=== PATIENT | male | born 1980 | race Caucasian/White ===

== ENCOUNTER 2018-04-01 11:58 | Emergency (ER) | payer MEDICAID, SELFPAY ==
[2018-04-01 12:03] VITALS: BP 147/96; PULSE 100; RESP 18; TEMP 37.1; O2SAT 96
[2018-04-01 12:45] VITALS: BP 122/71; PULSE 79; RESP 18; O2SAT 96
[2018-04-01 13:00] VITALS: BP 109/81; PULSE 82; RESP 18; O2SAT 95
--- NOTE | 2018-04-01 13:02 | W.ED.GENAD ---
Discharge Plan Disposition Patient Disposition: HOME Condition: Improving Discharge Details Chief Complaint: ETOHWithdr Clinical Impression: Alcohol dependence, Fatigue, Hypokalemia, Transaminitis, Fatty liver, Vomiting Primary Care Provider: Unknown,Unknown ED Provider: Brandy Field Home Meds and New Rx's Prescriptions: No Action pantoprazole [Protonix] 40 MG tablet,delayed release (DR/EC) 40 mg PO DAILY Qty: 30 RF: 0 potassium chloride 20 MEQ tablet,ER particles/crystals 20 meq PO DAILY Qty: 7 RF: 0 lorazepam 1 MG tablet 1 mg PO BID PRN PRN (Reason: Alcohol Withdrawal) Qty: 5 RF: 0 Discharge Instructions Instructions: Hypokalemia (ED), Acute Nausea and Vomiting (ED), Fatigue (ED), Alcohol Use Disorder (ED) Additional Instructions: Stop drinking alcohol safely under the direction of a rehab or physician. You can stop drinking more safely with the assistance of benzodiazepines which act as a present similar to alcohol. You cannot drink alcohol if you are taking the Ativan. Take Compazine as needed and directed for nausea or vomiting. Refer to the information you have at home regarding outpatient alcoholic rehab services. Follow-up with your primary care doctor in 1 week for reevaluation and for recheck of your liver function. Return to the emergency department if you develop any worsening or new concerning symptoms such as palpitations, persistent vomiting, worsening abdominal pain, or any other concerns. Discharge Data Discharge Physician: Brandy Field Medical Decision Making 2-year-old male with a history of alcoholism who presents for body aches, fatigue for 2 weeks, worse over the past week. States his last alcoholic drink was just prior to arrival. Symptoms briefly improved with alcohol less and less. Was at rehab for alcohol this past summer but resumed alcohol 3 weeks later. Patient appears mildly intoxicated, smells of alcohol but otherwise appears in no acute distress. Blood pressure room 127/78. Heart rate 81. Remainder of vitals within normal limits. He has mild to moderate upper abdominal tenderness to palpation. No focal deficits. No asterixis. Discussed with patient that his symptoms can be due to his alcoholism including generalized poor nutrition. We can rule out any other acute conditions such as anemia, electrolyte abnormality, liver disease, pancreatitis. Patient just had a drink prior to arrival, with normal vitals, do not suspect acute alcohol withdrawal. Patient states he feels like he wants to stop drinking but also would drink to stop his symptoms. Will place an IV, bolus IV fluids, labs, urinalysis, chest x-ray and dose of Compazine. 1700 --labs and imaging reviewed. Potassium 3.2 will replete. Anion gap 17.2, suspect due to dehydration. AST 232, ALT 205, suspect due to alcoholic liver disease. Lipase normal. Urinalysis and UDS negative. Chest x-ray negative. CT abdomen and pelvis noted fatty infiltration likely due to alcoholic fatty liver disease. 1714 --patient states he feels better and is requesting to go home. Recheck heart rate 80s, blood pressure 124/72. Patient does not appear in acute alcohol withdrawal. Patient states he wants to stop drinking. He states he has information at home regarding outpatient rehab services. States he went to [facility] before and will possibly go here again. Patient admitted to [facility] here. Will send home with 3 tabs of Compazine. Patient states he does not want to drink but would like to safely stop drinking, will send home with 3 tabs of Ativan. Patient was instructed that he cannot drink alcohol and take Ativan due to risk of respiratory depression. Girlfriend is present in room and she fully understands and will help patient at home. Instructed to follow-up with primary care doctor for repeat assessment of liver enzymes and for reevaluation. Instructed to return if worse. HPI General Mode of arrival: ambulatory. Date/Time Provider Initiated Documentation: 04/01/18 12:11. Limitations to Documentation: no limitations. Information obtained by: patient. HPI Narrative: Patient is a 2-year-old male with a history of alcohol use and previous history of IV drug use who presents for body aches, fatigue, nausea, shaking for the past 2 weeks, worse over the past week. Patient states he drinks approximately half a gallon of liquor daily. He admits to rare marijuana use but not recently. He states I feel like my body is shutting down. He states he feels that he has been eating and drinking normally but girlfriend in room states he has a poor appetite. He has been vomiting approximately 3 times daily for the past 4 days which has been clear. He admits to diarrhea 4 times daily recently which is been watery and brown. He also admits to upper abdominal pain which he describes as numb . He denies any abdominal pain at present. He denies neck pain, urinary symptoms, sore throat, chest pain or shortness of breath. Past medical history: Narcotic drug abuse, alcohol abuse Surgical history: None Social history: Smokes tobacco, daily alcohol use, rare marijuana. Medications: None Allergies: None PCP: [facility] Related Data Home Medications Medication Instructions Recorded Confirmed lorazepam 1 mg PO BID PRN PRN #5 tab 10/31/17 pantoprazole [Protonix] 40 mg PO DAILY #30 tablet. 10/31/17 potassium chloride 20 meq PO DAILY #7 tab.er.prt 10/31/17 Previous Rx's Medication Instructions Recorded lorazepam 1 mg PO BID PRN PRN #5 tab 10/31/17 pantoprazole [Protonix] 40 mg PO DAILY #30 tablet. 10/31/17 potassium chloride 20 meq PO DAILY #7 tab.er.prt 10/31/17 Allergies Allergy/AdvReac Type Severity Reaction Status Date / Time No Known Allergies Allergy Unverified 10/31/17 22:01 General Stated Complaint: ETOHWithdr FLOYD: 2 Review of Systems Review of Systems All systems reviewed & are unremarkable except as noted in HPI and below Constitutional Denies chills, Denies excessive sweating, Reports fatigue, Denies fever(s), Reports lethargy, Reports weakness and Denies weight loss Eyes Reports system reviewed and no additional complaints, except as docu and Denies blurry vision ENT Denies vertigo, Denies dizziness, Denies otalgia, Denies nasal congestion, Denies sore throat and Denies throat swelling Cardiovascular Denies chest pain, Denies syncope, Denies rapid heart rate and Denies dyspnea Respiratory Denies dyspnea Gastrointestinal Reports abdominal pain, Denies diarrhea, Reports nausea and Denies vomiting Genitourinary Denies hematuria, Denies dysuria and Reports flank pain Musculoskeletal Reports back pain and Denies joint swelling Integumentary/Breasts Denies lesions and Denies rash Neurologic Denies behavioral changes, Denies confusion, Denies vertigo, Denies dizziness, Denies syncope and Reports weakness Psychiatric Denies behavioral changes, Denies confusion and Denies depression Endocrine Denies excessive sweating and Reports fatigue Hematologic/Lymphatic Denies easy bruising and Denies lymphadenopathy Allergic/Immunologic Denies throat swelling [facility] Social History Smoking/Tobacco Use Status: Current every day Exam Const General: cooperative, no acute distress and intoxicated appearing (mild) Orientation: alert, awake and oriented x3 HENMT Head: normal to inspection Ears: hearing grossly normal bilaterally, external ears normal and TM's normal bilaterally General nose exam: external nose normal Face and sinus: normal facial exam Mouth: oral mucosae normal Teeth and gingiva: dentition normal Throat: posterior oropharynx normal Eyes General: appearance normal, both eyes and all related structures Eyelids: eyelids normal Pupils: PERRL EOM: EOM intact bilaterally Neck Neck: normal visual inspection Lymphatic: no lymphadenopathy noted Chest Chest: normal inspection of the chest Resp Effort & Inspection: normal respiratory effort and able to speak in complete sentences Auscultation: clear to auscultation bilaterally Cardio Rate: regular rate Rhythm: regular rhythm GI Inspection: normal to inspection Palpation: soft, not firm, no guarding, no hepatosplenomegaly, no masses and tender (Mild in upper abdomen) Auscultation: normal bowel sounds Back/Spine/Pelvis Back: no CVA tenderness Skin General skin exam: no rashes or lesions noted and other (alexandria skin complexion) Neuro General: alert and awake Cognition: normal cognition Speech: speech normal Gait: normal gait Motor: muscle tone normal throughout, strength 5/5 throughout, no pronator drift noted and No asterixis Sensory Exam: no sensory deficits noted Extrem General: normal to inspection, full ROM and normal capillary refill Psych Appearance: grossly normal Mental Status: mental status grossly normal Speech and Movement: speech and movement normal Affect: normal affect Thought Process: normal Course Vital Signs Temperature 98.8 F 04/01/18 12:03 Pulse 100 H 04/01/18 12:03 Respiratory Rate 18 04/01/18 12:03 Blood Pressure 147/96 H 04/01/18 12:03 Pulse Oximetry 96 04/01/18 12:03 Temperature 98.8 F 04/01/18 12:03 Temperature Source Temporal Artery Scan 04/01/18 12:03 Pulse 100 H 04/01/18 12:03 Respiratory Rate 18 04/01/18 12:03 Respiratory Effort Non-Labored 04/01/18 12:07 Respiratory Pattern Normal 04/01/18 12:07 Blood Pressure 147/96 H 04/01/18 12:03 Blood Pressure Position Sitting 04/01/18 12:03 Pulse Oximetry 96 04/01/18 12:03 Oxygen Delivery Method Room Air 04/01/18 12:03 Oxygen Flow Rate 0 04/01/18 12:03 Pain Level 5 04/01/18 12:03
--- NOTE | 2018-04-01 13:05 | ED.GENADUL_ITS ---
Discharge Plan Disposition Patient Disposition: HOME Condition: Improving Discharge Details Chief Complaint: ETOHWithdr Clinical Impression: Alcohol dependence, Fatigue, Hypokalemia, Transaminitis, Fatty liver, Vomiting Primary Care Provider: Unknown,Unknown ED Provider: Brandy Field Home Meds and New Rx's Prescriptions: No Action pantoprazole [Protonix] 40 MG tablet,delayed release (DR/EC) 40 mg PO DAILY Qty: 30 RF: 0 potassium chloride 20 MEQ tablet,ER particles/crystals 20 meq PO DAILY Qty: 7 RF: 0 lorazepam 1 MG tablet 1 mg PO BID PRN PRN (Reason: Alcohol Withdrawal) Qty: 5 RF: 0 Discharge Instructions Instructions: Hypokalemia (ED), Acute Nausea and Vomiting (ED), Fatigue (ED), Alcohol Use Disorder (ED) Additional Instructions: Stop drinking alcohol safely under the direction of a rehab or physician. You can stop drinking more safely with the assistance of benzodiazepines which act as a present similar to alcohol. You cannot drink alcohol if you are taking the Ativan. Take Compazine as needed and directed for nausea or vomiting. Refer to the information you have at home regarding outpatient alcoholic rehab services. Follow-up with your primary care doctor in 1 week for reevaluation and for recheck of your liver function. Return to the emergency department if you develop any worsening or new concerning symptoms such as palpitations, persistent vomiting, worsening abdominal pain, or any other concerns. Discharge Data Discharge Physician: Brandy Field Medical Decision Making 2-year-old male with a history of alcoholism who presents for body aches, fatigue for 2 weeks, worse over the past week. States his last alcoholic drink was just prior to arrival. Symptoms briefly improved with alcohol less and less. Was at rehab for alcohol this past summer but resumed alcohol 3 weeks later. Patient appears mildly intoxicated, smells of alcohol but otherwise appears in no acute distress. Blood pressure room 127/78. Heart rate 81. Remainder of vitals within normal limits. He has mild to moderate upper abdominal tenderness to palpation. No focal deficits. No asterixis. Discussed with patient that his symptoms can be due to his alcoholism including generalized poor nutrition. We can rule out any other acute conditions such as anemia, electrolyte abnormality, liver disease, pancreatitis. Patient just had a drink prior to arrival, with normal vitals, do not suspect acute alcohol withdrawal. Patient states he feels like he wants to stop drinking but also would drink to stop his symptoms. Will place an IV, bolus IV fluids, labs, urinalysis, chest x-ray and dose of Compazine. 1700 --labs and imaging reviewed. Potassium 3.2 will replete. Anion gap 17.2, suspect due to dehydration. AST 232, ALT 205, suspect due to alcoholic liver disease. Lipase normal. Urinalysis and UDS negative. Chest x-ray negative. CT abdomen and pelvis noted fatty infiltration likely due to alcoholic fatty liver disease. 1714 --patient states he feels better and is requesting to go home. Recheck heart rate 80s, blood pressure 124/72. Patient does not appear in acute alcohol withdrawal. Patient states he wants to stop drinking. He states he has information at home regarding outpatient rehab services. States he went to [facility] before and will possibly go here again. Patient admitted to [facility] here. Will send home with 3 tabs of Compazine. Patient states he does not want to drink but would like to safely stop drinking, will send home with 3 tabs of Ativan. Patient was instructed that he cannot drink alcohol and take Ativan due to risk of respiratory depression. Girlfriend is present in room and she fully understands and will help patient at home. Instructed to follow-up with primary care doctor for repeat assessment of liver enzymes and for reevaluation. Instructed to return if worse. HPI General Mode of arrival: ambulatory . Date/Time Provider Initiated Documentation: 04/01/18 12:11 . Limitations to Documentation: no limitations . Information obtained by: patient . HPI Narrative: Patient is a 2-year-old male with a history of alcohol use and previous history of IV drug use who presents for body aches, fatigue, nausea, shaking for the past 2 weeks, worse over the past week. Patient states he drinks approximately half a gallon of liquor daily. He admits to rare marijuana use but not recently. He states I feel like my body is shutting down . He states he feels that he has been eating and drinking normally but girlfriend in room states he has a poor appetite. He has been vomiting approximately 3 times daily for the past 4 days which has been clear. He admits to diarrhea 4 times daily recently which is been watery and brown. He also admits to upper abdominal pain which he describes as numb . He denies any abdominal pain at present. He denies neck pain, urinary symptoms, sore throat, chest pain or shortness of breath. Past medical history: Narcotic drug abuse, alcohol abuse Surgical history: None Social history: Smokes tobacco, daily alcohol use, rare marijuana. Medications: None Allergies: None PCP: [facility] Related Data Home Medications Medication Instructions Recorded Confirmed lorazepam 1 mg PO BID PRN PRN #5 tab 10/31/17 pantoprazole [Protonix] 40 mg PO DAILY #30 tablet. 10/31/17 potassium chloride 20 meq PO DAILY #7 tab.er.prt 10/31/17 Previous Rx's Medication Instructions Recorded lorazepam 1 mg PO BID PRN PRN #5 tab 10/31/17 pantoprazole [Protonix] 40 mg PO DAILY #30 tablet. 10/31/17 potassium chloride 20 meq PO DAILY #7 tab.er.prt 10/31/17 Allergies Allergy/AdvReac Type Severity Reaction Status Date / Time No Known Allergies Allergy Unverified 10/31/17 22:01 General Stated Complaint: ETOHWithdr FLOYD: 2 Review of Systems Review of Systems All systems reviewed & are unremarkable except as noted in HPI and below Constitutional Denies chills, Denies excessive sweating, Reports fatigue, Denies fever(s), Reports lethargy, Reports weakness and Denies weight loss Eyes Reports system reviewed and no additional complaints, except as docu and Denies blurry vision ENT Denies vertigo, Denies dizziness, Denies otalgia, Denies nasal congestion, Denies sore throat and Denies throat swelling Cardiovascular Denies chest pain, Denies syncope, Denies rapid heart rate and Denies dyspnea Respiratory Denies dyspnea Gastrointestinal Reports abdominal pain, Denies diarrhea, Reports nausea and Denies vomiting Genitourinary Denies hematuria, Denies dysuria and Reports flank pain Musculoskeletal Reports back pain and Denies joint swelling Integumentary/Breasts Denies lesions and Denies rash Neurologic Denies behavioral changes, Denies confusion, Denies vertigo, Denies dizziness, Denies syncope and Reports weakness Psychiatric Denies behavioral changes, Denies confusion and Denies depression Endocrine Denies excessive sweating and Reports fatigue Hematologic/Lymphatic Denies easy bruising and Denies lymphadenopathy Allergic/Immunologic Denies throat swelling [facility] Social History Smoking/Tobacco Use Status: Current every day Exam Const General: cooperative, no acute distress and intoxicated appearing (mild) Orientation: alert, awake and oriented x3 HENMT Head: normal to inspection Ears: hearing grossly normal bilaterally, external ears normal and TM's normal bilaterally General nose exam: external nose normal Face and sinus: normal facial exam Mouth: oral mucosae normal Teeth and gingiva: dentition normal Throat: posterior oropharynx normal Eyes General: appearance normal, both eyes and all related structures Eyelids: eyelids normal Pupils: PERRL EOM: EOM intact bilaterally Neck Neck: normal visual inspection Lymphatic: no lymphadenopathy noted Chest Chest: normal inspection of the chest Resp Effort & Inspection: normal respiratory effort and able to speak in complete sentences Auscultation: clear to auscultation bilaterally Cardio Rate: regular rate Rhythm: regular rhythm GI Inspection: normal to inspection Palpation: soft, not firm, no guarding, no hepatosplenomegaly, no masses and tender (Mild in upper abdomen) Auscultation: normal bowel sounds Back/Spine/Pelvis Back: no CVA tenderness Skin General skin exam: no rashes or lesions noted and other (alexandria skin complexion) Neuro General: alert and awake Cognition: normal cognition Speech: speech normal Gait: normal gait Motor: muscle tone normal throughout, strength 5/5 throughout, no pronator drift noted and No asterixis Sensory Exam: no sensory deficits noted Extrem General: normal to inspection, full ROM and normal capillary refill Psych Appearance: grossly normal Mental Status: mental status grossly normal Speech and Movement: speech and movement normal Affect: normal affect Thought Process: normal Course Vital Signs Temperature 98.8 F 04/01/18 12:03 Pulse 100 H 04/01/18 12:03 Respiratory Rate 18 04/01/18 12:03 Blood Pressure 147/96 H 04/01/18 12:03 Pulse Oximetry 96 04/01/18 12:03 Temperature 98.8 F 04/01/18 12:03 Temperature Source Temporal Artery Scan 04/01/18 12:03 Pulse 100 H 04/01/18 12:03 Respiratory Rate 18 04/01/18 12:03 Respiratory Effort Non-Labored 04/01/18 12:07 Respiratory Pattern Normal 04/01/18 12:07 Blood Pressure 147/96 H 04/01/18 12:03 Blood Pressure Position Sitting 04/01/18 12:03 Pulse Oximetry 96 04/01/18 12:03 Oxygen Delivery Method Room Air 04/01/18 12:03 Oxygen Flow Rate 0 04/01/18 12:03 Pain Level 5 04/01/18 12:03
[2018-04-01] MEDS: Normal Saline 1,000 ML 1000 ML IV (13:20)
[2018-04-01 13:27] LABS: Abs Immature Grans 0.02 k/cumm (0.0-0.09); Absolute Basophil Count 0.02 k/cumm (0.0-0.2); Absolute Eosinophil Count 0.08 k/cumm (0.0-0.7); Absolute Lymphocyte Count 2.03 k/cumm (1.2-3.4); Absolute Monocyte Count 0.95 k/cumm (0.11-0.7); Absolute Neutrophil Count 2.34 k/cumm (1.2-6.7); Basophils % 0.4; Eosinophils % 1.5; HCT 48.4 % (40.0-50.0); HGB 17.5 g/dL (13.5-17.5); Immature Grans % 0.4; Lymphocytes % 37.3; Mean Corp. HGB Concentration 36.2 g/dL (32.0-36.0); Mean Corpuscular Hemoglobin 34.9 pg (27.0-33.0); Mean Corpuscular Volume 96.6 fL (80-95); Mean Platelet Volume 11.2 fL (8.0-11.0); Monocytes % 17.5; Neutrophils % 42.9; Platelet Count 140 x1000/uL (130-400); RBC 5.01 m/cumm (4.50-6.00); RBC Distribution Width 12.6 % (11.8-14.1); White Blood Cell Count 5.44 k/cumm (4.4-10.8)
--- NOTE | 2018-04-01 13:28 | DI.RAD_ITS ---
SYMPTOM/DIAGNOSIS: FATIGUE, ALCOHOLISM, RULE OUT PNEUMONIA. PA AND LATERAL CHEST: 04/01/18 The heart is normal in size. The lungs are clear. The mediastinal structures and pleura appear intact. CONCLUSION: Normal chest.
[2018-04-01 13:39] LABS: Magnesium 2.3 mg/dL (1.8-2.4)
[2018-04-01 13:44] LABS: ALT 205 U/L (12-78); AST 232 U/L (15-37); Alkaline Phosphatase 104 U/L (46-116); Anion Gap 17.2 mmol/L (3-11); BUN 7 mg/dL (7-18); Bilirubin, Total 0.4 mg/dL (0.2-1.0); CO2 22.8 mmol/L (21.0-32.0); CREATININE 0.94 mg/dL (0.70-1.30); Calcium 9.3 mg/dL (8.5-10.1); Chloride 100 mmol/L (98-107); ETHANOL BLOOD 219.5 mg/dL (<3); Glucose 142 mg/dL (70-100); Lipase 263 U/L (73-393); Potassium 3.2 mmol/L (3.5-5.1); Sodium 140 mmol/L (136-145); Total Protein 8.2 g/dL (6.4-8.2)
[2018-04-01 13:51] LABS: Bilirubin Negative (Negative); Blood Negative (Negative); Clarity Clear; Glucose Negative (Negative); Ketones Negative (Negative); Leukocyte Esterase Negative (Negative); Nitrite Negative (Negative); Urobilinogen 0.2 EU/dL (Up TO 0.2)
--- NOTE | 2018-04-01 13:53 | DI.VRAD_ITS ---
EXAM: XR Chest, 2 Views CLINICAL HISTORY: 38 years old, male; Signs and symptoms; Other: Increased fatique; Patient HX: Fatigue, alcoholism, R/O pneumonia. TECHNIQUE: Frontal and lateral views of the chest. COMPARISON: CR ABD FLAT UPRIGHT PA CHEST 10/31/2017 10:50 PM FINDINGS: Old granulomatous disease. Mild hyperaeration unchanged. No focal consolidation. No pleural effusion. IMPRESSION: No definite evidence of acute cardiopulmonary disease. Dictated and Authenticated by: Dereck Watson MD. Ordering:BUBBA GILL MD
[2018-04-01 15:00] LABS: *AMPHETAMINES SCREEN URINE Negative (Negative); *BARBITURATES SCREEN URINE Negative (Negative); *BENZODIAZEPINES SCREEN URINE Negative (Negative); Cannabinoids THC Negative (Negative); Cocaine Screen,Urine Negative (Negative); METHADONE URINE SCREEN Negative (Negative); OPIATES URINE SCREEN Negative (Negative)
[2018-04-01 15:16] LABS: Tricyclic Antidepressants Negative (Negative)
--- NOTE | 2018-04-01 15:22 | DI.CT_ITS ---
SYMPTOM/DIAGNOSIS: UPPER ABDOMINAL PAIN, TRANSAMINITIS ABDOMINAL AND PELVIC CT: 04/01 CT examination of the abdomen and pelvis was performed with a bolus infusion of 100 cc Omnipaque 350. Images obtained through the lung bases are unremarkable. Note is made of marked hepatic steatosis and the liver is enlarged. Spleen is unremarkable in appearance. No significant abdominal wall hernia seen. No significant abdominal or pelvic adenopathy identified. Abdominal aorta is of normal diameter and no major vascular abnormality is seen. Adrenals and kidneys appear normal. Appendix appears normal. No evidence of diverticulitis or bowel obstruction. Gallbladder is CT normal and no biliary dilatation is seen. Pancreas is unremarkable. CONCLUSION: Marked hepatic steatosis. Examination is otherwise unremarkable.
--- NOTE | 2018-04-01 15:30 | DI.VRAD_ITS ---
EXAM: CT Abdomen and Pelvis With Intravenous Contrast CLINICAL HISTORY: 38 years old, male; Pain; Abdominal pain; Other: Transaminitis TECHNIQUE: Axial computed tomography images of the abdomen and pelvis with intravenous contrast. Coronal and sagittal reformatted images were created and reviewed. COMPARISON: No relevant prior studies available. FINDINGS: Diffuse fatty infiltration of liver. Appendix appears normal. Otherwise normal appearing solid organs. No intestinal obstruction. No obstructive uropathy. No free fluid. No free air. No inflammatory changes. IMPRESSION: No specific etiology identified for the patient's symptoms. Dictated and Authenticated by: Dereck Watson MD. Ordering:BUBBA GILL MD
[2018-04-01] MEDS: Omnipaque 350 MG/ML 100 ML BTL IJ (15:31)
[2018-04-01 16:01] VITALS: BP 139/84; PULSE 77; RESP 16; TEMP 36.9; O2SAT 97
[2018-04-01] MEDS: Potassium Chloride 20 MEQ TABCR 40 MEQ PO (17:21)
[2018-04-01] MEDS: Prochlorperazine 10 MG TAB PO (17:51)
[2018-04-01] MEDS: LORazepam 0.5 MG TAB PO (17:51)
[2018-04-01 17:52] VITALS: BP 139/84; PULSE 77; RESP 16; TEMP 36.9; O2SAT 97
== END 2018-04-01 17:53 | disposition home or self-care (01) ==
PROVIDERS: Emergency Provider Physician Assistant
DX: F10.229 Alcohol dependence with intoxication, unspecified (principal); Y90.7 Blood alcohol level of 200-239 mg/100 ml; E87.6 Hypokalemia; R74.0 Nonspecific elevation of levels of transaminase and lactic acid dehydrogenase [LDH]; R53.83 Other fatigue
CPT/HCPCS: 36415; 80053; 80307; 83690; 96360; 96361; 99285; 71046; 74177; 80320; 81003; 83735; 85025; J3490

== ENCOUNTER 2018-12-13 07:43 | Emergency (ER) | payer MEDICAID, SELFPAY ==
[2018-12-13 07:50] VITALS: BP 135/90; PULSE 100; RESP 18; TEMP 37.1; O2SAT 98
--- NOTE | 2018-12-13 08:02 | ED.GENADUL_ITS ---
Discharge Plan Disposition Patient Disposition: HOME Condition: Stable Discharge Details Chief Complaint: Nk/Back Pain Clinical Impression: Chronic back pain Primary Care Provider: Unknown,Unknown ED Provider: Belinda Carroll Home Meds and New Rx's Prescriptions: New prednisone 20 mg tablet 40 mg PO DAILY Qty: 8 RF: 0 lidocaine [Lidoderm] 5 % adhesive patch,medicated 1 patch TP DAILY Qty: 15 RF: 0 Continued potassium chloride 20 MEQ tablet,ER particles/crystals 20 meq PO DAILY Qty: 7 RF: 0 Discharge Instructions Instructions: Chronic Back Pain (ED) Additional Instructions: Please return immediately to the emergency department if you develop any new or worsening symptoms or if you become otherwise concerned. It is extremely important that you call as soon as possible to make an appointment to be seen in follow-up by a primary care doctor. Stand Alone Forms: Work Release Discharge Data Discharge Date/Time-TO BE ENTERED AT DEPARTURE: 12/13/18 08:32 Medical Decision Making Prashant Sauer is a 38-year-old man with history of alcohol abuse, chronic back pain presenting to the emergency department with acute on chronic back pain over the past 2 weeks. Patient is well and nontoxic appearing on physical exam. Tenderness to palpation over L4-L5 without deformity, crepitus, or step-off. Normal neurologic exam of the lower extremities. Exam/history is not consistent with cauda equina syndrome, epidural abscess/hematoma or other cord compression, fracture, acute aortic pathology or other non-musculoskeletal etiology of pain. Plan for prednisone burst, Lidoderm patches, and outpatient follow-up. Patient placed on care management list for outpatient follow-up. I had a lengthy discussion with the patient regarding return to emergency department precautions, importance of outpatient follow-up, and home care. Patient verbalized understanding of the plan and was amenable, and patient was discharged home with clear plan for outpatient follow-up. All questions were answered. Medical Records Medical records reviewed: Yes I reviewed the patient's medical records. HPI General Mode of arrival: ambulatory . Date/Time Provider Initiated Documentation: 12/13/18 07:45 . Limitations to Documentation: no limitations . Information obtained by: patient, RN notes reviewed and old records reviewed . HPI Narrative: Prashant Sauer is a 38 y/o man with h/o alcohol abuse presenting to the emergency department complaining of back pain. Patient reports that he has a long history of chronic lower back pain. Patient reports that 2 weeks ago, he was doing some heavy lifting and had worsening of his lower back pain, exactly similar as what has happened multiple times over the past few years when he has had acute on chronic low back pain. Patient reports that he has had to continue to lift heavy items for work, and each time he lifts something his back pain seems to be worse. He reports that when he has had several days to rest, he has had significant improvement in his pain in the past. Patient reports that he has been taking ibuprofen which helps the pain somewhat. Patient states that he is here for work note only, and states that there are no unusual or atypical features of this exacerbation of his back pain. Same as prior exacerbations in location, quality, and severity. He denies bowel or bladder changes, weakness/numbness of the lower extremities, any other new or worsening pain. Has been eating and drinking as usual. Related Data Home Medications Medication Instructions Recorded Confirmed potassium chloride 20 meq PO DAILY #7 tab.er.prt 10/31/17 12/13/18 lidocaine [Lidoderm] 1 patch TP DAILY #15 each 12/13/18 prednisone 40 mg PO DAILY #8 tab 12/13/18 Previous Rx's Medication Instructions Recorded potassium chloride 20 meq PO DAILY #7 tab.er.prt 10/31/17 lidocaine [Lidoderm] 1 patch TP DAILY #15 each 12/13/18 prednisone 40 mg PO DAILY #8 tab 12/13/18 Allergies Allergy/AdvReac Type Severity Reaction Status Date / Time No Known Allergies Allergy Unverified 10/31/17 22:01 General Stated Complaint: Nk/Back Pain FLOYD: 4 Review of Systems Review of Systems Constitutional: denies fevers Eyes: denies eye pain ENT: denies facial pain, dental pain, sore throat Cardiovascular: denies chest pain Respiratory: denies SOB, cough GI: denies abdominal pain, vomiting, diarrhea, constipation : denies flank pain, changes in urination, urinary incontinence, dysuria MSK: denies neck pain, arthralgias, myalgias, reports back pain as per HPI Skin: denies rash Neuro: denies headaches, numbness, weakness PFSH Social History Smoking/Tobacco Use Status: Current every day Alcohol Intake: current Alcohol Intake frequency: 3 or more drinks per day Alcohol type: beer Drug use: Rarely Substance use type: does not use Do you feel safe at home: Yes Do you feel safe in your relationship?: Yes Exam Narrative Exam Narrative: Constitutional: well and [id number], pleasant, conversing normally HENT: head atraumatic/normocephalic/normal inspection, mucous membranes moist Eyes: conjunctiva normal, sclera normal, pupils 3mm b/l Neck: no stridor, normal ROM, trachea midline Chest: normal inspection Resp: normal work of breathing, LCTAB Cardio: normal rate, normal rhythm, no murmur appreciated Back: normal inspection, no rash, tenderness to palpation over L4-L5, no other spinal tenderness to palpation, no paraspinal tenderness to palpation, no overlying skin changes Skin: warm, dry, normal color, no rash Neuro: alert, not altered, grossly non-focal, normal tone, motor 5 out of 5 bilateral lower extremities, normal sensation bilateral lower extremities Ext: no edema Psych: normal mood, normal affect, normal behavior Course Vital Signs Temperature 37.1 C 12/13/18 07:50 Pulse 100 H 12/13/18 07:50 Respiratory Rate 18 12/13/18 07:50 Blood Pressure 135/90 12/13/18 07:50 Pulse Oximetry 98 12/13/18 07:50 Temperature 37.1 C 12/13/18 07:50 Pulse 100 H 12/13/18 07:50 Respiratory Rate 18 12/13/18 07:50 Respiratory Effort Non-Labored 12/13/18 07:54 Blood Pressure 135/90 12/13/18 07:50 Pulse Oximetry 98 12/13/18 07:50 Pain Level 6 12/13/18 07:50
[2018-12-13] MEDS: predniSONE 20 MG TAB 40 MG PO (08:20)
[2018-12-13] MEDS: Lidocaine 5% Patch 1 PATCH TP (08:21)
[2018-12-13 08:30] VITALS: BP 135/90; PULSE 100; RESP 18; TEMP 37.1; O2SAT 98
--- NOTE | 2018-12-13 08:31 | NUR.NOTE ---
Nursing Note: Work release note was faxed to [facility] [employer]. [phone]. Josefa Herrera.
== END 2018-12-13 08:32 | disposition home or self-care (01) ==
PROVIDERS: Emergency Provider Student in an Organized Health Care Education/Training Program
DX: M54.5 Low back pain (principal); G89.29 Other chronic pain
CPT/HCPCS: 99283; J7512

== ENCOUNTER 2023-05-16 10:15 | Emergency (ER) | payer SELFPAY ==
--- NOTE | 2023-05-16 10:15 | RT.EKG_ITS ---
APPROVED REPORT Exam: Resting ECG Reason for Exam: chest pain Patient Location: E HR:84 bpm ECG Measurements Heart Rate 84 AXIS OR 155 P 16 QRSd 77 QRS 28 QT 351 T 27 QTc 415 Conclusion Sinus rhythm... V-rate 60- [address] segment or T wave abnormalities to suggest occlusive CT
[2023-05-16 10:20] VITALS: BP 160/103; PULSE 95; RESP 18; TEMP 37.4; O2SAT 97
--- NOTE | 2023-05-16 10:45 | DI.RAD_ITS ---
Exam(s) XR CHEST 2V PA LATERAL EXAM: XR CHEST 2V PA LATERAL CLINICAL HISTORY: chest pressure. TECHNIQUE: 2D digital imaging was performed. COMPARISON: CR XR CHEST 2V PA LATERAL from 04/01/2018 FINDINGS: 2 views: Heart size is normal. The mediastinum is not widened. Lungs are clear. No infiltrates nor pleural effusions. IMPRESSION: No acute pulmonary findings. DATA REPOSITORY: RADIATION DOSE DELIVERED:
--- NOTE | 2023-05-16 10:58 | ED.GENADUL_ITS ---
Discharge Plan Disposition Patient Disposition: Home Condition: Good Discharge Details Clinical Impression: Chest pain, Liver disease, Thrombocytopenia, Hypertension Primary Care Provider: Unknown,Unknown ED Provider: Mar Crisostomo Home Meds and New Rx's Prescriptions: No Action lidocaine [Lidoderm] 5 % adhesive patch,medicated 1 patch TP DAILY Qty: 15 0RF Rx Instructions: leave on most painful area for 12 hrs, do not use more than one patch in a 24 hour period potassium chloride 20 MEQ tablet,ER particles/crystals 20 meq PO DAILY Qty: 7 0RF Discharge Instructions Instructions: Chest Pain (ED), Jaundice (ED) Additional Instructions: Your bloodwork did not show any sign of damage to your heart or blood clots. Your EKG is reassuring. You need to follow up with a primary care doctor. Your labs do show signs of liver disease- someone will need to follow up on this. You also have low plat elets (help your blood clot). A referral has been sent and they will call you to schedule an appointment. Return to the emergency department for new or worsening symptoms including fever, abdominal pain, new/different/worse chest pain, or if you have any other concerns. Medical Decision Making 43yo M with no significant prior medical history presenting for concern for heart attack; evaluated at urgent care last week for 'whooshing in ears', at that time had an EKG and was told he had had a heart attack, reports he was advised to followup with ENT and establish primary care. Today with mild dull substernal chest pressure for 4-5 hours. No chest pain. No difficulty breathing currently (reports occasionally). Hypertensive on arrival and slightly tachycardiac to 95, vital signs otherwise reassuring. Not septic. Physical exam reassuring, lungs CTAB, non-toxic appearing, no abdominal tenderness; he does have scleral icterus. He reports daily alcohol consumption for several years, has also been taking tylenol frequently for the past several days though staying within the recommended maximum dosage and frequency listed on the bottle. EKG sinus rhythm, no ST segment or T wave abnormalities to suggest occlusive [place]. CXR independently reviewed, no pneumonia or pneumothorax on my view, agree with radiology read below. Labs reviewed as below, CBC with normal WBC and normal Hg, thrombocytopenic to 38 (patient with no history of this). Dimer negative, would not further pursue pulmonary embolism with CT. roponin negative; in the setting of hours of constant chest pressure will not get repeat. Lipase mildly elevated (not consistent with pancreatitis). CMP with normal electrolytes, bilirubin elevated to 2.5 and AST elevated to 140 with ALT of 50, slightly elevated alkphos. Serum tylenol level appropriate. Elevated LFTs and thrombocytopenia unlikely to be related to presenting symptoms today (chest pressure and tinnitus)- most likely thrombocytpenia related to syntehstic dysfunction in the setting of liver disease. Not consistent with DIC/TTP/HUS. Will need further workup on an outpatient basis. Not tylenol toxicity. No abdominal tenderness on exam to suggest gallbladder pathology; would not get emergent ultrasound. He denies any active bleeding including GI bleeding. Referral for primary care was sent to establish care within the next 1-2 weeks as he will need close outpatient followup for these findings. Discharged home; discharge instructions including return precautions were reviewed with patient who verbalized understanding. All questions were answered and they are in full agreement with the plan. Medical Records Medical records reviewed: Yes I reviewed the patient's medical records. Medical records narrative: prior labs Imaging Data Radiologic Study: Imaging: X-Ray Radiologist's impression: IMPRESSION: No acute pulmonary findings. Lab Data Lab results reviewed: Yes I reviewed the patient's lab results. Labs: Laboratory Tests Range/Units 05/16/23 05/16/23 05/16/23 11:00 11:00 12:20 WBC (4.4-10.8) 10^3/uL 6.05 RBC (4.36-5.78) 10^6/uL 4.06 L Hgb (13.5-17.5) g/dL 14.0 Hct (40.0-50.0) % 38.7 L MCV (80-95) fL 95 MCH (27.0-33.0) pg 34.5 H MCHC (32.0-36.0) % 36.2 H RDW (11.8-14.1) % 14.4 H Plt Count (130-400) 10^3/uL 38 L MPV (8.0-11.0) fL 11.3 H Immature Gran % 0.3 Neutrophils % 54.1 Lymphocytes % 24.0 Monocytes % 19.5 Eosinophils % 0.8 Basophils % 1.3 Nucleated RBC % (0.0-0.3) % 0.0 Absolute Neutrophils (1.2-6.7) 10^3/uL 3.27 Absolute Lymphocytes (1.2-3.4) 10^3/uL 1.45 Absolute Monocytes (0.1-0.8) 10^3/uL 1.18 H Absolute Eosinophils (0.0-0.7) 10^3/uL 0.05 Absolute Basophils (0.0-0.2) 10^3/uL 0.08 D-Dimer (<500) ng/mlFEU 343 Sodium (136-145) mmol/L 140 Potassium (3.5-5.1) mmol/L 3.8 Chloride (98-107) mmol/L 102 Carbon Dioxide (21.0-32.0) mmol/L 27.6 Anion Gap (3-11) mmol/L 10.4 BUN (7-18) mg/dL 6 L Creatinine (0.70-1.30) mg/dL 0.6 L Est GFR (CKD-EPI 2020) (mL/min/1.73m2) 121.32 Glucose (74-106) mg/dL 115 H Calcium (8.5-10.1) mg/dL 8.6 Magnesium (1.8-2.4) mg/dL 2.0 Total Bilirubin (0.2-1.0) mg/dL 2.5 H AST (15-37) U/L 140 H ALT (16-63) U/L 50 Alkaline Phosphatase (46-116) U/L 165 H Troponin I (<or=60) ng/L < 50 Total Protein (6.4-8.2) g/dL 7.7 Albumin (3.4-5.0) g/dL 3.4 Lipase (16-77) U/L 101 H Cancelled Acetaminophen (10-30) ug/mL 7 Range/Units 05/16/23 13:57 WBC (4.4-10.8) 10^3/uL RBC (4.36-5.78) 10^6/uL Hgb (13.5-17.5) g/dL Hct (40.0-50.0) % MCV (80-95) fL MCH (27.0-33.0) pg MCHC (32.0-36.0) % RDW (11.8-14.1) % Plt Count (130-400) 10^3/uL MPV (8.0-11.0) fL Immature Gran % Neutrophils % Lymphocytes % Monocytes % Eosinophils % Basophils % Nucleated RBC % (0.0-0.3) % Absolute Neutrophils (1.2-6.7) 10^3/uL Absolute Lymphocytes (1.2-3.4) 10^3/uL Absolute Monocytes (0.1-0.8) 10^3/uL Absolute Eosinophils (0.0-0.7) 10^3/uL Absolute Basophils (0.0-0.2) 10^3/uL D-Dimer (<500) ng/mlFEU Sodium (136-145) mmol/L Potassium (3.5-5.1) mmol/L Chloride (98-107) mmol/L Carbon Dioxide (21.0-32.0) mmol/L Anion Gap (3-11) mmol/L BUN (7-18) mg/dL Creatinine (0.70-1.30) mg/dL Est GFR (CKD-EPI 2020) (mL/min/1.73m2) Glucose (74-106) mg/dL Calcium (8.5-10.1) mg/dL Magnesium (1.8-2.4) mg/dL Total Bilirubin (0.2-1.0) mg/dL AST (15-37) U/L ALT (16-63) U/L Alkaline Phosphatase (46-116) U/L Troponin I (<or=60) ng/L Cancelled Total Protein (6.4-8.2) g/dL Albumin (3.4-5.0) g/dL Lipase (16-77) U/L Acetaminophen (10-30) ug/mL HPI General Mode of arrival: ambulatory . Date/Time Provider Initiated Documentation: 05/16/23 10:18 . Limitations to Documentation: no limitations . Information obtained by: patient . HPI Narrative: 43yo M with no significant prior medical history presenting for concern for heart attack. Per patient, he was seen at urgent care last week for 'whooshing in ears', at that time had an EKG and was told he had had a heart attack. He was advised to followup with ENT for ear symptoms and establish with primary care, as well as to present to the ED for chest pain. Today her reports multiple symptoms, including constant substernal chest pressure since early this morning, 'decreased blood flow everywhere' including 'my brain and my legs'. Sometimes feels short of breath, not currently. No fevers, chills, rash, naus ea, vomiting, abdominal pain, LE edema, numbness, weakness, or other concerns. Related Data Home Medications Medication Instructions Recorded Confirmed potassium chloride 20 mEq 20 meq PO DAILY ##7 10/31/17 05/16/23 tablet,extended release(part/cryst) lidocaine 5 % topical patch 1 patch topical DAILY #15 ea 12/13/18 05/16/23 (Lidoderm) Previous Rx's Medication Instructions Recorded potassium chloride 20 mEq 20 meq PO DAILY ##7 10/31/17 tablet,extended release(part/cryst) lidocaine 5 % topical patch 1 patch topical DAILY #15 ea 12/13/18 (Lidoderm) Allergies Allergy/AdvReac Type Severity Reaction Status Date / Time No Known Allergies Allergy Unverified 05/16/23 10:29 General Stated Complaint: GenMedical FLOYD: 3 Review of Systems Narrative: see HPI PFSH All Active Problems (Updated 05/16/23 @ 14:23 by Mar Crisostomo MD) Hypertension (Chronic) Thrombocytopenia (Chronic) Chest pain (Acute) Liver disease (Acute) Social History Smoking/Tobacco Use Status: Current every day Smoking risk assessment performed?: Yes Alcohol Intake: current Alcohol Intake frequency: 3 or more drinks per day Alcohol type: beer Drug use: Rarely Substance use type: does not use Do you feel safe at home: Yes Do you feel safe in your relationship?: Yes Exam Narrative Exam Narrative: General: Alert, well appearing, well nourished, in no acute distress. Head: Normocephalic, atraumatic. Scleral icterus. Neck: Trachea midline, Neck supple. ENT: MMM. No oropharygeal lesions or exudate. Cardiac: RRR, no murmurs appreciated Resp: No respiratory distress. CTAB. Abd: Soft, non-distended, nontender : No suprapubic tenderness. Extremities: No deformities. No peripheral edema. Neurologic: GCS 15. Moves all extremities freely against gravity Course Vital Signs Vital signs: Vital Signs Temperature 37.4 C 05/16/23 10:20 Pulse 95 H 05/16/23 10:20 Respiratory Rate 18 05/16/23 10:20 Blood Pressure 160/103 H 05/16/23 10:20 Pulse Oximetry 97 05/16/23 10:20 Temperature 37.4 C 05/16/23 10:20 Temperature Source Skin 05/16/23 10:20 Pulse 95 H 05/16/23 10:20 Respiratory Rate 18 05/16/23 10:20 Blood Pressure 160/103 H 05/16/23 10:20 Blood Pressure Position Sitting 05/16/23 10:20 Pulse Oximetry 97 05/16/23 10:20 Oxygen Delivery Method Room Air 05/16/23 10:20 Oxygen Flow Rate 0 05/16/23 10:20 Pain Level 7 05/16/23 10:20
[2023-05-16 11:10] LABS: Abs Immature Grans 0.02 10^3/uL (0.0-0.06); Absolute Basophil Count 0.08 10^3/uL (0.0-0.2); Absolute Eosinophil Count 0.05 10^3/uL (0.0-0.7); Absolute Lymphocyte Count 1.45 10^3/uL (1.2-3.4); Absolute Monocyte Count 1.18 10^3/uL (0.1-0.8); Absolute Neutrophil Count 3.27 10^3/uL (1.2-6.7); Basophils % 1.3; Eosinophils % 0.8; HCT 38.7 % (40.0-50.0); Immature Grans % 0.3; MCH 34.5 pg (27.0-33.0); MCHC 36.2 % (32.0-36.0); MCV 95 fL (80-95); MPV 11.3 fL (8.0-11.0); Monocytes % 19.5; Neutrophils % 54.1; RBC 4.06 10^6/uL (4.36-5.78); RDW 14.4 % (11.8-14.1); RDW-SD 50.2 fL; WBC 6.05 10^3/uL (4.4-10.8)
[2023-05-16 11:24] LABS: Platelet Count 38 10^3/uL (130-400)
[2023-05-16 11:32] LABS: ALT 50 U/L (16-63); AST 140 U/L (15-37); Albumin 3.4 g/dL (3.4-5.0); Alkaline Phosphatase 165 U/L (46-116); Anion Gap 10.4 mmol/L (3-11); BUN 6 mg/dL (7-18); Bilirubin, Total 2.5 mg/dL (0.2-1.0); CO2 27.6 mmol/L (21.0-32.0); CREATININE 0.6 mg/dL (0.70-1.30); Calcium 8.6 mg/dL (8.5-10.1); Chloride 102 mmol/L (98-107); Estimated GFR 121.32 (mL/min/1.73m2); Glucose 115 mg/dL (74-106); Lipase 101 U/L (16-77); Potassium 3.8 mmol/L (3.5-5.1); Sodium 140 mmol/L (136-145); Total Protein 7.7 g/dL (6.4-8.2); Troponin I < 50 ng/L (<or=60)
[2023-05-16 11:45] LABS: D-Dimer 343 ng/mlFEU (<500)
[2023-05-16 12:55] LABS: Acetaminophen 7 ug/mL (10-30)
--- NOTE | 2023-05-16 13:37 | NUR.NOTE ---
Referral given to Care Management for elevated bilirubin, low platelets, establish care in 1 to 2 weeks. Nursing Note:
== END 2023-05-16 13:15 | disposition home or self-care (01) ==
PROVIDERS: Emergency Provider Student in an Organized Health Care Education/Training Program
DX: R00.2 Palpitations (principal); R07.9 Chest pain, unspecified; K76.9 Liver disease, unspecified; D69.6 Thrombocytopenia, unspecified; I10 Essential (primary) hypertension; R94.31 Abnormal electrocardiogram [ECG] [EKG]; F17.210 Nicotine dependence, cigarettes, uncomplicated
CPT/HCPCS: 36415; 80053; 83690; 93005; 99283; 71046; 80329; 83735; 84484; 85025; 85379; 93010

== ENCOUNTER → 2023-06-08 09:32 | Outpatient (CLI) | payer MEDICAID, SELFPAY ==
--- NOTE | 2023-06-08 09:15 | DI.MRI_ITS ---
Exam(s) MR ANGIO NECK WO/W CLINICAL HISTORY: Pulsatile tinnitus,H93.41. TECHNIQUE: Multiplanar multisequence MRI of the neck was performed. CONTRAST MATERIAL: IV Contrast: 16 mL of Dotarem contrast administered. COMPARISON: None. FINDINGS: Contrast infused MRA of the neck was formed, as per request. The field of view of this study is from the aortic arch up to the skull base. Aortic arch anatomy is conventional. There is no significant stenosis at the origin of the great ves sels off the aortic arch. There is no evidence of stenosis in the subclavian arteries proximal to th e vertebral artery takeoff points (which can result in subclavian steal syndrome). Anterior circulation: Both common carotid arteries ascend with normal luminal diameters. There is no evidence of significa nt stenosis at the carotid bulbs and proximal internal carotid arteries. Internal carotid arteries a re patent and non tortuous in the upper neck. Posterior circulation: Both vertebral arteries originated conventional fashion off of the subclavian arteries. There is no significant stenosis at the origin of the vertebral arteries off of the subclavian arteries. The lef t vertebral artery is dominant and ascends in the foramen transverse area with luminal diameter of 5 mm. No intraluminal thrombus nor dissection evident. The opposite-right vertebral artery is a thinner vessel throughout its length but also patent and wit h no evidence of intraluminal thrombus nor dissection. IMPRESSION: 1. Patent carotid arteries in the neck. Significant stenosis nor dissection. 2. Patent vertebral arteries in the neck. Left vertebral artery is dominant. DATA REPOSITORY:
[2023-06-08] MEDS: Normal Saline - Diluent 50 ML VIAL 25 ML IJ (15:31)
[2023-06-08] MEDS: Gadoterate meglumine 20 ML VIAL 16 ML IVP (15:32)
== END ==
PROVIDERS: PCP Family Medicine; Visit Provider Registered Nurse Maternal Newborn
DX: H93.A1 Pulsatile tinnitus, right ear (principal)
CPT/HCPCS: 70549

== ENCOUNTER → 2023-06-21 01:31 | Outpatient (CLI) | payer MEDICAID, SELFPAY ==
--- NOTE | 2023-06-21 07:45 | DI.US_ITS ---
Exam(s) US CAROTID EXAM: US CAROTID CLINICAL HISTORY: PULSATILE TINNITUS,h93.a1. TECHNIQUE: Ultrasound carotids performed using grayscale, color-flow, and spectral Doppler imaging. COMPARISON: No exams were available for comparison FINDINGS: CAROTID ARTERIES: There is mild plaque evident the level both carotid bulbs. No elevated velocities. This implies altagracia t the amount of stenosis is less than 50 percent VERTEBRAL ARTERIES: Antegrade flow demonstrated in both vertebral arteries in the neck. Measurements: R Bulb: 89.3cm/s PS / 20.6cm/s ED R CCA: 98.3cm/s PS / 29.7cm/s ED R ECA: 128.3cm/s PS / 32.5cm/s ED R ICA Prox: 116.5cm/s PS / 36.5cm/s ED R ICA Mid: 86.9cm/s PS / 32.5cm/s ED R ICA Distal: 94.2cm/s PS /34.3cm/s ED R Vert: 95.4cm/s PS / 29cm/s ED R SVR: 1.2 R DVR: 1.2 L Bulb: 65.5cm/s PS / 16.3cm/s ED L CCA: 90cm/s PS / 28.7cm/s ED L ECA: 77cm/s PS / 20.7cm/s ED L ICA Prox: 85.6cm/s PS / 32.7cm/s ED L ICA Mid: 76.5cm/s PS / 30.8cm/s ED L ICA Distal: 89.3cm/s PS / 36.3cm/s ED L Vert: 41.4cm/s PS / 18.5cm/s ED L SVR: 1 L DVR: 1.3 IMPRESSION: No evidence for hemodynamically significant carotid stenosis. There is mild plaque at both carotid b ulbs without elevated velocities. This indicates less than 50 percent stenosis. Visually estimated at significantly less than 50 percent bilaterally. Patent bilateral vertebral arteries. Criteria for Carotid Stenosis: Normal: ICA PSV <125 cm/s no plaque or intimal thickening is visible. <50% stenosis: ICA PSV <125 cm/s and plaque or intimal thickening is visible. 50-69% stenosis: ICA PSV is 125-250 cm/s and plaque is visible. >70% stenosis to near occlusion: ICA PSV >250 cm/s with visible plaque and luminal narrowing. DATA REPOSITORY:
== END ==
PROVIDERS: PCP Family Medicine; Visit Provider Registered Nurse Maternal Newborn
DX: H93.A1 Pulsatile tinnitus, right ear (principal)
CPT/HCPCS: 93880

== ENCOUNTER → 2023-07-06 03:46 | Outpatient (CLI) | payer MEDICAID, SELFPAY ==
--- NOTE | 2023-07-06 07:30 | DI.MRI_ITS ---
Exam(s) MR ANGIO BRAIN WO CLINICAL HISTORY: right-sided pulsatile tinnitus,H93.A1. TECHNIQUE: 3D [id number] study was performed without contrast. COMPARISON: None. FINDINGS: Carotid Arteries: Normal course. Petrous: Normal. Cavernous: Normal. Cerebral: Normal. Middle Cerebral Arteries: Right: No aneurysm or significant stenosis. Left: No aneurysm or significant stenosis. Anterior Cerebral Arteries: Right: No aneurysm or significant stenosis. Left: No aneurysm or significant stenosis. Posterior cerebral arteries: Right: No aneurysm or significant stenosis Left: No aneurysm or significant stenosis Vertebral Arteries: Right: No aneurysm or significant stenosis. No dissection. Left: No aneurysm or significant stenosis. No dissection. Basilar Artery: No aneurysm or significant stenosis. Small Vessels: No evidence of beading. IMPRESSION: Normal MRA examination of the [place]. DATA REPOSITORY:
== END ==
PROVIDERS: PCP Family Medicine; Visit Provider Registered Nurse Maternal Newborn
DX: H93.A1 Pulsatile tinnitus, right ear (principal)
CPT/HCPCS: 70544

== ENCOUNTER 2023-11-23 01:18 | Inpatient (IN) | payer MEDICAID, SELFPAY ==
[2023-11-23] VITALS (41 sets, daily range): BP systolic 109–148; BP diastolic 58–84; PULSE 85–115; RESP 8–29; TEMP 36.6–38.8; O2SAT 2–99
--- NOTE | 2023-11-23 01:00 | RT.EKG_ITS ---
APPROVED REPORT Exam: Resting ECG Reason for Exam: pAIN Patient Location: E HR:100 bpm ECG Measurements Heart Rate 100 AXIS [place] 147 P 52 QRSd 82 QRS 29 QT 360 T -43 QTc 465 Conclusion Sinus tachycardia...rate> [address] segment or T wave abnormalitites to suggest occlusive [place]
--- NOTE | 2023-11-23 01:15 | DI.CT_ITS ---
Exam(s) CT CHEST/ABD/PEL W EXAM: CT CHEST/ABD/PEL W CLINICAL HISTORY: hematemesis abd pain cirrhosis. TECHNIQUE: Imaging Protocol: Axial computed tomography images with coronal and sagittal reformatted images were created and reviewed CONTRAST MATERIAL: Intravenous: Omnipaque 350 Contrast volume:100 ml Oral: None COMPARISON: Prior CT scan of March 2018. FINDINGS: CHEST: LUNGS: No infiltrates nor pleural effusions. No ominous pulmonary nodules. No findings in the trach ea and mainstem bronchi.. MEDIASTINUM: There is no hilar nor mediastinal adenopathy. Visualized thyroid unremarkable.Mild thick ening of the inferior esophagus wall. CARDIAC: Heart size is normal. There is no pericardial effusion.Caliber of the thoracic aorta is wit hin normal limits. OSSEOUS: No significant osseous lesions.. ABDOMEN: There is mild-moderate ascites now evident in the abdomen and pelvis. No subcutaneous anasarca. LIVER: Liver somewhat enlarged and exhibits diffuse cirrhotic appearance. No discrete focal hepatic mass identified. GALLBLADDER/BILIARY: Wall is somewhat hazy but this is most probably related to the underlying ascite s. CBD is not dilated. PANCREAS: Some haziness and fluid is seen around the pancreas tail, possibly indicating pancreatitis versus is just part of the generalized ascites. There is no pancreatic mass evident. The pancreatic duct is not dilated. SPLEEN: Spleen size is minimally prominent. No intrasplenic lesions. Splenic vein diameter is promi nent, measuring 1 point 4 cm but without evidence of intraluminal thrombus. Portal vein confluence a nd main portal vein are patent. There is significant collateralization-varices evident around the me dial to the spleen. Evidence of portal venous hypertension obvious here. ADRENALS: There are no significant adrenal masses. KIDNEYS: There is small nonobstructive calculi evident in the left kidney. Measure up to 2 mm. No o ther focal renal findings. No hydronephrosis. No hydroureter. No obvious abnormality in the urinar y bladder.. ABDOMINAL AORTA: Abdominal aorta is not enlarged. LYMPH NODES: There is no retroperitoneal nor paraaortic adenopathy. ABDOMINAL WALL: No evidence of significant anterior abdominal wall nor inguinal hernia. GI: There is a diffuse colitis pattern throughout the length of the colon and also involving the rect um. PELVIS: LYMPH NODES: There is no intrapelvic nor inguinal adenopathy. GI: No evidence of appendicitis.No evidence of sigmoid diverticulitis. URINARY BLADDER: Mild uniform thickening of the bladder wall. No focal mass in the bladder lumen. N o radiopaque calculi in the bladder. REPRODUCTIVE: Prostate not enlarged. Seminal vesicles unremarkable. OSSEOUS: Small sclerotic density in the subtrochanteric region of the right hip is unchanged from at least 2018 and probably benign bone island. There are no significant osseous lesions. No evidence o f sacroiliitis. No fractures evident. IMPRESSION: 1. There is hepatomegaly and hepatic cirrhosis with portal venous hypertension and multiple varices/c ollaterals as well as mild-moderate ascites (no subcutaneous anasarca). 2. There is a diffuse pancolitis pattern. This may also be contributory to the free fluid. 3. Cholelithiasis. 4. Mild fluid adjacent to the tail the pancreas either due to pancreatitis or part of the generalized ascites. No pancreatic mass evident. Pancreatic duct is not dilated. 5. Nonobstructive tiny renal calculi. Other findings as above. RADIATION DOSE DELIVERED: 1,109.22mGy.cm Total DLP DATA REPOSITORY: All CT scans at this facility are submitted to the National Radiology Data Registry (NRDR) Dose Index Registry (DIR) with the [employer] (ACR). RADIATION OPTIMIZATION: All CT scans at this facility use at least one of these dose optimization te chniques: automated exposure control; mA and/or kV adjustment per patient size (includes targeted exa ms where dose is matched to clinical indication); or iterative reconstruction.
[2023-11-23] MEDS: Octreotide 100 MCG/ML VIAL 50 MCG IVP (01:46)
[2023-11-23] MEDS: Pantoprazole 40 MG VIAL 80 MG IVP (01:46)
[2023-11-23] MEDS: Normal Saline 1,000 ML 1000 ML IV ×2 (01:47→02:59)
[2023-11-23] MEDS: cefTRIAXone 1 GM/50 ML BAG IVPB (01:47)
[2023-11-23] MEDS: Metoclopramide 10 MG/2 ML VIAL IVP ×2 (02:03→20:17)
[2023-11-23] MEDS: Normal Saline - Diluent 50 ML VIAL IJ (02:05)
[2023-11-23] MEDS: Omnipaque 350 MG/ML 100 ML BTL IJ (02:06)
[2023-11-23 02:08] LABS: Abs Immature Grans 0.03 10^3/uL (0.0-0.06); Absolute Basophil Count 0.03 10^3/uL (0.0-0.2); Absolute Eosinophil Count 0.05 10^3/uL (0.0-0.7); Absolute Lymphocyte Count 0.93 10^3/uL (1.2-3.4); Absolute Monocyte Count 0.47 10^3/uL (0.1-0.8); Absolute Neutrophil Count 4.52 10^3/uL (1.2-6.7); Basophils % 0.5 %; Eosinophils % 0.8 %; HCT 35.1 % (40.0-50.0); HGB 12.6 g/dL (13.5-17.5); Immature Grans % 0.5 %; Lymphocytes % 15.4 %; MCH 34.7 pg (27.0-33.0); MCHC 35.9 % (32.0-36.0); MCV 97 fL (80-95); MPV 11.5 fL (8.0-11.0); Monocytes % 7.8 %; RBC 3.63 10^6/uL (4.36-5.78); RDW 12.3 % (11.8-14.1); RDW-SD 43.2 fL; WBC 6.03 10^3/uL (4.4-10.8)
[2023-11-23] MEDS: Normal Saline Flush 10 ML SYR IVP ×5 (02:09→20:14)
[2023-11-23 02:12] LABS: Lactate 3.9 mmol/L (0.6-1.4)
--- NOTE | 2023-11-23 02:13 | ED.GENADUL_ITS ---
Discharge Plan Disposition Patient Disposition: Admit to [facility] Condition: Good Discharge Details Chief Complaint: Abd Prob Clinical Impression: Alcohol abuse, Cirrhosis, Acute upper gastrointestinal bleeding, Acute pancreatitis Primary Care Provider: Ryan Coello ED Provider: Mar Crisostomo Home Meds and New Rx's Prescriptions: No Action vitamin B complex [B Complex-Vitamin B12] Tablet 1 tab PO DAILY multivitamin Tablet 1 tab PO DAILY HPI General Mode of arrival: EMS . Date/Time Provider Initiated Documentation: 11/23/23 01:24 . Limitations to Documentation: no limitations . Information obtained by: patient and EMS . HPI Narrative: 43yo M with hx ETOH abuse, recent diagnosis of cirrhosis (July of this year) presenting via EMS for vomiting. Has felt unwell for the past 2-3 days, frequent vomiting. Initially non-bloody non-bilious however this evening began to have severe upper abdominal pain and bloody vomit. Never had anything like this happen before. Feels very thirsty. Somewhat lightheaded especially with standing. No fevers. No constipation or diarrhea. No bloody stool. He is otherwise in his usual state of health. Continued daily drinker though has cut back. Related Data Home Medications Medication Instructions Recorded Confirmed multivitamin 1 tab PO DAILY 06/02/23 11/23/23 vitamin B complex (B 1 tab PO DAILY 06/02/23 11/23/23 Complex-Vitamin B12 tablet) Allergies Allergy/AdvReac Type Severity Reaction Status Date / Time No Known Allergies Allergy Unverified 11/23/23 01:39 General Stated Complaint: Abd Prob FLOYD: 3 Review of Systems Narrative: see HPI Exam Narrative Exam Narrative: General: Alert, jaundiced, chronically ill appearing Head: Normocephalic, atraumatic Neck: Trachea midline, ?Neck supple. Cardiac: ?RRR, no murmurs appreciated Resp: No respiratory distress. CTAB. Abd: ?Soft, non-distended, moderate epigastric tenderness with no rebound or guarding. : ?No suprapubic tenderness. Extremities: ?No deformities.? No peripheral edema. Neurologic: GCS 15. ? Moves all extremities freely against gravity Course Vital Signs Vital signs: Vital Signs Temperature 36.8 C 11/23/23 01:20 Pulse 106 H 11/23/23 01:20 Respiratory Rate 15 11/23/23 01:20 Blood Pressure 147/81 H 11/23/23 01:20 Temperature 36.8 C 11/23/23 01:20 Temperature Source Temporal Artery Scan 11/23/23 01:20 Pulse 106 H 11/23/23 01:20 Respiratory Rate 15 11/23/23 01:20 Respiratory Effort Normal, Non-Labored 11/23/23 01:25 Blood Pressure 147/81 H 11/23/23 01:20 Pain Level 10 11/23/23 01:37 Lab/Test Results Lab/Test Results: Laboratory Tests Range/Units 11/23/23 01:57 VBG Lactate (0.6-1.4) mmol/L 3.9 H* Medical Decision Making 43yo M with hx ETOH abuse, recent diagnosis of cirrhosis (July of this year) presenting via EMS for vomiting. Has felt unwell for the past 2-3 days, frequent vomiting. Initially non-bloody non-bilious however this evening began to have severe upper abdominal pain and bloody vomit. Never had anything like this happen before. Feels very thirsty. Somewhat lightheaded especially with standing. No fevers. No constipation or diarrhea. No bloody stool. He is otherwise in his usual state of health. Continued daily drinker though has cut back. Zofran from EMS. Vital signs on arrival with mild hypertension and tachycardia. Epigastriac tenderness on exam with no peritoneal signs. Morphine for pain. Protonix bolus + ceftriaxone + octreotide given possibility of variceal bleed though less likely; will evaluate further with labs and CT imaging. -EKG with no ST segment or T wave abnormalities to suggest occlusive ND. -Labs reviewed as below, CBC with mild anemia at 12.6 (would not transfuse), CMP consistent with known liver disease (bili 3.6, AST 194, ALT 119) with normal ALP not obstructive pattern, lactate elevated at 3.9 (difficult to interpret in setting of existing liver disease), coags with INR of 1.6 again consistent with chronic disease, lipase elevated at 151 suggestive of pancreatitis, troponin negative. Type and screen sent. On reassessment continued vomiting so will try reglan. Emesis scant, mucousy, faint streaks of blood. No coffee ground or large volume hematemesis. More suggestive of Kimmy-Lindo tear, peptic ulcer disease also remains possible, much less likely varcieal bleed. CT independently reviewed, no obstruction or free fluid or free air to suggest perforated ulcer on my view. Radiology read below with no evident varices, pancreatitc inflammation. With epigastric tenderness, elevated lipase (though moderate), and evidence of peripancreatic inflammation on CT scan pancreatitis most likely. Octreotide dced. Discussed with [facility] hospitalist Dr. Ellison and patient accepted for admission. Awaiting admitting orders and transfer to the floor. Imaging Data Radiologic Study: Imaging: CT Scan Radiologist's impression: IMPRESSION: 1. Mild thickening of the distal esophagus. Consider esophagitis, neoplasm. 2. Additional studies dictated separately. IMPRESSION: 1. Cirrhosis with evidence for portal hypertension and ascites. 2. Stranding in the peripancreatic fat, likely related to more generalized edema. Pancreatitis cannot be excluded and clinical correlation is advised. 3. Thickening of the stomach and duodenal, could be secondary to liver disease and/or gastroduodenitis. 4. Diffuse colonic thickening, may be secondary to liver disease and/or colitis. 5. Cholelithiasis. 6. Additional findings as above. 7. Additional studies dictated separately Lab Data Lab results reviewed: Yes I reviewed the patient's lab results. Labs: Laboratory Tests Range/Units 11/23/23 11/23/23 11/23/23 01:57 02:45 03:06 WBC (4.4-10.8) 10^3/uL 6.03 RBC (4.36-5.78) 10^6/uL 3.63 L Hgb (13.5-17.5) g/dL 12.6 L Hct (40.0-50.0) % 35.1 L MCV (80-95) fL 97 H MCH (27.0-33.0) pg 34.7 H MCHC (32.0-36.0) % 35.9 RDW (11.8-14.1) % 12.3 Plt Count (130-400) 10^3/uL 51 L MPV (8.0-11.0) fL 11.5 H Immature Gran % % 0.5 Neutrophils % % 75.0 Lymphocytes % % 15.4 Monocytes % % 7.8 Eosinophils % % 0.8 Basophils % % 0.5 Nucleated RBC % (0.0-0.3) % 0.0 Absolute Neutrophils (1.2-6.7) 10^3/uL 4.52 Absolute Lymphocytes (1.2-3.4) 10^3/uL 0.93 L Absolute Monocytes (0.1-0.8) 10^3/uL 0.47 Absolute Eosinophils (0.0-0.7) 10^3/uL 0.05 Absolute Basophils (0.0-0.2) 10^3/uL 0.03 PT Cancelled 15.6 H INR Cancelled 1.6 H APTT Cancelled 29.5 VBG Lactate (0.6-1.4) mmol/L 3.9 H* Sodium Cancelled 142 Potassium Cancelled 3.7 Chloride Cancelled 106 Carbon Dioxide Cancelled 28.0 Anion Gap Cancelled 8.0 BUN Cancelled 5 L Creatinine Cancelled 0.8 Est GFR (CKD-EPI 2020) Cancelled 111.22 Glucose Cancelled 125 H Calcium Cancelled 8.7 Magnesium Cancelled 1.3 L Total Bilirubin Cancelled 3.6 H AST Cancelled 194 H ALT Cancelled 119 H Alkaline Phosphatase Cancelled 99 Total Protein Cancelled 6.8 Albumin Cancelled 2.8 L Lipase (16-77) U/L 151 H ABO/Rh Cancelled Antibody Screen Cancelled Quality:SDOH Health Related Social Needs: No Data to Display PFSH All Active Problems Acute pancreatitis (Acute) Acute upper gastrointestinal bleeding (Acute) Cirrhosis (Acute) Alcohol abuse (Chronic) Medical History (Updated 11/23/23 @ 04:01 by Mar Crisostomo MD) Pulsatile tinnitus of right ear Social History Smoking/Tobacco Use Status: Current every day Tobacco Type: e-cigarettes Smoking risk assessment performed?: Yes Alcohol Intake: current Alcohol Intake frequency: 3 or more drinks per day Alcohol type: beer Drug use: Occasionally Substance use type: marijuana Housing: house Do you feel safe at home: Yes Do you feel safe in your relationship?: Yes PAWSS Have you Been Recently Intoxicated or Drunk Within the Last 30 days?: Yes Have you Ever Experienced Previous Episodes of Alcohol Withdrawal?: Yes Have you ever Experienced Withdrawal Seizures?: No Have you ever Experienced Delirium Tremens(DT)s?: No Have you ever undergone Alcohol Rehabilitation Treatment (i.e, inpt ot outpatient treatment programs)?: Yes Have you ever Experienced Blackouts?: Yes Have you ever Combined Alcohol with other Downers within the last 90 days?: Yes Have you ever Combined Alcohol with any other Substance of Abuse during the last 90 days?: Yes Evidence of Increased Autonomic Activity (i.e. HR>120, tremor, sweating, agitation, nausea)?: No Result: 6
[2023-11-23 02:53] LABS: Platelet Count 51 10^3/uL (130-400)
[2023-11-23] MEDS: MORPHine 4 MG/ML SYR IVP ×3 (02:58→17:38)
--- NOTE | 2023-11-23 03:08 | DI.VRAD_ITS ---
PROCEDURE INFORMATION: Exam: CT Chest With Contrast; Diagnostic Exam date and time: 11/23/2023 2:11 AM Age: 43 years old Clinical indication: Abdominal pain; Generalized; Patient HX: Hematemesis abd pain cirrhosis TECHNIQUE: Imaging protocol: Diagnostic computed tomography of the chest with contrast. 3D rendering (Not supervised by radiologist): MIP and/or 3D reconstructed images were created by the technologist. Radiation optimization: All CT scans at this facility use at least one of these dose optimization techniques: automated exposure control; mA and/or kV adjustment per patient size (includes targeted exams where dose is matched to clinical indication); or iterative reconstruction. Contrast material: OMNIPAQUE 350; Contrast volume: 100 ml; Contrast route: INTRAVENOUS (IV); COMPARISON: CR XR CHEST 2V PA LATERAL 05/16/2023 11:44 AM FINDINGS: Lungs: Dependent changes are present in the lungs. Pleural spaces: No pleural effusion. Heart: No pericardial effusion. Esophagus: Mild thickening of the distal esophagus. Lymph nodes: Nonspecific mediastinal lymph nodes. Vasculature: Prominent central pulmonary arteries. Correlate clinically for pulmonary hypertension. Diaphragm: Small hiatal hernia. Intraperitoneal space: CT scan of the abdomen and pelvis dictated separately. Bones/joints: No acute pertinent abnormality appreciated. Soft tissues: Gynecomastia. IMPRESSION: 1. Mild thickening of the distal esophagus. Consider esophagitis, neoplasm. 2. Additional studies dictated separately. PROCEDURE INFORMATION: Exam: CT Abdomen And Pelvis With Contrast Exam date and time: 11/23/2023 2:11 AM Age: 43 years old Clinical indication: Abdominal pain; Generalized; Patient HX: Hematemesis abd pain cirrhosis TECHNIQUE: Imaging protocol: Computed tomography of the abdomen and pelvis with contrast. 3D rendering (Not supervised by radiologist): MIP and/or 3D reconstructed images were created by the technologist. Radiation optimization: All CT scans at this facility use at least one of these dose optimization techniques: automated exposure control; mA and/or kV adjustment per patient size (includes targeted exams where dose is matched to clinical indication); or iterative reconstruction. Contrast material: OMNIPAQUE 350; Contrast volume: 100 ml; Contrast route: INTRAVENOUS (IV); COMPARISON: CT Private^ROUTINE ABDOMEN PELVIS WITH CONTRAST (Adult) 04/01/2018 3:03 PM FINDINGS: Lungs: CT scan of the chest dictated separately. Liver: Cirrhotic liver. Heterogeneous enhancement of the liver. Gallbladder and bile ducts: Distended gallbladder. Cholelithiasis. Pancreas: Stranding in the peripancreatic fat. Spleen: No splenomegaly. Adrenal glands: No mass. Kidneys and ureters: Small nonobstructing bilateral renal calculi. No hydronephrosis or CT evidence for pyelonephritis. Stomach and bowel: Thickening of the stomach and duodenum. No intestinal obstruction is evident. Fluid in nondilated small bowel, nonspecific. Diffuse colonic thickening. Appendix: No evidence of appendicitis. Intraperitoneal space: Mesenteric edema. Small amount of ascites. Vasculature: Evidence for portal hypertension with multiple large collaterals. Lymph nodes: Nonspecific mesenteric and retroperitoneal lymph nodes. Nonspecific periportal lymph nodes. Urinary bladder: No acute findings. Reproductive: No acute findings. Bones/joints: No pertinent acute abnormality seen. Soft tissues: No pertinent acute abnormality seen. IMPRESSION: 1. Cirrhosis with evidence for portal hypertension and ascites. 2. Stranding in the peripancreatic fat, likely related to more generalized edema. Pancreatitis cannot be excluded and clinical correlation is advised. 3. Thickening of the stomach and duodenal, could be secondary to liver disease and/or gastroduodenitis. 4. Diffuse colonic thickening, may be secondary to liver disease and/or colitis. 5. Cholelithiasis. 6. Additional findings as above. 7. Additional studies dictated separately. Dictated and Authenticated by: May Boyd MD. Ordering:TIM Manuel MD
[2023-11-23 03:22] LABS: Lipase 151 U/L (16-77)
[2023-11-23 03:28] LABS: INR 1.6 (0.9-1.1); PTT Activated 29.5 sec (23.6-32.8); Prothrombin Time 15.6 sec (9.1-11.1)
[2023-11-23 03:29] LABS: ALT 119 U/L (16-63); AST 194 U/L (15-37); Albumin 2.8 g/dL (3.4-5.0); Alkaline Phosphatase 99 U/L (46-116); BUN 5 mg/dL (7-18); Bilirubin, Total 3.6 mg/dL (0.2-1.0); CREATININE 0.8 mg/dL (0.70-1.30); Calcium 8.7 mg/dL (8.5-10.1); Chloride 106 mmol/L (98-107); Estimated GFR 111.22 (mL/min/1.73m2); Glucose 125 mg/dL (74-106); Magnesium 1.3 mg/dL (1.8-2.4); Potassium 3.7 mmol/L (3.5-5.1); Sodium 142 mmol/L (136-145); Total Protein 6.8 g/dL (6.4-8.2)
--- NOTE | 2023-11-23 04:02 | W.PM.HP.N ---
Date of service: 11/23/23 Time of Service: 04:03 Assessment and Plan Assessment and plan (1) Alcoholic pancreatitis: Status: Acute Assessment and plan: - Patient diagnosed with acute pancreatitis in the emergency department with a lipase of 130 and no evidence of pancreatic inflammation on CT abdomen pelvis -Patient was given IV morphine and Reglan in the emergency department with improvement of nausea -Will continue Zofran and IV morphine -Patient also started on banana bag -On clear liquid diet, advance as tolerated (2) Cirrhosis: Status: Acute Assessment and plan: - Newly diagnosed in July -AST and bilirubin slightly elevated from previous documented labs in May 2023 -Follow-up a.m. CMP (3) Alcohol abuse: Status: Chronic Assessment and plan: - Despite patient stating that he was a daily drinker no alcohol level was drawn in the emergency department -Follow-up alcohol level (4) Lactic acidosis: Status: Acute Assessment and plan: -Initial lactic acid 3.9 in the emergency department and repeat 4.1, relatively unchanged -However, no change expected given that patient was not given any IV fluids in the emergency department -Is now on banana bag and has been tolerating clear liquids -Recommend rechecking lactic acid later in the day (5) Thrombocytopenia: Status: Inactive Assessment and plan: Platelets 51 on admission -Had been 38 in May 2023 -Recommend following up a.m. CBC -This is likely secondary to alcoholic cirrhosis (6) Bloody emesis: Status: Acute Assessment and plan: - No change from baseline hemoglobin -Also visualized as small streaks of blood in emesis in the emergency department -Likely secondary to frequent vomiting over the last few days/Kimmy-Lindo -Continue to monitor History of Present Illness History of Present Illness Chief Complaint: vomiting Narrative: 43-year-old male with a past medical history of alcohol use disorder with recent diagnosis of alcoholic cirrhosis presents to the emergency department with complaints of vomiting. Patient is he has not felt well over the last 2 to 3 days and experiencing frequent vomiting that was initially nonbloody and had most recently contained streaks of blood but no carito blood. States is the first time this has happened. He states that he feels very thirsty and has also been experiencing abdominal pain and feels somewhat lightheaded when standing. He denies any constipation, diarrhea, no blood in his stool. Additionally, patient states that he is a daily drinker but is attempted to cut back but is vague about his exact consumption. In the emergency department the patient was noted as being tachycardic with a pulse of about 100, with otherwise normal vital signs. However, while his CBC showed no thrombocytopenia, his CMP showed elevated AST, ALT and lipase of 150. Additionally his magnesium was 1.3 though this was not repleted while in the emergency department. Given new diagnosis of cirrhosis patient was initially started on octreotide for concerns of esophageal varices however, vomiting was witnessed in the emergency department and was seen to be just mild streaks of blood thought to be more likely due to Kimmy-Lindo tear therefore octreotide was discontinued. CT abdomen pelvis was obtained and did not show any obstruction, free fluid or air to suggest any perforation though there is also no signs of pancreatic inflammation. However, emergency room physician paged hospitalist for admission for patient with acute alcoholic pancreatitis. Review of Systems All systems reviewed & are unremarkable except as noted in HPI and below PFSH All Active Problems Bloody emesis (Acute) Thrombocytopenia (Chronic) Lactic acidosis (Acute) Alcoholic pancreatitis (Acute) Acute pancreatitis (Acute) Acute upper gastrointestinal bleeding (Acute) Cirrhosis (Acute) Alcohol abuse (Chronic) Medical History (Updated 11/23/23 @ 04:04 by Sarwat Ellison MD) Pulsatile tinnitus of right ear Social History Smoking/Tobacco Use Status: Current every day Tobacco Type: e-cigarettes Smoking risk assessment performed?: Yes Alcohol Intake: current Alcohol Intake frequency: 3 or more drinks per day Alcohol type: beer Drug use: Occasionally Substance use type: marijuana Housing: apartment Do you feel safe at home: Yes Do you feel safe in your relationship?: Yes Meds Allergies and Home Medications Allergies Allergy/AdvReac Type Severity Reaction Status Date / Time No Known Allergies Allergy Unverified 11/23/23 01:39 Home Medications Medication Instructions Recorded Confirmed Type multivitamin 1 tab PO DAILY 06/02/23 11/23/23 History vitamin B complex (B 1 tab PO DAILY 06/02/23 11/23/23 History Complex-Vitamin B12 tablet) Exam Narrative Exam Narrative: Chronically ill-appearing gentleman appearing older than stated age, laying in bed and mild distress due to abdominal pain, ANO x 4, heart regular rhythm, lungs clear to auscultation bilaterally, abdomen with mild epigastric tenderness, without rebounding or guarding Results Labs 11/23/23 01:57 11/23/23 02:45 Labs: Laboratory Results - last 24 hr 11/23/23 11/23/23 11/23/23 01:57 02:45 03:06 WBC 6.03 RBC 3.63 L Hgb 12.6 L Hct 35.1 L MCV 97 H MCH 34.7 H MCHC 35.9 RDW 12.3 Plt Count 51 L MPV 11.5 H Immature Gran % 0.5 Neutrophils % 75.0 Lymphocytes % 15.4 Monocytes % 7.8 Eosinophils % 0.8 Basophils % 0.5 Nucleated RBC % 0.0 Absolute Neutrophils 4.52 Absolute Lymphocytes 0.93 L Absolute Monocytes 0.47 Absolute Eosinophils 0.05 Absolute Basophils 0.03 PT Cancelled 15.6 H INR Cancelled 1.6 H APTT Cancelled 29.5 VBG Lactate 3.9 H* Sodium Cancelled 142 Potassium Cancelled 3.7 Chloride Cancelled 106 Carbon Dioxide Cancelled 28.0 Anion Gap Cancelled 8.0 BUN Cancelled 5 L Creatinine Cancelled 0.8 Est GFR (CKD-EPI 2020) Cancelled 111.22 Glucose Cancelled 125 H Calcium Cancelled 8.7 Magnesium Cancelled 1.3 L Total Bilirubin Cancelled 3.6 H AST Cancelled 194 H ALT Cancelled 119 H Alkaline Phosphatase Cancelled 99 Total Protein Cancelled 6.8 Albumin Cancelled 2.8 L Lipase 151 H ABO/Rh Cancelled A Positive Antibody Screen Cancelled NEGATIVE Last Vital Signs Temp 98.2 F 11/23/23 01:20 Pulse 106 H 11/23/23 01:20 Resp 15 11/23/23 01:20 BP 147/81 H 11/23/23 01:20 PAWSS Have you Been Recently Intoxicated or Drunk Within the Last 30 days?: Yes Have you Ever Experienced Previous Episodes of Alcohol Withdrawal?: Yes Have you ever Experienced Withdrawal Seizures?: No Have you ever Experienced Delirium Tremens(DT)s?: No Have you ever undergone Alcohol Rehabilitation Treatment (i.e, inpt ot outpatient treatment programs)?: Yes Have you ever Experienced Blackouts?: Yes Have you ever Combined Alcohol with other Downers within the last 90 days?: Yes Have you ever Combined Alcohol with any other Substance of Abuse during the last 90 days?: Yes Evidence of Increased Autonomic Activity (i.e. HR>120, tremor, sweating, agitation, nausea)?: No Result: 6 Time Spent Time spent with Patient: >75 minutes Time was spent: preparing to see the patient(eg.review tests), obtaining and/or reviewing separately otained hiistory, ordering medications,tests, procedures, referring, communicating with other health healthcare risk control consultant, indepentently interpreting results, counseling the patient and care coordination
[2023-11-23 04:35] LABS: Lactate 4.1 mmol/L (0.6-1.4)
[2023-11-23] MEDS: Ondansetron 4 MG/2 ML VIAL IVP ×2 (05:57→15:39)
[2023-11-23] MEDS: MAGNESIUM SULFATE 2 GM/50 ML BAG IVINF (05:57)
[2023-11-23] MEDS: Acetaminophen 325 MG TAB PO ×4 (06:39→20:19)
[2023-11-23 06:54] LABS: HCT 35.3 % (40.0-50.0); HGB 12.5 g/dL (13.5-17.5); MCH 34.5 pg (27.0-33.0); MCHC 35.4 % (32.0-36.0); MCV 98 fL (80-95); MPV 11.4 fL (8.0-11.0); RBC 3.62 10^6/uL (4.36-5.78); RDW 12.5 % (11.8-14.1); RDW-SD 44.9 fL; WBC 8.76 10^3/uL (4.4-10.8)
[2023-11-23 07:07] LABS: Anion Gap 11.1 mmol/L (3-11); BUN 6 mg/dL (7-18); CO2 26.9 mmol/L (21.0-32.0); CREATININE 0.8 mg/dL (0.70-1.30); Calcium 8.5 mg/dL (8.5-10.1); Chloride 105 mmol/L (98-107); ETHANOL BLOOD 109.5 mg/dL (<10); Estimated GFR 111.22 (mL/min/1.73m2); Glucose 128 mg/dL (74-106); Potassium 3.8 mmol/L (3.5-5.1); Sodium 143 mmol/L (136-145)
[2023-11-23 07:17] LABS: Platelet Count 46 10^3/uL (130-400)
--- NOTE | 2023-11-23 08:26 | PDOC.CMIN ---
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[employer]) Instrumental Activities of Daily Living (ADLs): Independent Activities/Hobbies/SocialSupport: Attends [employer] and has a silverman with his friend Cyndee Medications Medication Management: No Issues/Barriers identified Physical Functioning/Mobility Assistive Device: none Advance Directives Advance Directives: Do you have an Advance Directive: N 10/31/17 22:22 AD On File at [facility]: N 10/31/17 21:47 Date Asked 11/23/23 11/23/23 02:51 AD Date Reviewed COLST On File at [facility] COLST Date Scanned Code Status Resuscitation Status Full Code Portal Pt does not currently have a portal and education provided: Yes Insurance Coverage/Financial Issues Insurance: Medicaid ACO Member: No Care Team Visit Care Team Role Provider Type Ryan Coello Primary Care Provider NON-[facility] STAFF PHYSICIAN Mar Crisostomo MD Emergency Provider [facility] STAFF PHYSICIAN Yeyo Fragoso Admit Provider NON-[facility] STAFF PHYSICIAN Attending Provider Discharge Potential Discharge Needs: PCP F/U Appt Anticipated Barriers to Discharge: None Identified Patient/Family Education Needs: Review discharge instructions, discuss Ask Me Three and Other (diet, limitations) Transportation: Private vehicle Plan: Anticipate Prashant will be discharged home with no new services when medically cleared. He will follow up with his community providers and plan of care and transport with his friend Cyndee. CM will follow and continue to assess for discharge needs. PFSH All Active Problems DVT prophylaxis (Acute) Hypomagnesemia (Acute) Fever (Acute) Bloody emesis (Acute) Thrombocytopenia (Chronic) Lactic acidosis (Acute) Alcoholic pancreatitis (Acute) Acute pancreatitis (Acute) Acute upper gastrointestinal bleeding (Acute) Cirrhosis (Acute) Alcohol abuse (Chronic) Medical History (Updated 11/23/23 @ 13:42 by Dale Chilel) Pulsatile tinnitus of right ear Social History Smoking/Tobacco Use Status: Current every day Tobacco Type: e-cigarettes Smoking risk assessment performed?: Yes Alcohol Intake: current Alcohol Intake frequency: 3 or more drinks per day Alcohol type: beer Drug use: Occasionally Substance use type: marijuana Housing: apartment Do you feel safe at home: Yes Do you feel safe in your relationship?: Yes SDOH(Care Management) Screening Will the Patient Participate in the Screening?: Yes Do you worry about having a steady place to live?: yes In the past 12 months, have you had to go without electric, gas, oil or water in your home?: choose not to answer Have you or anyone in your house had to go without enough food to eat?: choose not to answer Has lack of transportation kept you from medical appointments or from doing things needed for daily living?: choose not to answer Has anyone in your support network made you feel unsafe for any reason?: choose not to answer Health Related Social Needs Health related social needs: housing instability, housed, with risk of homelessness(Z59.811) Anticipated HH Services Anticipated HH Services at Discharge [facility].
[2023-11-23] MEDS: MAGNESIUM SULFATE 8.12 MEQ, MULTIVITAMIN 10 ML, THIAMINE 100 MG, FOLIC ACID 1 MG in Nor... 168.867 MG IV (10:00)
--- NOTE | 2023-11-23 11:33 | PHA.REVIEW2 ---
Pharmacy Admission Review Admission Clinical Review Admission Pharmacy Review: (Updated 11/23/23 @ 04:04 by Sarwat Ellison MD) Bloody emesis (Acute) Lactic acidosis (Acute) Alcoholic pancreatitis (Acute) Cirrhosis (Acute) No Known Allergies Allergy (Unverified 11/23/23 01:39) Resuscitation Status Full Code Height 6 ft 8 in Weight 84.822 kg Pharmacy Admission Review Renal Dosing Renal Dosing: BUN 6 mg/dL (7-18) L 11/23/23 06:20 BUN Cancelled 11/23/23 06:20 Creatinine 0.8 mg/dL (0.70-1.30) 11/23/23 06:20 Creatinine Cancelled 11/23/23 06:20 Medications needing adjustments: Reviewed (CrCl 139.9 mL/min) List of meds needing interventions: Current medications are okay Anticoagulation Anticoagulation: Hgb 12.5 g/dL (13.5-17.5) L 11/23/23 06:20 Hct 35.3 % (40.0-50.0) L 11/23/23 06:20 Plt Count 46 10^3/uL (130-400) L 11/23/23 06:20 INR 1.6 (0.9-1.1) H 11/23/23 03:06 Creatinine 0.8 mg/dL (0.70-1.30) 11/23/23 06:20 Creatinine Cancelled 11/23/23 06:20 DVT Prophylaxis: Intervened (None at this time, reached out to provider. Per provider patient has GI bleed but will put in order for GAVIN/SCDs) Opiate Usage Evaluate Pain Scale/Pains Meds: Reviewed (PRN morphine - has not received any doses so far) Scheduled Bowel Reg ordered if on Opiates?: No (PRN Miralax and docusate) Relevant Labs Relevant Labs: Sodium 143 mmol/L (136-145) 11/23/23 06:20 Sodium Cancelled 11/23/23 06:20 Potassium 3.8 mmol/L (3.5-5.1) 11/23/23 06:20 Potassium Cancelled 11/23/23 06:20 Chloride 105 mmol/L (98-107) 11/23/23 06:20 Chloride Cancelled 11/23/23 06:20 Magnesium 1.3 mg/dL (1.8-2.4) L 11/23/23 02:45 Electrolytes, C-Reactive P, ESR: Reviewed (Temp of 38.8 at 1034, Mg 1.3, INR 1.6, Hgb 12.5, PLT count 46, AST/ALT 194/119 - repeat labs pending) Cardiac Review BP, HR, EF%: Reviewed (BP WNL, HR 107) QTc Review QTc: Reviewed (465 from 11/22) IV to PO Switch IV Medications: Reviewed (Banana bag, morphine and ondansetron) Home Meds Home Med List reviewed: Reviewed Relevent Home Meds Not ordered & why?: Multivitamin and vitamin B complex Current Meds Current Medication Order Review: Reviewed
--- NOTE | 2023-11-23 12:19 | W.SURGCON ---
Date of service: 11/23/23 Time of Service: 13:30 Assessment and Plan Assessment and plan (1) Abdominal pain: Status: Acute Assessment and plan: 43-year-old man with known cirrhosis that for the most part seems pretty well?compensated. He is having severe and acute epigastric abdominal pain. His lipase is elevated and there is retroperitoneal fat stranding in and around the pancreas on CT. This is all after a reported episode of binge drinking a few days ago. I think he most likely has pancreatitis both clinically as well as defended by imaging and laboratory values. His elevated LFTs are advertising sales representative of chronic cirrhosis. He does not have any peritoneal signs on exam and has really no significant ascites. I reviewed his CT scan and there is a scant amount of ascites on the right side near his liver that overall extremely small?volume. I am quite confident his presentation is not that of spontaneous bacterial peritonitis(SBP). At this time I do not recommend a diagnostic tap and indeed, I do not think there is enough ascites to easily sample considering the location of it along the paracolic gutter only. I also do not think that his colon wall thickening represents colitis in the absence of any GI symptoms of concern. The differential diagnosis definitely includes severe gastritis/duodenitis and even ulcer disease considering the drinking he is describing. Vomiting and other such foregut issues are probably related to severe alcohol intake and again, he likely has some amount of gastroesophageal varices and could easily have a small amount of bleeding in the setting of vomiting often. At this time surgery is going to sign off. I think this can be treated as alcohol pancreatitis considering the information we have thus far. The patient is certainly hemodynamically stable and interactive and does not appear to be clinically decompensating in any way. Call us back if anything changes or if he otherwise is worsening and you need to have the ascites sampled. History of Present Illness Narrative: 43-year-old man with known cirrhosis from alcoholism. He has had severe abdominal pain in the past that has warranted emergency room visits. He says for the most part he is no longer been drinking however he started drinking again a couple of nights ago and started having severe abdominal pain 2 days ago. The pain is constant and in his epigastric region. It goes all over and wraps around both sides. It is constant and burning and it does not move or change. PFSH All Active Problems Abdominal pain (Acute) DVT prophylaxis (Acute) Hypomagnesemia (Acute) Fever (Acute) Bloody emesis (Acute) Thrombocytopenia (Chronic) Lactic acidosis (Acute) Alcoholic pancreatitis (Acute) Acute pancreatitis (Acute) Acute upper gastrointestinal bleeding (Acute) Cirrhosis (Acute) Alcohol abuse (Chronic) Medical History (Updated 11/23/23 @ 14:28 by René Coburn MD) Pulsatile tinnitus of right ear Social History Smoking/Tobacco Use Status: Current every day Tobacco Type: e-cigarettes Smoking risk assessment performed?: Yes Alcohol Intake: current Alcohol Intake frequency: 3 or more drinks per day Alcohol type: beer Drug use: Occasionally Substance use type: marijuana Housing: apartment Do you feel safe at home: Yes Do you feel safe in your relationship?: Yes Exam Narrative Exam Narrative: General: Nontoxic, interactive, malnourished and somewhat disheveled. He does not appear to be in much pain. Neuro: Alert and oriented x 3 Psych: Reasonable mood and affect, reasonable insight and understanding Abdomen: Soft, nondistended, no significant ascites distention appreciated, mild tenderness somewhat diffusely but without any peritoneal signs Results Last Vital Signs Temp 100.8 F H 11/23/23 11:10 Pulse 105 H 11/23/23 11:10 Resp 16 11/23/23 11:10 BP 127/67 11/23/23 11:10 Pulse Ox 97 11/23/23 11:10 Labs 11/23/23 06:20 11/23/23 06:20 Labs: Laboratory Results - last 24 hr 11/23/23 11/23/23 11/23/23 01:57 02:45 03:06 WBC 6.03 RBC 3.63 L Hgb 12.6 L Hct 35.1 L MCV 97 H MCH 34.7 H MCHC 35.9 RDW 12.3 Plt Count 51 L MPV 11.5 H Immature Gran % 0.5 Neutrophils % 75.0 Lymphocytes % 15.4 Monocytes % 7.8 Eosinophils % 0.8 Basophils % 0.5 Nucleated RBC % 0.0 Absolute Neutrophils 4.52 Absolute Lymphocytes 0.93 L Absolute Monocytes 0.47 Absolute Eosinophils 0.05 Absolute Basophils 0.03 PT Cancelled 15.6 H INR Cancelled 1.6 H APTT Cancelled 29.5 VBG Lactate 3.9 H* Sodium Cancelled 142 Potassium Cancelled 3.7 Chloride Cancelled 106 Carbon Dioxide Cancelled 28.0 Anion Gap Cancelled 8.0 BUN Cancelled 5 L Creatinine Cancelled 0.8 Est GFR (CKD-EPI 2020) Cancelled 111.22 Glucose Cancelled 125 H Calcium Cancelled 8.7 Magnesium Cancelled 1.3 L Total Bilirubin Cancelled 3.6 H AST Cancelled 194 H ALT Cancelled 119 H Alkaline Phosphatase Cancelled 99 Total Protein Cancelled 6.8 Albumin Cancelled 2.8 L Lipase 151 H Ethyl Alcohol ABO/Rh Cancelled A Positive Antibody Screen Cancelled NEGATIVE 11/23/23 11/23/23 11/23/23 04:27 06:20 06:20 WBC 8.76 RBC 3.62 L Hgb 12.5 L Hct 35.3 L MCV 98 H MCH 34.5 H MCHC 35.4 RDW 12.5 Plt Count 46 L MPV 11.4 H Immature Gran % Neutrophils % Lymphocytes % Monocytes % Eosinophils % Basophils % Nucleated RBC % Absolute Neutrophils Absolute Lymphocytes Absolute Monocytes Absolute Eosinophils Absolute Basophils PT INR APTT VBG Lactate 4.1 H* Sodium 143 Cancelled Potassium 3.8 Chloride Carbon Dioxide Anion Gap BUN Creatinine Est GFR (CKD-EPI 2020) Glucose Calcium Magnesium Total Bilirubin AST ALT Alkaline Phosphatase Total Protein Albumin Lipase Ethyl Alcohol ABO/Rh Antibody Screen 11/23/23 11/23/23 11/23/23 06:20 06:20 06:20 WBC RBC Hgb Hct MCV MCH MCHC RDW Plt Count MPV Immature Gran % Neutrophils % Lymphocytes % Monocytes % Eosinophils % Basophils % Nucleated RBC % Absolute Neutrophils Absolute Lymphocytes Absolute Monocytes Absolute Eosinophils Absolute Basophils PT INR APTT VBG Lactate Sodium Potassium Cancelled Chloride 105 Cancelled Carbon Dioxide 26.9 Cancelled Anion Gap 11.1 H BUN Creatinine Est GFR (CKD-EPI 2020) Glucose Calcium Magnesium Total Bilirubin AST ALT Alkaline Phosphatase Total Protein Albumin Lipase Ethyl Alcohol ABO/Rh Antibody Screen 11/23/23 11/23/23 11/23/23 06:20 06:20 06:20 WBC RBC Hgb Hct MCV MCH MCHC RDW Plt Count MPV Immature Gran % Neutrophils % Lymphocytes % Monocytes % Eosinophils % Basophils % Nucleated RBC % Absolute Neutrophils Absolute Lymphocytes Absolute Monocytes Absolute Eosinophils Absolute Basophils PT INR APTT VBG Lactate Sodium Potassium Chloride Carbon Dioxide Anion Gap Cancelled BUN 6 L Cancelled Creatinine 0.8 Cancelled Est GFR (CKD-EPI 2020) 111.22 Glucose Calcium Magnesium Total Bilirubin AST ALT Alkaline Phosphatase Total Protein Albumin Lipase Ethyl Alcohol ABO/Rh Antibody Screen 11/23/23 11/23/23 11/23/23 06:20 06:20 06:20 WBC RBC Hgb Hct MCV MCH MCHC RDW Plt Count MPV Immature Gran % Neutrophils % Lymphocytes % Monocytes % Eosinophils % Basophils % Nucleated RBC % Absolute Neutrophils Absolute Lymphocytes Absolute Monocytes Absolute Eosinophils Absolute Basophils PT INR APTT VBG Lactate Sodium Potassium Chloride Carbon Dioxide Anion Gap BUN Creatinine Est GFR (CKD-EPI 2020) Cancelled Glucose 128 H Cancelled Calcium 8.5 Cancelled Magnesium Total Bilirubin AST ALT Alkaline Phosphatase Total Protein Albumin Lipase Ethyl Alcohol 109.5 H ABO/Rh Antibody Screen 11/23/23 11/23/23 08:02 Unknown WBC Cancelled RBC Cancelled Hgb Cancelled Hct Cancelled MCV Cancelled MCH Cancelled MCHC Cancelled RDW Cancelled Plt Count Cancelled MPV Cancelled Immature Gran % Neutrophils % Lymphocytes % Monocytes % Eosinophils % Basophils % Nucleated RBC % Absolute Neutrophils Absolute Lymphocytes Absolute Monocytes Absolute Eosinophils Absolute Basophils PT INR APTT VBG Lactate Sodium Cancelled Potassium Cancelled Chloride Cancelled Carbon Dioxide Cancelled Anion Gap Cancelled BUN Cancelled Creatinine Cancelled Est GFR (CKD-EPI 2020) Cancelled Glucose Cancelled Calcium Cancelled Magnesium Total Bilirubin AST ALT Alkaline Phosphatase Total Protein Albumin Lipase Ethyl Alcohol ABO/Rh Antibody Screen
--- NOTE | 2023-11-23 12:52 | W.PM.PROGNOT ---
Date of Service Date of service: 11/23/23 Time of Service: 12:53 Assessment and Plan Assessment and plan (1) Alcoholic pancreatitis: Status: Acute Assessment and plan: - Patient diagnosed with acute pancreatitis in the emergency department with a lipase of 130, consistent with recent EtOH relapse. No clear pancreatic inflammation on CT abdomen pelvis, but upon reveiw of CT with Dr. Vallejo from surgery there is some retroperitoneal stranding c/w possible pancreatitis. - Discussed differential of abdominal pain with surgery. Colitis on CT likely from hepatic congestion as he has not had diarrhea. - Minimal ascitic fluid, SBP would not make sense, not amenable to paracentesis. -Will continue Zofran and IV morphine - Continue IV fluids for now -On clear liquid diet, advance as tolerated (2) Cirrhosis: Status: Acute Assessment and plan: - Newly diagnosed in July, alcoholic. - Decompenstated with Child [place] 8, MELD 14. CMP stable from admission. - Follow labs - He has portal HTN on CT. Will need endoscopy with interventional GI and beta blockers. - sleepy likely because of morphine, but MS has been fluctuating at home as well, get ammonia. (3) Alcohol abuse: Status: Chronic Assessment and plan: - EtOH on admission c/w recent binge. He states has recent sobriety, supportive family. He understands high stakes. (4) Lactic acidosis: Status: Acute Assessment and plan: -Initial lactic acid 3.9 in the emergency department and repeat 4.1, relatively unchanged but he had not gotten fluids. EtOH also likely contributing. -Ordered for later in the day (5) Bloody emesis: Status: Acute Assessment and plan: - No change from baseline hemoglobin -Also visualized as small streaks of blood in emesis in the emergency department -Likely secondary to frequent vomiting over the last few days/Kimmy-Lindo. Not large volume bleed -Continue to monitor (6) Fever: Status: Acute Assessment and plan: Having fevers. Clinically this is constistent with pancreatitis. He had CT chest/abd/pelvis and u/a that did not reveal infection. Get blood cultures to be thourough. See above discussion re: SBP evaluation, not c/w this. No symptoms of colitis. Surgery consulted, but will not start antibiotics for now. (7) Hypomagnesemia: Status: Acute Assessment and plan: No change after 2g IV, will give another 4 g, follow (8) DVT prophylaxis: Status: Acute Assessment and plan: TEDs/SCDs given some UGI bleed Subjective Subjective Interval history since last seen: Still feeling tired and cloudy headed. Has diffuse abdominal pain with cough or movement, feels okay when he isn't moving. He was able to eat a popcicle this morning. He did have a normal BM yesterday, no diarrhea, no blood in stool. He confirms he was vomiting several times prior to having blood in vomit before he came in. No vomiting overnight. No dysuria. Hasn't felt a fever. His nmuxrd-ly-ofh Cyndee is car rental manager. She states he drank alcohol 4 shots for one day prior to presentation. He had been sober for 3 months. She states he has been Exam Narrative Exam Narrative: Chronically ill-appearing gentleman,, laying in bed in no acute distress at rest, sleepy but wakens, A&O x 4. MMM, no icterus heart regular rhythm, lungs clear to auscultation bilaterally abdomen with diffuse mild/moderate tenderness, not guarding but some rebound discomfort. No fluid wave, not grossly distended. ext. trace halima edema, no cyanosis Objective Last Vital Signs Temp 38.2 C H 11/23/23 11:10 Pulse 105 H 11/23/23 11:10 Resp 16 11/23/23 11:10 BP 127/67 11/23/23 11:10 Pulse Ox 97 11/23/23 11:10 Laboratory Results - last 24 hr 11/23/23 11/23/23 11/23/23 01:57 02:45 03:06 WBC 6.03 RBC 3.63 L Hgb 12.6 L Hct 35.1 L MCV 97 H MCH 34.7 H MCHC 35.9 RDW 12.3 Plt Count 51 L MPV 11.5 H Immature Gran % 0.5 Neutrophils % 75.0 Lymphocytes % 15.4 Monocytes % 7.8 Eosinophils % 0.8 Basophils % 0.5 Nucleated RBC % 0.0 Absolute Neutrophils 4.52 Absolute Lymphocytes 0.93 L Absolute Monocytes 0.47 Absolute Eosinophils 0.05 Absolute Basophils 0.03 PT Cancelled 15.6 H INR Cancelled 1.6 H APTT Cancelled 29.5 VBG Lactate 3.9 H* Sodium Cancelled 142 Potassium Cancelled 3.7 Chloride Cancelled 106 Carbon Dioxide Cancelled 28.0 Anion Gap Cancelled 8.0 BUN Cancelled 5 L Creatinine Cancelled 0.8 Est GFR (CKD-EPI 2020) Cancelled 111.22 Glucose Cancelled 125 H Calcium Cancelled 8.7 Magnesium Cancelled 1.3 L Total Bilirubin Cancelled 3.6 H AST Cancelled 194 H ALT Cancelled 119 H Alkaline Phosphatase Cancelled 99 Total Protein Cancelled 6.8 Albumin Cancelled 2.8 L Lipase 151 H Ethyl Alcohol ABO/Rh Cancelled A Positive Antibody Screen Cancelled NEGATIVE 11/23/23 11/23/23 11/23/23 04:27 06:20 06:20 WBC 8.76 RBC 3.62 L Hgb 12.5 L Hct 35.3 L MCV 98 H MCH 34.5 H MCHC 35.4 RDW 12.5 Plt Count 46 L MPV 11.4 H Immature Gran % Neutrophils % Lymphocytes % Monocytes % Eosinophils % Basophils % Nucleated RBC % Absolute Neutrophils Absolute Lymphocytes Absolute Monocytes Absolute Eosinophils Absolute Basophils PT INR APTT VBG Lactate 4.1 H* Sodium 143 Cancelled Potassium 3.8 Chloride Carbon Dioxide Anion Gap BUN Creatinine Est GFR (CKD-EPI 2020) Glucose Calcium Magnesium Total Bilirubin AST ALT Alkaline Phosphatase Total Protein Albumin Lipase Ethyl Alcohol ABO/Rh Antibody Screen 11/23/23 11/23/23 11/23/23 06:20 06:20 06:20 WBC RBC Hgb Hct MCV MCH MCHC RDW Plt Count MPV Immature Gran % Neutrophils % Lymphocytes % Monocytes % Eosinophils % Basophils % Nucleated RBC % Absolute Neutrophils Absolute Lymphocytes Absolute Monocytes Absolute Eosinophils Absolute Basophils PT INR APTT VBG Lactate Sodium Potassium Cancelled Chloride 105 Cancelled Carbon Dioxide 26.9 Cancelled Anion Gap 11.1 H BUN Creatinine Est GFR (CKD-EPI 2020) Glucose Calcium Magnesium Total Bilirubin AST ALT Alkaline Phosphatase Total Protein Albumin Lipase Ethyl Alcohol ABO/Rh Antibody Screen 11/23/23 11/23/23 11/23/23 06:20 06:20 06:20 WBC RBC Hgb Hct MCV MCH MCHC RDW Plt Count MPV Immature Gran % Neutrophils % Lymphocytes % Monocytes % Eosinophils % Basophils % Nucleated RBC % Absolute Neutrophils Absolute Lymphocytes Absolute Monocytes Absolute Eosinophils Absolute Basophils PT INR APTT VBG Lactate Sodium Potassium Chloride Carbon Dioxide Anion Gap Cancelled BUN 6 L Cancelled Creatinine 0.8 Cancelled Est GFR (CKD-EPI 2020) 111.22 Glucose Calcium Magnesium Total Bilirubin AST ALT Alkaline Phosphatase Total Protein Albumin Lipase Ethyl Alcohol ABO/Rh Antibody Screen 11/23/23 11/23/23 11/23/23 06:20 06:20 06:20 WBC RBC Hgb Hct MCV MCH MCHC RDW Plt Count MPV Immature Gran % Neutrophils % Lymphocytes % Monocytes % Eosinophils % Basophils % Nucleated RBC % Absolute Neutrophils Absolute Lymphocytes Absolute Monocytes Absolute Eosinophils Absolute Basophils PT INR APTT VBG Lactate Sodium Potassium Chloride Carbon Dioxide Anion Gap BUN Creatinine Est GFR (CKD-EPI 2020) Cancelled Glucose 128 H Cancelled Calcium 8.5 Cancelled Magnesium Total Bilirubin AST ALT Alkaline Phosphatase Total Protein Albumin Lipase Ethyl Alcohol 109.5 H ABO/Rh Antibody Screen 11/23/23 11/23/23 08:02 Unknown WBC Cancelled RBC Cancelled Hgb Cancelled Hct Cancelled MCV Cancelled MCH Cancelled MCHC Cancelled RDW Cancelled Plt Count Cancelled MPV Cancelled Immature Gran % Neutrophils % Lymphocytes % Monocytes % Eosinophils % Basophils % Nucleated RBC % Absolute Neutrophils Absolute Lymphocytes Absolute Monocytes Absolute Eosinophils Absolute Basophils PT INR APTT VBG Lactate Sodium Cancelled Potassium Cancelled Chloride Cancelled Carbon Dioxide Cancelled Anion Gap Cancelled BUN Cancelled Creatinine Cancelled Est GFR (CKD-EPI 2020) Cancelled Glucose Cancelled Calcium Cancelled Magnesium Total Bilirubin AST ALT Alkaline Phosphatase Total Protein Albumin Lipase Ethyl Alcohol ABO/Rh Antibody Screen PAWSS Have you Been Recently Intoxicated or Drunk Within the Last 30 days?: Yes Have you Ever Experienced Previous Episodes of Alcohol Withdrawal?: Yes Have you ever Experienced Withdrawal Seizures?: No Have you ever Experienced Delirium Tremens(DT)s?: No Have you ever undergone Alcohol Rehabilitation Treatment (i.e, inpt ot outpatient treatment programs)?: Yes Have you ever Experienced Blackouts?: Yes Have you ever Combined Alcohol with other Downers within the last 90 days?: Yes Have you ever Combined Alcohol with any other Substance of Abuse during the last 90 days?: Yes Evidence of Increased Autonomic Activity (i.e. HR>120, tremor, sweating, agitation, nausea)?: No Result: 6 Time Spent with Patient Time Spent with Patient: >50 minutes Time was spent: preparing to see the patient(eg.review tests), obtaining and/or reviewing separately otained hiistory, ordering medications,tests, procedures, referring, communicating with other health physician locums urgent care, indepentently interpreting results, counseling the patient and care coordination
[2023-11-23 13:11] LABS: Magnesium 1.3 mg/dL (1.8-2.4)
[2023-11-23 13:15] LABS: ALT 128 U/L (16-63); AST 193 U/L (15-37); Albumin 2.9 g/dL (3.4-5.0); Alkaline Phosphatase 91 U/L (46-116); Bilirubin, Direct 1.8 mg/dL (0.0-0.2); Bilirubin, Total 3.7 mg/dL (0.2-1.0); PHOSPHORUS 4.5 mg/dL (2.6-4.7); Total Protein 6.9 g/dL (6.4-8.2)
[2023-11-23 13:40] LABS: Tricyclic Antidepressants Negative (Negative)
[2023-11-23 14:04] LABS: *AMPHETAMINES SCREEN URINE Negative (Negative); *BARBITURATES SCREEN URINE Negative (Negative); *BENZODIAZEPINES SCREEN URINE Negative (Negative); Cannabinoids THC Positive (Negative); Cocaine Screen,Urine Negative (Negative); METHADONE URINE SCREEN Negative (Negative); OPIATES URINE SCREEN Positive (Negative)
[2023-11-23] MEDS: MAGNESIUM SULFATE 4 GM/100 ML BAG IVINF (14:18)
[2023-11-23 14:27] LABS: Lactate 4.9 mmol/L (0.6-1.4)
[2023-11-23 14:31] LABS: Ammonia 84 umol/L (11-32)
[2023-11-23] MEDS: Lactated Ringers 1,000 ML 125 ML IV (16:32)
[2023-11-23] MEDS: LORazepam 1 MG TAB PO/SL ×2 (17:53→22:56)
--- NOTE | 2023-11-24 | DI.US_ITS ---
Exam(s) US ABDOMEN EXAM: US ABDOMEN CLINICAL HISTORY: pancreatitis, alcohol, climbing bilirubin, fevers TECHNIQUE: Ultrasound of complete upper abdomen performed using standard protocol. COMPARISON: US US CAROTID from 06/21/[address] CHEST/ABD/PEL W from 11/23/2023 FINDINGS: There is mild-moderate ascites evident. LIVER: Liver exhibits diffuse cirrhotic appearance. There are no discrete focal hepatic lesions. Fl ow in the portal vein is demonstrated to be hepatofugal, consistent with significant portal venous hy pertension. Spleen is also enlarged. GALLBLADDER/BILIARY: Gallbladder is moderately distended and contains both shadowing gallstones and a bundant sludge. There is some pericholecystic fluid although is difficult to determine if this is du e to intrinsic gallbladder pathology or the generalized ascites. The common hepatic duct isslightly dilated, measuring 7-8mm at the level of senia hepatis. PANCREAS: There is no evidence of pancreatic mass nor dilatation of the pancreatic duct. SPLEEN: Spleen is enlarged, measuring 15.8 cm length. KIDNEYS:Kidneys exhibit normal size with no evidence of solid mass, nor cysts. A few tiny calculi ar e noted in left kidney. No hydronephrosis. ABDOMINAL AORTA: There is no evidence of abdominal aortic aneurysm. IVC: Normal diameter where visualized. IMPRESSION: 1. There are both shadowing gallstones and abundant sludge within the gallbladder lumen and the gall bladder appears moderately distended. There is some pericholecystic fluid but is difficult to determ ine if this fluid is related to intrinsic gallbladder pathology or related to the generalized ascites here. CBD is mildly dilated. No obvious calculus seen within the CBD. 2. Hepatic cirrhosis, splenomegaly, and reversal of flow in the portal vein consistent with portal v enous hypertension. No evidence of hepatoma. 3. Tiny nonobstructive calculi evident in the left kidney. No other renal findings. No hydronephro sis. Moderate amount of ascites evident DATA REPOSITORY:
[2023-11-24] MEDS: Lactated Ringers 1,000 ML 125 ML IV ×2 (00:31→12:32)
[2023-11-24 02:12] VITALS: BP 116/64; PULSE 92; RESP 14; TEMP 37.7; O2SAT 93
[2023-11-24] MEDS: Acetaminophen 325 MG TAB PO ×2 (02:27→21:40)
[2023-11-24 06:58] LABS: Prothrombin Time 18.6 sec (9.1-11.1)
[2023-11-24 07:04] LABS: HCT 29.4 % (40.0-50.0); HGB 10.6 g/dL (13.5-17.5); MCH 34.8 pg (27.0-33.0); MCHC 36.1 % (32.0-36.0); MCV 96 fL (80-95); RBC 3.05 10^6/uL (4.36-5.78); RDW 12.6 % (11.8-14.1); WBC 10.73 10^3/uL (4.4-10.8)
[2023-11-24 07:16] LABS: ALT 93 U/L (16-63); AST 133 U/L (15-37); Albumin 2.4 g/dL (3.4-5.0); Alkaline Phosphatase 55 U/L (46-116); Anion Gap 5.4 mmol/L (3-11); BUN 11 mg/dL (7-18); Bilirubin, Total 4.5 mg/dL (0.2-1.0); CO2 29.6 mmol/L (21.0-32.0); CREATININE 0.8 mg/dL (0.70-1.30); Chloride 102 mmol/L (98-107); Estimated GFR 111.22 (mL/min/1.73m2); Glucose 113 mg/dL (74-106); Magnesium 1.9 mg/dL (1.8-2.4); Potassium 3.7 mmol/L (3.5-5.1); Sodium 137 mmol/L (136-145); Total Protein 6.1 g/dL (6.4-8.2)
[2023-11-24 07:27] LABS: Platelet Count 38 10^3/uL (130-400)
[2023-11-24 08:25] VITALS: BP 121/89; PULSE 17; RESP 17; TEMP 37; O2SAT 92
--- NOTE | 2023-11-24 09:04 | PDOC.CMPRO ---
Date of service: 11/24/23 Time of Service: 09:04 Care Management Progress Note Progress Note Text Progress Note Text: S/O:Prashant was sitting up in bed visiting with his family when CM met with him. He continues to have pain with movement, he reported, but not when lying still. Prashant is still on a clear liquid diet and does have some nausea for which he receives Zofran. He also shared that the morphine makes him nauseated but that the anti-emetic helps with that as well. Prashant's pain has not gotten worse, however his LFTs continue to increase and he had fevers last evening as high as 38.8. An abdominal ultrasound was ordered this morning which showed :shadowing gallstones and abundant sludge within the gallbladder lumen and the gallbladder appears moderately distended. A: Prashant is a 43 year old man admitted on 11/23/23 with alcoholic pancreatitis Discharge Potential Discharge Needs: Consult Consult Services Needed: Other (GI consult with automobile service station manager) and PCP F/U Appt Anticipated Barriers to Discharge: None Identified Patient/Family Education Needs: Review discharge instructions, discuss Ask Me Three and Other (limitations, follow up plan) Transportation: Private vehicle Plan: Anticipate Prashant will be discharged home with no new services. He will follow up with his community providers and plan of care and transport with family. CM will follow and continue to assess for discharge planning needs.. SDOH(Care Management) Screening Will the Patient Participate in the Screening?: Yes Do you worry about having a steady place to live?: yes In the past 12 months, have you had to go without electric, gas, oil or water in your home?: choose not to answer Have you or anyone in your house had to go without enough food to eat?: choose not to answer Has lack of transportation kept you from medical appointments or from doing things needed for daily living?: choose not to answer Has anyone in your support network made you feel unsafe for any reason?: choose not to answer Health Related Social Needs Health related social needs: housing instability, housed, with risk of homelessness(Z59.811)
[2023-11-24] MEDS: Normal Saline Flush 10 ML SYR IVP ×3 (10:09→21:41)
[2023-11-24] MEDS: prednisoLONE SOD PHOS. Soln. 3 MG/ML 40 MG PO (10:10)
--- NOTE | 2023-11-24 10:13 | W.PM.PROGNOT ---
Date of Service Date of service: 11/24/23 Time of Service: 07:45 Assessment and Plan Assessment and plan (1) Alcoholic hepatitis: Status: Acute Assessment and plan: Measurements of liver function getting worse rather than better, which is concerning. His admission labs were similar to outpatient but INR and bili trending up. On admission Renu's DF was 21.4, now 39.5. With pancreatitis there may be other contributors to this, so will get abdominal u/s, but I do think we should treat this. Clinically he still doesn't have significant ascites to suggest SBP. - start prednisolone for alcoholic hepatitis - continue to observe for other sources of infection - abdominal u/s as above - follow liver function (2) Alcoholic pancreatitis: Status: Acute Assessment and plan: - Patient diagnosed with acute pancreatitis in the emergency department with a lipase of 130, consistent with recent EtOH relapse. No clear pancreatic inflammation on CT abdomen pelvis, but upon reveiw of CT with Dr. Vallejo from surgery there is some retroperitoneal stranding c/w possible pancreatitis. - Discussed differential of abdominal pain with surgery. Colitis on CT likely from hepatic congestion as he has not had diarrhea. - Minimal ascitic fluid, SBP would not make sense, not amenable to paracentesis. -Will continue Zofran and IV morphine - Continue IV fluids for now -On clear liquid diet, advance as tolerated (3) Cirrhosis: Status: Acute Assessment and plan: - Newly diagnosed in July, alcoholic. - Decompenstated with Child Rutledge 10 on admission (documented incorrectly yesterday), now 12. , MELD 14 on admission, now 20 CMP. - He has portal HTN on CT. Will need endoscopy with interventional GI and beta blockers, but hold given acute illness. - sleepy likely because of illness and morphine, but MS has been fluctuating at home as well and ammonia high. He hasn't had BM so will start conservative lactulose . (4) Alcohol abuse: Status: Chronic Assessment and plan: - EtOH on admission c/w recent binge. He states has recent sobriety, supportive family. He understands high stakes. - plan to offer medical and behavioral care upon discharge. (5) Lactic acidosis: Status: Acute Assessment and plan: -Initial lactic acid around 4 and did not go down with initial hydration. No signs of focal infection. Continuing hydration given pancreatitis. Cirrhotic patients do have higher levels of lactate and take longer to clear. Continue to monitor clinically. (6) Bloody emesis: Status: Acute Assessment and plan: - No change from baseline hemoglobin -Also visualized as small streaks of blood in emesis in the emergency department -Likely secondary to frequent vomiting over the last few days/Kimmy-Lindo. Not large volume bleed -Surgery consulted -Continue to monitor (7) Hypomagnesemia: Status: Acute Assessment and plan: normalized after 6g, follow (8) DVT prophylaxis: Status: Acute Assessment and plan: TEDs/SCDs given some UGI bleed Subjective Subjective Patient reports: no new complaints and voiding w/o difficulty; denies shortness of breath Interval history since last seen: Pain is a little less, but still hurts to cough and move. Pain is across abdomen, a little more in RUQ. He hasn't had a BM. Feels tired, cloudy headed, but hasn't been disoriented. Nauseous intermittently. He has been taking clears. He did vomit in the afternoon. Feels hot at times, not now. Exam Narrative Exam Narrative: Chronically ill-appearing gentleman, laying in bed in no acute distress at rest, sleepy but wakens, A&O. MMM, no icterus heart regular rhythm, lungs clear to auscultation bilaterally abdomen with mild/moderate tenderness, more in RUQ but some diffusely. No guarding or rebound, but some discomfort with purcussion. Liver mildly enlarged to percussion and tender. No fluid wave, not grossly distended. ext. trace halima edema, no cyanosis neuro: no tremor/asterixis today Objective Last Vital Signs Temp 37 C 11/24/23 08:25 Pulse 17 L 11/24/23 08:25 Resp 17 11/24/23 08:25 BP 121/89 11/24/23 08:25 Pulse Ox 92 11/24/23 08:25 Laboratory Results - last 24 hr 11/23/23 11/23/23 11/23/23 06:20 08:02 12:18 WBC RBC Hgb Hct MCV MCH MCHC RDW Plt Count MPV PT INR VBG Lactate Sodium Cancelled Potassium Cancelled Chloride Cancelled Carbon Dioxide Cancelled Anion Gap Cancelled BUN Cancelled Creatinine Cancelled Est GFR (CKD-EPI 2020) Cancelled Glucose Cancelled Calcium Cancelled Phosphorus 4.5 Magnesium 1.3 L Total Bilirubin 3.7 H Conjugated Bilirubin 1.8 H AST 193 H ALT 128 H Alkaline Phosphatase 91 Ammonia Total Protein 6.9 Albumin 2.9 L Urine Opiates Screen Positive A Urine Methadone Screen Negative Ur Barbiturates Screen Negative Ur Tricyclics Screen Negative Ur Amphetamines Screen Negative U Benzodiazepines Scrn Negative Urine Cocaine Screen Negative Ur THC Screen Positive A 11/23/23 11/23/23 11/24/23 14:00 Unknown 05:35 WBC Cancelled RBC Cancelled Hgb Cancelled Hct Cancelled MCV Cancelled MCH Cancelled MCHC Cancelled RDW Cancelled Plt Count Cancelled MPV Cancelled PT INR VBG Lactate 4.9 H* Sodium Potassium Chloride Carbon Dioxide Anion Gap BUN Creatinine Est GFR (CKD-EPI 2020) Glucose Calcium Phosphorus Magnesium Cancelled Total Bilirubin Conjugated Bilirubin AST ALT Alkaline Phosphatase Ammonia 84 H Total Protein Albumin Urine Opiates Screen Urine Methadone Screen Ur Barbiturates Screen Ur Tricyclics Screen Ur Amphetamines Screen U Benzodiazepines Scrn Urine Cocaine Screen Ur THC Screen 11/24/23 06:10 WBC 10.73 RBC 3.05 L Hgb 10.6 L Hct 29.4 L MCV 96 H MCH 34.8 H MCHC 36.1 H RDW 12.6 Plt Count 38 L MPV 12.0 H PT 18.6 H INR 2.0 H VBG Lactate Sodium 137 Potassium 3.7 Chloride 102 Carbon Dioxide 29.6 Anion Gap 5.4 BUN 11 Creatinine 0.8 Est GFR (CKD-EPI 2020) 111.22 Glucose 113 H Calcium 8.0 L Phosphorus Magnesium 1.9 Total Bilirubin 4.5 H Conjugated Bilirubin AST 133 H ALT 93 H Alkaline Phosphatase 55 Ammonia Total Protein 6.1 L Albumin 2.4 L Urine Opiates Screen Urine Methadone Screen Ur Barbiturates Screen Ur Tricyclics Screen Ur Amphetamines Screen U Benzodiazepines Scrn Urine Cocaine Screen Ur THC Screen PAWSS Have you Been Recently Intoxicated or Drunk Within the Last 30 days?: Yes Have you Ever Experienced Previous Episodes of Alcohol Withdrawal?: Yes Have you ever Experienced Withdrawal Seizures?: No Have you ever Experienced Delirium Tremens(DT)s?: No Have you ever undergone Alcohol Rehabilitation Treatment (i.e, inpt ot outpatient treatment programs)?: Yes Have you ever Experienced Blackouts?: Yes Have you ever Combined Alcohol with other Downers within the last 90 days?: Yes Have you ever Combined Alcohol with any other Substance of Abuse during the last 90 days?: Yes Evidence of Increased Autonomic Activity (i.e. HR>120, tremor, sweating, agitation, nausea)?: No Result: 6 Time Spent with Patient Time Spent with Patient: 35-49 minutes Time was spent: preparing to see the patient(eg.review tests), obtaining and/or reviewing separately otained hiistory, ordering medications,tests, procedures, referring, communicating with other health menagerie caretaker, indepentently interpreting results and counseling the patient
[2023-11-24 11:05] VITALS: BP 123/75; PULSE 85; RESP 16; TEMP 37.6; O2SAT 94
[2023-11-24] MEDS: MORPHine 4 MG/ML SYR IVP ×2 (12:35→21:40)
[2023-11-24 15:32] VITALS: BP 120/72; PULSE 95; RESP 15; TEMP 37.7; O2SAT 94
[2023-11-24] MEDS: Lactulose 20 GM/30 ML CUP PO (21:40)
[2023-11-24 21:45] VITALS: BP 123/70; PULSE 93; RESP 18; TEMP 38.6; O2SAT 93
[2023-11-24 22:51] VITALS: BP 121/63; PULSE 95; RESP 16; TEMP 37.6; O2SAT 92
[2023-11-25] MEDS: Lactated Ringers 1,000 ML 125 ML IV ×2 (01:13→10:31)
[2023-11-25 03:35] VITALS: BP 115/65; PULSE 75; RESP 18; TEMP 37.6; O2SAT 94
[2023-11-25] MEDS: Acetaminophen 325 MG TAB PO (03:42)
[2023-11-25 07:30] VITALS: BP 113/66; PULSE 79; RESP 17; TEMP 37.6; O2SAT 93
[2023-11-25 08:58] LABS: Abs Immature Grans 0.07 10^3/uL (0.0-0.06); Absolute Eosinophil Count 0.27 10^3/uL (0.0-0.7); Absolute Lymphocyte Count 1.63 10^3/uL (1.2-3.4); Absolute Monocyte Count 1.06 10^3/uL (0.1-0.8); Basophils % 0.3 %; Eosinophils % 2.3 %; HCT 29.2 % (40.0-50.0); HGB 10.6 g/dL (13.5-17.5); Immature Grans % 0.6 %; Lymphocytes % 13.9 %; MCH 34.9 pg (27.0-33.0); MCHC 36.3 % (32.0-36.0); MCV 96 fL (80-95); MPV 11.6 fL (8.0-11.0); Neutrophils % 73.9 %; RBC 3.04 10^6/uL (4.36-5.78); RDW 12.3 % (11.8-14.1); RDW-SD 42.5 fL; WBC 11.75 10^3/uL (4.4-10.8)
[2023-11-25 09:01] LABS: Lactate 1.7 mmol/L (0.9-1.7)
[2023-11-25 09:10] LABS: INR 1.9 (0.9-1.1); Prothrombin Time 17.9 sec (9.1-11.1)
[2023-11-25 09:12] LABS: Absolute Basophil Count 0.04 10^3/uL (0.0-0.2); Absolute Neutrophil Count 8.68 10^3/uL (1.2-6.7); Diff Comment Diff Reviewed; Platelet Count 45 10^3/uL (130-400); RBC Morphology Normal
--- NOTE | 2023-11-25 09:34 | PDOC.CMPRO ---
Date of service: 11/25/23 Time of Service: 09:34 Care Management Progress Note Progress Note Text Progress Note Text: Progress Note Text: S/O:Prashant was sitting up in bed when CM met with him. He shared that he had his eyes closed because he was trying to take a little nap before his family came to visit. Prashant reported that he is starting to feel better. His pain is less and he has been able to tolerate a diet. He stated that Dr. Chilel informed him that his liver tests have started to improve and that if all goes well, he may be able to go home tomorrow. Prashant also shared that he has good support for his AUD through family and friends. He stated that he is committed to remaining sober. He now understands fully that if he continues to drink he will and that is not his plan; he still has a lot to live for. A: Prashant is a 43 year old man admitted on 11/23/23 with alcoholic pancreatitis Discharge Potential Discharge Needs: Other (Support for AUD) Anticipated Barriers to Discharge: None Identified Patient/Family Education Needs: Review discharge instructions, discuss Ask Me Three and Other (expectations, limitations, follow up plan) Transportation: Private vehicle SDOH(Care Management) Screening Will the Patient Participate in the Screening?: Yes Do you worry about having a steady place to live?: yes In the past 12 months, have you had to go without electric, gas, oil or water in your home?: choose not to answer Have you or anyone in your house had to go without enough food to eat?: choose not to answer Has lack of transportation kept you from medical appointments or from doing things needed for daily living?: choose not to answer Has anyone in your support network made you feel unsafe for any reason?: choose not to answer Health Related Social Needs Health related social needs: housing instability, housed, with risk of homelessness(Z59.811)
[2023-11-25 09:36] LABS: Iron 95 ug/dL (65-175); Total Iron Binding Capacity 133 ug/dL (250-450); Transferrin Sat 71 % (20-55)
[2023-11-25 09:44] LABS: ALT 71 U/L (16-63); AST 75 U/L (15-37); Albumin 2.3 g/dL (3.4-5.0); Alkaline Phosphatase 51 U/L (46-116); Anion Gap 4.8 mmol/L (3-11); BUN 9 mg/dL (7-18); CO2 28.2 mmol/L (21.0-32.0); CREATININE 0.8 mg/dL (0.70-1.30); Calcium 8.1 mg/dL (8.5-10.1); Chloride 106 mmol/L (98-107); Estimated GFR 111.22 (mL/min/1.73m2); Folate 8.1 ng/mL (8.6-20.0); Glucose 144 mg/dL (74-106); Magnesium 1.4 mg/dL (1.8-2.4); Potassium 3.2 mmol/L (3.5-5.1); Sodium 139 mmol/L (136-145); Total Protein 5.9 g/dL (6.4-8.2); Vitamin B12 1690 pg/mL (193-986)
[2023-11-25] MEDS: prednisoLONE SOD PHOS. Soln. 3 MG/ML 40 MG PO (10:29)
[2023-11-25] MEDS: Normal Saline Flush 10 ML SYR IVP ×2 (10:31→20:11)
[2023-11-25] MEDS: MAGNESIUM SULFATE 4 GM/100 ML BAG IVINF (10:37)
[2023-11-25] MEDS: Folic Acid 1 MG TAB PO (10:37)
[2023-11-25] MEDS: Potassium Chloride 20 MEQ TABCR 40 MEQ PO (10:37)
--- NOTE | 2023-11-25 11:19 | W.PM.PROGNOT ---
Date of Service Date of service: 11/25/23 Time of Service: 11:19 Assessment and Plan Assessment and plan (1) Alcoholic hepatitis: Status: Acute Assessment and plan: Measurements of liver function getting worse from 11/22 to 11/23 rather than better, which was concerning. His admission labs were similar to outpatient but INR and bili trending up. On admission Maddrey's DF was 21.4, went up to 39.5 so started steroids. Abdominal u/s 11/23 did not show obstruction. Clinically he has not had significant ascites to suggest SBP. - started prednisolone for alcoholic hepatitis 11/23 - Per Dr. Lehman hepatology should have LFTs/PT on 11/30 and calculate Lille score, continue prednisolone for 28 days if indicated by Lille score. - continue to observe for other sources of infection, but clinically improved and lactate normalized without antibiotics. - follow liver function daily (2) Alcoholic pancreatitis: Status: Acute Assessment and plan: - Patient diagnosed with acute pancreatitis in the emergency department with a lipase of 151 in setting of recent EtOH relapse. No clear pancreatic inflammation on CT abdomen pelvis, but upon reveiw of CT with Dr. Vallejo from surgery there is some retroperitoneal stranding c/w possible pancreatitis. However, after review of the case with Dr. Lehman from [facility] on the phone, this was not c/w pancreatitis and his symptoms and labs are more consistent with alcoholic pancreatitis (3) Cirrhosis: Status: Acute Assessment and plan: - Newly diagnosed in July, . - Decompenstated with Child Rutledge 10 on admission (documented incorrectly yesterday), now 12. , MELD 14 on admission, increased to 20, but slightly better today. - He has portal HTN on CT. Will need endoscopy with interventional GI and beta blockers, but hold off given acute illness. - Ammonia was elevated, mental status and tremor did improve with conservative lactulose. (4) Alcohol abuse: Status: Chronic Assessment and plan: - EtOH on admission c/w recent binge after 3 mo sobriety. He states has recent sobriety, supportive family. He understands high stakes. - He is considering options for rehab and therapy upon discharge, we discussed this with his PATTY Cyndee and close friend Mark today - Acamprosate is option in cirrhosis, may try this upon discharge to help. (5) Lactic acidosis: Status: Acute Assessment and plan: - resolved without antibiotics (6) Bloody emesis: Status: Acute Assessment and plan: - No change from baseline hemoglobin -Also visualized as small streaks of blood in emesis in the emergency department -Likely secondary to frequent vomiting over the last few days/Kimmy-Lindo. Not large volume bleed -Surgery consulted, but no intervention planned. Endoscopy as outpatient. (7) Hypomagnesemia: Status: Acute Assessment and plan: normalized after 6g, low again with K+, replete both today again. (8) DVT prophylaxis: Status: Acute Assessment and plan: TEDs/SCDs given some UGI bleed Subjective Subjective Patient reports: feels better, tolerating a regular diet, voiding w/o difficulty and bowel movement (soft brown BMs); denies diarrhea, blood in stool (no melena), vomiting or shortness of breath Interval history since last seen: Diet advanced, tolerated regular diet. His pain is much improved, still hurts when walking. Not feeling fevers. Exam Narrative Exam Narrative: Chronically ill-appearing gentleman, sitting up in bed, no acute distress at rest, sleepy but wakens, A&O. MMM, no mil icterus heart regular rhythm, lungs clear to auscultation bilaterally abdomen with mild/moderate tenderness, in RUQ and lower abdomen. No guarding or rebound. . Liver mildly enlarged to percussion and mildly tender. No fluid wave, not grossly distended. ext. trace halima edema, no cyanosis neuro: no tremor/asterixis today Objective Last Vital Signs Temp 37.6 C H 11/25/23 07:30 Pulse 79 11/25/23 07:30 Resp 17 11/25/23 07:30 BP 113/66 11/25/23 07:30 Pulse Ox 93 11/25/23 07:30 Laboratory Results - last 24 hr 11/25/23 08:50 WBC 11.75 H RBC 3.04 L Hgb 10.6 L Hct 29.2 L MCV 96 H MCH 34.9 H MCHC 36.3 H RDW 12.3 Plt Count 45 L MPV 11.6 H Immature Gran % 0.6 Neutrophils % 73.9 Lymphocytes % 13.9 Monocytes % 9.0 Eosinophils % 2.3 Basophils % 0.3 Nucleated RBC % 0.0 Absolute Neutrophils 8.68 H Absolute Lymphocytes 1.63 Absolute Monocytes 1.06 H Absolute Eosinophils 0.27 Absolute Basophils 0.04 RBC Morphology Normal PT 17.9 H INR 1.9 H VBG Lactate 1.7 Sodium 139 Potassium 3.2 L Chloride 106 Carbon Dioxide 28.2 Anion Gap 4.8 BUN 9 Creatinine 0.8 Est GFR (CKD-EPI 2020) 111.22 Glucose 144 H Calcium 8.1 L Magnesium 1.4 L Iron 95 TIBC 133 L Transferrin % Sat 71 H Total Bilirubin 4.0 H AST 75 H ALT 71 H Alkaline Phosphatase 51 Total Protein 5.9 L Albumin 2.3 L Vitamin B12 1690 H Folate 8.1 L PAWSS Have you Been Recently Intoxicated or Drunk Within the Last 30 days?: Yes Have you Ever Experienced Previous Episodes of Alcohol Withdrawal?: Yes Have you ever Experienced Withdrawal Seizures?: No Have you ever Experienced Delirium Tremens(DT)s?: No Have you ever undergone Alcohol Rehabilitation Treatment (i.e, inpt ot outpatient treatment programs)?: Yes Have you ever Experienced Blackouts?: Yes Have you ever Combined Alcohol with other Downers within the last 90 days?: Yes Have you ever Combined Alcohol with any other Substance of Abuse during the last 90 days?: Yes Evidence of Increased Autonomic Activity (i.e. HR>120, tremor, sweating, agitation, nausea)?: No Result: 6 Time Spent with Patient Time Spent with Patient: >50 minutes Time was spent: preparing to see the patient(eg.review tests), obtaining and/or reviewing separately otained hiistory, ordering medications,tests, procedures, referring, communicating with other health associate director career services, indepentently interpreting results, counseling the patient and care coordination
[2023-11-25 11:52] VITALS: BP 123/78; PULSE 77; RESP 17; TEMP 37.4; O2SAT 95
[2023-11-25 15:24] VITALS: BP 119/75; PULSE 80; RESP 17; TEMP 37.8; O2SAT 94
[2023-11-25] MEDS: MORPHine 4 MG/ML SYR IVP ×2 (15:33→20:11)
[2023-11-25 19:14] VITALS: BP 129/83; PULSE 82; RESP 18; TEMP 37.1; O2SAT 96
[2023-11-25] MEDS: Lactulose 20 GM/30 ML CUP PO (20:11)
[2023-11-25 22:39] VITALS: BP 124/72; PULSE 71; RESP 18; TEMP 36.5; O2SAT 93
[2023-11-25] MEDS: diphenhydrAMINE 25 MG CAP PO (22:49)
[2023-11-26 03:16] VITALS: BP 108/77; PULSE 83; RESP 18; TEMP 36.7; O2SAT 93
[2023-11-26 07:08] LABS: INR 1.8 (0.9-1.1); Prothrombin Time 16.8 sec (9.1-11.1)
[2023-11-26 07:10] VITALS: BP 118/75; PULSE 83; RESP 18; TEMP 37.4; O2SAT 96
[2023-11-26 07:14] LABS: ALT 70 U/L (16-63); AST 56 U/L (15-37); Albumin 2.4 g/dL (3.4-5.0); Alkaline Phosphatase 77 U/L (46-116); Bilirubin, Direct 1.4 mg/dL (0.0-0.2); Total Protein 6.1 g/dL (6.4-8.2)
[2023-11-26] MEDS: Normal Saline Flush 10 ML SYR IVP ×2 (07:26→12:08)
[2023-11-26] MEDS: MORPHine 4 MG/ML SYR IVP ×2 (07:26→14:51)
[2023-11-26 08:17] LABS: Lab Add On Test DONE
[2023-11-26 08:30] LABS: Anion Gap 9.1 mmol/L (3-11); BUN 7 mg/dL (7-18); CO2 24.9 mmol/L (21.0-32.0); CREATININE 0.7 mg/dL (0.70-1.30); Calcium 7.9 mg/dL (8.5-10.1); Chloride 105 mmol/L (98-107); Glucose 103 mg/dL (74-106); Magnesium 1.6 mg/dL (1.8-2.4); Potassium 3.3 mmol/L (3.5-5.1); Sodium 139 mmol/L (136-145)
[2023-11-26] MEDS: Potassium Chloride 20 MEQ TABCR PO (08:52)
[2023-11-26] MEDS: prednisoLONE SOD PHOS. Soln. 3 MG/ML 40 MG PO (08:52)
[2023-11-26] MEDS: Acamprosate 333 MG TABCR 666 MG PO ×2 (08:52→14:30)
[2023-11-26] MEDS: Lactulose 20 GM/30 ML CUP PO (08:52)
[2023-11-26] MEDS: Folic Acid 1 MG TAB PO (08:52)
[2023-11-26 11:46] VITALS: BP 102/63; PULSE 84; RESP 18; TEMP 37.2; O2SAT 96
[2023-11-26] MEDS: MAGNESIUM SULFATE 4 GM/100 ML BAG IVINF (12:07)
[2023-11-26] MEDS: Potassium Chloride 20 MEQ TABCR 40 MEQ PO (12:07)
--- NOTE | 2023-11-26 13:10 | DSE_ITS ---
Date of service: 11/26/23 Time of Service: 13:10 DS: Diagnosis Discharge Diagnosis (1) Alcoholic hepatitis: Status: Acute (2) Cirrhosis: Status: Acute (3) Alcohol abuse: Status: Chronic (4) Lactic acidosis: Status: Acute Asessment and Plan: resolved (5) Bloody emesis: Status: Acute (6) Hypomagnesemia: Status: Acute Discharge Plan Disposition Patient Disposition: Home Condition: Improving Discharge Details Reason For Visit: Alcoholic hepatitis Admit Date/Time: 11/23/23 04:02 Admit Provider: Sarwat Ellison Attending Provider: Sarwat Ellison Primary Care Provider: Ryan Coello [facility] Hospital Course Hospital Course: 43 yo M with alcohol use disorder with dependance and cirrhosis presented with abdominal pain and streaky blood in his vomit after a relapse of drinking after 3 months of reported sobriety. His EtOH level 5.5 hours after presentation was 109.5. His hemoglobin on presentation was 12.6 and dropped to 10.6, then remained stable. His vomiting resolved after initial treatment in the emergency room. He never had bloody stools or diarrhea. Though he is at risk for vericocele bleed, clinical impression is minor Kimmy Lindo tear from vomiting. Endoscopy was deferred. He was initially diagnosed with pancreatitis based on a lipase of 151. CT showed some fluid adjacent to the pancreas, but there was some mild ascites diffusely. CT also showed diffuse colon thickening, but he had no diarrhea. CT did confirm hepatomegaly, splenomegaly, and cirrhosis with portal hypertension. Ultrasound showed gallstones and abundant sludge but no obstructing stone. There was no sign of hepatoma on CT or ultrasound. He was febrile off and on for the first 2 days. Surgery consulted but recommended against paracentesis as ascites was minimal, not consistent with spontaneous bacterial peritonititis. He was never started on antibiotics. He was given clears the second day, then progressed to a regular diet with gradual improvement of his pain and no further vomiting or bleeding. His ammonia was elevated to 84 and lactulose at a conservative dose of 20mL BID was initiated. His mental status improved during his hospitalization and mild asterixis resolved. He was placed on CIWA scale and prn oral lorazepam for alcohol withdrawal but had minimal symptoms. His lactate was elevated to 4.9 on admission and did not go down with initial hydration, but did normalize by day 3. Potassium and magnesium were low and replaced several times during admission. He should take a daily magnesium supplument. His folic acid was also low and supplementation given. Bilirubin increased from 3.7 to 4.5 and INR from 1.6 to 2 from presentation to day #2. This raised the concern for severe acute alcoholic hepatitis. This corresponded to a jump in Maddrey's Discriminant Function from 21.4 to 39.5. Based on this prednisolone 40mg daily orally was started on 11/23. Case reviewed on 11/[address] Bhagat from [facility] hepatology who recommended continuing prednisolone and repeating LFTs and PT/INR 7 days after admission to calculate Lille Model score to decide if prednisolone should be continued for the full 28 days. She did not think the patient had pancreatitis. She recommended non- urgent follow up with hepatology to coordinate transplant planning and ongoing care. Non-selective beta eleni therapy was deferred given severe active hepatitis. EGD was deferred, and should be done where he can get banding of varices if needed. Options for treatment of alcohol use disorder were reviewed including inpatient rehabilitation. [id number] Cyndee and friend Mark were supportive advocates. We did start acamprosate on the day of discharge, and starting dose sertraline to treat anxiety that has been exacerbated by recent loss of his partner. He has also lost a sibling and his mother to alcohol cirrhosis. Home Meds and New Rx's Prescriptions: New acetaminophen 325 mg Tablet 650 mg PO Q4H PRN PRNQty: 0 0RF Rx Instructions: max dose 2000mg per day folic acid 1 mg Tablet 1 mg PO DAILY Qty: 90 0RF acamprosate 333 mg Tablet,Delayed Release (Dr/Ec) 666 mg PO TID Qty: 180 1RF lactulose 20 gram/30 mL Solution 20 g PO BID Qty: 1800 1RF prednisolone sodium phosphate 15 mg/5 mL (3 mg/mL) Solution 40 mg PO DAILY Qty: 335 0RF sertraline 25 mg tablet 25 mg PO DAILY Qty: 30 0RF ondansetron 4 mg tablet,disintegrating 4 mg PO Q8H PRNQty: 20 0RF magnesium oxide 400 mg magnesium tablet 400 mg PO DAILY Qty: 90 0RF Continued vitamin B complex [B Complex-Vitamin B12] Tablet 1 tab PO DAILY multivitamin Tablet 1 tab PO DAILY Discharge Instructions Instructions: Cirrhosis (GEN), Alcoholic Hepatitis (DC) Additional Instructions: Seek out whatever support you can get to avoid alcohol. Review the general precautions for cirrhosis. You should ask a medical provider before using any supplument or OTC medication. You can take up to 2000mg of acetaminophen per day but should avoid all NSAID medication such as ibuprofen and naproxen. You should start on a beta eleni medication to prevent bleeding from the stomach veins when your liver has further recovered. We send acamprosate to help with cravings for alcohol. We also sent sertraline to help with anxiety without triggering desire for alcohol. Follow up with your primary about continuing these. It is important that you have your labs done November 30. This will allow us to use a standardized model to decide if you need to continue the prednisolone or not. Stand Alone Forms: Nursing Discharge Form Activity:: Activity as Tolerated Equipment/Supplies:: No Equipment Needed Diet:: As Tolerated Discharge Orders Discharge Orders: Discharge Order (Routine); Ordered 11/26/23 Ordered By: Dale Chilel Other Ambulatory Orders: Comprehensive Metabolic Panel (Routine) Timeframe: 5 Days Facility: [facility] - Location: Laboratory Outpatient - [facility] Ordered By: Dale Chilel Magnesium (Routine) Timeframe: 5 Days Facility: [facility] - Location: Laboratory Outpatient - [facility] Ordered By: Dale Chilel Prothrombin Time (Routine) Timeframe: 5 Days Facility: [facility] - Location: Laboratory Outpatient - [facility] Ordered By: Dale Chilel DS: Summary Time Spent with Patient providing and/or coordinating discharge services: Greater than 30 minutes Status at Discharge Functional status at discharge: independent ambulation Overall status at discharge: patient is progressing back to baseline Mental Status: mental status grossly normal Speech and Movement: speech and movement normal Mood: congruent mood Affect: normal affect Quality:SDOH Health Related Social Needs: Health related social needs risk of homeless Exam Narrative Exam Narrative: Sitting up in bed, no acute distress at rest, more bright and altert, oreinted x 4 HEENT: MMM, mild icterus CV: heart regular rhythm Lungs: nl effort clear to auscultation bilaterally abdomen: very mild tenderness, in RUQ and lower abdomen. No guarding or rebound. No fluid wave, not grossly distended. ext: trace halima edema, no cyanosis neuro: no tremor/asterixis. Psych: nl mood and affect, nl though process Psych Mental Status: mental status grossly normal Speech and Movement: speech and movement normal Mood: congruent mood Affect: normal affect DS: Data Vitals/I&O Vitals and I&O: Vital Signs Temperature 37.2 C 11/26/23 11:46 Temperature Source Temporal Artery Scan 11/26/23 11:46 Pulse 84 11/26/23 11:46 Pulse Rhythm Regular 11/26/23 09:28 Pulse 110 H 11/23/23 04:46 Respiratory Rate 18 11/26/23 11:46 Respiratory Effort Normal, Non-Labored 11/26/23 09:28 Respiratory Depth Normal 11/26/23 09:28 Respiratory Pattern Normal 11/26/23 09:28 Blood Pressure 102/63 11/26/23 11:46 Blood Pressure Mean 98 11/23/23 04:46 Pulse Oximetry 96 11/26/23 11:46 Oxygen Delivery Method Room Air 11/26/23 11:46 Oxygen Flow Rate 0 11/26/23 11:46 Pain Level 5 11/26/23 09:26 Comment po Tylenol given 11/24/23 21:45 Intake & Output 11/25/23 11/26/23 11/26/23 23:59 11:59 23:59 Intake Total 1320 / 4030 850 / 850 Balance 1320 / 3580 850 / 850 Weight 87 kg Intake: IV 600 / 2610 10 10 Oral 720 / 1420 840 / 840 Other: Urine Appearance Clear Clear Comment Pt voided in toilet independently. Reporting chronic frequency, urgency, with occasional urge incontinence. pT stated they were up to void recently Voiding Methods Toilet Toilet Data Completed and Pending Labs on day of discharge: Labs from last 24 hours 11/26/23 06:00 PT 16.8 H INR 1.8 H Sodium 139 Potassium 3.3 L Chloride 105 Carbon Dioxide 24.9 Anion Gap 9.1 BUN 7 Creatinine 0.7 Est GFR (CKD-EPI 2020) 115.80 Glucose 103 Calcium 7.9 L Magnesium 1.6 L Total Bilirubin 3.0 H Conjugated Bilirubin 1.4 H AST 56 H ALT 70 H Alkaline Phosphatase 77 Total Protein 6.1 L Albumin 2.4 L Add-On Test Request DONE Preliminary micro results at discharge 11/23/23 14:00 Blood Culture - Preliminary Blood NO GROWTH 48 HOURS 11/23/23 14:08 Blood Culture - Preliminary Blood NO GROWTH 48 HOURS PFSH All Active Problems Alcoholic hepatitis (Acute) Abdominal pain (Acute) DVT prophylaxis (Acute) Hypomagnesemia (Acute) Fever (Acute) Bloody emesis (Acute) Thrombocytopenia (Chronic) Lactic acidosis (Acute) Alcoholic pancreatitis (Acute) Acute pancreatitis (Acute) Acute upper gastrointestinal bleeding (Acute) Cirrhosis (Acute) Alcohol abuse (Chronic) Medical History (Updated 11/26/23 @ 10:50 by Dale Chilel) Pulsatile tinnitus of right ear Social History Smoking/Tobacco Use Status: Current every day Tobacco Type: e-cigarettes Smoking risk assessment performed?: Yes Alcohol Intake: current Alcohol Intake frequency: 3 or more drinks per day Alcohol type: beer Drug use: Occasionally Substance use type: marijuana Housing: apartment Do you feel safe at home: Yes Do you feel safe in your relationship?: Yes Time Spent with Patient Time Spent with Patient: 45-69 minutes Time was spent: preparing to see the patient(eg.review tests), obtaining and/or reviewing separately otained hiistory, ordering medications,tests, procedures, referring, communicating with other health rn patient care, indepentently interpreting results, counseling the patient and care coordination
--- NOTE | 2023-11-26 17:30 | NUR.NOTE ---
Nursing Note: Pt DC home with friend via private vehicle, has all personal belongings, has no further questions regarding DC instructions and medication regimen, pt strongly encouraged to avoid alcohol, educated provided and help offered, pt ambulated to main entrance escorted by this nurse.
== END 2023-11-26 17:10 | disposition home or self-care (01) | DRG 432 ==
LOC: ER 04:22 → MS 05:15
PROVIDERS: Family Medicine; Admitting Provider Family Medicine; Emergency Provider Student in an Organized Health Care Education/Training Program; PCP Family Medicine; Visit Provider Family Medicine
DX: K70.11 Alcoholic hepatitis with ascites (principal); K22.6 Gastro-esophageal laceration-hemorrhage syndrome; K85.20 Alcohol induced acute pancreatitis without necrosis or infection; E87.20 Acidosis, unspecified; K76.6 Portal hypertension; K70.31 Alcoholic cirrhosis of liver with ascites; F10.10 Alcohol abuse, uncomplicated; E83.42 Hypomagnesemia; R50.9 Fever, unspecified; D69.59 Other secondary thrombocytopenia; F17.290 Nicotine dependence, other tobacco product, uncomplicated; F12.90 Cannabis use, unspecified, uncomplicated; Y90.5 Blood alcohol level of 100-119 mg/100 ml
CPT/HCPCS: 00123; 36415; 74177; 80048; 80053; 80076; 80307; 83690; 85027; 86850; 86900; 86901; 87040; 93005; 96361; 96365; 96375; 99285; 71260; 76700; 80320; 82140; 82607; 82746; 83540; 83550; 83605; 83735; 84100; 85025; 85610; 85730; 93010; 99223; 99232; 99233; 99239; J0696; J2270; J2354; J2405; J2470; J2765; J3411; J3475; J3490

== ENCOUNTER 2023-11-29 05:39 | Emergency (ER) | payer MEDICAID, SELFPAY ==
[2023-11-29] VITALS (13 sets, daily range): BP systolic 90–116; BP diastolic 42–59; PULSE 90–105; RESP 19–26; TEMP 37.3; O2SAT 90–96
--- NOTE | 2023-11-29 05:49 | ED.GENADUL_ITS ---
Discharge Plan Discharge Details Chief Complaint: Abd Prob Primary Care Provider: Ryan Coello ED Provider: Mar Crisostomo Home Meds and New Rx's Prescriptions: No Action vitamin B complex [B Complex-Vitamin B12] Tablet 1 tab PO DAILY multivitamin Tablet 1 tab PO DAILY acetaminophen 325 mg Tablet 650 mg PO Q4H PRN PRNQty: 0 0RF Rx Instructions: max dose 2000mg per day folic acid 1 mg Tablet 1 mg PO DAILY Qty: 90 0RF acamprosate 333 mg Tablet,Delayed Release (Dr/Ec) 666 mg PO TID Qty: 180 1RF lactulose 20 gram/30 mL Solution 20 g PO BID Qty: 1800 1RF prednisolone sodium phosphate 15 mg/5 mL (3 mg/mL) Solution 40 mg PO DAILY Qty: 335 0RF sertraline 25 mg tablet 25 mg PO DAILY Qty: 30 0RF ondansetron 4 mg tablet,disintegrating 4 mg PO Q8H PRNQty: 20 0RF magnesium oxide 400 mg magnesium tablet 400 mg PO DAILY Qty: 90 0RF HPI General Mode of arrival: ambulatory . Date/Time Provider Initiated Documentation: 11/29/23 05:41 . Limitations to Documentation: no limitations . Information obtained by: patient and old records reviewed . HPI Narrative: 43yo M with ETOH use disorder, cirrhosis, recent admission for alcoholic hepatitis discharged 11/26/23 after presenting with abdominal pain and hematemesis with plan on discharge for non-urgent hepatology followup due to worsening liver function tests during his admission, who is presenting today for abdominal pain and vomiting. Pain is diffuse, severe, and not improved by home tylenol; worse in LLQ which is new. Continued vomiting despite home zofran. States he is unable to keep down fluids. Emesis is again blood-tinged; no coffee grounds or large volume bleeding. Pain is keeping him awake at night. No new symptoms since discharge. No fevers, chills, rash, dysuria, hematuria, weakness, or other concerns. Related Data Home Medications Medication Instructions Recorded Confirmed multivitamin 1 tab PO DAILY 06/02/23 11/29/23 vitamin B complex (B 1 tab PO DAILY 06/02/23 11/29/23 Complex-Vitamin B12 tablet) acamprosate 333 mg tablet,delayed 666 mg (2 x 333 mg) PO TID #180 11/26/23 11/29/23 release tabs acetaminophen 325 mg tablet 650 mg (2 x 325 mg) PO Q4H PRN PRN 11/26/23 11/29/23 #0 tabs folic acid 1 mg tablet 1 mg PO DAILY #90 tabs 11/26/23 11/29/23 lactulose 20 gram/30 mL oral 20 g (30 mL) PO BID #1,800 mL 11/26/23 11/29/23 solution magnesium oxide 400 mg PO DAILY #90 tabs 11/26/23 11/29/23 ondansetron 4 mg disintegrating 4 mg PO Q8H PRN #20 tabs 11/26/23 11/29/23 tablet prednisolone sodium phosphate 15 40 mg (13.3333 mL) PO DAILY #335 mL 11/26/23 11/29/23 mg/5 mL (3 mg/mL) oral solution sertraline 25 mg tablet 25 mg PO DAILY #30 tabs 11/26/23 11/29/23 Previous Rx's Medication Instructions Recorded acamprosate 333 mg tablet,delayed 666 mg (2 x 333 mg) PO TID #180 11/26/23 release tabs acetaminophen 325 mg tablet 650 mg (2 x 325 mg) PO Q4H PRN PRN 11/26/23 #0 tabs folic acid 1 mg tablet 1 mg PO DAILY #90 tabs 11/26/23 lactulose 20 gram/30 mL oral 20 g (30 mL) PO BID #1,800 mL 11/26/23 solution magnesium oxide 400 mg PO DAILY #90 tabs 11/26/23 ondansetron 4 mg disintegrating 4 mg PO Q8H PRN #20 tabs 11/26/23 tablet prednisolone sodium phosphate 15 40 mg (13.3333 mL) PO DAILY #335 mL 11/26/23 mg/5 mL (3 mg/mL) oral solution sertraline 25 mg tablet 25 mg PO DAILY #30 tabs 11/26/23 Allergies Allergy/AdvReac Type Severity Reaction Status Date / Time No Known Allergies Allergy Unverified 11/23/23 01:39 General Stated Complaint: Abd Prob FLOYD: 3 Review of Systems Narrative: see HPI Exam Narrative Exam Narrative: General: Alert, no acute distress. Head: Normocephalic, atraumatic Neck: Trachea midline, ?Neck supple. ENT: ?MMM.? Cardiac: ?RRR, no murmurs appreciated Resp: No respiratory distress. CTAB. Abd: ?Soft, mildly distended, mildly TTP diffusely with no focal tenderness and no peritoneal signs. : ?No suprapubic tenderness. Extremities: ?No deformities.? No peripheral edema. Neurologic: GCS 15. ? Moves all extremities freely against gravity Course Vital Signs Vital signs: Vital Signs Temperature 37.3 C 11/29/23 05:42 Pulse 100 H 11/29/23 05:42 Respiratory Rate 20 11/29/23 05:42 Blood Pressure 115/53 L 11/29/23 05:42 Temperature 37.3 C 11/29/23 05:42 Temperature Source Temporal Artery Scan 11/29/23 05:42 Pulse 100 H 11/29/23 05:42 Respiratory Rate 20 11/29/23 05:42 Blood Pressure 115/53 L 11/29/23 05:42 Blood Pressure Position Supine 11/29/23 05:42 Oxygen Delivery Method Room Air 11/29/23 05:42 Oxygen Flow Rate 0 11/29/23 05:42 Pain Level 10 11/29/23 05:42 Medical Decision Making 43yo M with ETOH use disorder, cirrhosis, recent admission for alcoholic hepatitis discharged 11/26/23 after presenting with abdominal pain and hematemesis with plan on discharge for non-urgent hepatology followup due to worsening liver function tests during his admission, who is presenting today for abdominal pain and vomiting. Pain is diffuse, severe, and not improved by home tylenol; worst in LLQ which is new. Continued vomiting despite home zofran. States he is unable to keep down fluids. No new symptoms including new fevers. Slightly tachcycardiac to 100 on arrival, vital signs otherwise reassuring. Overall he appears much better than when I evaluated him in the ED on 11/22; no acute distress and not actively retching. Will give mIVF, toradol for pain, try reglan for N/V. Overall benign abdominal exam, not concerning for spontaneous bacterial peritonitis; given subjective report of increased pain and change in location, will evaluate with CT imaging. Of note, surgery was consulted during his recent admission and very volume of ascites at that time not thought to amenable to paracentesis. Labs reviewed as below, CBC reassuring with no leukokctyosis and no decrease in Hg from prior,, CMP with no significant electrolyte abnormalities (mild hypocalcemia improved from hospital discharge), bilirubin not markedly different than during admission, Mg again low at 1.5 (oral replacement ordered), lactate slightly elevated at 2.6 not unexpected in the setting of liver failure and decreased clearance, ammonia mildly elevated at 77 and trending downwards, coags improved from discharge, ETOH negative. Signed out to oncoming physician, plan to followup CT results and reassess. If CT reassuring, would PO challenge and consider discharge home. Medical Records Medical records reviewed: Yes I reviewed the patient's medical records. Medical records narrative: Most recent admission H&P, progress notes, discharge summary Lab Data Lab results reviewed: Yes I reviewed the patient's lab results. Labs: Laboratory Tests Range/Units 11/29/23 11/29/23 05:55 05:55 WBC (4.4-10.8) 10^3/uL 9.38 RBC (4.36-5.78) 10^6/uL 3.20 L Hgb (13.5-17.5) g/dL 11.3 L Hct (40.0-50.0) % 30.9 L MCV (80-95) fL 97 H MCH (27.0-33.0) pg 35.3 H MCHC (32.0-36.0) % 36.6 H RDW (11.8-14.1) % 14.3 H Plt Count (130-400) 10^3/uL 73 L MPV (8.0-11.0) fL 10.7 Immature Gran % % 0.0 Neutrophils % % 62.0 Band Neutrophils % % 12 Lymphocytes % % 11.0 Atypical Lymphs % % 2 Monocytes % % 12.0 Eosinophils % % 1.0 Basophils % % 0.0 Nucleated RBC % (0.0-0.3) % 0.0 Absolute Neutrophils (1.2-6.7) 10^3/uL 6.94 H Absolute Lymphocytes (1.2-3.4) 10^3/uL 1.22 Absolute Monocytes (0.1-0.8) 10^3/uL 1.13 H Absolute Eosinophils (0.0-0.7) 10^3/uL 0.09 Absolute Basophils (0.0-0.2) 10^3/uL 0.00 RBC Morphology Normal PT (9.1-11.1) sec 16.6 H INR (0.9-1.1) 1.7 H APTT (23.6-32.8) sec 27.0 VBG Lactate (0.6-1.4) mmol/L 2.5 H* Sodium (136-145) mmol/L 138 Potassium (3.5-5.1) mmol/L 3.6 Chloride (98-107) mmol/L 104 Carbon Dioxide (21.0-32.0) mmol/L 26.6 Anion Gap (3-11) mmol/L 7.4 BUN (7-18) mg/dL 11 Creatinine (0.70-1.30) mg/dL 1.0 Est GFR (CKD-EPI 2020) (mL/min/1.73m2) 94.59 Glucose (74-106) mg/dL 143 H Calcium (8.5-10.1) mg/dL 8.2 L Magnesium (1.8-2.4) mg/dL 1.5 L Total Bilirubin (0.2-1.0) mg/dL 3.6 H AST (15-37) U/L 48 H ALT (16-63) U/L 61 Alkaline Phosphatase (46-116) U/L 94 Ammonia (11-32) umol/L 77 H Total Protein (6.4-8.2) g/dL 6.1 L Albumin (3.4-5.0) g/dL 2.5 L Ethyl Alcohol (<10) mg/dL < 3.0 Cancelled Quality:SDOH Health Related Social Needs: Health related social needs risk of homeless PFSH All Active Problems Alcoholic hepatitis (Acute) Hypomagnesemia (Acute) Thrombocytopenia (Chronic) Acute pancreatitis (Acute) Acute upper gastrointestinal bleeding (Acute) Cirrhosis (Acute) Alcohol abuse (Chronic) Medical History (Updated 11/27/23 @ 00:01 by MYAH GIL) Pulsatile tinnitus of right ear Social History Smoking/Tobacco Use Status: Current every day Tobacco Type: e-cigarettes Smoking risk assessment performed?: Yes Alcohol Intake: current Alcohol Intake frequency: 3 or more drinks per day Alcohol type: beer Drug use: Occasionally Substance use type: marijuana Housing: apartment Do you feel safe at home: Yes Do you feel safe in your relationship?: Yes
[2023-11-29] MEDS: Normal Saline 1,000 ML 150 ML IV (05:53)
[2023-11-29 06:16] LABS: Lactate 2.5 mmol/L (0.6-1.4)
[2023-11-29 06:18] LABS: HCT 30.9 % (40.0-50.0); HGB 11.3 g/dL (13.5-17.5); MCH 35.3 pg (27.0-33.0); MCHC 36.6 % (32.0-36.0); MCV 97 fL (80-95); MPV 10.7 fL (8.0-11.0); RDW 14.3 % (11.8-14.1); RDW-SD 46.3 fL; WBC 9.38 10^3/uL (4.4-10.8)
[2023-11-29] MEDS: Metoclopramide 10 MG/2 ML VIAL IVP (06:21)
[2023-11-29] MEDS: Ketorolac 15 MG/ML VIAL IVP (06:22)
[2023-11-29 06:28] LABS: Ammonia 77 umol/L (11-32)
[2023-11-29 06:29] LABS: INR 1.7 (0.9-1.1); Prothrombin Time 16.6 sec (9.1-11.1)
[2023-11-29 06:34] LABS: ALT 61 U/L (16-63); AST 48 U/L (15-37); Albumin 2.5 g/dL (3.4-5.0); Alkaline Phosphatase 94 U/L (46-116); Anion Gap 7.4 mmol/L (3-11); BUN 11 mg/dL (7-18); Bilirubin, Total 3.6 mg/dL (0.2-1.0); CO2 26.6 mmol/L (21.0-32.0); Calcium 8.2 mg/dL (8.5-10.1); Chloride 104 mmol/L (98-107); Estimated GFR 94.59 (mL/min/1.73m2); Glucose 143 mg/dL (74-106); Magnesium 1.5 mg/dL (1.8-2.4); Potassium 3.6 mmol/L (3.5-5.1); Sodium 138 mmol/L (136-145); Total Protein 6.1 g/dL (6.4-8.2)
[2023-11-29 06:42] LABS: ETHANOL BLOOD < 3.0 mg/dL (<10)
--- NOTE | 2023-11-29 06:45 | DI.CT_ITS ---
Exam(s) CT ABDOMEN PELVIS W EXAM: CT ABDOMEN PELVIS W CLINICAL HISTORY: diffuse abdominal pain, worst LLQ TECHNIQUE: Imaging Protocol: Axial computed tomography images with coronal and sagittal reformatted images were created and reviewed. CONTRAST MATERIAL: Intravenous: Omnipaque 350 Contrast volume:100 mL Oral: No CT CT CHEST/ABD/PEL W from 11/23/2023 FINDINGS: ABDOMEN: Lung Bases: There are dependent infiltrates in the lung bases. Liver: The liver has a nodular contour. The liver measures 19 cm long. The findings are most suggesti ve of hepatic cirrhosis. No measurable mass. Portal, Superior Mesenteric, and Splenic Veins: Abdominal collaterals are seen in the left upper quad rant. Gallbladder and Biliary Tract: Cholelithiasis. No significant biliary ductal dilatation. Pancreas: Normal density, no abnormal calcifications or inflammatory process. Spleen: The spleen measures 14.5 cm long. Adrenals: No masses seen. Kidneys: Normal size, contour and axis. There is bilateral nonobstructing nephrolithiasis. No masses seen. Abdominal Aorta: Abdominal portion non-dilated. Bowel: There is diffuse wall thickening involving the ascending colon, transverse colon and proximal descending colon. There is wall thickening involving the duodenum and proximal small bowel. There is no evidence of obstruction. No evidence of appendicitis. There is no pneumatosis. Peritoneal Cavity: There is moderate abdominal ascites and a small amount of pelvic ascites. No free air. Lymph Nodes: There are mildly enlarged lymph nodes seen in the mesentery. Bones: Within normal limits for the patient's age. Soft Tissues: There is a small fat containing umbilical hernia. PELVIS: Bladder: There is thickening of the wall of the urinary bladder. This may be due to underdistention. But cystitis cannot be excluded. Reproductive Organs: Unremarkable as visualized. Lymph Nodes: Within normal limits. Bones: Within normal limits for the patient's age. IMPRESSION: 1. Findings of hepatic cirrhosis and portal venous hypertension with splenomegaly, ascites and left u pper quadrant collaterals. 2. Diffuse thickening of the wall of small and large bowel. This can be seen with diffuse hepatic dis ease but enterocolitis should also be considered. Please correlate clinically. 3. Diffuse thickening of the wall of the urinary bladder. This may be due to underdistention but cyst itis cannot be excluded. Neoplasm should also be considered. Please correlate clinically. 4. Dependent infiltrates in the lung bases which may represent atelectasis but pneumonia cannot be ex cluded. RADIATION DOSE DELIVERED: 1,020.97mGy.cm Total DLP DATA REPOSITORY: All CT scans at this facility are submitted to the National Radiology Data Registry (NRDR) Dose Index Registry (DIR) with the [employer] ([employer]). RADIATION OPTIMIZATION: All CT scans at this facility use at least one of these dose optimization te chniques: automated exposure control; mA and/or kV adjustment per patient size (includes targeted exa ms where dose is matched to clinical indication); or iterative reconstruction.
[2023-11-29 06:53] LABS: Absolute Eosinophil Count 0.09 10^3/uL (0.0-0.7); Absolute Lymphocyte Count 1.22 10^3/uL (1.2-3.4); Absolute Monocyte Count 1.13 10^3/uL (0.1-0.8); Absolute Neutrophil Count 6.94 10^3/uL (1.2-6.7); Atypical Lymphocytes % 2 %; Bands % 12 %; Diff Comment Manual Differential; RBC Morphology Normal
[2023-11-29 06:54] LABS: Platelet Count 73 10^3/uL (130-400)
--- NOTE | 2023-11-29 07:00 | ED.PROG_ITS ---
Date of service: 11/29/23 Time of Service: 07:00 Medical Decision Making Care assumed in signout from off going provider. Patient is a 43-year-old gentleman with recent diagnosis of alcoholic liver cirrhosis. He reports sobriety of 30 days although medical record does not support that timeline. He was recently admitted to the hospital for cirrhosis, pancreatitis, vomiting. Reviewed his record and discharge summary. At this time of signout, patient's ED workup was pending a CT scan. Today white blood cell count is normal, no significant anemia. Platelet count low at 73, this thrombocytopenia is improved since prior discharge. His INR slightly elevated at 1.7. Lactic acid initially elevated, but has down trended after some IV fluid resuscitation. His LFTs and bilirubin are abnormal and this is consistent with prior. His magnesium was low and oral replacement was given. His lipase is noted to be slightly elevated at 98. His ammonia is also noted to be elevated at 77. He was discharged on lactulose and does not report that he has been compliant with this medication. The patient initially presented with left lower quadrant abdominal pain, and a CT scan was obtained. On my review of the CT scan, there is some ascites noted there are also findings consistent with hepatic cirrhosis and portal venous hypertension. Large and small bowel are diffusely thickened, likely secondary to liver disease. The patient has no diarrhea. I doubt an acute colitis. Changes noted to the urinary bladder a urinalysis was obtained and this did not demonstrate infection. On my evaluation, the patient had a benign abdominal exam and had been tolerating p.o. in the emergency department. Also his liver dysfunction does not seem to be improving, I do not appreciate a significant decline, or acute liver failure or a need for hospitalization. The patient has medications to take, and has been referred via care management for outpatient hepatology follow-up. He was provided the number at [facility] to help arrange this follow-up. On my review of his medical record I did not note hepatitis diagnos is, so hep panels have been sent. His PCP can follow-up on these. Patient updated on his findings and the importance of follow-up. Strict return precautions advised. The patient is discharged at this time in stable condition. Medical Records Medical records reviewed: Yes I reviewed the patient's medical records. Lab Data Lab results reviewed: Yes I reviewed the patient's lab results. Quality:SDOH Health Related Social Needs: Health related social needs risk of homeless Discharge Plan Disposition Patient Disposition: Home Discharge Details Clinical Impression: Alcoholic hepatitis, Acute hepatic encephalopathy, Alcoholic liver failure, Abdominal pain Primary Care Provider: Ryan Coello ED Provider: Christie Dubois Home Meds and New Rx's Prescriptions: No Action vitamin B complex [B Complex-Vitamin B12] Tablet 1 tab PO DAILY multivitamin Tablet 1 tab PO DAILY acetaminophen 325 mg Tablet 650 mg PO Q4H PRN PRNQty: 0 0RF Rx Instructions: max dose 2000mg per day folic acid 1 mg Tablet 1 mg PO DAILY Qty: 90 0RF acamprosate 333 mg Tablet,Delayed Release (Dr/Ec) 666 mg PO TID Qty: 180 1RF lactulose 20 gram/30 mL Solution 20 g PO BID Qty: 1800 1RF prednisolone sodium phosphate 15 mg/5 mL (3 mg/mL) Solution 40 mg PO DAILY Qty: 335 0RF sertraline 25 mg tablet 25 mg PO DAILY Qty: 30 0RF ondansetron 4 mg tablet,disintegrating 4 mg PO Q8H PRNQty: 20 0RF magnesium oxide 400 mg magnesium tablet 400 mg PO DAILY Qty: 90 0RF Discharge Instructions Additional Instructions: * You have been referred to hepatology at [facility]. The care managers are in process of trying to complete this referral and get an appointment scheduled for you but you can call to schedule an appointment as well. It is very important that you start seeing a core blower which is a liver doctor, as you have significant liver disease that will only get worse until you have treatment. * you need to make sure to take your lactulose twice daily as prescribed * use zofran as needed * if you aren't able to tolerate anything by mouth please return * please continue to avoid drinking alcohol * Gastroenterology - [facility] Main [place] Phone:?? Discharge Data Discharge Date/Time-TO BE ENTERED AT DEPARTURE: 11/29/23 09:40
[2023-11-29] MEDS: Omnipaque 350 MG/ML 100 ML BTL IJ (07:15)
[2023-11-29] MEDS: Normal Saline - Diluent 50 ML VIAL IJ (07:16)
[2023-11-29] MEDS: Magnesium Gluconate 500 MG TAB 1000 MG PO (07:34)
--- NOTE | 2023-11-29 07:52 | DI.VRAD_ITS ---
PROCEDURE INFORMATION: Exam: CT Abdomen And Pelvis With Contrast Exam date and time: 11/29/2023 7:15 AM Age: 43 years old Clinical indication: Patient HX: Diffuse abdominal pain, greater in llq TECHNIQUE: Imaging protocol: Computed tomography of the abdomen and pelvis with contrast. COMPARISON: CT CHEST/ABD/PEL W 11/23/2023 2:11 AM FINDINGS: Lungs: Dependent changes are present in the lungs. Liver: Cirrhotic liver. Gallbladder and bile ducts: Cholelithiasis. Pericholecystic fluid. Pancreas: Peripancreatic stranding. Spleen: Splenomegaly. Adrenal glands: No mass. Kidneys and ureters: No hydronephrosis or evidence for pyelonephritis. Stomach and bowel: Duodenal and jejunal thickening. No intestinal obstruction is evident. Thickening of the ascending and transverse colon. Appendix: No evidence of appendicitis. Intraperitoneal space: Generalized mesenteric edema. Small amount of ascites. Vasculature: Evidence for portal hypertension with multiple prominent collaterals and splenomegaly. Lymph nodes: Multiple mesenteric and retroperitoneal lymph nodes. Urinary bladder: Bladder appears thickened but is incompletely distended and suboptimally evaluated. Reproductive: No acute findings. Bones/joints: No pertinent acute abnormality seen. Soft tissues: No pertinent acute abnormality seen. IMPRESSION: 1. Cirrhosis with ascites and evidence for portal hypertension as described above. 2. Small and large bowel thickening as described above, may be due to liver disease, bland edema, and/or enterocolitis. 3. Bladder wall thickening, suboptimally evaluated secondary to underdistention. Differential considerations include cystitis, muscular hypertrophy, neoplasm. Follow-up as clinically warranted. 4. Cholelithiasis. Pericholecystic fluid is likely related to more generalized edema/ascites. Right upper quadrant ultrasound may be considered if cholecystitis is of clinical concern. 5. Peripancreatic stranding, likely related to more generalized edema. Cannot exclude pancreatitis in this setting. Clinical correlation advised. 6. Additional findings as above. Dictated and Authenticated by: May Boyd MD. Ordering:TIM Manuel MD
[2023-11-29 08:08] LABS: Lipase 98 U/L (16-77)
[2023-11-29 08:26] LABS: Lactate 1.9 mmol/L (0.6-1.4)
[2023-11-29] MEDS: Lactulose 20 GM/30 ML CUP PO (08:27)
[2023-11-29 08:37] LABS: Bilirubin Small (Negative); Blood Negative (Negative); Clarity Clear (Clear); Glucose Negative (Negative); Ketones Trace mg/dL (Negative); Leukocyte Esterase Negative (Negative); Nitrite Negative (Negative)
--- NOTE | 2023-11-29 09:01 | NUR.NOTE ---
Referral given to Care Managers to assist Pt in obtaining an appointment with Hepatology at [facility] for Liver Disease as soon as available.
--- NOTE | 2023-11-29 09:09 | NUR.NOTE ---
Correction: Please refer the Pt to [facility], not [facility] per Dr Dubois
[2023-11-29 18:21] LABS: HBs Antibody, Quant <3.1 mIU/mL (See Note); Hepatitis B Surface Ab Negative (See Note)
[2023-11-29 19:11] LABS: Hepatitis A Antibody IgM Negative (Negative); Hepatitis B Core Antibody Negative (Negative); Hepatitis B surface Ag Negative (Negative); Hepatitis C Ab w Rflx HCV PCR Negative (Negative)
[2023-11-29 19:38] LABS: Hep A Total Ab w Rflx IgM Positive (Negative)
== END 2023-11-29 09:40 | disposition home or self-care (01) ==
PROVIDERS: Student in an Organized Health Care Education/Training Program; Emergency Provider Emergency Medicine; PCP Family Medicine
DX: K70.30 Alcoholic cirrhosis of liver without ascites (principal); K70.10 Alcoholic hepatitis without ascites; K76.82 Hepatic encephalopathy; K70.40 Alcoholic hepatic failure without coma; F17.290 Nicotine dependence, other tobacco product, uncomplicated
CPT/HCPCS: 00123; 36415; 80053; 83690; 86704; 86706; 86709; 86803; 87340; 99285; 74177; 80320; 81003; 82140; 83605; 83735; 85025; 85610; 85730; 99284; J1885; J2765; J3490

== ENCOUNTER 2023-12-16 08:02 | Inpatient (IN) | payer MEDICAID, SELFPAY ==
[2023-12-16] VITALS (20 sets, daily range): BP systolic 108–133; BP diastolic 62–86; PULSE 71–89; RESP 8–25; TEMP 36.3–37.9; O2SAT 91–94
--- NOTE | 2023-12-16 | DI.US_ITS ---
Exam(s) US EXTREMITY VENOUS BI EXAM: US EXTREMITY VENOUS BI CLINICAL HISTORY: Swelling, pain, chair bound TECHNIQUE: Grayscale, color, and doppler imaging of the deep venous system of both lower extremities was performed. COMPARISON: US US ABDOMEN from 11/24/2023 FINDINGS: There is no evidence of intraluminal thrombus and there is normal compression and augmentation demons trated within the common femoral veins, femoral veins, and popliteal veins of both lower extremities. In the calves the interrogated veins also exhibit normal compression/ augmentation properties. The greater saphenous veins also appear patent as do the saphenofemoral junctions bilaterally.. IMPRESSION: 1. No ultrasound evidence of DVT in either lower extremity. DATA REPOSITORY:
--- NOTE | 2023-12-16 | DI.CT_ITS ---
Exam(s) CT CHEST PE CTA EXAM: CT CHEST PE CTA CLINICAL HISTORY: Shortness of breath. TECHNIQUE: Imaging Protocol: CT angiography of the chest was performed using pulmonary embolus gypsy col. Multi planar reconstructions were performed. CONTRAST MATERIAL: Intravenous: Omnipaque 350 Contrast volume: 100 cc COMPARISON: CT CT ABDOMEN PELVIS W from 11/29/2023 FINDINGS: CHEST: PULMONARY ARTERIES: There are no intraluminal filling defects to suggest acute pulmonary emboli. LUNGS: There are increased markings in both lung bases probably exaggerated by hypoaeration. Some at electasis. There are very small bilateral pleural effusions. MEDIASTINUM: There is no hilar nor mediastinal adenopathy. Visualized thyroid unremarkable. CARDIAC: Heart size is upper normal. There is no pericardial effusion.Caliber of the thoracic aorta is within normal limits. No evidence of dissection. There is no significant shift of the interventri cular septum. PARTIALLY VISUALIZED UPPERMOST ABDOMEN: There is a cirrhotic appearing liver, splenomegaly, and ascit es evident. OSSEOUS: No acute fractures evident. There appears to be a healed fracture of the mid sternum. No s ignificant osseous lesions.. IMPRESSION: 1. No evidence of acute pulmonary emboli. No evidence of pulmonary infarction.There are mild infiltr ates in the posterior basal segments both lower lobes and very small bilateral pleural effusions. 2. No evidence of aortic dissection nor pericardial effusion. 3. Ascites is noted in the upper abdomen as well as cirrhotic liver and splenomegaly. RADIATION DOSE DELIVERED: Total DLP DATA REPOSITORY: All CT scans at this facility are submitted to the National Radiology Data Registry (NRDR) Dose Index Registry (DIR) with the [employer] (ACR). RADIATION OPTIMIZATION: All CT scans at this facility use at least one of these dose optimization te chniques: automated exposure control; mA and/or kV adjustment per patient size (includes targeted exa ms where dose is matched to clinical indication); or iterative reconstruction.
--- NOTE | 2023-12-16 08:00 | RT.EKG_ITS ---
APPROVED REPORT Exam: Resting ECG Reason for Exam: Edema Patient Location: E HR:83 bpm ECG Measurements Heart Rate 83 AXIS IN 142 P 20 QRSd 74 QRS 16 QT 382 T 36 QTc 450 Conclusion Sinus rhythm. 83 normal axis no stemi
--- NOTE | 2023-12-16 08:00 | DI.RAD_ITS ---
Exam(s) XR ANKLE LT COMPLETE EXAM: XR ANKLE LT COMPLETE CLINICAL HISTORY: pain. TECHNIQUE: 2D digital imaging was performed. COMPARISON: No exams were available for comparison FINDINGS: 3 views There is soft tissue swelling around both sides the ankle. No evidence of acute fracture or widening the ankle mortise. Talar dome unremarkable. No obvious degenerative change in the ankle and subtal ar joints. No radiopaque foreign bodies. No osseous lesions. No tarsal coalition. IMPRESSION: Soft tissue swelling both sides of the ankle but no acute osseous findings in the ankle. DATA REPOSITORY: RADIATION DOSE DELIVERED:
--- NOTE | 2023-12-16 08:15 | DI.RAD_ITS ---
Exam(s) XR PORTABLE CHEST AP EXAM: XR PORTABLE CHEST AP CLINICAL HISTORY: hypoxia. TECHNIQUE: 2D digital imaging was performed. COMPARISON: CR XR CHEST 2V PA LATERAL from 05/16/2023 FINDINGS: Single AP portable view. Heart size is upper normal. The mediastinum is not widened. Lungs are clear. No infiltrates nor obvious pleural effusions. Chest leads in place. IMPRESSION: No acute pulmonary findings on this single AP portable view of the chest. DATA REPOSITORY: RADIATION DOSE DELIVERED:
--- NOTE | 2023-12-16 08:21 | ED.GENADUL_ITS ---
Discharge Plan Disposition Patient Disposition: Admit to [facility] Condition: Fair Discharge Details Chief Complaint: Cellulitis Clinical Impression: Cellulitis, Thrombocytopenia, Acute hepatic encephalopathy Primary Care Provider: Toñito Felix ED Provider: Christie Dubois Home Meds and New Rx's Prescriptions: No Action vitamin B complex [B Complex-Vitamin B12] Tablet 1 tab PO DAILY multivitamin Tablet 1 tab PO DAILY buspirone 5 mg tablet 5 mg PO TID PRN (Reason: anxiety) Qty: 90 4RF prochlorperazine maleate 5 mg tablet 5 mg PO TID PRN (Reason: nausea and vomiting) Qty: 90 4RF hydromorphone 2 mg tablet 2 mg PO Q6H MDD 4 tabs PRN (Reason: pain) Qty: 60 0RF Rx Instructions: Palliative care patient folic acid 1 mg Tablet 1 mg PO DAILY Qty: 90 0RF acamprosate 333 mg Tablet,Delayed Release (Dr/Ec) 666 mg PO TID Qty: 180 1RF lactulose 20 gram/30 mL Solution 20 g PO BID Qty: 1800 1RF prednisolone sodium phosphate 15 mg/5 mL (3 mg/mL) Solution 40 mg PO DAILY Qty: 335 0RF sertraline 25 mg tablet 25 mg PO DAILY Qty: 30 0RF ondansetron 4 mg tablet,disintegrating 4 mg PO Q8H PRNQty: 20 0RF magnesium oxide 400 mg magnesium tablet 400 mg PO DAILY Qty: 90 0RF thiamine HCl (vitamin B1) 100 mg tablet 100 mg PO DAILY Patient Comments: TAKE ONE TABLET BY MOUTH EVERY DAY HPI General Date/Time Provider Initiated Documentation: 12/16/23 08:07 . Limitations to Documentation: altered mental status . Information obtained by: patient . HPI Narrative: 43-year-old gentleman with past medical history of alcoholic hepatitis, liver failure, cirrhosis presents for evaluation of left lower extremity pain. He reports that 2 days ago he started noticing pain and redness in his leg. He denies any trauma or wounds. He denies any fever or chills. He states that he has been taking oxycodone for the pain. He denies significant abdominal pain or distention. Has not had a paracentesis recently. Denies any alcohol use. Other than the oxycodone, denies any drug use. Related Data Home Medications Medication Instructions Recorded Confirmed multivitamin 1 tab PO DAILY 06/02/23 12/16/23 vitamin B complex (B 1 tab PO DAILY 06/02/23 12/16/23 Complex-Vitamin B12 tablet) acamprosate 333 mg tablet,delayed 666 mg (2 x 333 mg) PO TID #180 11/26/23 12/16/23 release tabs folic acid 1 mg tablet 1 mg PO DAILY #90 tabs 11/26/23 12/16/23 lactulose 20 gram/30 mL oral 20 g (30 mL) PO BID #1,800 mL 11/26/23 12/16/23 solution magnesium oxide 400 mg PO DAILY #90 tabs 11/26/23 12/16/23 ondansetron 4 mg disintegrating 4 mg PO Q8H PRN #20 tabs 11/26/23 12/16/23 tablet prednisolone sodium phosphate 15 40 mg (13.3333 mL) PO DAILY #335 mL 11/26/23 12/16/23 mg/5 mL (3 mg/mL) oral solution sertraline 25 mg tablet 25 mg PO DAILY #30 tabs 11/26/23 12/16/23 buspirone 5 mg tablet 5 mg PO TID PRN anxiety #90 tabs 12/01/23 12/16/23 prochlorperazine maleate 5 mg 5 mg PO TID PRN nausea and 12/01/23 12/16/23 tablet vomiting #90 tabs hydromorphone 2 mg tablet 2 mg PO Q6H PRN pain #60 tabs 12/08/23 12/16/23 thiamine HCl (vitamin B1) 100 mg 100 mg PO DAILY 12/16/23 12/16/23 tablet Previous Rx's Medication Instructions Recorded acamprosate 333 mg tablet,delayed 666 mg (2 x 333 mg) PO TID #180 11/26/23 release tabs folic acid 1 mg tablet 1 mg PO DAILY #90 tabs 11/26/23 lactulose 20 gram/30 mL oral 20 g (30 mL) PO BID #1,800 mL 11/26/23 solution magnesium oxide 400 mg PO DAILY #90 tabs 11/26/23 ondansetron 4 mg disintegrating 4 mg PO Q8H PRN #20 tabs 11/26/23 tablet prednisolone sodium phosphate 15 40 mg (13.3333 mL) PO DAILY #335 mL 11/26/23 mg/5 mL (3 mg/mL) oral solution sertraline 25 mg tablet 25 mg PO DAILY #30 tabs 11/26/23 buspirone 5 mg tablet 5 mg PO TID PRN anxiety #90 tabs 12/01/23 prochlorperazine maleate 5 mg 5 mg PO TID PRN nausea and 12/01/23 tablet vomiting #90 tabs hydromorphone 2 mg tablet 2 mg PO Q6H PRN pain #60 tabs 12/08/23 Allergies Allergy/AdvReac Type Severity Reaction Status Date / Time No Known Allergies Allergy Unverified 12/16/23 08:07 General Stated Complaint: Cellulitis FLOYD: 3 Exam Narrative Exam Narrative: Review of Systems: All systems reviewed & are unremarkable except as noted in HPI and below Well-developed, no acute distress +Sleepy but easily arousable NCAT PERRL, normal conjunctiva RRR no murmur Unlabored respiratory effort, clear bilaterally Nondistended abdomen, no significant distention, tenderness, fluid wave Left lower extremity medial aspect from the foot to the mid calf has erythema, swelling, warmth and tenderness, no localizable source of the infection or wound no focal neurologic deficits Appropriate mood and affect Course Vital Signs Vital signs: Vital Signs Temperature 37.1 C 12/16/23 08:02 Pulse 89 12/16/23 08:02 Respiratory Rate 14 12/16/23 08:02 Blood Pressure 129/71 12/16/23 08:02 Pulse Oximetry 93 12/16/23 08:02 Temperature 37.1 C 12/16/23 08:16 Temperature Source Skin 12/16/23 08:16 Pulse 89 12/16/23 08:16 Respiratory Rate 14 12/16/23 08:16 Blood Pressure 129/71 12/16/23 08:16 Blood Pressure Position Supine 12/16/23 08:16 Pulse Oximetry 93 12/16/23 08:16 Oxygen Delivery Method Room Air 12/16/23 08:16 Oxygen Flow Rate 0 12/16/23 08:16 Pain Level 9 12/16/23 08:16 Lab/Test Results Lab/Test Results: 12/16/23 08:14 Blood Blood Culture - Pending 12/16/23 08:14 Blood Blood Culture - Pending Medical Decision Making Emergent evaluation of left leg pain. Initial differential includes cellulitis, trauma, consider DVT, but the patient has coagulopathy secondary to his liver disease and he also has no calf tenderness. Also considered for hepatic encephalopathy given the patient's mental status that he did take oxycodone this morning. There is no signs of trauma. He has some mild desaturations as his he falls asleep. but responds to oxygen. There is no indication for Narcan at this time as he is protecting his airway. I obtained lab work. He has mild leukocytosis. No significant anemia. Thrombocytopenia is persistent. His INR is slightly elevated at 1.6. His calcium is low. His CRP is elevated consistent with infection. His ammonia is elevated consistent with hepatic encephalopathy. A dose of lactulose has been given. Liver dysfunction is given consistent with prior. \He had blood cultures drawn, and IV antibiotics have not been initiated. X-ray of the lower extremity was obtained to evaluate for possible gas in the tissue, there does not appear to be any gas, and there is no significant joint effusion. Chest x- ray obtained and there is also no focal consolidation. The patient has multiple comorbidities and I do not feel that he would be successful at home with oral antibiotics, I have discussed with the hospitalist to admit the patient for a few doses of IV antibiotics and see how his leg infection improves. Medical Records Medical records reviewed: Yes I reviewed the patient's medical records. Lab Data Lab results reviewed: Yes I reviewed the patient's lab results. Quality:SDOH Health Related Social Needs: Health related social needs risk of homeless PFSH All Active Problems Cellulitis (Acute) Anxiety (Chronic) Ascites due to alcoholic cirrhosis (Acute) Pain (Acute) Nausea (Acute) Palliative care patient (Acute) Abdominal pain (Acute) Alcoholic liver failure (Acute) Acute hepatic encephalopathy (Acute) Alcoholic hepatitis (Acute) Hypomagnesemia (Acute) Thrombocytopenia (Chronic) Acute pancreatitis (Acute) Acute upper gastrointestinal bleeding (Acute) Cirrhosis (Acute) Alcohol abuse (Chronic) Medical History Pulsatile tinnitus of right ear Social History Smoking/Tobacco Use Status: Current every day Tobacco Type: e-cigarettes Smoking risk assessment performed?: Yes Alcohol Intake: former Drug use: Occasionally Substance use type: marijuana Housing: apartment Do you feel safe at home: Yes Do you feel safe in your relationship?: Yes
[2023-12-16 08:56] LABS: Abs Immature Grans 0.15 10^3/uL (0.0-0.06); Absolute Basophil Count 0.04 10^3/uL (0.0-0.2); Absolute Eosinophil Count 0.27 10^3/uL (0.0-0.7); Absolute Lymphocyte Count 1.68 10^3/uL (1.2-3.4); Absolute Monocyte Count 1.19 10^3/uL (0.1-0.8); Basophils % 0.4 %; Eosinophils % 2.4 %; HCT 34.8 % (40.0-50.0); HGB 11.7 g/dL (13.5-17.5); Immature Grans % 1.3 %; MCH 34.3 pg (27.0-33.0); MCHC 33.6 % (32.0-36.0); MCV 102 fL (80-95); MPV 9.8 fL (8.0-11.0); Monocytes % 10.6 %; Neutrophils % 70.3 %; RBC 3.41 10^6/uL (4.36-5.78); RDW 17.5 % (11.8-14.1); RDW-SD 65.6 fL; WBC 11.19 10^3/uL (4.4-10.8)
[2023-12-16 08:57] LABS: ESR 11 mm/hr (0-15)
[2023-12-16 08:59] LABS: Absolute Neutrophil Count 7.87 10^3/uL (1.2-6.7)
[2023-12-16 09:09] LABS: Ammonia 76 umol/L (11-32); C-Reactive Protein 2.82 mg/dL (<or=0.5)
[2023-12-16 09:12] LABS: INR 1.6 (0.9-1.1); Prothrombin Time 15.9 sec (9.1-11.1)
[2023-12-16] MEDS: Normal Saline Flush 10 ML SYR IVP ×3 (09:12→20:00)
[2023-12-16 09:13] LABS: ALT 40 U/L (16-63); AST 31 U/L (15-37); Albumin 2.6 g/dL (3.4-5.0); Alkaline Phosphatase 110 U/L (46-116); Anion Gap 3.2 mmol/L (3-11); BUN 10 mg/dL (7-18); Bilirubin, Total 4.3 mg/dL (0.2-1.0); CO2 32.8 mmol/L (21.0-32.0); CREATININE 0.8 mg/dL (0.70-1.30); Chloride 101 mmol/L (98-107); Estimated GFR 111.22 (mL/min/1.73m2); Glucose 107 mg/dL (74-106); Potassium 3.9 mmol/L (3.5-5.1); Sodium 137 mmol/L (136-145); Total Protein 6.2 g/dL (6.4-8.2)
[2023-12-16 09:14] LABS: ETHANOL BLOOD < 3.0 mg/dL (<10)
[2023-12-16 09:36] LABS: Diff Comment Diff Reviewed; Platelet Count 58 10^3/uL (130-400); RBC Morphology Normal
[2023-12-16 09:47] LABS: Procalcitonin 0.2 ng/mL
[2023-12-16] MEDS: Lactulose 20 GM/30 ML CUP PO ×2 (09:53→19:58)
[2023-12-16] MEDS: CLINDAMYCIN 600 MG/50 ML BAG 100 MG IVPB (09:53)
[2023-12-16] MEDS: ceFAZolin 2 GM/50 ML BAG IV ×2 (12:17→19:58)
[2023-12-16] MEDS: Acamprosate 333 MG TABCR 666 MG PO ×2 (14:03→19:58)
--- NOTE | 2023-12-16 14:18 | HPE_ITS ---
Date of service: 12/16/23 Time of Service: 14:18 Assessment and Plan Assessment and plan (1) Cellulitis: Start date: 12/16/23 Start time: 16:44 Status: Acute Assessment and plan: Red, hot LLE x 2d Clindamycin given in ED Cefazolin started Leg marked Monitor for regression or worsening No fever, VSS - monitor WBC 11.19, trend BC pending Qualifiers: Laterality: left Site of cellulitis of extremity: lower extremity (2) Alcoholic hepatitis: Status: Acute Assessment and plan: Continue lactulose - follow liver function daily (3) Cirrhosis: Status: Acute Assessment and plan: - Newly diagnosed in July, . - Ammonia was elevated 76, but baseline from other admissions, mental status unchanged - continue home lactulose dosing INR 1.6 (4) Alcohol abuse: Status: Chronic Assessment and plan: - EtOH on admission negative He states has recent sobriety, supportive family. He understands high stakes. Continue to monitor - Denies ever having withdrawal or sz - Continue Acamprosate (5) Shortness of breath: Status: Acute Assessment and plan: Patient reports shortness of breath, needed oxygen in the ED associated with some chest pain. CTA chest pending Troponin pending History of Present Illness History of Present Illness Chief Complaint: Left lower leg pain Narrative: This is a 43-year-old male patient with a significant past medical history including alcoholic hepatitis, liver failure, and cirrhosis. He presented to the [facility] ED complaining of left lower extremity pain, which began two days ago and is accompanied by redness. He denied any history of trauma or wounds to the area. There are no reports of fever or chills. He admits to using oxycodone for pain relief. There is no significant abdominal pain or distention noted, and he has not undergone a recent paracentesis. The patient denies current or recent alcohol use. Laboratory findings reveal mild leukocytosis, persistent thrombocytopenia, slightly elevated INR, low calcium, elevated CRP indicating infection, and elevated ammonia consistent with hepatic encephalopathy. Lactulose was administered for hepatic encephalopathy. Blood cultures were drawn, and IV antibiotics, Clindamycin, was initiated. Diagnostic imaging including X-rays of the lower extremity and chest reveal no gas in the tissue, joint effusion, or focal consolidation. Given the patient's multiple comorbidities, the patient is placed on observation status on the medical floor for further testing and treatment, including IV antibiotics. The patient is a full code. The patient agrees with treatment plan. Review of Systems All systems reviewed & are unremarkable except as noted in HPI and below PFSH All Active Problems Shortness of breath (Acute) Cellulitis (Acute) Anxiety (Chronic) Ascites due to alcoholic cirrhosis (Acute) Pain (Acute) Nausea (Acute) Palliative care patient (Acute) Abdominal pain (Acute) Alcoholic liver failure (Acute) Acute hepatic encephalopathy (Acute) Alcoholic hepatitis (Acute) Hypomagnesemia (Acute) Thrombocytopenia (Chronic) Acute pancreatitis (Acute) Acute upper gastrointestinal bleeding (Acute) Cirrhosis (Acute) Alcohol abuse (Chronic) Medical History Pulsatile tinnitus of right ear Social History Smoking/Tobacco Use Status: Current every day Tobacco Type: e-cigarettes Smoking risk assessment performed?: Yes Alcohol Intake: former Drug use: Occasionally Substance use type: marijuana Housing: house Do you feel safe at home: Yes Do you feel safe in your relationship?: Yes Meds Allergies and Home Medications Allergies Allergy/AdvReac Type Severity Reaction Status Date / Time No Known Allergies Allergy Unverified 12/16/23 08:07 Home Medications Medication Instructions Recorded Confirmed Type multivitamin 1 tab PO DAILY 06/02/23 12/16/23 History vitamin B complex (B 1 tab PO DAILY 06/02/23 12/16/23 History Complex-Vitamin B12 tablet) acamprosate 333 mg tablet,delayed 666 mg (2 x 333 mg) PO TID #180 11/26/23 12/16/23 Rx release tabs folic acid 1 mg tablet 1 mg PO DAILY #90 tabs 11/26/23 12/16/23 Rx magnesium oxide 400 mg PO DAILY #90 tabs 11/26/23 12/16/23 Rx ondansetron 4 mg disintegrating 4 mg PO Q8H PRN #20 tabs 11/26/23 12/16/23 Rx tablet prednisolone sodium phosphate 15 40 mg (13.3333 mL) PO DAILY #335 mL 11/26/23 12/16/23 Rx mg/5 mL (3 mg/mL) oral solution sertraline 25 mg tablet 25 mg PO DAILY #30 tabs 11/26/23 12/16/23 Rx buspirone 5 mg tablet 5 mg PO TID PRN anxiety #90 tabs 12/01/23 12/16/23 Rx prochlorperazine maleate 5 mg 5 mg PO TID PRN nausea and 12/01/23 12/16/23 Rx tablet vomiting #90 tabs hydromorphone 2 mg tablet 2 mg PO Q6H PRN pain #60 tabs 12/08/23 12/16/23 Rx lactulose 10 gram/15 mL oral 20 g PO BID 12/16/23 12/16/23 History solution (Constulose) thiamine HCl (vitamin B1) 100 mg 100 mg PO DAILY 12/16/23 12/16/23 History tablet Exam Narrative Exam Narrative: Sitting up in bed, no acute distress at rest, sleeping, but alert to voice, pleasant and conversant HEENT: MMM, mild icterus CV: heart regular rhythm Lungs: Clear to auscultation bilaterally, no increased work of breathing Abdomen: very mild diffuse tenderness, No guarding or rebound. No fluid wave, not grossly distended. Ext: trace kirstie edema, L>R; no cyanosis, DP/PT palp KIRSTIE Neuro: no tremor/asterixis. Psych: nl mood and affect, nl though process Psych Mental Status: mental status grossly normal Speech and Movement: speech and movement normal Mood: congruent mood Affect: normal affect Results Labs 12/16/23 08:34 12/16/23 08:34 Labs: Laboratory Results - last 24 hr 12/16/23 08:34 WBC 11.19 H RBC 3.41 L Hgb 11.7 L Hct 34.8 L MCV 102 H MCH 34.3 H MCHC 33.6 RDW 17.5 H Plt Count 58 L MPV 9.8 Immature Gran % 1.3 Neutrophils % 70.3 Lymphocytes % 15.0 Monocytes % 10.6 Eosinophils % 2.4 Basophils % 0.4 Nucleated RBC % 0.0 Absolute Neutrophils 7.87 H Absolute Lymphocytes 1.68 Absolute Monocytes 1.19 H Absolute Eosinophils 0.27 Absolute Basophils 0.04 RBC Morphology Normal ESR 11 PT 15.9 H INR 1.6 H Sodium 137 Potassium 3.9 Chloride 101 Carbon Dioxide 32.8 H Anion Gap 3.2 BUN 10 Creatinine 0.8 Est GFR (CKD-EPI 2020) 111.22 Glucose 107 H Calcium 8.0 L Magnesium 2.0 Total Bilirubin 4.3 H AST 31 ALT 40 Alkaline Phosphatase 110 Ammonia 76 H C-Reactive Protein 2.82 H Total Protein 6.2 L Albumin 2.6 L Procalcitonin 0.2 Ethyl Alcohol < 3.0 Last Vital Signs Temp 37.1 C 12/16/23 11:36 Pulse 79 12/16/23 11:36 Resp 12 12/16/23 11:36 BP 113/82 12/16/23 11:36 Pulse Ox 94 12/16/23 11:36 Time Spent Time spent with Patient: 40-54 minutes Time was spent: preparing to see the patient(eg.review tests), obtaining and/or reviewing separately otained hiistory, ordering medications,tests, procedures, referring, communicating with other health client care representative, indepentently interpreting results, counseling the patient and care coordination
[2023-12-16] MEDS: Omnipaque 350 MG/ML 100 ML BTL IJ (15:31)
[2023-12-16] MEDS: Normal Saline - Diluent 50 ML VIAL IJ (15:32)
--- NOTE | 2023-12-16 16:45 | RT.EKG_ITS ---
APPROVED REPORT Exam: Resting ECG Reason for Exam: Chest pain, shortness of breath Patient Location: I HR:75 bpm ECG Measurements Heart Rate 75 AXIS CA 146 P 9 QRSd 79 QRS 17 QT 385 T 18 QTc 430 Conclusion Sinus rhythm...normal P axis, V-rate 50- 99 Normal Electrocardiogram
[2023-12-16] MEDS: Spironolactone 25 MG TAB PO (16:52)
[2023-12-16 18:33] LABS: Lab Add On Test DONE
[2023-12-16 18:48] LABS: Troponin I < 50 ng/L (< or =60)
[2023-12-16] MEDS: busPIRone 5 MG TAB PO (19:59)
[2023-12-16] MEDS: Acetaminophen 325 MG TAB 650 MG PO (21:14)
[2023-12-17 03:52] VITALS: BP 107/60; PULSE 67; RESP 18; TEMP 36.3; O2SAT 92
[2023-12-17] MEDS: ceFAZolin 2 GM/50 ML BAG IV (04:49)
[2023-12-17 06:33] LABS: Ammonia 77 umol/L (11-32)
[2023-12-17 06:35] LABS: Abs Immature Grans 0.12 10^3/uL (0.0-0.06); Absolute Basophil Count 0.04 10^3/uL (0.0-0.2); Absolute Eosinophil Count 0.17 10^3/uL (0.0-0.7); Absolute Lymphocyte Count 1.43 10^3/uL (1.2-3.4); Absolute Monocyte Count 1.49 10^3/uL (0.1-0.8); Basophils % 0.4 %; Eosinophils % 1.6 %; HCT 32.7 % (40.0-50.0); HGB 11.3 g/dL (13.5-17.5); Immature Grans % 1.1 %; Lymphocytes % 13.2 %; MCH 34.6 pg (27.0-33.0); MCHC 34.6 % (32.0-36.0); MCV 100 fL (80-95); MPV 10.8 fL (8.0-11.0); Monocytes % 13.7 %; RBC 3.27 10^6/uL (4.36-5.78); RDW 17.1 % (11.8-14.1); RDW-SD 63.3 fL; WBC 10.85 10^3/uL (4.4-10.8)
[2023-12-17 06:55] LABS: ALT 34 U/L (16-63); AST 35 U/L (15-37); Albumin 2.3 g/dL (3.4-5.0); Alkaline Phosphatase 86 U/L (46-116); Anion Gap 5.6 mmol/L (3-11); BUN 9 mg/dL (7-18); Bilirubin, Total 4.1 mg/dL (0.2-1.0); C-Reactive Protein 4.28 mg/dL (<or=0.5); CO2 29.4 mmol/L (21.0-32.0); CREATININE 0.8 mg/dL (0.70-1.30); Calcium 8.2 mg/dL (8.5-10.1); Chloride 103 mmol/L (98-107); Estimated GFR 111.22 (mL/min/1.73m2); Glucose 121 mg/dL (74-106); Potassium 4.2 mmol/L (3.5-5.1); Sodium 138 mmol/L (136-145); Total Protein 5.9 g/dL (6.4-8.2)
[2023-12-17 07:07] LABS: Anisocytosis 1+; Diff Comment RBC Morph Reviewed; Platelet Count 41 10^3/uL (130-400)
--- NOTE | 2023-12-17 07:41 | INITIAL_ITS ---
Date of service: 12/17/23 Time of Service: 07:41 Care Management Initial Assmt Initial Assessment Reason for Hospitalization: Cellulites LLE, alcoholic hepatitis, Cirrhoses Functional Status/Living Situation Patient Presentation: Per chart review. Patient was discharged before CM could meet with him. 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[employer]) Instrumental Activities of Daily Living (ADLs): Independent Activities/Hobbies/SocialSupport: Attends [employer] and has a silverman with his friend yCndee Medications Medication Management: No Issues/Barriers identified Physical Functioning/Mobility Assistive Device: None Advance Directives Advance Directives: Do you have an Advance Directive: N 10/31/17 22:22 AD On File at [facility]: N 10/31/17 21:47 Date Asked 12/16/23 12/16/23 08:09 AD Date Reviewed COLST On File at [facility] COLST Date Scanned Code Status Resuscitation Status Full Code Portal Pt does not currently have a portal and education provided: Yes Insurance Coverage/Financial Issues Insurance: Medicaid ACO Member: No Care Team Visit Care Team Role Provider Type Toñito Felix Primary Care Provider NON-[facility] STAFF P TIN Dubois MD Emergency Provider [facility] STAFF PHYSICIAN Anthony Patino MD Admit Provider [facility] STAFF PHYSICIAN Attending Provider Discharge Potential Discharge Needs: PCP F/U Appt and Other ([facility]) Anticipated Barriers to Discharge: None Identified Patient/Family Education Needs: Review discharge instructions, discuss Ask Me Three Transportation: Private vehicle Plan: Anticipate Prashant will be discharged home with no new services when medically cleared. He will follow up with his community providers and plan of care and transport with his friend Cyndee. CM will follow and continue to assess for discharge needs. PFSH All Active Problems Shortness of breath (Acute) Cellulitis (Acute) Anxiety (Chronic) Ascites due to alcoholic cirrhosis (Acute) Pain (Acute) Nausea (Acute) Palliative care patient (Acute) Abdominal pain (Acute) Alcoholic liver failure (Acute) Acute hepatic encephalopathy (Acute) Alcoholic hepatitis (Acute) Hypomagnesemia (Acute) Thrombocytopenia (Chronic) Acute pancreatitis (Acute) Acute upper gastrointestinal bleeding (Acute) Cirrhosis (Acute) Alcohol abuse (Chronic) Medical History Pulsatile tinnitus of right ear Social History Smoking/Tobacco Use Status: Current every day Tobacco Type: e-cigarettes Smoking risk assessment performed?: Yes Alcohol Intake: former Drug use: Occasionally Substance use type: marijuana Housing: house Do you feel safe at home: Yes Do you feel safe in your relationship?: Yes Readmission Within the Past 30 Days Yes or No: Yes Date of First Admission Date of 1st Admission: 11/23/23 Date of this Admission Date of Admission: 12/16/23 This admission was: Through ED Office Visit Since 1st Admission Had an appointment Been Scheduled?: Yes Date of Scheduled Appointment: 12/05/23 Speicalist Appointments Have you seen any other specialist since your 1st Admission?: Yes Date you saw the Specialist: 12/01/23 Specialist Seen: Palliative I. Interview patient and/or Family Difficulty reaching your doctor or getting an office appt?: No Have you had trouble purchasing/ or taking medication?: No How do you take your medications and set up your pills?: Sister in law Cyndee helps with meds Have you had trouble with getting meals at home?: No SDOH(Care Management) Screening Will the Patient Participate in the Screening?: Declined to provide
[2023-12-17 07:44] VITALS: BP 102/53; PULSE 74; RESP 18; TEMP 37.9; O2SAT 93
[2023-12-17 07:55] VITALS: BP 128/54
[2023-12-17] MEDS: Acamprosate 333 MG TABCR 666 MG PO (09:01)
[2023-12-17] MEDS: Magnesium Oxide 400 MG TAB PO (09:02)
[2023-12-17] MEDS: Vitamins B Comp w/C TAB 1 TAB PO (09:02)
[2023-12-17] MEDS: Sertraline 25 MG TAB PO (09:02)
[2023-12-17] MEDS: Lactulose 20 GM/30 ML CUP PO (09:03)
[2023-12-17] MEDS: Thiamine 100 MG TAB PO (09:03)
[2023-12-17] MEDS: Spironolactone 25 MG TAB PO (09:03)
[2023-12-17] MEDS: Folic Acid 1 MG TAB PO (09:03)
[2023-12-17] MEDS: Multivitamin TAB 1 TAB PO (09:03)
[2023-12-17] MEDS: Normal Saline Flush 10 ML SYR IVP (09:04)
[2023-12-17] MEDS: prednisoLONE SOD PHOS. Soln. 3 MG/ML 40 MG PO (09:06)
[2023-12-17 09:27] VITALS: TEMP 37.5
--- NOTE | 2023-12-17 09:51 | DSE_ITS ---
Date of service: 12/17/23 Time of Service: 09:51 DS: Diagnosis Discharge Diagnosis (1) Cellulitis: Status: Acute (2) Alcoholic hepatitis: Status: Acute (3) Cirrhosis: Status: Acute (4) Alcohol abuse: Status: Chronic (5) Shortness of breath: Status: Acute Discharge Plan Disposition Patient Disposition: Home Condition: Improving Discharge Details Reason For Visit: Cellulitis left lower leg Admit Date/Time: 12/16/23 11:24 Admit Provider: Anthony Patino Attending Provider: Anthony Patino Primary Care Provider: Toñito Felix Hospital Course Hospital Course: This is a 43 year old male patient with past medical history significant for, not limited to Alcoholic hepatitis, Liver failure, Cirrhosis Presenting Complaint: The patient presented to [facility] ED on 12/16/2023 for evaluaation of left lower extremity pain and redness of two days duration. There was no history of trauma or wounds. No fever or chills reported. Patient uses oxycodone for pain relief. No significant abdominal pain or distention noted. No recent paracentesis. Denied current or recent alcohol use. Laboratory Findings:? Mild leukocytosis, Persistent thrombocytopenia, Slightly elevated INR, Low calcium, Elevated CRP indicating infection, ?Elevated ammonia consistent with hepatic encephalopathy.? Imaging Studies: X-rays of lower extremity and chest negative for gas in tissue, joint effusion, or focal consolidation. Patient was give lactulose in the ED, he does that this twice a day at home.? IV antibiotics initiated (Clindamycin) based on elevated CRP.? Blood Cultures pending. ??Given multiple comorbidities, patient placed on observation status on medical floor for continued monitoring and treatment with IV antibiotics (changed to cefazolin). Patient was started on spironolactone 25 mg daily for edema. He should follow up with his PCP regarding adding furosemide. Patient blood cultures negative for growth. Leg is less red, warm, not hot, less swollen and less painful. Afebrile, vital signs stable. Patient is discharged to home with 5 day course of Keflex four times a day. Home Meds and New Rx's Prescriptions: New spironolactone 25 mg Tablet 25 mg PO DAILY Qty: 30 0RF cephalexin 500 mg capsule 500 mg PO QID Qty: 20 0RF Continued vitamin B complex [B Complex-Vitamin B12] Tablet 1 tab PO DAILY multivitamin Tablet 1 tab PO DAILY buspirone 5 mg tablet 5 mg PO TID PRN (Reason: anxiety) Qty: 90 4RF prochlorperazine maleate 5 mg tablet 5 mg PO TID PRN (Reason: nausea and vomiting) Qty: 90 4RF hydromorphone 2 mg tablet 2 mg PO Q6H MDD 4 tabs PRN (Reason: pain) Qty: 60 0RF Rx Instructions: Palliative care patient folic acid 1 mg Tablet 1 mg PO DAILY Qty: 90 0RF acamprosate 333 mg Tablet,Delayed Release (Dr/Ec) 666 mg PO TID Qty: 180 1RF prednisolone sodium phosphate 15 mg/5 mL (3 mg/mL) Solution 40 mg PO DAILY Qty: 335 0RF sertraline 25 mg tablet 25 mg PO DAILY Qty: 30 0RF ondansetron 4 mg tablet,disintegrating 4 mg PO Q8H PRNQty: 20 0RF magnesium oxide 400 mg magnesium tablet 400 mg PO DAILY Qty: 90 0RF thiamine HCl (vitamin B1) 100 mg tablet 100 mg PO DAILY Patient Comments: TAKE ONE TABLET BY MOUTH EVERY DAY lactulose [Constulose] 10 gram/15 mL solution 20 g PO BID Patient Comments: TAKE 30ML BY MOUTH TWO TIMES A DAY Discharge Instructions Instructions: Cephalexin, Spironolactone, Cellulitis (skin infection) in adults - Discharge instructions Additional Instructions: Take cephalexin for 5 days. Start spironolactone 25 mg daily. Stand Alone Forms: Nursing Discharge Form Referrals: Toñito Felix [Primary Care Provider] - (Please call for a hospital follow up in 1-2 weeks Started on spironolactone 25 mg daily. ) Activity:: Activity as Tolerated Equipment/Supplies:: No Equipment Needed Diet:: As Tolerated Discharge Orders Discharge Orders: Discharge Order (Routine); Ordered 12/17/23 Ordered By: Ansatasiya Clark Discharge Data Discharge Date/Time-TO BE ENTERED AT DEPARTURE: 12/17/23 12:12 DS: Summary Time Spent with Patient providing and/or coordinating discharge services: Greater than 30 minutes Status at Discharge Functional status at discharge: independent ambulation Overall status at discharge: patient is back to baseline Mental Status: mental status grossly normal Speech and Movement: speech and movement normal Mood: congruent mood Affect: normal affect Quality:SDOH Health Related Social Needs: Health related social needs risk of homeless Exam Narrative Exam Narrative: Sitting up in bed, no acute distress at rest, sleeping, but alert to voice, pleasant and conversant HEENT: MMM, mild icterus CV: heart regular rhythm Lungs: Clear to auscultation bilaterally, no increased work of breathing Abdomen: very mild diffuse tenderness, No guarding or rebound. No fluid wave, not grossly distended. Ext: trace kirstie edema, L>R; no cyanosis, DP/PT palp KIRSTIE, foot is no longer red, not hot Neuro: no tremor/asterixis. Psych: nl mood and affect, nl though process Psych Mental Status: mental status grossly normal Speech and Movement: speech and movement normal Mood: congruent mood Affect: normal affect DS: Data Vitals/I&O Vitals and I&O: Vital Signs Temperature 37.5 C 12/17/23 09:27 Temperature Source Temporal Artery Scan 12/17/23 09:27 Pulse 74 12/17/23 07:44 Pulse Rhythm Regular 12/17/23 09:20 Pulse 76 12/16/23 11:15 Respiratory Rate 18 12/17/23 07:44 Respiratory Effort Normal, Non-Labored 12/17/23 09:20 Respiratory Depth Normal 12/17/23 09:20 Respiratory Pattern Normal 12/17/23 09:20 Blood Pressure 128/54 L 12/17/23 07:55 Blood Pressure Mean 100 12/16/23 11:15 Blood Pressure Position Supine 12/16/23 08:16 Pulse Oximetry 93 12/17/23 07:44 Oxygen Delivery Method Room Air 12/17/23 07:44 Oxygen Flow Rate 0 12/17/23 07:44 Pain Level 0 12/17/23 07:44 Comment RN informed of temp recheck 12/17/23 09:27 Intake & Output 12/16/23 12/16/23 12/17/23 11:59 23:59 11:59 Intake Total 110 / 110 250 / 250 Output Total 1400 / 1400 1200 / 1200 Balance -1290 / -1290 -950 / -950 Weight 89.811 kg Intake: IV 110 / 110 10 / 10 Oral 240 / 240 Output: Urine 1400 / 1400 1200 / 1200 Other: Urine Color Light Lisa Light Lisa Urine Appearance Cloudy Clear Urine Odor Normal Strong Voiding Methods Urinal Urinal Data Completed and Pending Labs on day of discharge: Labs from last 24 hours 12/17/23 12/17/23 12/16/23 06:10 06:10 08:34 WBC 10.85 H RBC 3.27 L Hgb 11.3 L Hct 32.7 L MCV 100 H MCH 34.6 H MCHC 34.6 RDW 17.1 H Plt Count 41 L MPV 10.8 Immature Gran % 1.1 Neutrophils % 70.0 Lymphocytes % 13.2 Monocytes % 13.7 Eosinophils % 1.6 Basophils % 0.4 Nucleated RBC % 0.0 Absolute Neutrophils 7.60 H Absolute Lymphocytes 1.43 Absolute Monocytes 1.49 H Absolute Eosinophils 0.17 Absolute Basophils 0.04 RBC Morphology See Below Anisocytosis 1+ Sodium 138 Potassium 4.2 Chloride 103 Carbon Dioxide 29.4 Anion Gap 5.6 BUN 9 Creatinine 0.8 Est GFR (CKD-EPI 2020) 111.22 Glucose 121 H Calcium 8.2 L Magnesium Cancelled 2.0 Total Bilirubin 4.1 H AST 35 ALT 34 Alkaline Phosphatase 86 Ammonia 77 H Troponin I < 50 C-Reactive Protein 4.28 H Total Protein 5.9 L Albumin 2.3 L Add-On Test Request DONE 12/16/23 09:50 Blood Blood Culture - Pending 12/16/23 08:34 Blood Blood Culture - Pending Preliminary micro results at discharge 12/16/23 09:50 Blood Culture - Pending Blood 12/16/23 08:34 Blood Culture - Pending Blood PFSH All Active Problems Shortness of breath (Acute) Cellulitis (Acute) Anxiety (Chronic) Ascites due to alcoholic cirrhosis (Acute) Pain (Acute) Nausea (Acute) Palliative care patient (Acute) Abdominal pain (Acute) Alcoholic liver failure (Acute) Acute hepatic encephalopathy (Acute) Alcoholic hepatitis (Acute) Hypomagnesemia (Acute) Thrombocytopenia (Chronic) Acute pancreatitis (Acute) Acute upper gastrointestinal bleeding (Acute) Cirrhosis (Acute) Alcohol abuse (Chronic) Medical History Pulsatile tinnitus of right ear Social History Smoking/Tobacco Use Status: Current every day Tobacco Type: e-cigarettes Smoking risk assessment performed?: Yes Alcohol Intake: former Drug use: Occasionally Substance use type: marijuana Housing: house Do you feel safe at home: Yes Do you feel safe in your relationship?: Yes Time Spent with Patient Time Spent with Patient: 45-69 minutes Time was spent: preparing to see the patient(eg.review tests), ordering medications,tests, procedures, referring, communicating with other health home care provider, indepentently interpreting results, counseling the patient and care coordination
--- NOTE | 2023-12-17 10:18 | PDOC.CMDIS ---
Date of service: 12/17/23 Time of Service: 10:18 LACE Index Scoring Tool Questions: Length of Stay (in days): 1 Was the patient admitted via the E.D.?: Yes Comorbidities: Liver or Renal Disease E.D. Visits: 3 Answers: Total Score: 12 Risk of Readmission: High Risk Care Management Discharge Plan Reason for Hospitalization: Cellulites Discharge Plan: Prashant is discharged home via private vehicle with family. He will follow up with community providers and his discharge plan of care as instructed. No new services are ordered at the time of his discharge. Patient/Family Education Needs: Review discharge instructions, limitations, medications and plan to follow up with community providers. Discuss ask me three and goals of self care. SDOH Health Related Social Needs: Health related social needs risk of homeless
[2023-12-17] MEDS: Acetaminophen 325 MG TAB 650 MG PO (10:57)
== END 2023-12-17 12:12 | disposition home or self-care (01) | DRG 603 ==
LOC: ER 10:46 → MS 13:37
PROVIDERS: Nurse Practitioner Family; Admitting Provider Internal Medicine; Emergency Provider Emergency Medicine; PCP Family Medicine; Visit Provider Internal Medicine
DX: L03.116 Cellulitis of left lower limb (principal); K70.11 Alcoholic hepatitis with ascites; K70.40 Alcoholic hepatic failure without coma; K70.31 Alcoholic cirrhosis of liver with ascites; F10.10 Alcohol abuse, uncomplicated; D69.6 Thrombocytopenia, unspecified; D72.829 Elevated white blood cell count, unspecified; K76.82 Hepatic encephalopathy; F41.9 Anxiety disorder, unspecified; F17.290 Nicotine dependence, other tobacco product, uncomplicated; F12.90 Cannabis use, unspecified, uncomplicated; R06.02 Shortness of breath
CPT/HCPCS: 00123; 36415; 71275; 80053; 84145; 85652; 87040; 93005; 96365; 99285; 71045; 73610; 80320; 82140; 83735; 84484; 85025; 85610; 86140; 93010; 93970; 99222; 99239; J0690; J0737; J3490

== ENCOUNTER 2024-02-19 22:35 | Emergency (ER) | payer MEDICAID, SELFPAY ==
[2024-02-19] VITALS (8 sets, daily range): BP systolic 156–170; BP diastolic 81–90; PULSE 61–75; RESP 11–27; TEMP 37.6; O2SAT 94
--- NOTE | 2024-02-19 02:36 | DI.CT_ITS ---
Exam(s) CT ABDOMEN PELVIS W EXAM: CT ABDOMEN PELVIS W CLINICAL HISTORY: vomiting, generalized abdominal pain, liver dz. TECHNIQUE: Imaging Protocol: Axial computed tomography images with coronal and sagittal reformatted images were created and reviewed CONTRAST MATERIAL: Intravenous: Omnipaque 350 Contrast volume:100 ml Oral: / no COMPARISON: CT CT ABDOMEN PELVIS W from 11/29/[address] CHEST PE CTA from 12/16/2023 FINDINGS: ABDOMEN and PELVIS: Lung Bases: No acute findings. Liver: Cirrhotic appearing liver. No suspicious mass. Gallbladder and biliary tract: A few stones noted in the dependent portion. Gallbladder wall thicken ing which may associated with cirrhosis and hypoalbuminemia.. No abnormal distension. No biliary di lation. Pancreas: Normal density. No abnormal calcifications or inflammatory process. No evidence of mass. Spleen: Normal. Kidneys: Normal size, contour and axis. A few tiny stones are noted in both kidneys.. No obstructiv e uropathy. No suspicious masses seen. Adrenal glands: No masses seen. Vasculature: Abdominal aorta non-dilated. Varices noted greatest in left upper and mid abdomen. Soft tissues: Unremarkable. Bladder: No gross wall thickening. No calculi.No focal mass. Bowel: No obstruction. Duodenal wall thickening could indicate duodenitis. Stomach empty. Mild di verticulosis. Appendix not seen. Peritoneal cavity: No ascites. No focal collection. No mesenteric inflammatory response. Bones: Unremarkable for age. Reproductive organs: Unremarkable. Lymph nodes: No pathologically enlarged lymph nodes. IMPRESSION:: Duodenal wall thickening consistent with duodenitis. Cholelithiasis. Gallbladder wall thickening likely secondary to cirrhosis. RADIATION DOSE DELIVERED: Total DLP DATA REPOSITORY: All CT scans at this facility are submitted to the National Radiology Data Registry (NRDR) Dose Index Registry (DIR) with the [employer] (A[employer]). RADIATION OPTIMIZATION: All CT scans at this facility use at least one of these dose optimization te chniques: automated exposure control; mA and/or kV adjustment per patient size (includes targeted exa ms where dose is matched to clinical indication); or iterative reconstruction.
--- NOTE | 2024-02-19 23:52 | ED.GENADUL_ITS ---
Discharge Plan Disposition Patient Disposition: Home Condition: Good Discharge Details Clinical Impression: Duodenitis Primary Care Provider: Toñito Felix ED Provider: Meliton Lindsey Home Meds and New Rx's Prescriptions: New pantoprazole [Protonix] 40 mg tablet,delayed release (DR/EC) 40 mg PO DAILY Qty: 30 0RF sucralfate [Carafate] 1 gram tablet 1 g PO BID Qty: 60 0RF No Action vitamin B complex [B Complex-Vitamin B12] Tablet 1 tab PO DAILY multivitamin Tablet 1 tab PO DAILY sildenafil 25 mg tablet 25 - 50 mg PO DAILY PRN (Reason: sexual activity) Qty: 30 4RF Rx Instructions: administer 30 minutes to 4 hours before activity megestrol 20 mg tablet 20 mg PO BID Qty: 60 4RF buspirone 5 mg tablet 5 mg PO TID PRN (Reason: anxiety) Qty: 90 4RF prochlorperazine maleate 5 mg tablet 5 mg PO TID PRN (Reason: nausea and vomiting) Qty: 90 4RF hydromorphone 2 mg tablet 2 mg PO Q6H MDD 4 tabs PRN (Reason: pain) Qty: 120 0RF Rx Instructions: Palliative care patient folic acid 1 mg Tablet 1 mg PO DAILY Qty: 90 0RF acamprosate 333 mg Tablet,Delayed Release (Dr/Ec) 666 mg PO TID Qty: 180 1RF sertraline 25 mg tablet 25 mg PO DAILY Qty: 30 0RF ondansetron 4 mg tablet,disintegrating 4 mg PO Q8H PRNQty: 20 0RF magnesium oxide 400 mg magnesium tablet 400 mg PO DAILY Qty: 90 0RF thiamine HCl (vitamin B1) 100 mg tablet 100 mg PO DAILY Patient Comments: TAKE ONE TABLET BY MOUTH EVERY DAY lactulose [Constulose] 10 gram/15 mL solution 20 g PO BID Patient Comments: TAKE 30ML BY MOUTH TWO TIMES A DAY spironolactone 25 mg Tablet 25 mg PO DAILY Qty: 30 0RF Discharge Instructions Instructions: Gastritis Additional Instructions: At this time your laboratory workup shows notable stability. While you do have mild chronic pancreatitis, mild lobe platelets chronically, and chronically elevated bilirubin, these values appear to be at normal or slightly better compared to normal. However your CAT scan does show evidence of something called duodenitis which is inflammation of the small intestines. This is often caused by additional irritation ingested dietary foods or irritation coming from the acid in your stomach. We have given you a prescription for antiacid m edication Protonix and Carafate to help with this. They have been sent to your pharmacy on file. Please take these as directed. We have given you a small bottle of Zofran, please take this as needed for your nausea. If you notice any worsening of your symptoms, or any new symptoms such as vomiting, diarrhea, fever, chills, shortness of breath, chest pain, numbness, weakness, or fainting , please return immediately to the emergency department for reevaluation. Please follow up with your primary care provider as soon as possible for reassessment and reevaluation. As always, it was a pleasure participating in your medical care today. Referrals: Toñito Felix [Primary Care Provider] - [facility] General Date/Time Provider Initiated Documentation: 02/19/24 22:45 . HPI Narrative: 44-year-old male with a past medical history of previous alcoholic use leading to subsequent alcoholic liver failure on acomprostate, previous upper GI bleeds, cirrhosis, erectile dysfunction, who is a palliative care patient who presents today for abdominal pain nausea and vomiting. Patient states that for the last 2 days he has had ongoing nausea vomiting diarrhea. He describes his abdominal pain is in the epigastric region, but also with a generalized component. He describes the pain as achy. He is having difficulty keeping down all of his regular medications because of the vomiting. He denies any alcohol use. He denies any hematemesis or blood in his stool. He denies any dark or tarry stool. Although he has been taking his medications he often just throws them up. He does admit to feeling feverish at home. No other sick contacts at home. No other complaints at this time. Related Data Home Medications ?Medication ?Instructions ?Recorded ?Confirmed multivitamin 1 tab PO DAILY 06/02/23 02/03/24 vitamin B complex (B 1 tab PO DAILY 06/02/23 02/03/24 Complex-Vitamin B12 tablet) acamprosate 333 mg tablet,delayed 666 mg (2 x 333 mg) PO TID #180 11/26/23 02/03/24 release tabs folic acid 1 mg tablet 1 mg PO DAILY #90 tabs 11/26/23 02/03/24 magnesium oxide 400 mg PO DAILY #90 tabs 11/26/23 02/03/24 ondansetron 4 mg disintegrating 4 mg PO Q8H PRN #20 tabs 11/26/23 02/03/24 tablet sertraline 25 mg tablet 25 mg PO DAILY #30 tabs 11/26/23 02/03/24 lactulose 10 gram/15 mL oral 20 g PO BID 12/16/23 02/03/24 solution (Constulose) thiamine HCl (vitamin B1) 100 mg 100 mg PO DAILY 12/16/23 02/03/24 tablet spironolactone 25 mg tablet 25 mg PO DAILY #30 tabs 12/17/23 02/03/24 sildenafil 25 mg tablet 25 - 50 mg (1 - 2 x 25 mg) PO 12/29/23 02/03/24 DAILY PRN sexual activity #30 tabs buspirone 5 mg tablet 5 mg PO TID PRN anxiety #90 tabs 02/03/24 02/03/24 hydromorphone 2 mg tablet 2 mg PO Q6H PRN pain #120 tabs 02/03/24 02/03/24 megestrol 20 mg tablet 20 mg PO BID #60 tabs 02/03/24 02/03/24 prochlorperazine maleate 5 mg 5 mg PO TID PRN nausea and 02/03/24 02/03/24 tablet vomiting #90 tabs pantoprazole 40 mg tablet,delayed 40 mg PO DAILY #30 tabs 02/20/24 release (Protonix) sucralfate 1 gram tablet (Carafate) 1 g PO BID #60 tabs 02/20/24 Previous Rx's ?Medication ?Instructions ?Recorded acamprosate 333 mg tablet,delayed 666 mg (2 x 333 mg) PO TID #180 11/26/23 release tabs folic acid 1 mg tablet 1 mg PO DAILY #90 tabs 11/26/23 magnesium oxide 400 mg PO DAILY #90 tabs 11/26/23 ondansetron 4 mg disintegrating 4 mg PO Q8H PRN #20 tabs 11/26/23 tablet sertraline 25 mg tablet 25 mg PO DAILY #30 tabs 11/26/23 spironolactone 25 mg tablet 25 mg PO DAILY #30 tabs 12/17/23 sildenafil 25 mg tablet 25 - 50 mg (1 - 2 x 25 mg) PO 12/29/23 DAILY PRN sexual activity #30 tabs buspirone 5 mg tablet 5 mg PO TID PRN anxiety #90 tabs 02/03/24 hydromorphone 2 mg tablet 2 mg PO Q6H PRN pain #120 tabs 02/03/24 megestrol 20 mg tablet 20 mg PO BID #60 tabs 02/03/24 prochlorperazine maleate 5 mg 5 mg PO TID PRN nausea and 02/03/24 tablet vomiting #90 tabs pantoprazole 40 mg tablet,delayed 40 mg PO DAILY #30 tabs 02/20/24 release (Protonix) sucralfate 1 gram tablet (Carafate) 1 g PO BID #60 tabs 02/20/24 Allergies Allergy/AdvReac Type Severity Reaction Status Date / Time No Known Allergies Allergy Unverified 02/03/24 11:50 General Stated Complaint: Abd Prob FLOYD: 3 Review of Systems All systems reviewed & are unremarkable except as noted in HPI and below Exam Narrative Exam Narrative: 1.Const: Well-nourished, Well-developed, appearing stated age 2.Eyes: PERRL, no conjunctival injection, and symmetrical lids. 3.ENT: Atraumatic external nose and ears. Moist MM. Neck: Symmetric, trachea midline, No thyromegaly. 4.CVS: +S1/S2, No murmurs or gallops. Peripheral pulses 2+ and equal in all extremities. Brisk capillary refill in all extremities. 5.RESP: Unlabored respiratory effort. Clear to auscultation bilaterally. No wheezes rales or rhonchi 6.GI: Soft, nondistended, mild epigastric achiness and pain on palpation. No evidence of an acute surgical abdomen. Mild flank and CVA tenderness bilaterally. 7.MSK: Normocephalic/Atraumatic, Extremities w/o deformity or ttp No cyanosis or clubbing, Normal movement of all extremities. Negative asterixis. 8.Skin: Warm, Dry. No rashes or lesions. Patient does appear slightly jaundiced. 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 Sensation grossly intact, no focal neurologic deficits. 10.Psych: (AAO) x3. Appropriate mood and affect Course Vital Signs Vital signs: Vital Signs Temperature 37.6 C 02/19/24 22:46 Pulse 75 02/19/24 22:46 Respiratory Rate 15 02/19/24 22:46 Blood Pressure 156/90 H 02/19/24 22:46 Pulse Oximetry 94 02/19/24 22:46 Temperature 37.6 C 02/19/24 22:49 Temperature Source Tympanic 02/19/24 22:49 Pulse 75 02/19/24 22:49 Respiratory Rate 15 02/19/24 22:49 Respiratory Effort Normal 02/19/24 22:49 Blood Pressure 156/90 H 02/19/24 22:49 Blood Pressure Position Sitting 02/19/24 22:49 Pulse Oximetry 94 02/19/24 22:49 Oxygen Delivery Method Room Air 02/19/24 22:49 Oxygen Flow Rate 0 02/19/24 22:49 Pain Level 10 02/19/24 22:49 Lab/Test Results Lab/Test Results: 02/19/24 22:53 Blood Blood Culture - Pending 02/19/24 22:53 Blood Blood Culture - Pending Medical Decision Making 44-year-old male with a past medical history of previous alcoholic use leading to subsequent alcoholic liver failure on acomprostate, previous upper GI bleeds, cirrhosis, erectile dysfunction, who is a palliative care patient who presents today for abdominal pain nausea and vomiting. Patient states that for the last 2 days he has had ongoing nausea vomiting diarrhea. He describes his abdominal pain is in the epigastric region, but also with a generalized component. He describes the pain as achy. He is having difficulty keeping down all of his regular medications because of the vomiting. He denies any alcohol use. He denies any hematemesis or blood in his stool. He denies any dark or tarry stool. Although he has been taking his medications he often just throws them up. He does admit to feeling feverish at home. No other sick contacts at home. No other complaints at this time. Exam demonstrates well-appearing male, vital signs stable, does appear slightly jaundiced, mild abdominal tenderness throughout, but primarily in the epigastric region. No asterixis. No significant distention to suggest spontaneous bacterial peritonitis. No pulsatile mass to suggest AAA or AAA rupture. Differential includes cholecystitis, appendicitis, pancreatitis, of which she has had chronically. Spontaneous bacterial peritonitis very low in the differential given the lack of ascites. UTI/urolithiasis is of concern. We will treat the patient's pain as he has not been able to take anything orally, will rehydrate, we will get a CT scan, evaluate for concerning etiologies, monitor closely and reassess. Certainly a viral etiology is high on the differential as well causing his symptomatology. We will check for COVID flu and RSV. 4:07 AM Laboratory workup is returned, patient's hemoglobin at baseline, platelet count at baseline, INR stable. Electrolytes normal. Bilirubin at baseline, lipase at baseline. Ammonia level much better than normal. Urinalysis negative for infection, alcohol level negative, COVID flu and RSV negative. On reassessment patient is feeling much better, he has been able to tolerate p.o. well, all pain has resolved. Repeat abdominal exam shows no signs of an acute surgical abdomen. CT scan results demonstrate evidence of splenomegaly, cirrhotic liver, and extensive chronic varices. Additionally there is some mural thickening of the proximal duodenum suspicious for acute duodenitis, no other acute pathology. Duodenitis certainly correlates well with the patient's symptomatology of epigastric discomfort. His lipase is at baseline, and symptoms appear inconsistent with acute pancreatitis. Patient was given Protonix and Carafate here and tolerated this well. At this time with the positive normal p.o. trial, the notable improvement of his symptomatology, and his laboratory workup demonstrating stability with no evidence of an acute process otherwise, I do feel that discharge home is reasonable. We will give prescriptions for Protonix and Carafate for home use. We will give a few pain pills for home to use as needed as he had thrown up most of his other previous ones. Patient will be discharged home with recommendations for continued close outpatient follow-up with his hepatology team. Discussed red flags for which to return. I have extensively reviewed the treatment plan and discharge instructions with the patient. I have addressed all patient concerns at this time. The patient was made aware of what symptoms to monitor for that would warrant a return to the emergency department. Discussed the plan with the patient, they demonstrate verbal understanding and agreement with our assessment and plan at this time. The documentation in this chart was dictated using Voice [employer]ist dictation software. Please excuse any dictation errors. FINDINGS: Lungs: Lung bases clear. Liver: Small liver with a nodular contour and relative hypertrophy of the lateral left hepatic segment and caudate lobe in keeping with cirrhosis. Gallbladder and biliary ducts: Gallbladder partially decompressed but circumferentially thick-walled. Calcified gallstones. No biliary dilatation. Pancreas: Normal appearing pancreas. Spleen: Splenomegaly, 14 cm. Adrenal glands: Adrenal glands partially obscured but grossly unremarkable, as seen. Kidneys and ureters: Nonobstructing renal calcifications with the largest measuring 2 mm. No hydronephrosis. Ureters obscured. Stomach and bowel: No oral contrast. Stomach largely decompressed. Mild mural thickening through the proximal duodenum suspicious for acute duodenitis. No small bowel dilatation to suggest obstruction. Normal-appearing colon. No evidence of diverticulitis or colitis. Appendix: Appendix not identified, obscured if present. Correlation with parish rgical history recommended. If there is clinical concern for acute appendicitis and the patient still has an appendix, additional evaluation would be recommended Intraperitoneal space: No gross ascites or free air. Vasculature: Normal caliber abdominal aorta. Engorgement of the mesenteric venous structures. Mild prominence of the perirectal veins suggesting probable hemorrhoids. Large retroperitoneal varices on the left continuous with bulky splenic varices. Portosystemic shunting to the left renal vein in keeping with portal venous hypertension. Small perigastric varices. Lymph nodes: No pathologically enlarged mesenteric, retroperitoneal, or pelvic sidewall lymph nodes. Urinary bladder: Normal appearing urinary bladder. Reproductive: Normal-appearing prostate gland and seminal vesicles. Bones/joints: No acute fracture seen among the bones of the abdomen or pelvis. 8 mm sclerotic bone lesion in the proximal right femur, not well characterized by today's exam but with margins suggesting a slow pattern of growth, possibly a bone island. Soft tissues: No significant ventral or inguinal hernia. IMPRESSION: 1. Cirrhotic liver morphology. Splenomegaly, 14 cm. Extensive network of varice s, as described, with portosystemic shunting to the left renal vein in keeping with portal venous hypertension. 2. Mural thickening through the proximal duodenum suspicious for acute duodenitis. Otherwise, no acute bowel pathology demonstrated. Thank you for allowing us to participate in the care of your patient. Dictated and Authenticated by: Arya Blackmon MD 02/20/2024 3:13 AM Eastern Time ([place] & [place]) Quality:SDOH Health Related Social Needs: Health related social needs risk of homeless PFSH All Active Problems (Updated 02/20/24 @ 03:46 by Meliton Lindsey DO) Duodenitis (Acute) Erectile dysfunction (Acute) Cellulitis (Acute) Anxiety (Chronic) Ascites due to alcoholic cirrhosis (Acute) Pain (Acute) Nausea (Acute) Palliative care patient (Acute) Abdominal pain (Acute) Alcoholic liver failure (Acute) Acute pancreatitis (Acute) Acute upper gastrointestinal bleeding (Acute) Medical History Acute hepatic encephalopathy Alcoholic hepatitis Thrombocytopenia Cirrhosis Alcohol abuse Pulsatile tinnitus of right ear Social History Smoking/Tobacco Use Status: Current every day Tobacco Type: e-cigarettes Smoking risk assessment performed?: Yes Alcohol Intake: former Drug use: Occasionally Substance use type: marijuana Housing: house Do you feel safe at home: Yes Do you feel safe in your relationship?: Yes PAWSS Have you Been Recently Intoxicated or Drunk Within the Last 30 days?: No Have you Ever Experienced Previous Episodes of Alcohol Withdrawal?: No Have you ever Experienced Withdrawal Seizures?: No Have you ever Experienced Delirium Tremens(DT)s?: No Have you ever undergone Alcohol Rehabilitation Treatment (i.e, inpt ot outpatient treatment programs)?: No Have you ever Experienced Blackouts?: No Have you ever Combined Alcohol with other Downers within the last 90 days?: No Have you ever Combined Alcohol with any other Substance of Abuse during the last 90 days?: No Positive Blood Alcohol level on Presentation? [PCS.BAL]: No Evidence of Increased Autonomic Activity (i.e. HR>120, tremor, sweating, agitation, nausea)?: No Result: 0
[2024-02-20] VITALS (10 sets, daily range): BP systolic 145–167; BP diastolic 66–97; PULSE 57–67; RESP 8–25; TEMP 36.8; O2SAT 98
[2024-02-20] MEDS: Normal Saline 500 ML IV (00:09)
[2024-02-20] MEDS: Ondansetron 4 MG/2 ML VIAL IVP (00:09)
[2024-02-20] MEDS: MORPHine 4 MG/ML SYR IVP ×2 (00:09→02:48)
[2024-02-20 00:25] LABS: Abs Immature Grans 0.05 10^3/uL (0.0-0.06); Absolute Basophil Count 0.03 10^3/uL (0.0-0.2); Absolute Eosinophil Count 0.01 10^3/uL (0.0-0.7); Absolute Lymphocyte Count 1.38 10^3/uL (1.2-3.4); Absolute Monocyte Count 1.38 10^3/uL (0.1-0.8); Absolute Neutrophil Count 8.63 10^3/uL (1.2-6.7); Basophils % 0.3 %; Eosinophils % 0.1 %; HCT 38.9 % (40.0-50.0); HGB 14.1 g/dL (13.5-17.5); Immature Grans % 0.4 %; MCH 32.6 pg (27.0-33.0); MCHC 36.2 % (32.0-36.0); MCV 90 fL (80-95); Neutrophils % 75.2 %; RBC 4.33 10^6/uL (4.36-5.78); RDW 13.2 % (11.8-14.1); RDW-SD 43.8 fL; WBC 11.48 10^3/uL (4.4-10.8)
[2024-02-20] MEDS: Normal Saline - Diluent 50 ML VIAL IJ (00:32)
[2024-02-20] MEDS: Omnipaque 350 MG/ML 100 ML BTL IJ (00:33)
[2024-02-20 00:42] LABS: INR 1.7 (0.9-1.1); PTT Activated 31.5 sec (23.6-32.8); Prothrombin Time 16.7 sec (9.1-11.1)
[2024-02-20 00:56] LABS: BE (Venous) 2 mmol/L (-2-3); HCO3 (Venous) 26 mmol/L (23-28); O2 Sat (Venous) 70 %; TCO2 (Venous) 23 mmol/L (24-29); pCO2 (Venous) 41 mmHg (41-51); pH (Venous) 7.41 (7.31-7.41); pO2 (Venous) 36 mmHg
[2024-02-20 01:08] LABS: Ammonia 34 umol/L (11-32)
[2024-02-20 01:11] LABS: Diff Comment PLT Morph Reviewed; Platelet Count 74 10^3/uL (130-400); RBC Morphology Normal
[2024-02-20 01:18] LABS: ALT 38 U/L (16-63); AST 52 U/L (15-37); Albumin 3.2 g/dL (3.4-5.0); Alkaline Phosphatase 74 U/L (46-116); Anion Gap 8.4 mmol/L (3-11); BUN 2 mg/dL (7-18); Bilirubin, Total 3.62 mg/dL (0.2-1.0); CO2 24.6 mmol/L (21.0-32.0); CREATININE 0.8 mg/dL (0.70-1.30); Chloride 104 mmol/L (98-107); Estimated GFR 110.53 (mL/min/1.73m2); Glucose 121 mg/dL (74-106); Lipase 96 U/L (16-77); Sodium 137 mmol/L (136-145); Total Protein 6.8 g/dL (6.4-8.2)
[2024-02-20 01:25] LABS: Bilirubin Negative (Negative); Blood Negative (Negative); Clarity Clear (Clear); Glucose Negative (Negative); Ketones Negative (Negative); Leukocyte Esterase Negative (Negative); Nitrite Negative (Negative); Urobilinogen 0.2 mg/dL (Up to 0.2)
[2024-02-20 01:26] LABS: Calcium 8.8 mg/dL (8.5-10.1); ETHANOL BLOOD < 3.0 mg/dL (<10)
[2024-02-20 02:04] LABS: Procalcitonin 0.1 ng/mL
[2024-02-20] MEDS: Ondansetron 4 MG/2 ML VIAL (02:48)
--- NOTE | 2024-02-20 03:13 | DI.VRAD_ITS ---
PROCEDURE INFORMATION: Exam: CT Abdomen And Pelvis With Contrast Exam date and time: 02/20/2024 2:24 AM Age: 44 years old Clinical indication: Other: Vomitting, generalized abd pain, liver dz/failure TECHNIQUE: Imaging protocol: Computed tomography of the abdomen and pelvis with contrast. Contrast material: OMNIPAQUE 350; Contrast volume: 100 ml; Contrast route: INTRAVENOUS (IV); COMPARISON: CT ABDOMEN PELVIS W 11/29/2023 7:15 AM FINDINGS: Lungs: Lung bases clear. Liver: Small liver with a nodular contour and relative hypertrophy of the lateral left hepatic segment and caudate lobe in keeping with cirrhosis. Gallbladder and biliary ducts: Gallbladder partially decompressed but circumferentially thick-walled. Calcified gallstones. No biliary dilatation. Pancreas: Normal appearing pancreas. Spleen: Splenomegaly, 14 cm. Adrenal glands: Adrenal glands partially obscured but grossly unremarkable, as seen. Kidneys and ureters: Nonobstructing renal calcifications with the largest measuring 2 mm. No hydronephrosis. Ureters obscured. Stomach and bowel: No oral contrast. Stomach largely decompressed. Mild mural thickening through the proximal duodenum suspicious for acute duodenitis. No small bowel dilatation to suggest obstruction. Normal-appearing colon. No evidence of diverticulitis or colitis. Appendix: Appendix not identified, obscured if present. Correlation with surgical history recommended. If there is clinical concern for acute appendicitis and the patient still has an appendix, additional evaluation would be recommended. Intraperitoneal space: No gross ascites or free air. Vasculature: Normal caliber abdominal aorta. Engorgement of the mesenteric venous structures. Mild prominence of the perirectal veins suggesting probable hemorrhoids. Large retroperitoneal varices on the left continuous with bulky splenic varices. Portosystemic shunting to the left renal vein in keeping with portal venous hypertension. Small perigastric varices. Lymph nodes: No pathologically enlarged mesenteric, retroperitoneal, or pelvic sidewall lymph nodes. Urinary bladder: Normal appearing urinary bladder. Reproductive: Normal-appearing prostate gland and seminal vesicles. Bones/joints: No acute fracture seen among the bones of the abdomen or pelvis. 8 mm sclerotic bone lesion in the proximal right femur, not well characterized by today's exam but with margins suggesting a slow pattern of growth, possibly a bone island. Soft tissues: No significant ventral or inguinal hernia. IMPRESSION: 1. Cirrhotic liver morphology. Splenomegaly, 14 cm. Extensive network of varices, as described, with portosystemic shunting to the left renal vein in keeping with portal venous hypertension. 2. Mural thickening through the proximal duodenum suspicious for acute duodenitis. Otherwise, no acute bowel pathology demonstrated. Dictated and Authenticated by: Arya Blackmon MD. Ordering:KENNETH Coelho MD
[2024-02-20] MEDS: Famotidine 20 MG/2 ML VIAL IVP (03:31)
[2024-02-20] MEDS: Pantoprazole 40 MG VIAL IVP (03:31)
[2024-02-20] MEDS: Sucralfate 1 GM TAB 2 GM PO (03:31)
[2024-02-20 03:43] LABS: COVID-19 PCR Negative (Negative); Influenza A PCR Negative (Negative); Influenza B PCR Negative (Negative); RSV PCR Negative (Negative)
[2024-02-20] MEDS: Metoclopramide 10 MG/2 ML VIAL IVP (03:50)
[2024-02-20] MEDS: Ondansetron O.D.T. 4 MG TABEF, 3 TABS/BTL PO (03:50)
[2024-02-20 03:59] LABS: Source Nasopharynx
== END 2024-02-20 04:46 | disposition home or self-care (01) ==
PROVIDERS: Emergency Provider Student in an Organized Health Care Education/Training Program; PCP Family Medicine
DX: R10.30 Lower abdominal pain, unspecified (principal); R11.2 Nausea with vomiting, unspecified; R19.7 Diarrhea, unspecified; K29.80 Duodenitis without bleeding; K70.30 Alcoholic cirrhosis of liver without ascites
CPT/HCPCS: 36415; 80053; 82805; 83690; 84145; 87040; 87637; 96361; 96374; 96375; 96376; 99285; 74177; 80320; 81003; 82140; 85025; 85610; 85730; 99283; J2270; J2405; J2470; J2765; J3490

== ENCOUNTER 2024-05-14 11:13 | Emergency (ER) | payer SELFPAY ==
[2024-05-14 11:19] VITALS: BP 96/58; PULSE 66; RESP 18; TEMP 37; O2SAT 92
[2024-05-14 11:31] VITALS: BP 110/59; PULSE 66; RESP 16; TEMP 36.6; O2SAT 93
--- NOTE | 2024-05-14 11:37 | W.ED.GENAD ---
Discharge Plan Disposition Patient Disposition: Home Condition: Stable Discharge Details Clinical Impression: Dental infection Primary Care Provider: Toñito Felix ED Provider: Meliton Mccabe Home Meds and New Rx's Prescriptions: New amoxicillin-pot clavulanate 875-125 mg tablet 1 tab PO BID 10 Days Qty: 20 0RF Continued vitamin B complex [B Complex-Vitamin B12] Tablet 1 tab PO DAILY multivitamin Tablet 1 tab PO DAILY sildenafil 25 mg tablet 25 - 50 mg PO DAILY PRN (Reason: sexual activity) Qty: 30 4RF Rx Instructions: administer 30 minutes to 4 hours before activity megestrol 20 mg tablet 20 mg PO BID Qty: 60 4RF prochlorperazine maleate 5 mg tablet 5 mg PO TID PRN (Reason: nausea and vomiting) Qty: 90 4RF magnesium oxide 400 mg magnesium tablet 400 mg PO DAILY Qty: 90 4RF folic acid 1 mg tablet 1 mg PO DAILY Qty: 90 4RF buspirone 10 mg tablet 10 mg PO TID Qty: 90 4RF propranolol 10 mg tablet 10 mg PO BID pantoprazole [Protonix] 40 mg tablet,delayed release (DR/EC) 40 mg PO DAILY Qty: 30 6RF fentanyl 12 mcg/hr patch 72 hour 1 patch transdermal Q72H MDD 1 patch Qty: 10 0RF hydromorphone 2 mg tablet 2 mg PO TID MDD 3 tabs PRN (Reason: pain) Qty: 120 0RF Rx Instructions: Palliative care patient sucralfate [Carafate] 1 gram tablet 1 g PO BID Qty: 60 0RF doxycycline hyclate 100 mg tablet 100 mg PO BID Patient Comments: TAKE 1 TABLET BY MOUTH TWO TIMES A DAY FOR 7 DAYS acamprosate 333 mg Tablet,Delayed Release (Dr/Ec) 666 mg PO TID Qty: 180 1RF sertraline 25 mg tablet 25 mg PO DAILY Qty: 30 0RF ondansetron 4 mg tablet,disintegrating 4 mg PO Q8H PRNQty: 20 0RF thiamine HCl (vitamin B1) 100 mg tablet 100 mg PO DAILY Patient Comments: TAKE ONE TABLET BY MOUTH EVERY DAY lactulose [Constulose] 10 gram/15 mL solution 20 g PO BID Patient Comments: TAKE 30ML BY MOUTH TWO TIMES A DAY spironolactone 25 mg Tablet 25 mg PO DAILY Qty: 30 0RF Discharge Instructions Instructions: Dental Pain, Amoxicillin and Clavulanate Additional Instructions: You were seen in the emergency department for your right lower dental infection, there is no visible abscess in the gingiva, you have no worrying signs for deep space infection and I have sent a prescription for Augmentin to [facility] in [place], please take this as directed, take your allowable low-dose Tylenol due to your liver failure, if it has been many years since you have had upper GI bleeding or ulcers you could try taking 1 or 2 ibuprofen tablets and see how you feel. Please return to the emergency department for decreased range of motion of jaw with vocal changes, fever, neck swelling and stiffness, difficulty swallowing or excessive drooling. Referrals: Toñito Felix [Primary Care Provider] - Discharge Data Discharge Date/Time-TO BE ENTERED AT DEPARTURE: 05/14/24 12:07 HPI General Date/Time Provider Initiated Documentation: 05/14/24 11:24. HPI Narrative: 44 year-old male presents to ED today by POV/ambulating with a chief complaint of R lower dental pain with onset a few days ago. Quality described as throbbing pain, mild R lower cheek swelling, no radiation to dysphagia, trismus, vocal changes, neck pain/swelling. Patient has cirrhosis and can only take low doses of APAP, has history PUD, hasn't tried ibuprofen in a long time. Severity is described as moderate to severe. Palliating factors include nothing specific. Provoking factors include nothing specific. Patient not anticoagulated. Related Data Home Medications ?Medication ?Instructions ?Recorded ?Confirmed multivitamin 1 tab PO DAILY 06/02/23 05/14/24 vitamin B complex (B 1 tab PO DAILY 06/02/23 05/14/24 Complex-Vitamin B12 tablet) acamprosate 333 mg tablet,delayed 666 mg (2 x 333 mg) PO TID #180 11/26/23 05/14/24 release tabs ondansetron 4 mg disintegrating 4 mg PO Q8H PRN #20 tabs 11/26/23 05/14/24 tablet sertraline 25 mg tablet 25 mg PO DAILY #30 tabs 11/26/23 05/14/24 lactulose 10 gram/15 mL oral 20 g PO BID 12/16/23 05/14/24 solution (Constulose) thiamine HCl (vitamin B1) 100 mg 100 mg PO DAILY 12/16/23 05/14/24 tablet spironolactone 25 mg tablet 25 mg PO DAILY #30 tabs 12/17/23 05/14/24 sildenafil 25 mg tablet 25 - 50 mg (1 - 2 x 25 mg) PO 12/29/23 05/14/24 DAILY PRN sexual activity #30 tabs megestrol 20 mg tablet 20 mg PO BID #60 tabs 02/03/24 05/14/24 prochlorperazine maleate 5 mg 5 mg PO TID PRN nausea and 02/03/24 05/14/24 tablet vomiting #90 tabs sucralfate 1 gram tablet (Carafate) 1 g PO BID #60 tabs 02/20/24 05/14/24 buspirone 10 mg tablet 10 mg PO TID #90 tabs 03/08/24 05/14/24 folic acid 1 mg tablet 1 mg PO DAILY #90 tabs 03/08/24 05/14/24 magnesium oxide 400 mg PO DAILY #90 tabs 03/08/24 05/14/24 fentanyl 12 mcg/hr transdermal 1 patch transdermal Q72H #10 ea 04/27/24 05/14/24 patch pantoprazole 40 mg tablet,delayed 40 mg PO DAILY #30 tabs 04/27/24 05/14/24 release (Protonix) propranolol 10 mg tablet 10 mg PO BID 04/27/24 05/14/24 hydromorphone 2 mg tablet 2 mg PO TID PRN pain #120 tabs 05/07/24 05/14/24 amoxicillin 875 mg-potassium 1 tab PO BID dental infection 05/14/24 clavulanate 125 mg tablet days #20 tabs doxycycline hyclate 100 mg tablet 100 mg PO BID 05/14/24 05/14/24 Previous Rx's ?Medication ?Instructions ?Recorded acamprosate 333 mg tablet,delayed 666 mg (2 x 333 mg) PO TID #180 11/26/23 release tabs ondansetron 4 mg disintegrating 4 mg PO Q8H PRN #20 tabs 11/26/23 tablet sertraline 25 mg tablet 25 mg PO DAILY #30 tabs 11/26/23 spironolactone 25 mg tablet 25 mg PO DAILY #30 tabs 12/17/23 sildenafil 25 mg tablet 25 - 50 mg (1 - 2 x 25 mg) PO 12/29/23 DAILY PRN sexual activity #30 tabs megestrol 20 mg tablet 20 mg PO BID #60 tabs 02/03/24 prochlorperazine maleate 5 mg 5 mg PO TID PRN nausea and 02/03/24 tablet vomiting #90 tabs sucralfate 1 gram tablet (Carafate) 1 g PO BID #60 tabs 02/20/24 buspirone 10 mg tablet 10 mg PO TID #90 tabs 03/08/24 folic acid 1 mg tablet 1 mg PO DAILY #90 tabs 03/08/24 magnesium oxide 400 mg PO DAILY #90 tabs 03/08/24 fentanyl 12 mcg/hr transdermal 1 patch transdermal Q72H #10 ea 04/27/24 patch pantoprazole 40 mg tablet,delayed 40 mg PO DAILY #30 tabs 04/27/24 release (Protonix) hydromorphone 2 mg tablet 2 mg PO TID PRN pain #120 tabs 05/07/24 amoxicillin 875 mg-potassium 1 tab PO BID dental infection 10 05/14/24 clavulanate 125 mg tablet days #20 tabs Allergies Allergy/AdvReac Type Severity Reaction Status Date / Time No Known Allergies Allergy Verified 05/14/24 11:22 General Stated Complaint: DentalOral FLOYD: 4 Review of Systems All systems reviewed & are unremarkable except as noted in HPI and below Exam Narrative Exam Narrative: GENERAL APPEARANCE: Well-nourished, non-toxic, awake and alert, atraumatic, no acute distress. SKIN: Warm, pink, dry, intact, without rashes/lesions/ulcerations. HEAD: Normocephalic, atraumatic, normal hair distribution for gender/age. EYES: Normal conjunctiva, no exudates on lids/lashes. ENT: Nares patent, no circumoral cyanosis, mild R lower cheek swelling without erythema or fluctuance, diffuse dental decay with R lower caries, no gingival abscess, uvula midline NECK: Supple, trachea midline, painless cervical ROM. LUNGS/CHEST: Non-labored respirations, normal A/P diameter, symmetrical expansion, no chest wall deformity HEART (CV/PV): No peripheral edema, no JVD. ABDOMEN: Soft, non-distended, no guarding. MSK: Normal ROM, no swelling/deformity to bilateral UEs or LEs, moving all extremities without weakness, no cyanosis, spine midline without tenderness, normal curvature. NEURO: Mental Status AAOx4 - alert to person, place, time, events No facial droop, no forehead involvement. Motor: No focal weakness - strength 5/5 in bilateral UEs and LEs, proximal and distal, symmetric. Sensory: sensation intact to light touch globally. Gait normal: patient ambulated without ataxia into ED room. PSYCH: euthymic, cooperative, pleasant, appropriate speech Course Vital Signs Vital signs: Vital Signs Temperature 37.0 C 05/14/24 11:19 Pulse 66 05/14/24 11:19 Respiratory Rate 18 05/14/24 11:19 Blood Pressure 96/58 L 05/14/24 11:19 Pulse Oximetry 92 05/14/24 11:19 Temperature 36.6 C 05/14/24 11:31 Temperature Source Temporal Artery Scan 05/14/24 11:31 Pulse 66 05/14/24 11:31 Respiratory Rate 16 05/14/24 11:31 Respiratory Effort Normal 05/14/24 11:24 Blood Pressure 110/59 L 05/14/24 11:31 Blood Pressure Position Supine 05/14/24 11:31 Pulse Oximetry 93 05/14/24 11:31 Oxygen Delivery Method Room Air 05/14/24 11:31 Pain Level 8 05/14/24 11:31 Comment has fent patch and PO pain meds, palliative care 05/14/24 11:31 Medical Decision Making This dictation utilizes [id number] dictation software and may contain unedited grammatical errors. 44 year-old male presents to ED today by POV/ambulating with a chief complaint of R lower dental pain with onset a few days ago. Quality described as throbbing pain, mild R lower cheek swelling, no radiation to dysphagia, trismus, vocal changes, neck pain/swelling. Patient has cirrhosis and can only take low doses of APAP, has history PUD, hasn't tried ibuprofen in a long time. Severity is described as moderate to severe. Palliating factors include nothing specific. Provoking factors include nothing specific. Patients' medical history: Liver failure, upper GI bleeding. Family and social history: Denies any alcohol use recently, is on transplant list. Pertinent exam findings / vital signs include right lower cheek swelling without erythema or fluctuance, diffuse dental decay with right lower caries, no gingival abscess, uvula midline, managing secretions well. Differential / pathologies of concern include dental infection, not deep space infection, mild facial cellulitis. Diagnostic studies of: -None. Interventions of: -Augmentin Rx. ED Course/Assessment/Plan: 44-year-old male presents with right lower dental pain with diffuse dental caries, has concurrent liver failure but states that he may be regrowing enough to avoid transplant, has no evidence of deep space infection I did start him on Augmentin recommend dental follow-up, strict return criteria for any excessive drooling, trismus, vocal changes with worsening symptoms. Findings not consistent with large dental abscess or deep space infection. Disposition of dental infection. Patient verbalized understanding of the plan and return to ED criteria and engaged in shared decision making. Medical Records Medical records reviewed: Yes I reviewed the patient's medical records. Quality:SDOH Health Related Social Needs: Health related social needs housing instability, housed, with risk of homelessness(Z59.811) PFSH All Active Problems (Updated 05/14/24 @ 11:50 by JESSE Avery) Dental infection (Acute) Erectile dysfunction (Acute) Cellulitis (Acute) Anxiety (Chronic) Ascites due to alcoholic cirrhosis (Acute) Pain (Acute) Nausea (Acute) Palliative care patient (Acute) Abdominal pain (Acute) Alcoholic liver failure (Acute) Acute pancreatitis (Acute) Acute upper gastrointestinal bleeding (Acute) Medical History Acute hepatic encephalopathy Alcoholic hepatitis Thrombocytopenia Cirrhosis Alcohol abuse Pulsatile tinnitus of right ear Social History Smoking/Tobacco Use Status: Current every day Tobacco Type: e-cigarettes Smoking risk assessment performed?: Yes Alcohol Intake: former Drug use: Occasionally Substance use type: marijuana Housing: house Do you feel safe at home: Yes Do you feel safe in your relationship?: Yes
[2024-05-14 12:01] VITALS: BP 96/58; PULSE 94; RESP 16; TEMP 37; O2SAT 94
== END 2024-05-14 12:07 | disposition home or self-care (01) ==
PROVIDERS: Emergency Provider Physician Assistant; PCP Family Medicine
DX: R68.84 Jaw pain (principal); K04.7 Periapical abscess without sinus; Z87.19 Personal history of other diseases of the digestive system; Z59.811 Housing instability, housed, with risk of homelessness
CPT/HCPCS: 99283

== ENCOUNTER 2024-10-18 14:20 | Emergency (ER) | payer MEDICAID, SELFPAY ==
[2024-10-18 14:23] VITALS: BP 153/96; PULSE 105; RESP 16; TEMP 36.8; O2SAT 98
--- NOTE | 2024-10-18 14:41 | W.ED.GENAD ---
Discharge Plan Discharge Details Chief Complaint: PsychEval Clinical Impression: Suicidal ideation, Palliative care patient, Alcohol use disorder Primary Care Provider: Toñito Felix ED Provider: Ghada Anderson Home Meds and New Rx's Prescriptions: No Action lactulose 20 gram/30 mL solution 20 g PO TID Qty: 1500 4RF pantoprazole [Protonix] 40 mg tablet,delayed release (DR/EC) 40 mg PO DAILY Qty: 30 6RF sildenafil 25 mg tablet 25 - 50 mg PO DAILY PRN (Reason: sexual activity) Qty: 30 4RF Rx Instructions: administer 30 minutes to 4 hours before activity propranolol 10 mg tablet 10 mg PO BID ibuprofen 200 mg tablet 200 mg PO Q6H PRN prochlorperazine maleate 5 mg tablet 5 mg PO TID PRN (Reason: nausea and vomiting) Qty: 90 4RF hydromorphone 2 mg tablet 2 mg PO TID MDD 3 tabs PRN (Reason: pain) Qty: 30 0RF Rx Instructions: Palliative care patient fentanyl 25 mcg/hr patch 72 hour 1 patch transdermal Q72H MDD 1 patch Qty: 10 0RF buspirone 30 mg tablet 30 mg PO BID Qty: 60 4RF HPI General Mode of arrival: ambulatory. Date/Time Provider Initiated Documentation: 10/18/24 14:26. Limitations to Documentation: no limitations. Information obtained by: patient and old records reviewed. HPI Narrative: HPI: This is a 44-year-old male patient with a past medical history significant for alcohol use versus border, and recent relapse, with a history of alcoholic cirrhosis, followed by palliative care who is presenting for evaluation of suicidal ideation with plan. The patient reports that about 2 weeks ago he stopped taking all of his medications as he felt he did not need them. He then states that he relapsed and has been drinking approximately 4 alcoholic beverages per day, last drink just prior to arrival. In the context of this he has had worsening of his depression and has had suicidal ideation with a plan to either shoot himself or hang himself. He states that he has started to make mental plans for this but has not made any action, his gun is in the care of a friend/family member. The patient was evaluated by [facility] and is voluntarily presenting for inpatient psychiatric placement. He does report that he has a remote history of alcohol withdrawal, has had a single lifetime seizure, but has gone through alcohol withdrawal more recently without seizure activity. States that he is otherwise without new physical complaints other than generalized body pain and aches. He is actively moving and attributes some of his discomfort to these activities. Exam: Gen: Awake and alert, in no apparent distress HEENT: Non-icteric sclera Neck: Supple Lungs: No apparent respiratory distress, normal respiratory effort. CV: Appears well perfused Abdomen: Non-distended MSK: Moves 4 extremities without apparent limitation in ROM Skin: Visualized skin without rashes, cyanosis. Neuro: Normal Gait, no obvious focal deficits or facial asymmetry. Speaks in full, clear sentences. Psych: Endorsing suicidal ideation, no reported hallucinations, calm and cooperative, occasionally tearful but interactive and appropriate MDM: This is a 44-year-old male patient presenting for evaluation of suicidal ideation with a plan to shoot himself or hang himself. My differential includes but is not limited to primary psychiatric disturbance, certainly considered intoxication, substance use disorder, withdrawal syndromes. Considered medical etiologies including liver disease, hepatic encephalopathy, metabolic and electrolyte derangements, kidney injury. The patient will require laboratory studies for medical clearance given his history of liver dysfunction. I am reassured the patient is not exhibiting any symptoms of withdrawal at this time, and as he has been drinking for less than a week he is at lower risk for severe withdrawal. We will obtain laboratory studies to include CBC, CMP, magnesium, ethanol, urinalysis and UDS. I will also obtain an INR. ED Course: I reviewed the patient's laboratory studies, which show no leukocytosis, anemia, but does show thrombocytopenia to 53. This is within the range of normal of prior laboratory studies. His INR is 1.5, also normal for this patient. He has no significant electrolyte derangements, has a modest elevation in his bilirubin to 2.4, and transaminitis with an AST of 160 and an ALT of 86, both of which have been seen on historical liver function panels. His ammonia is not significantly elevated at 38, but his ethanol is elevated to 252. His THC screen is positive, urinalysis with trace hematuria but no evidence for infection. Given that his laboratory studies are within the range of typical for him, and because he appears clinically sober per our smart medical clearance and clinical sobriety assessment sheet, I consider him medically cleared and transitioned him to the zone B location to await final disposition/placement. Home meds ordered, signed out to oncoming provider prior to final dispo. Ghada Anderson MD Related Data Home Medications ?Medication ?Instructions ?Recorded ?Confirmed sildenafil 25 mg tablet 25 - 50 mg (1 - 2 x 25 mg) PO 12/29/23 10/18/24 DAILY PRN sexual activity #30 tabs propranolol 10 mg tablet 10 mg PO BID 04/27/24 10/18/24 lactulose 20 gram/30 mL oral 20 g (30 mL) PO TID #1,500 mL 06/07/24 10/18/24 solution ibuprofen 200 mg tablet 200 mg PO Q6H PRN 08/17/24 10/18/24 pantoprazole 40 mg tablet,delayed 40 mg PO DAILY #30 tabs 09/14/24 10/18/24 release (Protonix) buspirone 30 mg tablet 30 mg PO BID #60 tabs 10/18/24 10/18/24 fentanyl 25 mcg/hr transdermal 1 patch transdermal Q72H #10 ea 10/18/24 10/18/24 patch hydromorphone 2 mg tablet 2 mg PO TID PRN pain #30 tabs 10/18/24 10/18/24 prochlorperazine maleate 5 mg 5 mg PO TID PRN nausea and 10/18/24 10/18/24 tablet vomiting #90 tabs Previous Rx's ?Medication ?Instructions ?Recorded sildenafil 25 mg tablet 25 - 50 mg (1 - 2 x 25 mg) PO 12/29/23 DAILY PRN sexual activity #30 tabs lactulose 20 gram/30 mL oral 20 g (30 mL) PO TID #1,500 mL 06/07/24 solution pantoprazole 40 mg tablet,delayed 40 mg PO DAILY #30 tabs 09/14/24 release (Protonix) buspirone 30 mg tablet 30 mg PO BID #60 tabs 10/18/24 fentanyl 25 mcg/hr transdermal 1 patch transdermal Q72H #10 ea 10/18/24 patch hydromorphone 2 mg tablet 2 mg PO TID PRN pain #30 tabs 10/18/24 prochlorperazine maleate 5 mg 5 mg PO TID PRN nausea and 10/18/24 tablet vomiting #90 tabs Allergies Allergy/AdvReac Type Severity Reaction Status Date / Time No Known Allergies Allergy Verified 10/18/24 14:30 General Stated Complaint: PsychEval FLOYD: 2 Course Vital Signs Vital signs: Vital Signs Temperature 36.8 C 10/18/24 14:23 Pulse 105 H 10/18/24 14:23 Respiratory Rate 16 10/18/24 14:23 Blood Pressure 153/96 H 10/18/24 14:23 Pulse Oximetry 98 10/18/24 14:23 Temperature 36.8 C 10/18/24 14:23 Pulse 105 H 10/18/24 14:23 Respiratory Rate 16 10/18/24 14:23 Blood Pressure 153/96 H 10/18/24 14:23 Pulse Oximetry 98 10/18/24 14:23 Pain Level 0 10/18/24 14:23 Medical Decision Making Quality:SDOH Health Related Social Needs: No Data to Display PFSH All Active Problems (Updated 10/18/24 @ 23:03 by Ghada Anderson MD) Alcohol use disorder (Acute) Suicidal ideation (Acute) Erectile dysfunction (Acute) Cellulitis (Acute) Anxiety (Chronic) Ascites due to alcoholic cirrhosis (Acute) Pain (Acute) Nausea (Acute) Palliative care patient (Acute) Abdominal pain (Acute) Alcoholic liver failure (Acute) Acute pancreatitis (Acute) Acute upper gastrointestinal bleeding (Acute) Medical History Acute hepatic encephalopathy Alcoholic hepatitis Thrombocytopenia Cirrhosis Alcohol abuse Pulsatile tinnitus of right ear Social History Smoking/Tobacco Use Status: Current every day Tobacco Type: e-cigarettes Smoking risk assessment performed?: Yes Alcohol Intake: current Alcohol Intake frequency: 0-2 drinks per day Alcohol type: beer, wine and hard liquor Drug use: Occasionally Substance use type: marijuana Housing: house Do you feel safe at home: Yes Do you feel safe in your relationship?: Yes PAWSS Have you Been Recently Intoxicated or Drunk Within the Last 30 days?: Yes Have you Ever Experienced Previous Episodes of Alcohol Withdrawal?: Yes Have you ever Experienced Withdrawal Seizures?: Yes Have you ever Experienced Delirium Tremens(DT)s?: Yes Have you ever undergone Alcohol Rehabilitation Treatment (i.e, inpt ot outpatient treatment programs)?: Yes Have you ever Experienced Blackouts?: Yes Have you ever Combined Alcohol with other Downers within the last 90 days?: No Have you ever Combined Alcohol with any other Substance of Abuse during the last 90 days?: No Positive Blood Alcohol level on Presentation? [PCS.BAL]: No Evidence of Increased Autonomic Activity (i.e. HR>120, tremor, sweating, agitation, nausea)?: No Result: 6
--- NOTE | 2024-10-18 14:50 | NUR.NOTE ---
Nursing Note: Patient requested to keep his support cap. I checked his cap and patient's hair for anything that would harm himself. Patient has a fentanyl patch on right thigh. Dr. Anderson is aware
[2024-10-18 15:35] LABS: Bilirubin Negative (Negative); Blood Trace-intact (Negative); Clarity Clear (Clear); Glucose Negative (Negative); Ketones Negative (Negative); Leukocyte Esterase Negative (Negative); Nitrite Negative (Negative); Specific Gravity 1.015 (1.005-1.025); pH 7.5 (5-8)
[2024-10-18 15:42] LABS: Bacteria Few HPF (Negative); C & S Indicated? No; Crystals Negative HPF (Negative); Epithelial Cells Rare HPF (Negative); Mucus Negative (Negative); WBC 0-2 HPF (0-5)
[2024-10-18 15:56] LABS: *AMPHETAMINES SCREEN URINE Negative (Negative); *BARBITURATES SCREEN URINE Negative (Negative); *BENZODIAZEPINES SCREEN URINE Negative (Negative); Cannabinoids THC Positive (Negative); Cocaine Screen,Urine Negative (Negative); METHADONE URINE SCREEN Negative (Negative); OPIATES URINE SCREEN Negative (Negative)
[2024-10-18 15:57] LABS: Tricyclic Antidepressants Negative (Negative)
[2024-10-18 16:21] LABS: Abs Immature Grans 0.04 10^3/uL (0.0-0.06); Absolute Basophil Count 0.05 10^3/uL (0.0-0.2); Absolute Lymphocyte Count 2.02 10^3/uL (1.2-3.4); Absolute Neutrophil Count 6.39 10^3/uL (1.2-6.7); Basophils % 0.5 %; HCT 39.2 % (40.0-50.0); HGB 14.5 g/dL (13.5-17.5); Immature Grans % 0.4 %; Lymphocytes % 20.8 %; MCH 33.8 pg (27.0-33.0); MCV 91 fL (80-95); MPV 12.2 fL (8.0-11.0); Monocytes % 12.4 %; Neutrophils % 65.9 %; RBC 4.29 10^6/uL (4.36-5.78); RDW 13.6 % (11.8-14.1)
[2024-10-18 16:34] LABS: INR 1.5 (0.9-1.1); Prothrombin Time 14.9 sec (9.1-11.1)
[2024-10-18 16:37] LABS: Ammonia 38 umol/L (11-32); ETHANOL BLOOD 252.8 mg/dL (<10)
[2024-10-18 16:40] LABS: Diff Comment PLT Morph Reviewed; Platelet Count 53 10^3/uL (130-400); RBC Morphology Normal
[2024-10-18 16:47] LABS: ALT 86 U/L (16-63); AST 160 U/L (15-37); Albumin 4.1 g/dL (3.4-5.0); Alkaline Phosphatase 152 U/L (46-116); Anion Gap 11.7 mmol/L (3-11); BUN 4 mg/dL (7-18); Bilirubin, Total 2.4 mg/dL (0.2-1.0); CO2 27.3 mmol/L (21.0-32.0); CREATININE 0.7 mg/dL (0.70-1.30); Calcium 9.1 mg/dL (8.5-10.1); Chloride 104 mmol/L (98-107); Estimated GFR 115.08 (mL/min/1.73m2); Glucose 118 mg/dL (74-106); Magnesium 1.7 mg/dL (1.8-2.4); Potassium 3.5 mmol/L (3.5-5.1); Sodium 143 mmol/L (136-145); Total Protein 7.6 g/dL (6.4-8.2)
--- NOTE | 2024-10-18 17:39 | CMPROGNOTE_ITS ---
Date of service: 10/18/24 Time of Service: 17:40 Care Management Progress Note Progress Note Text Progress Note Text: CM met with ED staff regarding Prashant's plan of care. Per [facility], Prashant was assessed in the community today after making concerning statements at a palliative care appointment. Prashant agreed to come to the ED and seek voluntary psychiatric care. Per report, he has been appropriate in all interactions. He has his own winter hat on, which brings him comfort; it is on the safety plan. He has a supportive friend/[id number], whom he lives with, and who brought him to the hospital. He has a good network of support, and may make phone calls and/or have visitors, at RN discretion. Prashant is voluntary, seeking inpatient psychiatric treatment. Referrals are being sent to facilities by [facility]. Safety plan in place. CM will continue to follow. Social Determinants of Health Screening Social Determinants of health last assessed in clinic: 10/18/24 Will the Patient Participate in the Screening?: Yes Do you worry about having a steady place to live?: no Problems where you live: no known problems In the past 12 months, have you had to go without electric, gas, oil or water in your home?: no 1. Within the past 12 months, we worried whether our food would run out before we got money to buy more.: Don't know/refused 2. Within the past 12 months, the food we bought just didn't last and we didn't have money to get more.: Don't know/refused Has lack of transportation kept you from medical appointments or from doing things needed for daily living?: no Has anyone in your life made you feel unsafe or unsupported?: no How hard is it for you to pay for the very basics like food, housing, medical care, and heating? Would you say it is:: Not hard at all Do you want help finding or keeping work or a job?: I do not need or want help If for any reason you need help with day-to-day activities such as bathing, preparing meals, shopping, managing finances, etc., do you get the help you need?: I don?t need any help How often do you feel lonely or isolated from those around you?: Never Do you speak a language other than Croatian at home?: No Does the patient want assistance with any of the above?: No
--- NOTE | 2024-10-18 17:39 | CMSP_ITS ---
Date of service: 10/18/24 Time of Service: 17:39 Care Management Safety Plan Status Status: Voluntary Reason for Wait Reason for Wait: Inpatient Admission Safety Plan Safety Plan: VOLUNTARY FOR INPATIENT PSYCHIATRIC STABILIZATION.? Patient is appropriate in all interactions since arriving at [facility]; Pt has demonstrated appropriate coping and communication skills, has articulated his or her needs and concerns and is fully engaged during staff interactions. Safety plan has been established with patient, and care team, to adhere to patient goals, identify restrictions based on behavioral status, address nutrition, and determine allowed personal belongings, tools for hygiene and personal care. Determine level of activity including ambulation, level of superv ision, visitors, and determine privileges based on behaviors and level of engagement by pt. VOLUNTARY SAFETY PLAN: 1. Will remain on suicide precautions, in paper clothes 2. Will remain in Zone B under direct supervision of one-on-one staff at all times provided by [employer]; YANCI, RESORT MANAGER gear generator set up operator. 3. May have paper cups, plates, finger foods as well as a cardboard spoon with which to eat meals. 4. Follow [facility] Management of the Admitted Behavioral Health Patient policy. 5. Shower available in Zone B without restriction. 6. Personal belongings-soft items permitted at RN discretion. Winter hat permitted, at RN discretion. 7. Visitors- supportive visitors, at RN discretion. 8. Activities: soft cart items, hospital tablets (Netflix/[place]+/music) approved per RN discretion. 9.? Bathroom available in Zone B without restriction. 10. Phone: limited to [facility] cordless phone at RN discretion. Due to VOLUNTARY status, if patient wishes to leave [facility], staff will contact [facility] Crisis Screener ([phone]) and Branch Specialist ([phone]) as soon as possible. In the event of elopement, notify [place] [employer] ([phone]). Patient is currently voluntarily at [facility] and seeking inpatient admission when a bed becomes available. [facility] Frontline Fishing Rod Marker will continue seeking placement. Please contact the Branch Specialist ([phone]) and [facility] Fishing Rod Marker ([phone]) for any needed changes in the Safety Plan. Safety plan has been provided to interdepartmental care team.
--- NOTE | 2024-10-18 17:39 | PDOC.CMSAFE ---
Date of service: 10/18/24 Time of Service: 17:39 Care Management Safety Plan Status Status: Voluntary Reason for Wait Reason for Wait: Inpatient Admission Safety Plan Safety Plan: VOLUNTARY FOR INPATIENT PSYCHIATRIC STABILIZATION.? Patient is appropriate in all interactions since arriving at [facility]; Pt has demonstrated appropriate coping and communication skills, has articulated his or her needs and concerns and is fully engaged during staff interactions. Safety plan has been established with patient, and care team, to adhere to patient goals, identify restrictions based on behavioral status, address nutrition, and determine allowed personal belongings, tools for hygiene and personal care. Determine level of activity including ambulation, level of supervision, visitors, and determine privileges based on behaviors and level of engagement by pt. VOLUNTARY SAFETY PLAN: 1. Will remain on suicide precautions, in paper clothes 2. Will remain in Zone B under direct supervision of one-on-one staff at all times provided by [employer]; YANCI, SOFT BOARDER senior support analyst. 3. May have paper cups, plates, finger foods as well as a cardboard spoon with which to eat meals. 4. Follow [facility] Management of the Admitted Behavioral Health Patient policy. 5. Shower available in Zone B without restriction. 6. Personal belongings-soft items permitted at RN discretion. Winter hat permitted, at RN discretion. 7. Visitors- supportive visitors, at RN discretion. 8. Activities: soft cart items, hospital tablets (Netflix/[place]+/music) approved per RN discretion. 9.? Bathroom available in Zone B without restriction. 10. Phone: limited to [facility] cordless phone at RN discretion. Due to VOLUNTARY status, if patient wishes to leave [facility], staff will contact [facility] Crisis Screener ([phone]) and Memory Care Program Resident ([phone]) as soon as possible. In the event of elopement, notify [place] [employer] ([phone]). Patient is currently voluntarily at [facility] and seeking inpatient admission when a bed becomes available. [facility] Frontline Public Health Director will continue seeking placement. Please contact the Memory Care Program Resident ([phone]) and [facility] Public Health Director ([phone]) for any needed changes in the Safety Plan. Safety plan has been provided to interdepartmental care team.
--- NOTE | 2024-10-18 18:21 | PDOC.MHCN ---
Date of service: 10/18/24 Time of Service: 18:22 PHQ-9 Over the last 2 weeks, how often have you been bothered by any of the following problems? 1. Little interest or pleasure in doing things: nearly every day 2. Feeling down, depressed, or hopeless: nearly every day 3. Trouble falling or staying asleep, or sleeping too much: nearly every day 4. Feeling tired or having little energy: nearly every day 5. Poor appetite or overeating: nearly every day 6. Feeling bad about yourself - or that you are a failure or have let yourself and your family down: nearly every day 7. Trouble concentrating on things, such as reading the newspaper or watching television: nearly every day 8. Moving or speaking so slowly that other people could have noticed? - Or the opposite - being so fidgety or restless that you have been moving around a lot more than usual: nearly every day 9. Thoughts that you would be better off or of hurting yourself in some way: nearly every day Total score: 27 If you checked off any problems, how difficult have these problems made it for you to do your work, take care of things at home, or get along with other people?: extremely difficult Source: Developed by Drs. Clemente Workman, Natalie Roldan, Francisco Javier Jim and colleagues, with an educational alexander from [facility]. Suicide Severity Rate CSSRS Have you wished you were or wished you could go to sleep and not wake up?: Yes Have you actually had any thoughts of killing yourself?: Yes CSSRS2 Have you been thinking about how you might do this?: Yes Have you had these thoughts and had some intention of acting on them?: Yes Have you started to work out or worked out the details of how to kill yourself? Do you intend to carry out this plan?: Yes CSSRS3 Have you ever done anything, started to do anything or prepared to do anything to end your life?: No CSSRS4 Was this within the past three months?: No Screening Score Total Score: 4 Screening: Positive Mental Health Emergency Note Release [facility] release signed:: Yes Reason for Visit ES team was requested to respond to [address] [place] for the client is endorsing SI with 3 methods (hanging, jumping Infront of train, or using a firearm - no access) he is 7/10 intent currently. He did throw up due to anxiety and overwhelming feelings and also his alcohol consumption. He is very willing for inpatient to get the help that he needs. In the last 2 weeks has the pt presented for ES prior to today?: No Client Information Well Housed: Yes Non Suicidal Self Injury Current: Yes, The client is drinking knowing he could due to severe alcohol abuse side effects. History: No Safety Risk/Harm to Self or Others Current Ideation to Harm Self or Others: Yes to self. Intent: yes, has intent. Plan: yes,has a plan. Risk: Does risk to harm exist?: yes. Access to means: Yes. Types of Means: Other weapons and Medication. Counseling provided: No Risk: High Risk Duty to warn indicated: No Asssessment/Mental Status Appearance: Disheveled and Poor hygiene Attitude: Cooperative and Friendly Behavior: Poor impulse control Speech: Normal Affect: Cogruent with mood Mood: Sad, Stressed, Depressed and Anxious Thought process: Goal directed and Poverty of content Hallucinations: yes, Auditory (The client reports hearing a demonic voice saying his name) Delusions: No Attention: Unremarkable Perception: Not impaired Orientation: Fully orientated Memory: Intact Insight: Fair Judgement: Fair Neurovegetative Symptoms Sleep: Decrease Appetitie: Decrease Interests: Decrease Energy: Decrease Libido: Not applicable Substance Use: Other (The client reports having an issue with alcohol consumption.) Drug Issues: Other (no) Do you use nicotine?: Yes Have you used substances in the last 7 days?: yes, Alcohol Additional Issues: Assaultive/Threatening Behavior: No Medical Concerns: Yes Client engaged in active self harm w/weapon: No Threatening to run away: No Child reported abuse/neglect: No Voluntarily presenting for services: Yes Domestic violence is a concern: No Extreme Psychosis or extreme behavior is present: No Impression The client is a 44 year old male that lives with his sister in-law. Screening tools have been asked. The client shared that he had lost his nine years ago his brother two years ago and both of his parents. The client also explained how his two children's son 15 daughter 18 lived in [place] and he only gets to visit them when he's doing well. Client is a self admitted alcoholic and explained how he struggles with that. He did share that he was sober for one year but tends to take a drink when he's feeling down. The client is endorsing SI with 3 methods (hanging, jumping Infront of train, or using a firearm - no access) he reports 7/10 intent currently, but reports this could change . He did throw up due to consuming two White Claws and a Twisted Tea anxiety and overwhelming feelings. He is very willing for inpatient but does not know the process. Cyndee has known him for 25 years and has never seen him like this per her report and is concerned for his well-being. The client stated that he knows he needs to get help because he just cries all of the time. He reports that he has been sad all day everyday for the last three moths and just wants to get better. This video game script writer was told that the client suffers from liver failure/cirrhosis, acute and chronic pancreatitis, arthritis, chronic pain and substance use disorder. He is on various medications that can be located in his medical chart, but the client has recently refused to take them. The client?s [id number] welcomes him back home after his treatment. This video game script writer will send referrals to all facilities. Plan/Disposition Recommended Disposition: Hospitalization facilities contacted. Plan: The client willl remain at [facility] ED until placement is secured at a psychiatric hospital. The client will receive daily asse Reports/communication Outcome discussed with: ED/Personnel
[2024-10-18] MEDS: Propranolol 10 MG TAB PO (21:34)
[2024-10-18] MEDS: Ibuprofen 600 MG TAB PO (21:34)
[2024-10-18] MEDS: busPIRone 15 MG TAB 30 MG PO (21:35)
--- NOTE | 2024-10-19 06:22 | ED.PROG_ITS ---
Date of service: 10/19/24 Time of Service: 06:22 Medical Decision Making Patient stable throughout the night. He did not demonstrate any evidence of withdrawal. No interventions needed. Pending placement. Quality:[facility] Health Related Social Needs: No Data to Display Discharge Plan Discharge Details Chief Complaint: PsychEval Clinical Impression: Suicidal ideation, Palliative care patient, Alcohol use disorder Primary Care Provider: Toñito Felix ED Provider: Meliton Lindsey Home Meds and New Rx's Prescriptions: No Action lactulose 20 gram/30 mL solution 20 g PO TID Qty: 1500 4RF pantoprazole [Protonix] 40 mg tablet,delayed release (DR/EC) 40 mg PO DAILY Qty: 30 6RF sildenafil 25 mg tablet 25 - 50 mg PO DAILY PRN (Reason: sexual activity) Qty: 30 4RF Rx Instructions: administer 30 minutes to 4 hours before activity propranolol 10 mg tablet 10 mg PO BID ibuprofen 200 mg tablet 200 mg PO Q6H PRN prochlorperazine maleate 5 mg tablet 5 mg PO TID PRN (Reason: nausea and vomiting) Qty: 90 4RF hydromorphone 2 mg tablet 2 mg PO TID MDD 3 tabs PRN (Reason: pain) Qty: 30 0RF Rx Instructions: Palliative care patient fentanyl 25 mcg/hr patch 72 hour 1 patch transdermal Q72H MDD 1 patch Qty: 10 0RF buspirone 30 mg tablet 30 mg PO BID Qty: 60 4RF
[2024-10-19] MEDS: chlordiazePOXIDE 25 MG CAP 50 MG PO (06:42)
[2024-10-19] MEDS: Ondansetron O.D.T. 4 MG TABEF PO (06:49)
[2024-10-19 07:10] VITALS: BP 137/79; PULSE 72; RESP 16; TEMP 36.4; O2SAT 97
[2024-10-19] MEDS: busPIRone 15 MG TAB 30 MG PO ×2 (08:42→19:29)
[2024-10-19] MEDS: Pantoprazole 40 MG TABCR PO (08:42)
[2024-10-19] MEDS: Propranolol 10 MG TAB PO ×2 (08:42→19:29)
[2024-10-19] MEDS: fentaNYL 25 MCG PATCH TD (08:42)
--- NOTE | 2024-10-19 12:32 | PDOC.MHPN2 ---
Date of service: 10/19/24 Time of Service: 12:32 Mental Health Emergency Note Release [facility] release signed:: Yes Reason for Visit The client new to [facility]. Intake was completed today. The client did not disclose if he has ever been hospitalized before. He was referred to the ED following a mobile response to his home endorsing SI with methods (hanging, jumping in front of train, or using a firearm - no access). This assessment is completed face to face at bedside. In the last 2 weeks has the pt presented for ES prior to today?: Unknown Impression The clepavel is a 44-year-old, single, male who lives in [facility]. His employment is unknown at this time. He uses He/Him pronouns and identifies as a heterosexual. All underrepresented categories were honored during this assessment. The client presented lying/sitting up in bed watching TV with his leg crossed over his knee in the air. He reported that he is at the ED due to suicidal thoughts, and detox from ETOH. He is seeking voluntary admission and is open to a referral to the [facility] for support following his d/c from treatment. The client endorsed symptoms of depression for a little over a month that include tearfulness, sleeping all the time and thoughts of suicide. He endorses SI today noting it comes and goes. He denied HI. The client reported his sleep was okay and his appetite is improving. He also endorsed auditory and visual hallucinations. The client shows good insight and judgment. He makes good eye contact and is cooperative and friendly during this assessment. Plan/Disposition Recommended Disposition: Hospitalization facilities contacted. Plan: The client was declined by WC and BR due to medical acuity. The client will remain at [facility] and be reassessed daily until placed. The client was offered the Recovery Center for a visit today and agreed to accept. Person reported agreement to plan: Yes Reports/communication Outcome discussed with: ED/Personnel
--- NOTE | 2024-10-19 13:43 | W.EDPROG ---
Date of service: 10/19/24 Time of Service: 13:43 Medical Decision Making Care signed out by Dr. Lindsey, please see his documentation regarding prior ED course. Patient here voluntarily with suicidal ideation. This morning prior to signout patient was exhibiting symptoms of alcohol withdrawal. He was started on Librium. Symptoms improved per nursing. 1625 --Per nursing, patient has remained stable with low CIWA score. Quality:[facility] Health Related Social Needs: No Data to Display Discharge Plan Discharge Details Chief Complaint: PsychEval Clinical Impression: Suicidal ideation, Palliative care patient, Alcohol use disorder Primary Care Provider: Toñito Felix ED Provider: Lamont Carroll Home Meds and New Rx's Prescriptions: No Action lactulose 20 gram/30 mL solution 20 g PO TID Qty: 1500 4RF pantoprazole [Protonix] 40 mg tablet,delayed release (DR/EC) 40 mg PO DAILY Qty: 30 6RF sildenafil 25 mg tablet 25 - 50 mg PO DAILY PRN (Reason: sexual activity) Qty: 30 4RF Rx Instructions: administer 30 minutes to 4 hours before activity propranolol 10 mg tablet 10 mg PO BID ibuprofen 200 mg tablet 200 mg PO Q6H PRN prochlorperazine maleate 5 mg tablet 5 mg PO TID PRN (Reason: nausea and vomiting) Qty: 90 4RF hydromorphone 2 mg tablet 2 mg PO TID MDD 3 tabs PRN (Reason: pain) Qty: 30 0RF Rx Instructions: Palliative care patient fentanyl 25 mcg/hr patch 72 hour 1 patch transdermal Q72H MDD 1 patch Qty: 10 0RF buspirone 30 mg tablet 30 mg PO BID Qty: 60 4RF
[2024-10-19] MEDS: Ibuprofen 600 MG TAB PO ×2 (14:43→21:24)
--- NOTE | 2024-10-19 17:04 | ED.PROG_ITS ---
Date of service: 10/19/24 Time of Service: 17:04 Medical Decision Making Patient on voluntary status for depression and SI, was given Librium earlier for some alcohol withdrawal but has not required any since. No new acute complaints, will continue to monitor until safe disposition found Quality:[facility] Health Related Social Needs: No Data to Display Discharge Plan Discharge Details Chief Complaint: PsychEval Clinical Impression: Suicidal ideation, Palliative care patient, Alcohol use disorder Primary Care Provider: Toñito Felix ED Provider: Khoa Hunter [place] Meds and New Rx's Prescriptions: No Action lactulose 20 gram/30 mL solution 20 g PO TID Qty: 1500 4RF pantoprazole [Protonix] 40 mg tablet,delayed release (DR/EC) 40 mg PO DAILY Qty: 30 6RF sildenafil 25 mg tablet 25 - 50 mg PO DAILY PRN (Reason: sexual activity) Qty: 30 4RF Rx Instructions: administer 30 minutes to 4 hours before activity propranolol 10 mg tablet 10 mg PO BID ibuprofen 200 mg tablet 200 mg PO Q6H PRN prochlorperazine maleate 5 mg tablet 5 mg PO TID PRN (Reason: nausea and vomiting) Qty: 90 4RF hydromorphone 2 mg tablet 2 mg PO TID MDD 3 tabs PRN (Reason: pain) Qty: 30 0RF Rx Instructions: Palliative care patient fentanyl 25 mcg/hr patch 72 hour 1 patch transdermal Q72H MDD 1 patch Qty: 10 0RF buspirone 30 mg tablet 30 mg PO BID Qty: 60 4RF
--- NOTE | 2024-10-19 18:51 | CMSP_ITS ---
Date of service: 10/19/24 Time of Service: 18:51 Care Management Safety Plan Status Status: Voluntary Reason for Wait Reason for Wait: Inpatient Admission Safety Plan Safety Plan: VOLUNTARY FOR INPATIENT PSYCHIATRIC STABILIZATION.? Patient is appropriate in all interactions since arriving at [facility]; Pt has demonstrated appropriate coping and communication skills, has articulated his or her needs and concerns and is fully engaged during staff interactions. Safety plan has been established with patient, and care team, to adhere to patient goals, identify restrictions based on behavioral status, address nutrition, and determine allowed personal belongings, tools for hygiene and personal care. Determine level of activity including ambulation, level of superv ision, visitors, and determine privileges based on behaviors and level of engagement by pt. VOLUNTARY SAFETY PLAN: 1. Will remain on suicide precautions, in paper clothes 2. Will remain in Zone B under direct supervision of one-on-one staff at all times provided by [employer]; YANCI, FAGOT MAKER correctional counselor/case manager. 3. May have paper cups, plates, finger foods as well as a cardboard spoon with which to eat meals. 4. Follow [facility] Management of the Admitted Behavioral Health Patient policy. 5. Shower available in Zone B without restriction. 6. Personal belongings-soft items permitted at RN discretion. Winter hat permitted, at RN discretion. 7. Visitors- supportive visitors, at RN discretion. 8. Activities: soft cart items, hospital tablets (Netflix/[place]+/music) approved per RN discretion. 9.? Bathroom available in Zone B without restriction. 10. Phone: limited to [facility] cordless phone at RN discretion. Due to VOLUNTARY status, if patient wishes to leave [facility], staff will contact [facility] Crisis Screener ([phone]) and Fountain Helper ([phone]) as soon as possible. In the event of elopement, notify [place] State Police ([phone]). Patient is currently voluntarily at [facility] and seeking inpatient admission when a bed becomes available. [facility] Frontline Rail Car Repairman will continue seeking placement. Please contact the Fountain Helper ([phone]) and [facility] Rail Car Repairman ([phone]) for any needed changes in the Safety Plan. Safety plan has been provided to interdepartmental care team.
--- NOTE | 2024-10-19 18:51 | PDOC.CMSAFE ---
Date of service: 10/19/24 Time of Service: 18:51 Care Management Safety Plan Status Status: Voluntary Reason for Wait Reason for Wait: Inpatient Admission Safety Plan Safety Plan: VOLUNTARY FOR INPATIENT PSYCHIATRIC STABILIZATION.? Patient is appropriate in all interactions since arriving at [facility]; Pt has demonstrated appropriate coping and communication skills, has articulated his or her needs and concerns and is fully engaged during staff interactions. Safety plan has been established with patient, and care team, to adhere to patient goals, identify restrictions based on behavioral status, address nutrition, and determine allowed personal belongings, tools for hygiene and personal care. Determine level of activity including ambulation, level of supervision, visitors, and determine privileges based on behaviors and level of engagement by pt. VOLUNTARY SAFETY PLAN: 1. Will remain on suicide precautions, in paper clothes 2. Will remain in Zone B under direct supervision of one-on-one staff at all times provided by [employer]; YANCI, CARDROOM PLASTIC CARD GRADER airworthiness safety inspector. 3. May have paper cups, plates, finger foods as well as a cardboard spoon with which to eat meals. 4. Follow [facility] Management of the Admitted Behavioral Health Patient policy. 5. Shower available in Zone B without restriction. 6. Personal belongings-soft items permitted at RN discretion. Winter hat permitted, at RN discretion. 7. Visitors- supportive visitors, at RN discretion. 8. Activities: soft cart items, hospital tablets (Netflix/[place]+/music) approved per RN discretion. 9.? Bathroom available in Zone B without restriction. 10. Phone: limited to [facility] cordless phone at RN discretion. Due to VOLUNTARY status, if patient wishes to leave [facility], staff will contact [facility] Crisis Screener ([phone]) and Sidewalk Repairer ([phone]) as soon as possible. In the event of elopement, notify [place] State Police ([phone]). Patient is currently voluntarily at [facility] and seeking inpatient admission when a bed becomes available. [facility] Frontline Primary Mill Roller will continue seeking placement. Please contact the Sidewalk Repairer ([phone]) and [facility] Primary Mill Roller ([phone]) for any needed changes in the Safety Plan. Safety plan has been provided to interdepartmental care team.
--- NOTE | 2024-10-19 18:52 | CMPROGNOTE_ITS ---
Date of service: 10/19/24 Time of Service: 18:52 Care Management Progress Note Progress Note Text Progress Note Text: CM met with ED staff to discuss Prashant's plan of care. Per RN, he has been pleasant and cooperative. He did have an episode of vomiting this morning, and is being monitored for withdrawal. Per RN, he has improved significantly throughout the day. Per [facility], he may benefit from a womens volleyball coach. CM asked for an order, which was placed by RN. Prashant is currently voluntary, seeking inpatient psychiatric treatment. Referrals were sent; safety plan in place. CM will continue to follow. Social Determinants of Health Screening Social Determinants of health last assessed in clinic: 10/19/24 Will the Patient Participate in the Screening?: Yes Do you worry about having a steady place to live?: no Problems where you live: no known problems In the past 12 months, have you had to go without electric, gas, oil or water in your home?: no 1. Within the past 12 months, we worried whether our food would run out before we got money to buy more.: Don't know/refused 2. Within the past 12 months, the food we bought just didn't last and we didn't have money to get more.: Don't know/refused Has lack of transportation kept you from medical appointments or from doing things needed for daily living?: no Has anyone in your life made you feel unsafe or unsupported?: no How hard is it for you to pay for the very basics like food, housing, medical care, and heating? Would you say it is:: Not hard at all Do you want help finding or keeping work or a job?: I do not need or want help If for any reason you need help with day-to-day activities such as bathing, preparing meals, shopping, managing finances, etc., do you get the help you need?: I don?t need any help How often do you feel lonely or isolated from those around you?: Never Do you speak a language other than Sami at home?: No Does the patient want assistance with any of the above?: No
--- NOTE | 2024-10-19 20:51 | W.PALLCONSUL ---
Date of service: 10/19/24 Time of Service: 17:10 History of Present Illness Narrative: Prashant was seen for Palliative consult for continuity of care. He is currently in Zone B awaiting psychiatric placement for depression with SI. He presented to the Palliative office yesterday and verbalized that he was experiencing suicidal ideation and that he had 3 plans. His friend and caregiver, Cyndee removed the guns from the home. He had been doing well overall for the last year. He remained abstinent from ETOH for about a year, however about 2 weeks ago, he decided to stop all of his medications. He thought he did not need them. He had increased pain after removing his fentanyl patch. His anxiety increased after stopping his buspar. He then decided to resume ETOH intake. He is in the process of moving, which has been difficult. He wants to help but when he lifts anything he has increased pain and fatigue. He was referred to the ED from the Palliative office but he did not go immediately. Cyndee was given the number to call [facility] and they were able to help him get to the ED. He began experiencing Sx of withdrawal this morning. He is feeling better this evening. He feels nauseated but he is getting antiemetics with relief. He is eating better. He would consider outpatient management if the team felt it was safe. Assessment and Plan Assessment and plan (1) Alcohol use disorder: Status: Acute Assessment and plan: He was abstinent from ETOH for about a year before he recently started to drink again. He was on ETOH deterrent medication in the past. Associated cirrhosis with liver failure. (2) Suicidal ideation: Status: Acute Assessment and plan: With plans. (3) Anxiety: Status: Chronic Assessment and plan: Buspar has worked very well for him. He stopped taking it about 2 weeks ago. (4) Ascites due to alcoholic cirrhosis: Status: Acute (5) Pain: Status: Acute Assessment and plan: On fentanyl patch. (6) Nausea: Status: Acute Assessment and plan: Antiemetics help (7) Abdominal pain: Status: Acute (8) Alcoholic liver failure: Status: Acute (9) Palliative care patient: Status: Acute Assessment and plan: Prashant was seen for continuity of care. He reported feeling suicidal in the Palliative office yesterday. He reports feeling better this evening. He states he is not really feeling suicidal at this point. He is voluntary and open to treatment. He would like to engage in therapy. He has Palliative f/u scheduled. He can contact the office as needed. Review of Systems Narrative: Per HPI PFSH All Active Problems Alcohol use disorder (Acute) Suicidal ideation (Acute) Erectile dysfunction (Acute) Cellulitis (Acute) Anxiety (Chronic) Ascites due to alcoholic cirrhosis (Acute) Pain (Acute) Nausea (Acute) Palliative care patient (Acute) Abdominal pain (Acute) Alcoholic liver failure (Acute) Acute pancreatitis (Acute) Acute upper gastrointestinal bleeding (Acute) Medical History Acute hepatic encephalopathy Alcoholic hepatitis Thrombocytopenia Cirrhosis Alcohol abuse Pulsatile tinnitus of right ear Social History Smoking/Tobacco Use Status: Current every day Tobacco Type: e-cigarettes Smoking risk assessment performed?: Yes Alcohol Intake: current Alcohol Intake frequency: 0-2 drinks per day Alcohol type: beer, wine and hard liquor Drug use: Occasionally Substance use type: marijuana Housing: house Do you feel safe at home: Yes Do you feel safe in your relationship?: Yes Exam Narrative Exam Narrative: General: very pleasant, young man, sitting up in bed, watching TV. He is alert, oriented, talkative. He engages in the visit and answers questions appropriately. HEENT: normocephalic, atraumatic, EOMI, mmm Neck: supple Respiratory: respirations appear even and unlabored Ext: moves all 4 extremities freely. Results Last Vital Signs Temp 36.4 C L 10/19/24 07:10 Pulse 72 10/19/24 07:10 Resp 16 10/19/24 07:10 BP 137/79 10/19/24 07:10 Pulse Ox 97 10/19/24 07:10 Labs 10/18/24 16:11 10/18/24 16:11 Time Spent Time Spent with Patient Time Spent(min): 55
[2024-10-20] MEDS: Pantoprazole 40 MG TABCR PO (07:23)
--- NOTE | 2024-10-20 07:52 | W.EDPROG ---
Date of service: 10/20/24 Time of Service: 07:52 Medical Decision Making Care assumed from off going provider. Patient is a 44-year-old gentleman currently pending inpatient psychiatric placement due to depression and suicidal ideation. 0915 Patient evaluated by mental health services this morning. He is no longer feeling suicidal and has a strong support network in place. At this time he would like to go home and is no longer interested in seeking inpatient voluntary care. He has agreed to a safety plan with [facility] and will be discharged in good condition. Quality:[facility] Health Related Social Needs: No Data to Display Discharge Plan Disposition Patient Disposition: Home Discharge Details Clinical Impression: Suicidal ideation, Palliative care patient, Alcohol use disorder Primary Care Provider: Toñito Felix ED Provider: Christie Dubois Home Meds and New Rx's Prescriptions: No Action lactulose 20 gram/30 mL solution 20 g PO TID Qty: 1500 4RF pantoprazole [Protonix] 40 mg tablet,delayed release (DR/EC) 40 mg PO DAILY Qty: 30 6RF sildenafil 25 mg tablet 25 - 50 mg PO DAILY PRN (Reason: sexual activity) Qty: 30 4RF Rx Instructions: administer 30 minutes to 4 hours before activity propranolol 10 mg tablet 10 mg PO BID ibuprofen 200 mg tablet 200 mg PO Q6H PRN prochlorperazine maleate 5 mg tablet 5 mg PO TID PRN (Reason: nausea and vomiting) Qty: 90 4RF hydromorphone 2 mg tablet 2 mg PO TID MDD 3 tabs PRN (Reason: pain) Qty: 30 0RF Rx Instructions: Palliative care patient fentanyl 25 mcg/hr patch 72 hour 1 patch transdermal Q72H MDD 1 patch Qty: 10 0RF buspirone 30 mg tablet 30 mg PO BID Qty: 60 4RF Discharge Instructions Additional Instructions: at this time you are no longer feeling suicidal and have agreed to a safety plan with [facility]. Please follow up with community resources as discussed.
[2024-10-20 08:07] VITALS: BP 135/79; PULSE 73; RESP 18; O2SAT 95
[2024-10-20] MEDS: busPIRone 15 MG TAB 30 MG PO (08:12)
[2024-10-20] MEDS: Propranolol 10 MG TAB PO (08:12)
[2024-10-20 09:29] VITALS: RESP 18
== END 2024-10-20 09:34 | disposition home or self-care (01) ==
PROVIDERS: Emergency Medicine; Emergency Provider Emergency Medicine; PCP Family Medicine
DX: R45.851 Suicidal ideations (principal); F10.130 Alcohol abuse with withdrawal, uncomplicated; F32.A Depression, unspecified; K70.31 Alcoholic cirrhosis of liver with ascites; F17.290 Nicotine dependence, other tobacco product, uncomplicated
CPT/HCPCS: 00123; 80053; 80307; 96127; 99284; 80320; 81003; 81015; 82140; 83735; 85025; 85610

== ENCOUNTER 2024-12-20 07:02 | Inpatient (IN) | payer MEDICAID, SELFPAY ==
[2024-12-20] VITALS (46 sets, daily range): BP systolic 113–146; BP diastolic 66–93; PULSE 44–133; RESP 11–27; TEMP 35.9–37; O2SAT 92–97
--- NOTE | 2024-12-20 07:30 | W.ED.GENAD ---
Discharge Plan Disposition Patient Disposition: Admit to [facility] Condition: Stable Discharge Details Clinical Impression: Vomiting, Alcoholic liver failure, Hyperammonemia, Acute hypokalemia Primary Care Provider: Toñito Felix ED Provider: Meliton Lindsey Home Meds and New Rx's Prescriptions: No Action lactulose 20 gram/30 mL solution 20 g PO TID Qty: 1500 4RF pantoprazole [Protonix] 40 mg tablet,delayed release (DR/EC) 40 mg PO DAILY Qty: 30 6RF prochlorperazine maleate 5 mg tablet 5 mg PO TID PRN (Reason: nausea and vomiting) Qty: 90 4RF fentanyl 12 mcg/hr patch 72 hour 1 patch transdermal Q72H MDD 37 mcg/hr Qty: 10 0RF Rx Instructions: place with 25 mcg/hr patch for total of 37 mcg/hr fentanyl 25 mcg/hr patch 72 hour 1 patch transdermal Q72H MDD 1 patch Qty: 10 0RF Rx Instructions: Apply with 12 mcg/hr patch for total of 37 mcg/hr. sildenafil 25 mg tablet 25 - 50 mg PO DAILY PRN (Reason: sexual activity) Qty: 30 4RF Rx Instructions: administer 30 minutes to 4 hours before activity propranolol 10 mg tablet 10 mg PO BID ibuprofen 200 mg tablet 200 mg PO Q6H PRN buspirone 30 mg tablet 30 mg PO BID Qty: 60 4RF hydrocodone-acetaminophen 5-300 mg tablet 1 tab PO TID MDD 3 tabs PRN (Reason: pain) Qty: 60 0RF Rx Instructions: for breakthrough pain HPI General Date/Time Provider Initiated Documentation: 12/20/24 07:25. HPI Narrative: 44-year-old male with a past medical history of previous alcoholic use leading to subsequent alcoholic liver failure, previous upper GI bleeds, cirrhosis, erectile dysfunction, who is a palliative care patient who presents today for feeling unwell for the last 5 days. He has been becoming more jaundiced, he has been unable to eat and drink, he has noted blood in his bowel movements for the last 2 days, as well as some worsening right-sided epigastric pain that radiates to the left. Patient states that normally his pain is well-controlled with his fentanyl patches in his breakthrough Vicodin, however the abdominal pain has notably broken through that over the last couple days. In addition to that he has been vomiting almost every hour or every other hour for the last day. He did have a very hard bowel movement a day or so ago, after which she has had somewhat persistent loose stools. There has been some bright red blood per rectum with that which she is concerned may have been secondary to the initial large hard stool bolus. He denies any blood in his vomit. He denies any coffee-ground emesis. He denies any confusion headache or neck pain. He states that his jaundice color is much more so than normal. He and his significant other at bedside feel that symptoms are notably atypical from his chronic pain and symptomatology. He has no other complaints at this time. He denies any other modifying factors. Related Data Home Medications ?Medication ?Instructions ?Recorded ?Confirmed sildenafil 25 mg tablet 25 - 50 mg (1 - 2 x 25 mg) PO 12/29/23 12/20/24 DAILY PRN sexual activity #30 tabs propranolol 10 mg tablet 10 mg PO BID 04/27/24 12/20/24 lactulose 20 gram/30 mL oral 20 g (30 mL) PO TID #1,500 mL 06/07/24 12/20/24 solution ibuprofen 200 mg tablet 200 mg PO Q6H PRN 08/17/24 12/20/24 pantoprazole 40 mg tablet,delayed 40 mg PO DAILY #30 tabs 09/14/24 12/20/24 release (Protonix) buspirone 30 mg tablet 30 mg PO BID #60 tabs 10/18/24 12/20/24 fentanyl 12 mcg/hr transdermal 1 patch transdermal Q72H #10 ea 11/15/24 12/20/24 patch fentanyl 25 mcg/hr transdermal 1 patch transdermal Q72H #10 ea 11/15/24 12/20/24 patch prochlorperazine maleate 5 mg 5 mg PO TID PRN nausea and 11/15/24 12/20/24 tablet vomiting #90 tabs hydrocodone 5 mg-acetaminophen 300 1 tab PO TID PRN pain #60 tabs 12/07/24 12/20/24 mg tablet Previous Rx's ?Medication ?Instructions ?Recorded sildenafil 25 mg tablet 25 - 50 mg (1 - 2 x 25 mg) PO 12/29/23 DAILY PRN sexual activity #30 tabs lactulose 20 gram/30 mL oral 20 g (30 mL) PO TID #1,500 mL 06/07/24 solution pantoprazole 40 mg tablet,delayed 40 mg PO DAILY #30 tabs 09/14/24 release (Protonix) buspirone 30 mg tablet 30 mg PO BID #60 tabs 10/18/24 fentanyl 12 mcg/hr transdermal 1 patch transdermal Q72H #10 ea 11/15/24 patch fentanyl 25 mcg/hr transdermal 1 patch transdermal Q72H #10 ea 11/15/24 patch prochlorperazine maleate 5 mg 5 mg PO TID PRN nausea and 11/15/24 tablet vomiting #90 tabs hydrocodone 5 mg-acetaminophen 300 1 tab PO TID PRN pain #60 tabs 12/07/24 mg tablet Allergies Allergy/AdvReac Type Severity Reaction Status Date / Time No Known Allergies Allergy Verified 12/20/24 07:08 General Stated Complaint: GenMedical FLOYD: 3 Exam Narrative Exam Narrative: 1.Const: Well-nourished, Well-developed, appearing stated age 2.Eyes: PERRL, no conjunctival injection, and symmetrical lids. Scleral icterus 3.ENT: Atraumatic external nose and ears. Dry MM. Neck: Symmetric, trachea midline, No thyromegaly. 4.CVS: +S1/S2, Peripheral pulses 2+ and equal in all extremities. Brisk capillary refill in all extremities. 5.RESP: Unlabored respiratory effort. Clear to auscultation bilaterally. No wheezes rales or rhonchi 6.GI: Soft, mildly distended, mild epigastric discomfort on light palpation, worse in the right upper quadrant. Mild lower abdominal achiness on moderate palpation. 7.MSK: Normocephalic/Atraumatic, Extremities w/o deformity or ttp No cyanosis or clubbing, Normal movement of all extremities. Single beat asterixis 8.Skin: Warm, Dry. No rashes or lesions. 9.Neuro: metal sprayer production II-XII grossly intact. Sensation grossly intact, no focal neurologic deficits. 10.Psych: (AAO) x3. Appropriate mood and affect Course Vital Signs Vital signs: Vital Signs Temperature 37.0 C 12/20/24 07:04 Pulse 90 12/20/24 07:04 Respiratory Rate 15 12/20/24 07:04 Blood Pressure 125/90 12/20/24 07:04 Pulse Oximetry 96 12/20/24 07:04 Temperature 37.0 C 12/20/24 07:08 Temperature Source Oral 12/20/24 07:08 Pulse 90 12/20/24 07:08 Respiratory Rate 15 12/20/24 07:08 Blood Pressure 125/90 12/20/24 07:08 Blood Pressure Position Sitting 12/20/24 07:08 Pulse Oximetry 96 12/20/24 07:08 Oxygen Delivery Method Room Air 12/20/24 07:08 Oxygen Flow Rate 0 12/20/24 07:08 Pain Level 6 12/20/24 07:08 Medical Decision Making 44-year-old male with a past medical history of previous alcoholic use leading to subsequent alcoholic liver failure, previous upper GI bleeds, cirrhosis, erectile dysfunction, who is a palliative care patient who presents today for feeling unwell for the last 5 days. He has been becoming more jaundiced, he has been unable to eat and drink, he has noted blood in his bowel movements for the last 2 days, as well as some worsening right-sided epigastric pain that radiates to the left. Patient states that normally his pain is well-controlled with his fentanyl patches in his breakthrough Vicodin, however the abdominal pain has notably broken through that over the last couple days. In addition to that he has been vomiting almost every hour or every other hour for the last day. He did have a very hard bowel movement a day or so ago, after which she has had somewhat persistent loose stools. There has been some bright red blood per rectum with that which she is concerned may have been secondary to the initial large hard stool bolus. He denies any blood in his vomit. He denies any coffee-ground emesis. He denies any confusion headache or neck pain. He states that his jaundice color is much more so than normal. He and his significant other at bedside feel that symptoms are notably atypical from his chronic pain and symptomatology. He has no other complaints at this time. He denies any other modifying factors. Physical exam demonstrates mild to moderate jaundice, epigastric pain discomfort on palpation, single be asterexis. Differential is concerning for worsening chronic pancreatitis, worsening chronic hepatic failure, but in addition to this high concern for potential choledocholithiasis, cholecystitis, and less likely ascending cholangitis. Will evaluate for these concerning pathologies. Will check an ammonia level, we will monitor closely and reassess. Will get CT imaging of the abdomen, rehydrate with a liter of LR, give antiemetics. We will give the patient his chronic fentanyl patch dosings that he would receive in the morning. 11:27 AM Laboratory workup shows slight worsening of multiple things, but not severe worsening. He has a mild white count of 14, platelets are usually low but they are now lower at 37, he has no bands. His INR PT and PTT are all slightly higher than normal at 2, 19 and 33.7 respectively. Electrolytes are all slightly off with a sodium of 135, potassium of 3.3, chloride of 96. His bili is much higher than normal at 10 and he has worsening transaminitis compared to his baseline at 273 and 112 for AST and ALT respectively. Ammonia is also higher than normal at 69, which is not surprising since he cannot take his lactulose and he keeps vomiting. Lipase level is normal. Urinalysis shows no nitrites, no leuk esterase to suggest UTI. Patient continues to have vomiting episodes here despite antiemetic therapy. With his inability to tolerate p.o., and the critical need for him to be able to take p.o. medications including his lactulose, I do not feel that he would be a great candidate for home therapy. Because of this I have contacted the hospitalist Dr. Sotelo and discussed the case with him. He agrees with the plan and patient will be admitted for further IV fluids antiemetics and fine-tuning of his current electrolytes and elevated ammonia level. CT imaging shows no evidence of significant acute process. There is thickening of the bladder however he does not show evidence of UTI on urinalysis. I have extensively reviewed the treatment plan with the patient. I have addressed all patient concerns at this time. I have also discussed the plan with the admitting physician and they agree with the current assessment and plan and have agreed to assume responsibility for the patient. All parties demonstrate verbal understanding and agreement with our assessment and plan at this time. The documentation in this chart was dictated using [employer] dictation software. Please excuse any dictation errors. FINDINGS: ABDOMEN: Lung Bases: No acute abnormality. Liver: There is diffuse decreased attenuation of the liver consistent with fatty infiltration. The liver has a nodular contour with an enlarged left lobe most suspicious for hepatic cirrhosis. No measurable mass. Varices are seen in the left upper quadrant. Portal, Superior Mesenteric, and Splenic Veins: Unremarkable. Gallbladder and Biliary Tract: There are calcifications seen within the gallbladder consistent with cholelithiasis. There also calcifications along the wall of the gallbladder. No biliary ductal dilatation. Pancreas: Normal density, no abnormal calcifications or inflammatory process. Spleen: Spleen size is at the upper limits of normal. Adrenals: No masses seen. Kidneys: Normal size, contour and axis. Bilateral nephrolithiasis. No obstructive uropathy. No masses seen. Abdominal Aorta: Abdominal portion non-dilated. Bowel: No obstruction or bowel wall thickening. Appendix is unremarkable. Peritoneal Cavity: No ascites, collection or mesenteric inflammatory response. No free air. Lymph Nodes: Within normal limits. Bones: Within normal limits for the patient's age. Soft Tissues: There is a small fat containing umbilical hernia. PELVIS: Bladder: The urinary bladder shows a diffusely thickened wall. There is mild inflammation around the urinary bladder. Reproductive Organs: Unremarkable as visualized. Lymph Nodes: Within normal limits. Bones: Within normal limits for the patient's age. IMPRESSION: 1. Diffuse thickening of the wall of the urinary bladder with mild surrounding inflammation. Cystitis should be considered. 2. Cholelithiasis. No biliary ductal dilatation. 3. 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 4. No CT evidence to suggest acute pancreatitis. PFSH All Active Problems (Updated 12/20/24 @ 11:30 by Meliton Lindsey DO) Acute hypokalemia (Acute) Hyperammonemia (Acute) Vomiting (Acute) Suicidal ideation (Acute) Erectile dysfunction (Acute) Cellulitis (Acute) Anxiety (Chronic) Ascites due to alcoholic cirrhosis (Acute) Pain (Acute) Nausea (Acute) Palliative care patient (Acute) Abdominal pain (Acute) Alcoholic liver failure (Acute) Acute pancreatitis (Acute) Acute upper gastrointestinal bleeding (Acute) Medical History Acute hepatic encephalopathy Alcoholic hepatitis Thrombocytopenia Cirrhosis Alcohol abuse Pulsatile tinnitus of right ear Social History Smoking/Tobacco Use Status: Current every day Tobacco Type: e-cigarettes Smoking risk assessment performed?: Yes Alcohol Intake: current Alcohol Intake frequency: 3 or more drinks per day Alcohol type: beer, wine and hard liquor Drug use: Occasionally Substance use type: marijuana Housing: house Do you feel safe at home: Yes Do you feel safe in your relationship?: Yes PAWSS Have you Been Recently Intoxicated or Drunk Within the Last 30 days?: No Have you Ever Experienced Previous Episodes of Alcohol Withdrawal?: No Have you ever Experienced Withdrawal Seizures?: No Have you ever Experienced Delirium Tremens(DT)s?: No Have you ever undergone Alcohol Rehabilitation Treatment (i.e, inpt ot outpatient treatment programs)?: No Have you ever Experienced Blackouts?: No Have you ever Combined Alcohol with other Downers within the last 90 days?: No Have you ever Combined Alcohol with any other Substance of Abuse during the last 90 days?: No Result: 0
[2024-12-20 08:10] LABS: Abs Immature Grans 0.15 10^3/uL (0.0-0.06); Absolute Eosinophil Count 0.01 10^3/uL (0.0-0.7); Absolute Lymphocyte Count 1.31 10^3/uL (1.2-3.4); Absolute Monocyte Count 2.06 10^3/uL (0.1-0.8); Basophils % 0.4 %; Eosinophils % 0.1 %; HCT 41.9 % (40.0-50.0); HGB 14.8 g/dL (13.5-17.5); Immature Grans % 1.1 %; Lymphocytes % 9.2 %; MCH 33.4 pg (27.0-33.0); MCHC 35.3 % (32.0-36.0); MCV 95 fL (80-95); MPV 13.2 fL (8.0-11.0); Monocytes % 14.4 %; Neutrophils % 74.8 %; RBC 4.43 10^6/uL (4.36-5.78); RDW 13.7 % (11.8-14.1); RDW-SD 47.9 fL; WBC 14.28 10^3/uL (4.4-10.8)
[2024-12-20] MEDS: HYDROmorphone 2 MG/ML SYR 1 MG IVP ×2 (08:14→10:51)
[2024-12-20] MEDS: Pantoprazole 40 MG VIAL IVP (08:14)
[2024-12-20] MEDS: Lactated Ringers 1,000 ML 1000 ML IV (08:15)
[2024-12-20 08:22] LABS: Ammonia 69 umol/L (11-32)
[2024-12-20 08:29] LABS: Absolute Basophil Count 0.06 10^3/uL (0.0-0.2); Absolute Neutrophil Count 10.68 10^3/uL (1.2-6.7)
[2024-12-20 08:30] LABS: Platelet Count 37 10^3/uL (130-400)
[2024-12-20 08:32] LABS: Diff Comment Agrees w/ Instrument; RBC Morphology Normal
[2024-12-20 08:33] LABS: PTT Activated 33.7 sec (20.6-30.2); Prothrombin Time 19.1 sec (9.1-11.1)
[2024-12-20] MEDS: fentaNYL 12 MCG PATCH TD (08:45)
[2024-12-20] MEDS: Ondansetron 4 MG/2 ML VIAL IVP (08:45)
[2024-12-20] MEDS: fentaNYL 25 MCG PATCH TD (08:46)
[2024-12-20 09:01] LABS: ALT 112 U/L (16-63); AST 273 U/L (15-37); Albumin 3.7 g/dL (3.4-5.0); Alkaline Phosphatase 164 U/L (46-116); Anion Gap 10.4 mmol/L (3-11); BUN 9 mg/dL (7-18); CO2 28.6 mmol/L (21.0-32.0); CREATININE 0.8 mg/dL (0.70-1.30); Calcium 9.1 mg/dL (8.5-10.1); Chloride 96 mmol/L (98-107); Estimated GFR 110.53 (mL/min/1.73m2); Glucose 141 mg/dL (74-106); Lipase 36 U/L (<78); Potassium 3.3 mmol/L (3.5-5.1); Sodium 135 mmol/L (136-145); Total Protein 7.3 g/dL (6.4-8.2)
[2024-12-20] MEDS: Omnipaque 350 MG/ML 100 ML BTL IJ (09:34)
[2024-12-20] MEDS: Normal Saline - Diluent 50 ML VIAL IJ (09:36)
--- NOTE | 2024-12-20 09:50 | DI.CT_ITS ---
Exam(s) CT ABDOMEN PELVIS W EXAM: CT ABDOMEN PELVIS W CLINICAL HISTORY: N/V/D, worsening epigastric pain, chronic pancreat TECHNIQUE: Imaging Protocol: Axial computed tomography images with coronal and sagittal reformatted images were created and reviewed. CONTRAST MATERIAL: Intravenous: Omnipaque 350 Contrast volume:75 mL Oral: No COMPARISON: CT CT ABDOMEN PELVIS W from 02/20/2024 FINDINGS: ABDOMEN: Lung Bases: No acute abnormality. Liver: There is diffuse decreased attenuation of the liver consistent with fatty infiltration. The liver has a nodular contour with an enlarged left lobe most suspicious for hepatic cirrhosis. No measurable mass. Varices are seen in the left upper quadrant. Portal, Superior Mesenteric, and Splenic Veins: Unremarkable. Gallbladder and Biliary Tract: There are calcifications seen within the gallbladder consistent with cholelithiasis. There also calcifications along the wall of the gallbladder. No biliary ductal dilatation. Pancreas: Normal density, no abnormal calcifications or inflammatory process. Spleen: Spleen size is at the upper limits of normal. Adrenals: No masses seen. Kidneys: Normal size, contour and axis. Bilateral nephrolithiasis. No obstructive uropathy. No masses seen. Abdominal Aorta: Abdominal portion non-dilated. Bowel: No obstruction or bowel wall thickening. Appendix is unremarkable. Peritoneal Cavity: No ascites, collection or mesenteric inflammatory response. No free air. Lymph Nodes: Within normal limits. Bones: Within normal limits for the patient's age. Soft Tissues: There is a small fat containing umbilical hernia. PELVIS: Bladder: The urinary bladder shows a diffusely thickened wall. There is mild inflammation around the urinary bladder. Reproductive Organs: Unremarkable as visualized. Lymph Nodes: Within normal limits. Bones: Within normal limits for the patient's age. IMPRESSION: 1. Diffuse thickening of the wall of the urinary bladder with mild surrounding inflammation. Cystitis should be considered. 2. Cholelithiasis. No biliary ductal dilatation. 3. 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 4. No CT evidence to suggest acute pancreatitis. RADIATION DOSE DELIVERED: 452.95mGy.cm Total DLP DATA REPOSITORY: All CT scans at this facility are submitted to the National Radiology Data Registry (NRDR) Dose Index Registry (DIR) with the [employer] (ACR). RADIATION OPTIMIZATION: All CT scans at this facility use at least one of these dose optimization techniques: automated exposure control; mA and/or kV adjustment per patient size (includes targeted exams where dose is matched to clinical indication); or iterative reconstruction.
[2024-12-20 10:31] LABS: Bilirubin Large (Negative); Blood Small (Negative); Clarity Sl Cloudy (Clear); Glucose 100 mg/dL (Negative); Ketones Trace mg/dL (Negative); Leukocyte Esterase Negative (Negative); Nitrite Negative (Negative); Urobilinogen >=8.0 mg/dL (Up to 0.2)
[2024-12-20 11:10] LABS: Bacteria Moderate HPF (Negative); C & S Indicated? Yes; Casts Negative LPF (Negative); Crystals Negative HPF (Negative); Epithelial Cells Rare HPF (Negative); Mucus Moderate (Negative); Other Cells Negative (Negative)
[2024-12-20] MEDS: Metoclopramide 10 MG/2 ML VIAL IVP (11:27)
--- NOTE | 2024-12-20 12:01 | W.PM.HP.N ---
Date of service: 12/20/24 Time of Service: 12:01 Assessment and Plan Assessment and plan (1) Palliative care patient: Status: Acute Assessment and plan: Will place consult to palliative care (2) Anxiety: Status: Chronic Assessment and plan: I will add ativan for anxiety as well as possible etoh w/d. Pt is on the outer limits for etoh w/d as his last etoh drink was approximately 10 days ago by history (3) Hyperammonemia: Status: Acute Assessment and plan: will add lactulose pr 2/2 n/v recheck ammonia level in am (4) Nausea: Status: Acute Assessment and plan: c/w anti-emetics (zofran) (5) Vomiting: Status: Acute Assessment and plan: as above (6) Thrombocytopenia: Assessment and plan: cw his history. No active bleed and does not meet the threshold for transfusion History of Present Illness History of Present Illness Chief Complaint: n/v abdominal pain Narrative: This is a 44-year-old gentleman with a known history of alcohol use who has had periods of sobriety. Has been drinking over the last couple of months this year. Patient states that his last alcoholic drink was approximately 10 days ago. Patient presents to the ED with nausea and vomiting as well as left lower and right lower quadrant pain. The patient has not been able to keep his medications down. Came into the ED for further evaluation and treatment. While he was here his diagnostic workup did show an elevated INR at 2.0 as well as low platelets at 37 and ammonia of [address] scan was done which showed cholelithiasis but no impaction as well as cirrhosis. A lipase was also drawn and showed a value of 36. Upon my discussion with him he states that he is not having any significant diarrhea has had 1 episode of bright red blood per rectum and also has bleeding gums when he brushes his teeth. Denies any hematuria. Patient has noted some increasing confusion as well. Review of Systems All systems reviewed & are unremarkable except as noted in HPI and below PFSH All Active Problems (Updated 12/20/24 @ 11:30 by Meliton Lindsey DO) Acute hypokalemia (Acute) Hyperammonemia (Acute) Vomiting (Acute) Suicidal ideation (Acute) Erectile dysfunction (Acute) Cellulitis (Acute) Anxiety (Chronic) Ascites due to alcoholic cirrhosis (Acute) Pain (Acute) Nausea (Acute) Palliative care patient (Acute) Abdominal pain (Acute) Alcoholic liver failure (Acute) Acute pancreatitis (Acute) Acute upper gastrointestinal bleeding (Acute) Medical History Acute hepatic encephalopathy Alcoholic hepatitis Thrombocytopenia Cirrhosis Alcohol abuse Pulsatile tinnitus of right ear Social History Smoking/Tobacco Use Status: Current every day Tobacco Type: e-cigarettes Smoking risk assessment performed?: Yes Alcohol Intake: current Alcohol Intake frequency: 3 or more drinks per day Alcohol type: beer, wine and hard liquor Drug use: Occasionally Substance use type: marijuana Housing: house Do you feel safe at home: Yes Do you feel safe in your relationship?: Yes Meds Allergies and Home Medications Allergies Allergy/AdvReac Type Severity Reaction Status Date / Time No Known Allergies Allergy Verified 12/20/24 07:08 Home Medications ?Medication ?Instructions ?Recorded ?Confirmed ?Type sildenafil 25 mg tablet 25 - 50 mg (1 - 2 x 25 mg) PO 12/29/23 12/20/24 Rx DAILY PRN sexual activity #30 tabs propranolol 10 mg tablet 10 mg PO BID 04/27/24 12/20/24 History lactulose 20 gram/30 mL oral 20 g (30 mL) PO TID #1,500 mL 06/07/24 12/20/24 Rx solution ibuprofen 200 mg tablet 200 mg PO Q6H PRN 08/17/24 12/20/24 History pantoprazole 40 mg tablet,delayed 40 mg PO DAILY #30 tabs 09/14/24 12/20/24 Rx release (Protonix) buspirone 30 mg tablet 30 mg PO BID #60 tabs 10/18/24 12/20/24 Rx fentanyl 12 mcg/hr transdermal 1 patch transdermal Q72H #10 ea 11/15/24 12/20/24 Rx patch fentanyl 25 mcg/hr transdermal 1 patch transdermal Q72H #10 ea 11/15/24 12/20/24 Rx patch prochlorperazine maleate 5 mg 5 mg PO TID PRN nausea and 11/15/24 12/20/24 Rx tablet vomiting #90 tabs hydrocodone 5 mg-acetaminophen 300 1 tab PO TID PRN pain #60 tabs 12/07/24 12/20/24 Rx mg tablet Exam Narrative Exam Narrative: HEENT-normal cephalic atraumatic he does have scleral icterus bilaterally neck-no lymphadenopathy no JVD no thyromegaly Cardiovascular-regular rate and rhythm no murmur rubs gallops Lungs-clear to auscultation bilaterally with good air exchange no accessory muscle use Abdomen-soft nontender tender not distended no hepatosplenomegaly appreciated Extremities-no sinus clubbing edema bilaterally Neurologic-cranial nerves II through XII are intact as tested reflexes upper extremity normal as tested he does have bilateral asterixis Psych-alert and oriented x 3 no apparent distress can give a linear history Results Labs 12/20/24 07:52 12/20/24 08:24 Labs: Laboratory Results - last 24 hr 12/20/24 12/20/24 12/20/24 07:52 08:24 10:22 WBC 14.28 H RBC 4.43 Hgb 14.8 Hct 41.9 MCV 95 MCH 33.4 H MCHC 35.3 RDW 13.7 Plt Count 37 L MPV 13.2 H Immature Gran % 1.1 Neutrophils % 74.8 Lymphocytes % 9.2 Monocytes % 14.4 Eosinophils % 0.1 Basophils % 0.4 Nucleated RBC % 0.0 Absolute Neutrophils 10.68 H Absolute Lymphocytes 1.31 Absolute Monocytes 2.06 H Absolute Eosinophils 0.01 Absolute Basophils 0.06 RBC Morphology Normal PT 19.1 H INR 2.0 H APTT 33.7 H Sodium Cancelled 135 L Potassium Cancelled 3.3 L Chloride Cancelled 96 L Carbon Dioxide Cancelled 28.6 Anion Gap Cancelled 10.4 BUN Cancelled 9 Creatinine Cancelled 0.8 Est GFR (CKD-EPI 2020) Cancelled 110.53 Glucose Cancelled 141 H Calcium Cancelled 9.1 Total Bilirubin Cancelled 10.0 H AST Cancelled 273 H ALT Cancelled 112 H Alkaline Phosphatase Cancelled 164 H Ammonia 69 H Total Protein Cancelled 7.3 Albumin Cancelled 3.7 Lipase Cancelled 36 Urine Color [place] Urine Clarity Sl Cloudy Urine pH 7.0 Ur Specific [place] 1.010 Urine Protein 100 H Urine Ketones Trace H Urine Blood Small H Urine Nitrite Negative Urine Bilirubin Large H Urine Urobilinogen >=8.0 H Ur Leukocyte Esterase Negative Urine RBC 10-20 H Urine WBC 10-20 H Ur Epithelial Cells Rare Urine Crystals Negative Urine Bacteria Moderate Urine Casts Negative Urine Mucus Moderate Urine Other Negative Ur Culture Indicated? Yes Urine Glucose 100 H ABO/Rh A Positive Antibody Screen NEGATIVE Last Vital Signs Temp 37.0 C 12/20/24 07:08 Pulse 59 L 12/20/24 11:10 Resp 11 L 12/20/24 11:10 BP 132/91 H 12/20/24 09:16 Pulse Ox 93 12/20/24 11:10 PAWSS Have you Been Recently Intoxicated or Drunk Within the Last 30 days?: No Have you Ever Experienced Previous Episodes of Alcohol Withdrawal?: No Have you ever Experienced Withdrawal Seizures?: No Have you ever Experienced Delirium Tremens(DT)s?: No Have you ever undergone Alcohol Rehabilitation Treatment (i.e, inpt ot outpatient treatment programs)?: No Have you ever Experienced Blackouts?: No Have you ever Combined Alcohol with other Downers within the last 90 days?: No Have you ever Combined Alcohol with any other Substance of Abuse during the last 90 days?: No Result: 0 Time Spent Time spent with Patient: 40-54 minutes Time was spent: preparing to see the patient(eg.review tests), obtaining and/or reviewing separately otained hiistory, ordering medications,tests, procedures, referring, communicating with other health director long term care, indepentently interpreting results, counseling the patient and care coordination
--- NOTE | 2024-12-20 12:08 | W.PC.ACHO ---
Registration Status: REG ER Primary Language: Preferred Language: Urdu ED Information & Data Chief Complaint GenMedical 12/20/24 07:31 Triage Note Pt reports sick for 5 days, 12/20/24 07:04 unable to eat/ drink- hx of liver issues, blood in bowel movements x 2 days, right sided abdominal pain Medical / Surgical History (Last Reviewed 11/15/24 @ 16:18 by Stefany Go NP) Acute hepatic encephalopathy Alcoholic hepatitis Thrombocytopenia Cirrhosis Alcohol abuse Pulsatile tinnitus of right ear Most Recent Vital Signs Temperature 37.0 C 12/20/24 07:08 Temperature Source Oral 12/20/24 07:08 Pulse 59 L 12/20/24 11:10 Pulse 76 12/20/24 11:10 Respiratory Rate 11 L 12/20/24 11:10 Respiratory Effort Normal, Non-Labored 12/20/24 08:52 Blood Pressure 132/91 H 12/20/24 09:16 Blood Pressure Mean 102 12/20/24 09:16 Blood Pressure Position Sitting 12/20/24 07:08 Pulse Oximetry 93 12/20/24 11:10 Oxygen Delivery Method Room Air 12/20/24 07:08 Oxygen Flow Rate 0 12/20/24 07:08 Pain Level 8 12/20/24 10:51 Allergies No Known Allergies Allergy (Verified 12/20/24 07:08) Precautions Isolation Standard precaution 12/20/24 07:07 Active Medications Generic Name Dose Route Start Last Admin Trade Name Freq PRN Reason Stop Dose Admin Iohexol 100 ml 12/20/24 09:45 12/20/24 09:34 Omnipaque 350 Mg/Ml 100 Ml Btl IJ 01/19/25 23:59 70 ml DIRECTED SUNNY Administration Sodium Chloride 50 ml 12/20/24 09:45 12/20/24 09:36 Normal Saline - Diluent 50 Ml Vial IJ 50 ml .FOR DI USE SUNNY Administration IV IV Catheter Type [Right Peripheral IV Forearm] IV Catheter Gauge [Right 20 Forearm] Diet Orders Category Date Time Status Regular/Normal [DIET] Nutrition 12/20/24 Lunch Active Diagnostics 12/20/24 12/20/24 12/20/24 Range/Units 10:22 08:24 07:52 WBC 14.28 H (4.4-10.8) 10^3/uL RBC 4.43 (4.36-5.78) 10^6/uL Hgb 14.8 (13.5-17.5) g/dL Hct 41.9 (40.0-50.0) % MCV 95 (80-95) fL MCH 33.4 H (27.0-33.0) pg MCHC 35.3 (32.0-36.0) % RDW 13.7 (11.8-14.1) % Plt Count 37 L (130-400) 10^3/uL MPV 13.2 H (8.0-11.0) fL Immature Gran % 1.1 % Neutrophils % 74.8 % Lymphocytes % 9.2 % Monocytes % 14.4 % Eosinophils % 0.1 % Basophils % 0.4 % Nucleated RBC % 0.0 (0.0-0.3) % Absolute Neutrophils 10.68 H (1.2-6.7) 10^3/uL Absolute Lymphocytes 1.31 (1.2-3.4) 10^3/uL Absolute Monocytes 2.06 H (0.1-0.8) 10^3/uL Absolute Eosinophils 0.01 (0.0-0.7) 10^3/uL Absolute Basophils 0.06 (0.0-0.2) 10^3/uL RBC Morphology Normal PT 19.1 H (9.1-11.1) sec INR 2.0 H (0.9-1.1) APTT 33.7 H (20.6-30.2) sec Sodium 135 L Cancelled Potassium 3.3 L Cancelled Chloride 96 L Cancelled Carbon Dioxide 28.6 Cancelled Anion Gap 10.4 Cancelled BUN 9 Cancelled Creatinine 0.8 Cancelled Est GFR (CKD-EPI 2020) 110.53 Cancelled Glucose 141 H Cancelled Calcium 9.1 Cancelled Total Bilirubin 10.0 H Cancelled AST 273 H Cancelled ALT 112 H Cancelled Alkaline Phosphatase 164 H Cancelled Ammonia 69 H (11-32) umol/L Total Protein 7.3 Cancelled Albumin 3.7 Cancelled Lipase 36 Cancelled Urine Color [place] (Yellow) Urine Clarity Sl Cloudy (Clear) Urine pH 7.0 (5-8) Ur Specific [place] 1.010 (1.005-1.025) Urine Protein 100 H (Neg-Trace) mg/dL Urine Ketones Trace H (Negative) mg/dL Urine Blood Small H (Negative) Urine Nitrite Negative (Negative) Urine Bilirubin Large H (Negative) Urine Urobilinogen >=8.0 H (Up to 0.2) mg/dL Ur Leukocyte Esterase Negative (Negative) Urine RBC 10-20 H (0-2) HPF Urine WBC 10-20 H (0-5) HPF Ur Epithelial Cells Rare (Negative) HPF Urine Crystals Negative (Negative) HPF Urine Bacteria Moderate (Negative) HPF Urine Casts Negative (Negative) LPF Urine Mucus Moderate (Negative) Urine Other Negative (Negative) Ur Culture Indicated? Yes Urine Glucose 100 H (Negative) mg/dL ABO/Rh A Positive Antibody Screen NEGATIVE 12/20/24 10:22 Urine Culture - Pending Urine - Reflex from Ua Intake and Output - 24 Hour Total 12/20/24 07:02 thru 12/20/24 07:04 Weight 86.183 kg Falls Risk Assessment History of Falls No History 12/20/24 07:17 Contributing Factors No Factors 12/20/24 07:17 Ambulatory Aids Independent 12/20/24 07:17 Tubes/Lines None 12/20/24 07:17 Gait Evaluation No gait disturbance 12/20/24 07:17 Cognition No cognitive impairment 12/20/24 07:17 Fall Total Score 0 12/20/24 07:17 Level of Risk Standard/Low Risk 12/20/24 07:17 v v v v v v v v v Sending and/or Receiving Nurses: Please use comment section below to note any information pertinent to the patient hand-off not included above. Information / Comments: AOx3, VSS, c/o nausea and vomiting, abd pain Report received from: JASPER Manuel
[2024-12-20] MEDS: THIAMINE 500 MG in Normal Saline 100 ML 200 MG IVPB ×2 (13:38→21:52)
[2024-12-20] MEDS: LORazepam 20 MG/10 ML VIAL IVP (13:38)
[2024-12-20] MEDS: POTASSIUM CHLORIDE/D5-0.45NACL 1,000 ML 100 MEQ IV (13:39)
[2024-12-20] MEDS: LORazepam 1 MG TAB PO/SL ×3 (15:40→20:22)
[2024-12-20] MEDS: Methylnaltrexone 12 MG/0.6 ML VIAL SC (18:16)
[2024-12-20] MEDS: Lactulose 20 GM/30 ML CUP PO (20:22)
[2024-12-20] MEDS: Propranolol 10 MG TAB PO (20:22)
[2024-12-20] MEDS: busPIRone 15 MG TAB 30 MG PO (20:22)
[2024-12-20] MEDS: Normal Saline Flush 10 ML SYR IVP ×2 (20:23)
[2024-12-21] VITALS (35 sets, daily range): BP systolic 119–150; BP diastolic 75–112; PULSE 0–102; RESP 10–27; TEMP 36.6–37.5; O2SAT 92–96
--- NOTE | 2024-12-21 00:05 | W.EVENT ---
Date of service: 12/21/24 Time of Service: 00:05 Event Note: This is a 44-year-old gentleman hospitalized for feeling unwell for 5 days with admission diagnosis of elevated ammonia and not hepatic encephalopathy though the patient has been drinking recently with advancing alcoholic cirrhosis and his jaundice worsening prior to admission. He did have a positive UA with culture but was not started on IV antibiotic therapy. He also has thrombocytopenia with Lovenox ordered which will be discontinued for now. He was having a history of bleeding prior to admission but did not require transfusion upon admission. I was called because of his increasing confusion and scoring high on the CIWA prior to admission as well as having Ativan given IV and a larger dose than ordered which may increase confusion. There was some concern of alcohol withdrawal and his confusion though by history he was outside the window of alcohol withdrawal as per his initial assessment. He is on chronic narcotics which are consistently prescribed per review of his VPMS. Urine drug screen was not performed and will be performed. Because of his increased confusion and possible worsening alcohol withdrawal more than concern for hepatic encephalopathy, he was transferred to ICU for closer monitoring. Was also initiated on phenobarbital protocol because of his high scores CIWA upon admission and there is concern of alcohol withdrawal being his reason for increased confusion. He is a complicated case combination of back encephalopathy, advancing alcoholic cirrhosis with continued alcohol use and chronic narcotic use. Does have a history of heroin use in the past but denies any hepatitis C in the past. He is a vague historian but does know that he is in the hospital and can state his name. Physical exam revealed a confused gentleman who appears chronically ill. Flattened facial features with sclera icteric, oropharynx with dry mucosa and poor dentition. He is moderately obese. He is in no respiratory distress. Abdomen is protuberant. Extremities have no cyanosis or clubbing. Neurological exam appears to be grossly intact no tremor with psychiatric exam consistent with acute confusion though he is already released x 2 but is not able to give remote or recent history accurately at the time. Review of lab revealed elevated WBC with positive UA for possible infection without fever. Liver functions were elevated as well as a PT/INR with follow-up pending. Platelet count was 37 with normal H&H. Patient did have mild hypokalemia which will be followed up without repletion. Urine culture is pending and urine drug screen is pending. CT abdomen did reveal diffuse thickening of the wall urinary bladder with mild surrounding inflammation and possible cystitis, cholelithiasis without ductal dilatation, hepatic cirrhosis with left upper quadrant varices but no evidence of pancreatitis. There is no mention of his alcoholic cirrhosis or ascites on the impression but description of the liver was consistent with cirrhosis and it stated there was no ascites. Assessment/plan: 1: Possible acute alcohol withdrawal but is confused by his chronic hepatic failure worsening with probable hepatic encephalopathy as an over lying because of his confusion. He is on lactulose orally and is able to swallow. He was on Ativan for his nausea but also possible withdrawal and this will be converted to phenobarbital with patient transferred to the ICU because of his increasing confusion. He will be monitored closely. 2: UTI with possible acute cystitis by CT the patient could be initiated on Rocephin 2 g IV now and 1 g every 24 hours. Follow-up urine culture. He does have an elevated WBC which will be trended. 3: Thrombocytopenia with chronic liver failure and question recently but no anemia. Lovenox prophylaxis for DVT will be stopped with contraindication having platelet count at 37 and question of bleeding with varices. 4: Chronic pain on chronic narcotics with VPMS consistent with chronic use of Duragesic patches and hydrocodone. This may be increasing confusion if patient is also using illicit drugs or he is not clear in his usual regimen because of worsening liver failure. Check urine drug screen and consider holding Duragesic patch if confusion worsens. Phenobarbital and Ativan both could worsen mental status with chronic narcotic therapy the patient with long-acting Duragesic 37 mcg/h patches. Time Spent with Patient Time spent in critical care(minutes): 45 Time Spent Included: Coordination of care, Chart review, Documenting critically ill care and Time at immediate bedside
[2024-12-21 00:06] LABS: *BENZODIAZEPINES SCREEN URINE Negative (Negative); METHADONE URINE SCREEN Negative (Negative)
[2024-12-21 00:07] LABS: *AMPHETAMINES SCREEN URINE Negative (Negative); *BARBITURATES SCREEN URINE Negative (Negative); Cannabinoids THC Positive (Negative); Cocaine Screen,Urine Negative (Negative); OPIATES URINE SCREEN Positive (Negative); Tricyclic Antidepressants Negative (Negative)
[2024-12-21] MEDS: PHENOBARBITAL IVPB (00:25)
[2024-12-21] MEDS: NORMAL SALINE IVPB (00:25)
[2024-12-21 00:38] LABS: Ammonia 38 umol/L (11-32)
[2024-12-21] MEDS: PHENobarbital 130 MG/ML VIAL IVP ×7 (01:00→18:42)
[2024-12-21] MEDS: PHENobarbital 250 MG in Normal Saline 50 ML 100 MG IVPB ×2 (04:12→08:41)
[2024-12-21] MEDS: LORazepam 20 MG/10 ML VIAL IM (05:26)
--- NOTE | 2024-12-21 05:54 | NUR.NOTE ---
0600 pt has remained agitated and restless all shift despite several calls to provider and meds given. Remains confused, looking for his truck. his plaid shorts, his vape materials etc. Talking to people who arent there. Now has a one t one sitter. soft reatraints to feet to prevent kicking. off at present. Has pulled out every IV he has had put in for a total of four.
--- NOTE | 2024-12-21 08:24 | PDOC.CMIN ---
Date of service: 12/21/24 Time of Service: 08:25 Care Management Initial Assmt Initial Assessment Reason for Hospitalization: hepatic encephalopathy Functional Status/Living Situation Patient Presentation: Prashant was sitting up in bed eating lunch when CM met with him. He was awake and alert but still a bit confused. Prashant informed CM that he lives in [place], but was not sure if it was in a single family home or apartment. He stated he lives with Estephania and Astrid. When asked who they were he was not able to answer the question. CM was able to speak to Cyndee, Prashant's caregiver, isaias whom he lives and learned that the 2 girls Prashant mentioned are her daughters. DAVIDE also learned that Cyndee was to Prashant's brother Fish who 2 years ago. Prashant was admitted with encephalopathy and possibly, but not likely, alcohol withdrawal. He informed the provider on admission that he had not had a drink for 10 days, however he became more confused and agitated and scored in the 20s on the CIWA scale after admission. In conversation with Cyndee, DAVIDE was able to confirm that Prashant did not drink any alcohol for at least 7 days prior to admission. He does not drive and anything that comes into the home is monitored by Cyndee. Today Prashant is less agitated and most recently scored 15 on the CIWA scale. He is on the phenobarbital protocol but has not reached the soft or hard stop yet. DAVIDE will follow and continue to update Cyndee. Town of Residence: [place] Resides with: Other ( caregiver/[id number] Cyndee and her daughter Estephania) Significant Other/Family: Local Employment Status: Disabled Instrumental Activities of Daily Living (ADLs): Requires support Medications Medication Management: No Issues/Barriers identified Advance Directives Advance Directives: Do you have an Advance Directive: N 10/31/17, 22:22 AD On File at [facility]: N 10/31/17, 21:47 Date Asked 12/20/24 12/20/24, 07:36 AD Date Reviewed COLST On File at [facility] COLST Date Scanned Code Status Resuscitation Status Full Code Portal Pt does not currently have a portal and education provided: Yes Insurance Coverage/Financial Issues Insurance: Medicaid Care Team Visit Care Team Role Provider Type Toñito Felix Primary Care Provider NON-[facility] STAFF PHYSICIAN Leola Orozco Other Providers COLLECTIONS ATTORNEY Umu Garcia Other Providers COLLECTIONS ATTORNEY Ava Drummond Other Providers COLLECTIONS ATTORNEY InPatient Jose Oneil Other Providers OTHER Arielle Dawn RN Other Providers COLLECTIONS ATTORNEY Barbara Sotelo Other Providers COLLECTIONS ATTORNEY Meliton Lindsey DO Emergency Provider [facility] STAFF PHYSICIAN Clemente Sotelo MD Admit Provider [facility] STAFF PHYSICIAN Attending Provider Discharge Potential Discharge Needs: PCP F/U Appt Anticipated Barriers to Discharge: None Identified Patient/Family Education Needs: Review discharge instructions, discuss Ask Me Three Transportation: RCT Plan: Anticipate Prashant will be discharged home with no new services when medically cleared. He will follow up with his community providers and plan of care and transport via RCT vs private vehicle. CM will continue to assess for discharge concerns. Social Determinants of Health Screening Social Determinants of health last assessed in clinic: 12/21/24 Will the Patient Participate in the Screening?: Yes Do you worry about having a steady place to live?: no Problems where you live: no known problems In the past 12 months, have you had to go without electric, gas, oil or water in your home?: yes 1. Within the past 12 months, we worried whether our food would run out before we got money to buy more.: Never true 2. Within the past 12 months, the food we bought just didn't last and we didn't have money to get more.: Never true Has lack of transportation kept you from medical appointments or from doing things needed for daily living?: no Has anyone in your life made you feel unsafe or unsupported?: no How hard is it for you to pay for the very basics like food, housing, medical care, and heating? Would you say it is:: Not hard at all Do you want help finding or keeping work or a job?: I do not need or want help If for any reason you need help with day-to-day activities such as bathing, preparing meals, shopping, managing finances, etc., do you get the help you need?: I don?t need any help How often do you feel lonely or isolated from those around you?: Never Do you speak a language other than [place] at home?: No Does the patient want assistance with any of the above?: No Health Related Social Needs Health related social needs: material hardship(utilities) (Z59.12) Health related social needs details: alc PFSH All Active Problems (Updated 12/20/24 @ 12:45 by MYAH GIL) Acute hypokalemia (Acute) Hyperammonemia (Acute) Vomiting (Acute) Suicidal ideation (Acute) Erectile dysfunction (Acute) Cellulitis (Acute) Anxiety (Chronic) Ascites due to alcoholic cirrhosis (Acute) Pain (Acute) Nausea (Acute) Palliative care patient (Acute) Abdominal pain (Acute) Alcoholic liver failure (Acute) Acute pancreatitis (Acute) Acute upper gastrointestinal bleeding (Acute) Medical History Acute hepatic encephalopathy Alcoholic hepatitis Thrombocytopenia Cirrhosis Alcohol abuse Pulsatile tinnitus of right ear Social History Smoking/Tobacco Use Status: Current every day Tobacco Type: e-cigarettes Smoking risk assessment performed?: Yes Alcohol Intake: current Alcohol Intake frequency: 3 or more drinks per day Alcohol type: beer, wine and hard liquor Drug use: Occasionally Substance use type: marijuana Housing: house Do you feel safe at home: Yes Do you feel safe in your relationship?: Yes
[2024-12-21] MEDS: Normal Saline Flush 10 ML SYR IVP ×5 (08:46→20:10)
[2024-12-21] MEDS: Multivitamin TAB 1 TAB PO (08:47)
[2024-12-21] MEDS: busPIRone 15 MG TAB 30 MG PO ×2 (08:47→20:09)
[2024-12-21] MEDS: Pantoprazole 40 MG TABCR PO (08:47)
[2024-12-21] MEDS: Lactulose 20 GM/30 ML CUP PO ×3 (08:47→17:33)
[2024-12-21] MEDS: Thiamine 100 MG TAB PO (08:47)
[2024-12-21] MEDS: Nicotine 14 MG/24 HR PATCH TD (08:48)
[2024-12-21] MEDS: Folic Acid 1 MG TAB PO (08:48)
[2024-12-21] MEDS: Propranolol 10 MG TAB PO ×2 (08:50→20:09)
[2024-12-21] MEDS: cefTRIAXone 1 GM/50 ML BAG IVPB (09:19)
--- NOTE | 2024-12-21 09:33 | PT.INNT ---
PT Notes Visit Reasons: liver failure Pt transferred from Med Surg unit to ICU overnight. Will need a new PT Consult when medically appropriate to participate in PT assessment. Will continue to follow for ability to participate.
[2024-12-21] MEDS: POTASSIUM CHLORIDE/D5-0.45NACL 1,000 ML 100 MEQ IV (10:43)
--- NOTE | 2024-12-21 11:12 | W.PM.PROGNOT ---
Date of Service Date of service: 12/21/24 Time of Service: 11:12 Assessment and Plan Assessment and plan (1) Palliative care patient: Status: Acute Assessment and plan: Will place consult to palliative care (2) Anxiety: Status: Chronic Assessment and plan: I will add ativan for anxiety as well as possible etoh w/d. Pt is on the outer limits for etoh w/d as his last etoh drink was approximately 10 days ago by history 12/21/24 Restarted iv access and restart phenobarbital (3) Hyperammonemia: Status: Acute Assessment and plan: will add lactulose pr 2/2 n/v recheck ammonia level in am 12/21/24 ammonia level is pending, cw lactulose. A big confusing on whether he did get pr lactulose or not (4) Nausea: Status: Acute Assessment and plan: c/w anti-emetics (zofran) (5) Vomiting: Status: Acute Assessment and plan: as above (6) Thrombocytopenia: Assessment and plan: cw his history. No active bleed and does not meet the threshold for transfusion Subjective Subjective Interval history since last seen: PT with increasing confusion over last night and lost his iv access. IV access reestablished. Labs pending Exam Narrative Exam Narrative: HEENT-normal cephalic atraumatic he does have scleral icterus bilaterally neck-no lymphadenopathy no JVD no thyromegaly Cardiovascular-regular rate and rhythm no murmur rubs gallops Lungs-clear to auscultation bilaterally with good air exchange no accessory muscle use Abdomen-soft nontender tender not distended no hepatosplenomegaly appreciated Extremities-no sinus clubbing edema bilaterally Neurologic-cranial nerves II through XII are intact as tested reflexes upper extremity normal as tested he does have bilateral asterixis Psych- pt much more confused today Objective Last Vital Signs Temp 37.1 C 12/21/24 08:39 Pulse 92 H 12/21/24 08:39 Resp 18 12/21/24 08:39 BP 131/77 12/21/24 08:39 Pulse Ox 93 12/21/24 04:01 Laboratory Results - last 24 hr 12/20/24 12/21/24 10:22 00:16 Ammonia 38 H Urine Opiates Screen Positive Urine Methadone Screen Negative Ur Barbiturates Screen Negative Ur Tricyclics Screen Negative Ur Amphetamines Screen Negative U Benzodiazepines Scrn Negative Urine Cocaine Screen Negative Ur THC Screen Positive PAWSS Have you Been Recently Intoxicated or Drunk Within the Last 30 days?: Yes Have you Ever Experienced Previous Episodes of Alcohol Withdrawal?: Yes Have you ever Experienced Withdrawal Seizures?: No Have you ever Experienced Delirium Tremens(DT)s?: Yes Have you ever undergone Alcohol Rehabilitation Treatment (i.e, inpt ot outpatient treatment programs)?: Yes Have you ever Experienced Blackouts?: Yes Have you ever Combined Alcohol with other Downers within the last 90 days?: No Have you ever Combined Alcohol with any other Substance of Abuse during the last 90 days?: No Positive Blood Alcohol level on Presentation? [PCS.BAL]: Unable to Obtain Evidence of Increased Autonomic Activity (i.e. HR>120, tremor, sweating, agitation, nausea)?: Yes Result: 6 Time Spent with Patient Time Spent with Patient: 25-34 minutes Time was spent: preparing to see the patient(eg.review tests), obtaining and/or reviewing separately otained hiistory, ordering medications,tests, procedures, referring, communicating with other health career technical education instructor, indepentently interpreting results, counseling the patient and care coordination
[2024-12-21] MEDS: THIAMINE 500 MG in Normal Saline 100 ML 200 MG IVPB ×2 (12:15→20:01)
[2024-12-21 14:14] LABS: COVID-19 PCR Negative (Negative); Influenza A PCR Negative (Negative); Influenza B PCR Negative (Negative); RSV PCR Negative (Negative)
[2024-12-21 14:16] LABS: Source Nasopharynx
[2024-12-21 14:23] LABS: Abs Immature Grans 0.12 10^3/uL (0.0-0.06); Absolute Basophil Count 0.05 10^3/uL (0.0-0.2); Absolute Eosinophil Count 0.07 10^3/uL (0.0-0.7); Absolute Monocyte Count 2.07 10^3/uL (0.1-0.8); Absolute Neutrophil Count 5.76 10^3/uL (1.2-6.7); Basophils % 0.5 %; Eosinophils % 0.7 %; HCT 36.7 % (40.0-50.0); HGB 13.4 g/dL (13.5-17.5); Immature Grans % 1.3 %; Lymphocytes % 14.8 %; MCH 33.6 pg (27.0-33.0); MCHC 36.5 % (32.0-36.0); MCV 92 fL (80-95); MPV 12.2 fL (8.0-11.0); Monocytes % 21.9 %; Neutrophils % 60.8 %; RBC 3.99 10^6/uL (4.36-5.78); RDW 13.5 % (11.8-14.1); RDW-SD 45.9 fL; WBC 9.47 10^3/uL (4.4-10.8)
[2024-12-21 14:31] LABS: INR 1.9 (0.9-1.1); Prothrombin Time 17.9 sec (9.1-11.1)
[2024-12-21 14:33] LABS: Ammonia 61 umol/L (11-32)
[2024-12-21] MEDS: Ibuprofen 200 MG TAB PO (14:33)
[2024-12-21 14:35] LABS: ALT 92 U/L (16-63); AST 195 U/L (15-37); Albumin 3.4 g/dL (3.4-5.0); Alkaline Phosphatase 167 U/L (46-116); Anion Gap 8.4 mmol/L (3-11); BUN 6 mg/dL (7-18); Bilirubin, Total 8.2 mg/dL (0.2-1.0); CO2 29.6 mmol/L (21.0-32.0); CREATININE 0.8 mg/dL (0.70-1.30); Calcium 8.5 mg/dL (8.5-10.1); Chloride 96 mmol/L (98-107); Estimated GFR 110.53 (mL/min/1.73m2); Glucose 152 mg/dL (74-106); Magnesium 1.5 mg/dL (1.8-2.4); Sodium 134 mmol/L (136-145); Total Protein 6.7 g/dL (6.4-8.2)
[2024-12-21 14:44] LABS: Platelet Count 49 10^3/uL (130-400)
[2024-12-21 14:52] LABS: PHOSPHORUS < 2.0 mg/dL (2.6-4.7)
[2024-12-21] MEDS: LORazepam 20 MG/10 ML VIAL IVP ×2 (19:33→20:29)
[2024-12-21] MEDS: POTASSIUM CHLORIDE/0.9% NACL 1,000 ML 150 MEQ IV (20:20)
[2024-12-22] VITALS (36 sets, daily range): BP systolic 95–145; BP diastolic 62–105; PULSE 65–91; RESP 12–26; TEMP 36.5–37.2; O2SAT 87–97
--- NOTE | 2024-12-22 | DI.CT_ITS ---
Exam(s) CT HEAD WO EXAM: CT HEAD WO CLINICAL HISTORY: ms changes, elevated INR. TECHNIQUE: Imaging Protocol: Axial computed tomography images with coronal and sagittal reformatted images were created and reviewed COMPARISON: MR MR ANGIO BRAIN WO from 07/06/2023 FINDINGS: Ventricles and Extra axial spaces: Normal in size and morphology for the patient's age. Hemorrhage: None. Cerebral parenchyma: There is no evidence of an acute territorial infarct or mass effect. Midline shift: None. Brainstem/Cerebellum: Normal. Calvarium: Normal. Visualized Paranasal sinuses/Mastoids: Clear. Soft Tissues: Unremarkable. IMPRESSION: No acute intracranial process. RADIATION DOSE DELIVERED: 1,028.64mGy.cm Total DLP DATA REPOSITORY: All CT scans at this facility are submitted to the National Radiology Data Registry (NRDR) Dose Index Registry (DIR) with the [employer] (A[employer]). RADIATION OPTIMIZATION: All CT scans at this facility use at least one of these dose optimization techniques: automated exposure control; mA and/or kV adjustment per patient size (includes targeted exams where dose is matched to clinical indication); or iterative reconstruction.
[2024-12-22] MEDS: LORazepam 20 MG/10 ML VIAL IVP (02:06)
[2024-12-22] MEDS: Normal Saline Flush 10 ML SYR IVP ×3 (03:40→22:08)
[2024-12-22] MEDS: POTASSIUM CHLORIDE/0.9% NACL 1,000 ML 150 MEQ IV ×2 (03:42→10:21)
[2024-12-22] MEDS: THIAMINE 500 MG in Normal Saline 100 ML 200 MG IVPB ×3 (03:55→22:07)
[2024-12-22] MEDS: busPIRone 15 MG TAB 30 MG PO ×2 (09:43→22:07)
[2024-12-22] MEDS: Folic Acid 1 MG TAB PO (09:43)
[2024-12-22] MEDS: Propranolol 10 MG TAB PO ×2 (09:43→22:07)
[2024-12-22] MEDS: Lactulose 20 GM/30 ML CUP PO ×3 (09:43→22:07)
[2024-12-22] MEDS: Pantoprazole 40 MG TABCR PO (09:43)
[2024-12-22] MEDS: Multivitamin TAB 1 TAB PO (09:43)
[2024-12-22] MEDS: Nicotine 14 MG/24 HR PATCH TD (09:43)
[2024-12-22] MEDS: Thiamine 100 MG TAB PO (09:44)
[2024-12-22] MEDS: cefTRIAXone 1 GM/50 ML BAG IVPB (10:00)
--- NOTE | 2024-12-22 10:01 | PGE_ITS ---
Date of Service Date of service: 12/22/24 Time of Service: 10:08 Assessment and Plan Assessment and plan (1) Acute hepatic encephalopathy: Assessment and plan: I think this is the principle cause of mental status changes. Will stop phenobarbital as we have reliable history of 10 days of no alcohol and no levels on admission to suggest otherwise. His symptoms have not improved with phenobarbital. Get UDS as this was not done on admission. EtOH levels as this point won't help. Bleed risk with elevated INR, CT head negatie today. I don't see other cause for encephalopathy at this point, continue close monitoring. It will likely take a long time to metabolized the phenobarbital he got with liver failure. (2) Alcoholic liver failure: Status: Acute Assessment and plan: He has chronic liver failure associated with alcohol. His INR and bili give him high Maddrey's, but these are not acute, so I don't think steroids would help in this case. He is at risk of acute on chronic liver failure, but I'm not seeing clear systemic inflammation/organ failure that is hallmark of this, other than possibl y HE. Will continue supportive care. Unfortunately vascular access and lab draws have been difficult, midline ordered. (3) Cirrhosis: Assessment and plan: As above, decompensated chronically, numbers are a little worse on this admission with recent EtOH relapse. This explains low plts, known portal HTN on propranolol (holding for now) Follow liver function (4) Anxiety: Status: Chronic Assessment and plan: continue outpatient medications. Avoid benzodiazepines as already loaded on phenobarbital. These are not appropriate exterminator medications for his either. If this becomes severe, could use dexmetetomide in the ICU or oral clonidine. (5) Acute hypokalemia: Status: Acute Assessment and plan: Follow, replace Mg and K as needed. (6) Palliative care patient: Status: Acute Assessment and plan: Will place consult to palliative care (7) DVT prophylaxis: Status: Acute Assessment and plan: SCDs, not on enoxaparin with very low platelets, though still significant clot risk with cirrhosis. I would start if platelets get >50K (8) Discharge planning issues: Status: Acute Assessment and plan: ICU status, need MS improvement before D/c planning Subjective Subjective Patient reports: denies vomiting or fever Interval history since last seen: Events: restarted on phenobarbital 12/21 early AM when scoring on CIWA Reached hard stop on phenobarbital. Patient continues to be restless, confused overnight. Getting phenobarbital, but not clearly improving with withdrawal symptoms. Unable to get labs so far this am. He wakes enough to take medication slowly with a lot of coaxing. Exam Narrative Exam Narrative: Gen: Somnolent, arouses with gentle sternal rub, takes medication, then back asleep. He does follow commands when aroused. Cardiovascular-regular rate and rhythm no murmur rubs gallops Lungs-clear to auscultation bilaterally with good air exchange, no accessory muscle use Abdomen-soft nontender tender not distended. no overt fluid wave Extremities-no cyanosis, trace bilateral ankle edema Objective Last Vital Signs Temp 37.0 C 12/21/24 15:00 Pulse 73 12/22/24 07:01 Resp 17 12/22/24 07:01 BP 132/104 H 12/22/24 07:01 Pulse Ox 87 L 12/22/24 03:19 Laboratory Results - last 24 hr 12/20/24 12/21/24 12/22/24 13:29 14:05 Unknown WBC 9.47 RBC 3.99 L Hgb 13.4 L Hct 36.7 L MCV 92 MCH 33.6 H MCHC 36.5 H RDW 13.5 Plt Count 49 L MPV 12.2 H Immature Gran % 1.3 Neutrophils % 60.8 Lymphocytes % 14.8 Monocytes % 21.9 Eosinophils % 0.7 Basophils % 0.5 Nucleated RBC % 0.0 Absolute Neutrophils 5.76 Absolute Lymphocytes 1.40 Absolute Monocytes 2.07 H Absolute Eosinophils 0.07 Absolute Basophils 0.05 PT 17.9 H INR 1.9 H Sodium 134 L Potassium 3.0 L Chloride 96 L Carbon Dioxide 29.6 Anion Gap 8.4 BUN 6 L Creatinine 0.8 Est GFR (CKD-EPI 2020) 110.53 Glucose 152 H Calcium 8.5 Phosphorus < 2.0 L Magnesium 1.5 L Total Bilirubin 8.2 H AST 195 H ALT 92 H Alkaline Phosphatase 167 H Ammonia 61 H Cancelled Total Protein 6.7 Albumin 3.4 COVID-19 Source Nasopharynx SARS-CoV-2 (PCR) Negative Influenza Type A (PCR) Negative Influenza Type B (PCR) Negative RSV (PCR) Negative PAWSS Have you Been Recently Intoxicated or Drunk Within the Last 30 days?: Yes Have you Ever Experienced Previous Episodes of Alcohol Withdrawal?: Yes Have you ever Experienced Withdrawal Seizures?: No Have you ever Experienced Delirium Tremens(DT)s?: Yes Have you ever undergone Alcohol Rehabilitation Treatment (i.e, inpt ot outpati ent treatment programs)?: Yes Have you ever Experienced Blackouts?: Yes Have you ever Combined Alcohol with other Downers within the last 90 days?: No Have you ever Combined Alcohol with any other Substance of Abuse during the last 90 days?: No Positive Blood Alcohol level on Presentation? [PCS.BAL]: Unable to Obtain Evidence of Increased Autonomic Activity (i.e. HR>120, tremor, sweating, agitation, nausea)?: Yes Result: 6 Time Spent with Patient Time Spent with Patient: >50 minutes Time was spent: preparing to see the patient(eg.review tests), obtaining and/or reviewing separately otained hiistory, ordering medications,tests, procedures, referring, communicating with other health child care associate teacher, indepentently interpreting results, counseling the patient and care coordination
[2024-12-22 11:30] LABS: *AMPHETAMINES SCREEN URINE Negative (Negative); *BARBITURATES SCREEN URINE Positive (Negative); *BENZODIAZEPINES SCREEN URINE Negative (Negative); Cannabinoids THC Positive (Negative); Cocaine Screen,Urine Negative (Negative); METHADONE URINE SCREEN Negative (Negative); OPIATES URINE SCREEN Negative (Negative); Tricyclic Antidepressants Negative (Negative)
--- NOTE | 2024-12-22 15:54 | W.ANESVAS ---
Midline Placement Date Performed: 12/22/24 Procedure Time: 15:20 Requesting Provider: Dale Chilel Procedure Location: Intensive Care Unit Sedation Given (Indicate Dose Given): No Sedation given Patient Mental Status: Awake Sterility: Hand Hygiene, Surgical Cap, Surgical Mask, Sterile Gloves, Sterile Drape/Sheet and Chlorhexidine Laterality: Right Insertion Site: Basilic Midline Device: PowerGlide Pro 20G Catheter Length: 10 cm Midline Procedure Procedure: 1% Lidocaine to skin and subcutaneous tissue with 25g needle and Catheter placed without resistance Dressing: Tegaderm Applied and Statlock Applied Blood Return: Present Flushes: Easily Ultrasound: Sterile probe cover and gel used Ultrasound Image Saved?: Yes Number of Attempts (See previous attempts in note section): 1 Procedure Tolerated: No Complications Procedure Outcome: Successful Performed By: Desmond Lomeli
[2024-12-22 16:12] LABS: Absolute Basophil Count 0.07 10^3/uL (0.0-0.2); Absolute Eosinophil Count 0.14 10^3/uL (0.0-0.7); Absolute Monocyte Count 1.62 10^3/uL (0.1-0.8); Absolute Neutrophil Count 3.09 10^3/uL (1.2-6.7); Basophils % 1.1 %; Eosinophils % 2.3 %; HCT 37.3 % (40.0-50.0); HGB 13.2 g/dL (13.5-17.5); Immature Grans % 1.6 %; MCH 33.6 pg (27.0-33.0); MCHC 35.4 % (32.0-36.0); MCV 95 fL (80-95); MPV 11.4 fL (8.0-11.0); Monocytes % 26.5 %; Neutrophils % 50.5 %; RBC 3.93 10^6/uL (4.36-5.78); RDW 14.4 % (11.8-14.1); RDW-SD 50.2 fL; WBC 6.12 10^3/uL (4.4-10.8)
[2024-12-22 16:19] LABS: Magnesium 1.8 mg/dL (1.8-2.4)
[2024-12-22 16:24] LABS: Diff Comment Diff Reviewed; Platelet Count 43 10^3/uL (130-400); RBC Morphology Normal
[2024-12-22 16:25] LABS: ALT 86 U/L (16-63); AST 157 U/L (15-37); Albumin 3.2 g/dL (3.4-5.0); Alkaline Phosphatase 146 U/L (46-116); Anion Gap 9.2 mmol/L (3-11); BUN 5 mg/dL (7-18); CO2 26.8 mmol/L (21.0-32.0); CREATININE 0.8 mg/dL (0.70-1.30); Calcium 8.2 mg/dL (8.5-10.1); Chloride 104 mmol/L (98-107); Estimated GFR 110.53 (mL/min/1.73m2); Glucose 114 mg/dL (74-106); Potassium 3.2 mmol/L (3.5-5.1); Sodium 140 mmol/L (136-145); Total Protein 6.4 g/dL (6.4-8.2)
[2024-12-22 20:06] LABS: INR 1.8 (0.9-1.1); Prothrombin Time 17.8 sec (9.1-11.1)
[2024-12-23] VITALS (10 sets, daily range): BP systolic 97–117; BP diastolic 62–84; PULSE 68–83; RESP 11–26; TEMP 36.9–37.1; O2SAT 93–98
[2024-12-23] MEDS: LORazepam 1 MG TAB PO (01:09)
[2024-12-23] MEDS: THIAMINE 500 MG in Normal Saline 100 ML 200 MG IVPB ×2 (05:07→13:53)
[2024-12-23 06:04] LABS: HCT 35.4 % (40.0-50.0); HGB 12.6 g/dL (13.5-17.5); MCH 33.7 pg (27.0-33.0); MCHC 35.6 % (32.0-36.0); MCV 95 fL (80-95); MPV 12.7 fL (8.0-11.0); RBC 3.74 10^6/uL (4.36-5.78); RDW 14.8 % (11.8-14.1); RDW-SD 51.6 fL; WBC 6.64 10^3/uL (4.4-10.8)
[2024-12-23 06:20] LABS: INR 1.8 (0.9-1.1)
[2024-12-23 06:29] LABS: ALT 76 U/L (16-63); AST 127 U/L (15-37); Albumin 2.8 g/dL (3.4-5.0); Alkaline Phosphatase 142 U/L (46-116); Anion Gap 10.9 mmol/L (3-11); BUN 6 mg/dL (7-18); Bilirubin, Direct 4.5 mg/dL (0.0-0.2); Bilirubin, Total 6.1 mg/dL (0.2-1.0); CO2 24.1 mmol/L (21.0-32.0); CREATININE 0.8 mg/dL (0.70-1.30); Calcium 8.2 mg/dL (8.5-10.1); Chloride 104 mmol/L (98-107); Estimated GFR 110.53 (mL/min/1.73m2); Glucose 106 mg/dL (74-106); Magnesium 1.6 mg/dL (1.8-2.4); Potassium 3.1 mmol/L (3.5-5.1); Sodium 139 mmol/L (136-145); Total Protein 5.8 g/dL (6.4-8.2)
[2024-12-23 06:37] LABS: Platelet Count 45 10^3/uL (130-400)
[2024-12-23] MEDS: Potassium Chloride Liquid 20 MEQ PKT 40 MEQ PO (08:19)
[2024-12-23] MEDS: Multivitamin TAB 1 TAB PO (08:21)
[2024-12-23] MEDS: busPIRone 15 MG TAB 30 MG PO ×2 (08:21→19:59)
[2024-12-23] MEDS: Lactulose 20 GM/30 ML CUP PO ×2 (08:21→15:24)
[2024-12-23] MEDS: Folic Acid 1 MG TAB PO (08:21)
[2024-12-23] MEDS: Pantoprazole 40 MG TABCR PO (08:21)
[2024-12-23] MEDS: Thiamine 100 MG TAB PO (08:21)
[2024-12-23] MEDS: Propranolol 10 MG TAB PO ×2 (08:25→19:58)
[2024-12-23] MEDS: MAGNESIUM SULFATE 2 GM/50 ML BAG IV_INF (08:26)
[2024-12-23] MEDS: cefTRIAXone 1 GM/50 ML BAG IVPB (08:29)
[2024-12-23] MEDS: Normal Saline Flush 10 ML SYR IVP ×2 (08:33→19:59)
[2024-12-23] MEDS: POTASSIUM CHLORIDE 20 MEQ/100 ML BAG 50 MEQ IV_INF (08:59)
[2024-12-23] MEDS: fentaNYL 12 MCG PATCH TD (09:24)
[2024-12-23] MEDS: fentaNYL 25 MCG PATCH TD (09:24)
--- NOTE | 2024-12-23 09:28 | W.PM.PROGNOT ---
Date of Service Date of service: 12/23/24 Time of Service: 09:28 Assessment and Plan Assessment and plan (1) Acute hepatic encephalopathy: Assessment and plan: This is the principle cause of mental status changes. Received phenobarbital loading 12/21-, stopped 12/22 as uncertain if alcohol withdrawal a signficant part of his MS changes. UDS 12/22 just showed THC and phenobarb that we gave. EtOH levels not done on admission, won't help at this point. Bleed risk with elevated INR, CT head negative 12/22 12/23 he is clearly improving but not yet at baseline, continue lactulose. Can transfer to floor. (2) Alcoholic liver failure: Status: Acute Assessment and plan: He has chronic liver failure associated with alcohol. His INR and bili give him high Maddrey's, but these are not acute, so I don't think steroids would help in this case. He is at risk of acute on chronic liver failure, but I'm not seeing clear systemic inflammation/organ failure that is hallmark of this, other than possibly HE. Will continue supportive care. Liver function including bili and INR improving, which is reassurin. (3) Cirrhosis: Assessment and plan: As above, decompensated chronically, numbers are a little worse on this admission with recent EtOH relapse. This explains low plts, known portal HTN on propranolol. Following liver function as above. We did discuss correction prognosis, need for following in transplant clinic, regular imaging and endoscopy with hepatology. (4) Anxiety: Status: Chronic Assessment and plan: continue outpatient medications. Avoid benzodiazepines as already loaded on phenobarbital. These are not appropriate long wall mining machine helper medications for his either. Improved today. (5) Acute hypokalemia: Status: Acute Assessment and plan: Additional IV mg/K and PO KCl today. Follow, replace Mg and K as needed. (6) Palliative care patient: Status: Acute Assessment and plan: Will place consult to palliative care (7) DVT prophylaxis: Status: Acute Assessment and plan: SCDs, not on enoxaparin with very low platelets, though still significant clot risk with cirrhosis. I would start if platelets get >50K (8) Discharge planning issues: Status: Acute Assessment and plan: Can transition to floor status. Consider d/c if continuing to improve 12/24- Subjective Subjective Patient reports: no new complaints, feels better, tolerating a regular diet and voiding w/o difficulty; denies nausea, vomiting, shortness of breath or fever Interval history since last seen: 24hr: Midline placed by Lomeli/Anesthesia He is feeling better, though still a little cloudy headed. Hungry, eating for the first time in 5-6 days. Moderate epigastric discomfort, but improving. He is taking lactulose, had one formed BM so far. Exam Narrative Exam Narrative: Gen: Alert, oriented x 3 (but date off by one day), appropriately responsive to questions. Jaundiced. Cardiovascular-regular rate and rhythm no murmur rubs gallops Lungs-clear to auscultation bilaterally with good air exchange, normal effort Abdomen-soft, +BS, mildly tender in epigastrum, not distended. no fluid wave Extremities-no cyanosis, trace bilateral ankle edema, warm Objective Last Vital Signs Temp 37.1 C 12/23/24 09:12 Pulse 78 12/23/24 09:12 Resp 24 12/23/24 09:12 BP 103/72 12/23/24 09:12 Pulse Ox 98 12/23/24 08:18 Laboratory Results - last 24 hr 12/22/24 12/22/24 12/22/24 10:45 16:00 19:45 WBC 6.12 RBC 3.93 L Hgb 13.2 L Hct 37.3 L MCV 95 MCH 33.6 H MCHC 35.4 RDW 14.4 H Plt Count 43 L MPV 11.4 H Immature Gran % 1.6 Neutrophils % 50.5 Lymphocytes % 18.0 Monocytes % 26.5 Eosinophils % 2.3 Basophils % 1.1 Nucleated RBC % 0.0 Absolute Neutrophils 3.09 Absolute Lymphocytes 1.10 L Absolute Monocytes 1.62 H Absolute Eosinophils 0.14 Absolute Basophils 0.07 RBC Morphology Normal PT 17.8 H INR 1.8 H Sodium 140 Potassium 3.2 L Chloride 104 Carbon Dioxide 26.8 Anion Gap 9.2 BUN 5 L Creatinine 0.8 Est GFR (CKD-EPI 2020) 110.53 Glucose 114 H Calcium 8.2 L Magnesium 1.8 Total Bilirubin 8.0 H Conjugated Bilirubin AST 157 H ALT 86 H Alkaline Phosphatase 146 H Total Protein 6.4 Albumin 3.2 L Urine Opiates Screen Negative Urine Methadone Screen Negative Ur Barbiturates Screen Positive A Ur Tricyclics Screen Negative Ur Amphetamines Screen Negative U Benzodiazepines Scrn Negative Urine Cocaine Screen Negative Ur THC Screen Positive A 12/22/24 12/23/24 Unknown 05:30 WBC 6.64 RBC 3.74 L Hgb 12.6 L Hct 35.4 L MCV 95 MCH 33.7 H MCHC 35.6 RDW 14.8 H Plt Count 45 L MPV 12.7 H Immature Gran % Neutrophils % Lymphocytes % Monocytes % Eosinophils % Basophils % Nucleated RBC % Absolute Neutrophils Absolute Lymphocytes Absolute Monocytes Absolute Eosinophils Absolute Basophils RBC Morphology PT 17.0 H INR Cancelled 1.8 H Sodium 139 Potassium 3.1 L Chloride 104 Carbon Dioxide 24.1 Anion Gap 10.9 BUN 6 L Creatinine 0.8 Est GFR (CKD-EPI 2020) 110.53 Glucose 106 Calcium 8.2 L Magnesium 1.6 L Total Bilirubin 6.1 H Conjugated Bilirubin 4.5 H AST 127 H ALT 76 H Alkaline Phosphatase 142 H Total Protein 5.8 L Albumin 2.8 L Urine Opiates Screen Urine Methadone Screen Ur Barbiturates Screen Ur Tricyclics Screen Ur Amphetamines Screen U Benzodiazepines Scrn Urine Cocaine Screen Ur THC Screen PAWSS Have you Been Recently Intoxicated or Drunk Within the Last 30 days?: Yes Have you Ever Experienced Previous Episodes of Alcohol Withdrawal?: Yes Have you ever Experienced Withdrawal Seizures?: No Have you ever Experienced Delirium Tremens(DT)s?: Yes Have you ever undergone Alcohol Rehabilitation Treatment (i.e, inpt ot outpatient treatment programs)?: Yes Have you ever Experienced Blackouts?: Yes Have you ever Combined Alcohol with other Downers within the last 90 days?: No Have you ever Combined Alcohol with any other Substance of Abuse during the last 90 days?: No Positive Blood Alcohol level on Presentation? [PCS.BAL]: Unable to Obtain Evidence of Increased Autonomic Activity (i.e. HR>120, tremor, sweating, agitation, nausea)?: Yes Result: 6 Time Spent with Patient Time Spent with Patient: >50 minutes Time was spent: preparing to see the patient(eg.review tests), obtaining and/or reviewing separately otained hiistory, ordering medications,tests, procedures, referring, communicating with other health care team assistant, indepentently interpreting results, counseling the patient and care coordination
--- NOTE | 2024-12-23 11:18 | W.PC.ACHO ---
Registration Status: ADM IN Primary Language: Preferred Language: Mohawk ED Information & Data Chief Complaint GenMedical 12/20/24 07:31 Triage Note Pt reports sick for 5 days, 12/20/24 07:04 unable to eat/ drink- hx of liver issues, blood in bowel movements x 2 days, right sided abdominal pain Medical / Surgical History (Last Reviewed 11/15/24 @ 16:18 by Stefany Go NP) Acute hepatic encephalopathy Alcoholic hepatitis Thrombocytopenia Cirrhosis Alcohol abuse Pulsatile tinnitus of right ear Most Recent Vital Signs Temperature 98.8 F 12/23/24 09:12 Temperature Source Temporal Artery Scan 12/23/24 09:12 Pulse 78 12/23/24 09:12 Pulse Rhythm Irregular 12/20/24 12:48 Pulse 78 12/23/24 09:01 Respiratory Rate 24 12/23/24 09:12 Respiratory Effort Normal 12/21/24 13:46 Blood Pressure 103/72 12/23/24 09:12 Blood Pressure Mean 82 12/23/24 09:12 Blood Pressure Position Sitting 12/20/24 07:08 Pulse Oximetry 98 12/23/24 08:18 Oxygen Delivery Method Room Air 12/23/24 09:12 Oxygen Flow Rate 0 12/23/24 09:12 Pain Level 0 12/20/24 15:50 Allergies No Known Allergies Allergy (Verified 12/20/24 07:08) Precautions Isolation Standard precaution 12/20/24 07:07 Active Medications Generic Name Dose Route Start Last Admin Trade Name Freq PRN Reason Stop Dose Admin Buspirone HCl 30 mg 12/20/24 20:00 12/23/24 08:21 Buspirone 15 Mg Tab PO 30 mg BID SUNNY Administration Fentanyl 25 mcg 12/23/24 08:30 12/23/24 09:24 Fentanyl 25 Mcg Patch TD 25 mcg Q72H SUNNY Administration Fentanyl 12 mcg 12/23/24 08:30 12/23/24 09:24 Fentanyl 12 Mcg Patch TD 12 mcg Q72H SUNNY Administration Folic Acid 1 mg 12/21/24 08:30 12/23/24 08:21 Folic Acid 1 Mg Tab PO 12/27/24 08:31 1 mg QAM SUNNY Administration Potassium Chloride/Sodium Chloride 1,000 mls @ 100 mls/hr 12/20/24 11:15 12/21/24 20:45 Kcl 10meq/D5-0.45% Nacl IV Infused INFUSION SUNNY Infusion Ceftriaxone Sodium/Dextrose 1 gm in 50 mls @ 100 mls/hr 12/21/24 08:00 12/23/24 08:29 Rocephin IVPB 50 mls/hr Q24H SUNNY Administration Thiamine HCl 500 mg/ Sodium 105 mls @ 200 mls/hr 12/21/24 12:00 12/23/24 05:45 Chloride IVPB 12/23/24 12:32 Infused Q8H SUNNY Infusion Lactulose 20 gm 12/20/24 20:00 12/23/24 08:21 Lactulose 20 Gm/30 Ml Cup PO 20 gm TID SUNNY Administration Multivitamins 1 tab 12/21/24 08:30 12/23/24 08:21 Multivitamin Tab PO 12/27/24 08:31 1 tab QAM SUNNY Administration Nicotine 14 mg 12/21/24 08:30 12/23/24 08:40 Nicotine 14 Mg/24 Hr Patch TD Not Given DAILY SUNNY Pantoprazole Sodium 40 mg 12/21/24 07:30 12/23/24 08:21 Pantoprazole 40 Mg Tabcr PO 40 mg DAILY@0730 SUNNY Administration Propranolol HCl 10 mg 12/20/24 20:00 12/23/24 08:25 Propranolol 10 Mg Tab PO 10 mg BID SUNNY Administration Sodium Chloride 0 ml 12/20/24 07:28 12/22/24 03:40 Normal Saline Flush 10 Ml Syr IVP 40 ml PRN PRN Administration Sodium Chloride 0 ml 12/20/24 08:30 12/23/24 08:33 Normal Saline Flush 10 Ml Syr IVP 40 ml BID SUNNY Administration Thiamine HCl 100 mg 12/21/24 08:30 12/23/24 08:21 Thiamine 100 Mg Tab PO 12/27/24 08:31 100 mg QAM SUNNY Administration IV IV Catheter Type [Right Mid-line Peripheral Line Midline] IV Catheter Type [Left Peripheral IV Shoulder] IV Catheter Type [Left Hand] Peripheral IV IV Catheter Type [Left Peripheral IV Antecubital] IV Catheter Type [Right Peripheral IV Forearm] IV Catheter Gauge [Right 20 Midline] IV Catheter Gauge [Left 20 Shoulder] IV Catheter Gauge [Left Hand] 22 IV Catheter Gauge [Left 20 Antecubital] IV Catheter Gauge [Right 22 Forearm] Diagnostics 12/23/24 12/22/24 12/22/24 Range/Units 05:30 Unknown 19:45 WBC 6.64 (4.4-10.8) 10^3/uL RBC 3.74 L (4.36-5.78) 10^6/uL Hgb 12.6 L (13.5-17.5) g/dL Hct 35.4 L (40.0-50.0) % MCV 95 (80-95) fL MCH 33.7 H (27.0-33.0) pg MCHC 35.6 (32.0-36.0) % RDW 14.8 H (11.8-14.1) % Plt Count 45 L (130-400) 10^3/uL MPV 12.7 H (8.0-11.0) fL Immature Gran % % Neutrophils % % Lymphocytes % % Monocytes % % Eosinophils % % Basophils % % Nucleated RBC % (0.0-0.3) % Absolute Neutrophils (1.2-6.7) 10^3/uL Absolute Lymphocytes (1.2-3.4) 10^3/uL Absolute Monocytes (0.1-0.8) 10^3/uL Absolute Eosinophils (0.0-0.7) 10^3/uL Absolute Basophils (0.0-0.2) 10^3/uL RBC Morphology PT 17.0 H 17.8 H (9.1-11.1) sec INR 1.8 H Cancelled 1.8 H (0.9-1.1) Sodium 139 (136-145) mmol/L Potassium 3.1 L (3.5-5.1) mmol/L Chloride 104 (98-107) mmol/L Carbon Dioxide 24.1 (21.0-32.0) mmol/L Anion Gap 10.9 (3-11) mmol/L BUN 6 L (7-18) mg/dL Creatinine 0.8 (0.70-1.30) mg/dL Est GFR (CKD-EPI 2020) 110.53 (mL/min/1.73m2) Glucose 106 (74-106) mg/dL Calcium 8.2 L (8.5-10.1) mg/dL Magnesium 1.6 L (1.8-2.4) mg/dL Total Bilirubin 6.1 H (0.2-1.0) mg/dL Conjugated Bilirubin 4.5 H (0.0-0.2) mg/dL AST 127 H (15-37) U/L ALT 76 H (16-63) U/L Alkaline Phosphatase 142 H (46-116) U/L Total Protein 5.8 L (6.4-8.2) g/dL Albumin 2.8 L (3.4-5.0) g/dL Urine Opiates Screen (Negative) Urine Methadone Screen (Negative) Ur Barbiturates Screen (Negative) Ur Tricyclics Screen (Negative) Ur Amphetamines Screen (Negative) U Benzodiazepines Scrn (Negative) Urine Cocaine Screen (Negative) Ur THC Screen (Negative) 12/22/24 12/22/24 Range/Units 16:00 10:45 WBC 6.12 (4.4-10.8) 10^3/uL RBC 3.93 L (4.36-5.78) 10^6/uL Hgb 13.2 L (13.5-17.5) g/dL Hct 37.3 L (40.0-50.0) % MCV 95 (80-95) fL MCH 33.6 H (27.0-33.0) pg MCHC 35.4 (32.0-36.0) % RDW 14.4 H (11.8-14.1) % Plt Count 43 L (130-400) 10^3/uL MPV 11.4 H (8.0-11.0) fL Immature Gran % 1.6 % Neutrophils % 50.5 % Lymphocytes % 18.0 % Monocytes % 26.5 % Eosinophils % 2.3 % Basophils % 1.1 % Nucleated RBC % 0.0 (0.0-0.3) % Absolute Neutrophils 3.09 (1.2-6.7) 10^3/uL Absolute Lymphocytes 1.10 L (1.2-3.4) 10^3/uL Absolute Monocytes 1.62 H (0.1-0.8) 10^3/uL Absolute Eosinophils 0.14 (0.0-0.7) 10^3/uL Absolute Basophils 0.07 (0.0-0.2) 10^3/uL RBC Morphology Normal PT (9.1-11.1) sec INR (0.9-1.1) Sodium 140 (136-145) mmol/L Potassium 3.2 L (3.5-5.1) mmol/L Chloride 104 (98-107) mmol/L Carbon Dioxide 26.8 (21.0-32.0) mmol/L Anion Gap 9.2 (3-11) mmol/L BUN 5 L (7-18) mg/dL Creatinine 0.8 (0.70-1.30) mg/dL Est GFR (CKD-EPI 2020) 110.53 (mL/min/1.73m2) Glucose 114 H (74-106) mg/dL Calcium 8.2 L (8.5-10.1) mg/dL Magnesium 1.8 (1.8-2.4) mg/dL Total Bilirubin 8.0 H (0.2-1.0) mg/dL Conjugated Bilirubin (0.0-0.2) mg/dL AST 157 H (15-37) U/L ALT 86 H (16-63) U/L Alkaline Phosphatase 146 H (46-116) U/L Total Protein 6.4 (6.4-8.2) g/dL Albumin 3.2 L (3.4-5.0) g/dL Urine Opiates Screen Negative (Negative) Urine Methadone Screen Negative (Negative) Ur Barbiturates Screen Positive A (Negative) Ur Tricyclics Screen Negative (Negative) Ur Amphetamines Screen Negative (Negative) U Benzodiazepines Scrn Negative (Negative) Urine Cocaine Screen Negative (Negative) Ur THC Screen Positive A (Negative) 12/20/24 10:22 Urine Culture - Final Urine - Reflex from Ua Gram negative tosha Intake and Output - 24 Hour Total 12/20/24 07:02 thru 12/23/24 11:08 Intake Total 9241.4616 Output Total 2910 Balance 6331.4616 Weight 198 lb 13.711 oz Intake: IV 6951.4616 Oral 2290 Output: Urine 2910 Other: Urine Color Light Lisa Dark Lisa Urine Appearance Clear Urine Odor Strong Comment Patient urinated 310mL urine into urinal successfully. Urine moderately dark in coloration. Stool Size Small Stool Characteristics Soft Brown Falls Risk Assessment History of Falls Previous History 12/20/24 12:48 Contributing Factors Impairments 12/20/24 12:48 Ambulatory Aids Uses ambulatory device 12/20/24 12:48 Tubes/Lines None 12/20/24 12:48 Gait Evaluation W/any additional score 12/20/24 12:48 Cognition Cognitive impairment 12/20/24 12:48 Fall Total Score 68 12/20/24 12:48 Level of Risk High Risk 12/20/24 12:48 Restraint Information Behavior Requiring Restraints/ Harm to Patient,Harm to Staff & Others Seclusion Note Pt not in restraints at time of shift hand off. Criteria for Restraint Removal No longer threat to self,No longer threat to other Date Restraints Removed 12/21/24 Time Restraints Removed 15:00 If no,why was the order not Patient not in restraints at time of hand-off. discontinued? Still confused, but able to be directed. Problems (Last Reviewed 11/15/24 @ 16:18 by Stefany Go NP) Discharge planning issues (Acute) DVT prophylaxis (Acute) Acute hypokalemia (Acute) Hyperammonemia (Acute) Vomiting (Acute) Anxiety (Chronic) Nausea (Acute) Palliative care patient (Acute) Alcoholic liver failure (Acute) Notes 12/21/24 05:54 Nursing Notes by Carol Paris 0600 pt has remained agitated and restless all shift despite several calls to provider and meds given. Remains confused, looking for his truck. his plaid shorts, his vape materials etc. Talking to people who arent there. Now has a one t one sitter. soft reatraints to feet to prevent kicking. off at present. Has pulled out every IV he has had put in for a total of four. Initialized on 12/21/24 05:54 - END OF NOTE v v v v v v v v v Sending and/or Receiving Nurses: Please use comment section below to note any information pertinent to the patient hand-off not included above. Information / Comments: Report received from: Ventura Chin RN
[2024-12-23] MEDS: Prochlorperazine 5 MG TAB PO (20:19)
[2024-12-24 07:21] LABS: HCT 35.5 % (40.0-50.0); HGB 12.8 g/dL (13.5-17.5); MCH 34.9 pg (27.0-33.0); MCHC 36.1 % (32.0-36.0); MCV 97 fL (80-95); MPV 12.8 fL (8.0-11.0); RBC 3.67 10^6/uL (4.36-5.78); RDW 16.1 % (11.8-14.1); RDW-SD 57.2 fL; WBC 7.11 10^3/uL (4.4-10.8)
[2024-12-24 07:46] LABS: ALT 69 U/L (16-63); AST 109 U/L (15-37); Albumin 2.8 g/dL (3.4-5.0); Alkaline Phosphatase 169 U/L (46-116); Anion Gap 8.7 mmol/L (3-11); BUN 5 mg/dL (7-18); Bilirubin, Total 5.8 mg/dL (0.2-1.0); CO2 25.3 mmol/L (21.0-32.0); CREATININE 0.7 mg/dL (0.70-1.30); Calcium 8.3 mg/dL (8.5-10.1); Chloride 104 mmol/L (98-107); Estimated GFR 115.08 (mL/min/1.73m2); Glucose 119 mg/dL (74-106); Magnesium 1.9 mg/dL (1.8-2.4); Potassium 3.6 mmol/L (3.5-5.1); Sodium 138 mmol/L (136-145)
[2024-12-24 08:08] VITALS: BP 124/72; PULSE 71; RESP 16; TEMP 36.7; O2SAT 95
[2024-12-24 08:15] LABS: Platelet Count 52 10^3/uL (130-400)
[2024-12-24] MEDS: Thiamine 100 MG TAB PO (08:15)
[2024-12-24] MEDS: Folic Acid 1 MG TAB PO (08:16)
[2024-12-24] MEDS: Propranolol 10 MG TAB PO ×2 (08:16→20:07)
[2024-12-24] MEDS: Pantoprazole 40 MG TABCR PO (08:17)
[2024-12-24] MEDS: Multivitamin TAB 1 TAB PO (08:19)
[2024-12-24] MEDS: busPIRone 15 MG TAB 30 MG PO ×2 (08:19→20:06)
[2024-12-24] MEDS: Lactulose 20 GM/30 ML CUP PO ×2 (08:21→14:21)
[2024-12-24] MEDS: cefTRIAXone 1 GM/50 ML BAG IVPB (08:23)
[2024-12-24] MEDS: Normal Saline Flush 10 ML SYR IVP ×2 (08:40→20:07)
--- NOTE | 2024-12-24 11:14 | PDOC.CMPRO ---
Date of service: 12/24/24 Time of Service: 11:14 Care Management Progress Note Progress Note Text Progress Note Text: Prashant was sitting up in bed when CM met with him. He was awake and alert and oriented and easily engaged with CM. Prashant shared that he is feeling much better although he is still very weak. A PT consult has been ordered. Prashant has agreed to consider short term rehab if it is recommended. He stated that he does much better with structure and would likely benefit from it. He is also agreeable to home health PT if that is the recommendation. CM has been in frequent contact with his caregiver/[id number] Cyndee and has updated her regarding the plan of care. Discharge Potential Discharge Needs: PCP F/U Appt Anticipated Barriers to Discharge: None Identified Patient/Family Education Needs: Review discharge instructions, discuss Ask Me Three Transportation: Private vehicle Plan: Anticipate Prashant may transfer to a SNF for short term rehab if recommended; he is agreeable. If he returns home he will likely have new HH PT. He will follow up with his community providers and plan of care and transport via RCT vs private vehicle. CM will follow and continue to assess for discharge concerns. Social Determinants of Health Screening Social Determinants of health last assessed in clinic: 12/24/24 Will the Patient Participate in the Screening?: Yes Do you worry about having a steady place to live?: no Problems where you live: no known problems In the past 12 months, have you had to go without electric, gas, oil or water in your home?: yes 1. Within the past 12 months, we worried whether our food would run out before we got money to buy more.: Never true 2. Within the past 12 months, the food we bought just didn't last and we didn't have money to get more.: Never true Has lack of transportation kept you from medical appointments or from doing things needed for daily living?: no Has anyone in your life made you feel unsafe or unsupported?: no How hard is it for you to pay for the very basics like food, housing, medical care, and heating? Would you say it is:: Not hard at all Do you want help finding or keeping work or a job?: I do not need or want help If for any reason you need help with day-to-day activities such as bathing, preparing meals, shopping, managing finances, etc., do you get the help you need?: I don?t need any help How often do you feel lonely or isolated from those around you?: Never Do you speak a language other than Monegasque at home?: No Does the patient want assistance with any of the above?: No Health Related Social Needs Health related social needs: material hardship(utilities) (Z59.12) Health related social needs details: alc
--- NOTE | 2024-12-24 16:13 | W.PM.PROGNOT ---
Date of Service Date of service: 12/24/24 Time of Service: 16:13 Assessment and Plan Assessment and plan (1) Acute hepatic encephalopathy: Assessment and plan: This is the principle cause of mental status changes. Received phenobarbital loading , stopped 12/22 as uncertain if alcohol withdrawal a signficant part of his MS changes. UDS 12/22 just showed THC and phenobarb that we gave. EtOH levels not done on admission, won't help at this point. Bleed risk with elevated INR, CT head negative 12/22 has been improving but not at baseline, continue lactulose, BMs now appropriate. Can transfer to floor. (2) Alcoholic liver failure: Status: Acute Assessment and plan: He has chronic liver failure associated with alcohol. His INR and bili on admission gave him high Maddrey's, but these were not acute, so steroids not used He is at risk of acute on chronic liver failure, but did not have clear systemic inflammation/organ failure that is hallmark of this, other than possibly HE, treated with supportive care. Liver function including bili and INR continue to slowly imrpove. (3) Cirrhosis: Assessment and plan: As above, decompensated chronically, numbers are a little worse on this admission with recent EtOH relapse. This explains low plts, known portal HTN on propranolol. Following liver function as above. We did discuss salvage determiner prognosis, need for following in transplant clinic, regular imaging and endoscopy with hepatology. Discussed again 12/24 (4) Anxiety: Status: Chronic Assessment and plan: continue outpatient medications. Avoid benzodiazepines as already loaded on phenobarbital. These are not appropriate care home medications for his either. Improved. (5) Palliative care patient: Status: Acute Assessment and plan: consult to palliative care in He is on chronic pain meds (6) Alcohol use disorder: Status: Inactive Assessment and plan: Discussed. He had a month sober previously. He is confident he can avoid alcohol, no cravings. (7) DVT prophylaxis: Status: Acute Assessment and plan: SCDs, not on enoxaparin with very low platelets, though still significant clot risk with cirrhosis. Can start enoxaparin as platelets >50K (8) Discharge planning issues: Status: Acute Assessment and plan: Stable on floor status. Not safe for home. Consider d/c if continuing to improve 12/25 Subjective Subjective Patient reports: no new complaints, feels better, tolerating a regular diet, voiding w/o difficulty and diarrhea; denies nausea, vomiting, shortness of breath or fever Interval history since last seen: Events: Transferred from ICU He is feelign better. Still not 100%. unsteady on his feet. mentally still a little slow. Had 3+ BMs over the past 24hr Exam Narrative Exam Narrative: Gen: Alert, oriented , appropriately responsive to questions. Jaundiced. Cardiovascular-regular rate and rhythm no murmur rubs gallops Lungs-clear to auscultation bilaterally with good air exchange, normal effort Abdomen-soft, +BS, not tender, not distended. no fluid wave Extremities-no cyanosis, trace bilateral ankle edema, warm Objective Last Vital Signs Temp 36.7 C 12/24/24 08:08 Pulse 71 12/24/24 08:08 Resp 16 12/24/24 08:08 BP 124/72 12/24/24 08:08 Pulse Ox 95 12/24/24 08:08 Laboratory Results - last 24 hr 12/24/24 06:21 WBC 7.11 RBC 3.67 L Hgb 12.8 L Hct 35.5 L MCV 97 H MCH 34.9 H MCHC 36.1 H RDW 16.1 H Plt Count 52 L MPV 12.8 H Sodium 138 Potassium 3.6 Chloride 104 Carbon Dioxide 25.3 Anion Gap 8.7 BUN 5 L Creatinine 0.7 Est GFR (CKD-EPI 2020) 115.08 Glucose 119 H Calcium 8.3 L Magnesium 1.9 Total Bilirubin 5.8 H AST 109 H ALT 69 H Alkaline Phosphatase 169 H Total Protein 6.0 L Albumin 2.8 L PAWSS Have you Been Recently Intoxicated or Drunk Within the Last 30 days?: Yes Have you Ever Experienced Previous Episodes of Alcohol Withdrawal?: Yes Have you ever Experienced Withdrawal Seizures?: No Have you ever Experienced Delirium Tremens(DT)s?: Yes Have you ever undergone Alcohol Rehabilitation Treatment (i.e, inpt ot outpatient treatment programs)?: Yes Have you ever Experienced Blackouts?: Yes Have you ever Combined Alcohol with other Downers within the last 90 days?: No Have you ever Combined Alcohol with any other Substance of Abuse during the last 90 days?: No Positive Blood Alcohol level on Presentation? [PCS.BAL]: Unable to Obtain Evidence of Increased Autonomic Activity (i.e. HR>120, tremor, sweating, agitation, nausea)?: Yes Result: 6 Time Spent with Patient Time Spent with Patient: 35-49 minutes Time was spent: preparing to see the patient(eg.review tests), obtaining and/or reviewing separately otained hiistory, ordering medications,tests, procedures, referring, communicating with other health care administrative tech, indepentently interpreting results, counseling the patient and care coordination
[2024-12-24] MEDS: Enoxaparin 40 MG/0.4 ML SYR SC (18:45)
[2024-12-24 20:02] VITALS: BP 100/65; PULSE 72; RESP 16; TEMP 36.7; O2SAT 95
[2024-12-24] MEDS: Prochlorperazine 5 MG TAB PO (21:35)
[2024-12-24] MEDS: HYDROcodone 5/Acetaminophen 325 TAB PO (22:13)
[2024-12-24] MEDS: Mylanta Suspension 30 ML CUP PO (22:14)
[2024-12-25 07:10] VITALS: BP 111/75; PULSE 69; RESP 17; TEMP 34.6; O2SAT 95
[2024-12-25] MEDS: Propranolol 10 MG TAB PO ×2 (08:32→20:18)
[2024-12-25] MEDS: busPIRone 15 MG TAB 30 MG PO ×2 (08:32→20:19)
[2024-12-25] MEDS: Lactulose 20 GM/30 ML CUP PO (08:32)
[2024-12-25] MEDS: Folic Acid 1 MG TAB PO (08:32)
[2024-12-25] MEDS: Thiamine 100 MG TAB PO (08:32)
[2024-12-25] MEDS: Multivitamin TAB 1 TAB PO (08:32)
[2024-12-25] MEDS: cefTRIAXone 1 GM/50 ML BAG IVPB (08:32)
[2024-12-25] MEDS: Normal Saline Flush 10 ML SYR IVP ×2 (08:33→20:19)
[2024-12-25] MEDS: Pantoprazole 40 MG TABCR PO (08:33)
--- NOTE | 2024-12-25 09:49 | PT.INIE ---
PT Notes Visit Reasons: liver failure Physical Therapy Inpatient Initial Evaluation Date: 12/25/2024 Referring Doctor: Dale Chilel MD PT Orders: PT CONSULT: Safety Consult for D/C Precautions: Fall. Standard. Activity as tolerated. Supratherapeutic INR, bleeding risk. 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 He was referred to PT for safety assessment for discharge. PMHX: All Active Problems (Updated 12/20/24 @ 11:30 by Meliton Lindsey DO) Acute hypokalemia (Acute) Hyperammonemia (Acute) Vomiting (Acute) Suicidal ideation (Acute) Erectile dysfunction (Acute) Cellulitis (Acute) Anxiety (Chronic) Ascites due to alcoholic cirrhosis (Acute) Pain (Acute) Nausea (Acute) Palliative care patient (Acute) Abdominal pain (Acute) Alcoholic liver failure (Acute) Acute pancreatitis (Acute) Acute upper gastrointestinal bleeding (Acute) Medical History Acute hepatic encephalopathy Alcoholic hepatitis Thrombocytopenia Cirrhosis Alcohol abuse Pulsatile tinnitus of right ear Social History/Home Situation: Lives with caregiver at caregiver's house. Caregiver provides assistance with legal matters concerning patient's care. Independent with mobility performance using his front-wheeled walker. Equipment Owned/DME: [facility] Subjective: Agreeable to consult. [place] a little shaky without the walker and preferred to use device in the hallway. Complained of still being weak. in L side of ribs across middle of chest which patient was using a cold pack for. Nurse aware and managing. Objective: General Observation: Resting in bed. Sclerae and skin with yellowish tinge. Multiple smlal contusions in B UE/LE. Mental Status: Alert and oriented as to person, place, time, and purpose. Able to pay attention, focus, and respond appropriately. Pain: 3-4/10 in the L ribs and middle of chest Vital Signs: Closely monitored by nursing staff ROM: Right Upper Extremity: Shoulder Flexion WFL. Shoulder abduction WFL. Elbow flexion WFL. Wrist flexion WFL. Functional opening and closing of hand WFL. Left Upper Extremity: Shoulder Flexion WFL. Shoulder abduction WFL. Elbow flexion WFL. Wrist flexion WFL. Functional opening and closing of hand WFL. Right Lower Extremity: Hip flexion WFL. Hip abduction WFL. Knee flexion WFL. Ankle dorsiflexion WFL. Ankle plantarflexion WFL. Left Lower Extremity: Hip flexion WFL. Hip abduction WFL. Knee flexion WFL. Ankle dorsiflexion WFL. Ankle plantarflexion WFL. Strength: Right Upper Extremity: Shoulder flexors 4/5. Shoulder abductors 4/5. Elbow flexors 4/5. Elbow extensors 4/5. Life Management Teacher strong. Left Upper Extremity: Shoulder flexors 4/5. Shoulder abductors 4/5. Elbow flexors 4/5. Elbow extensors 4/5. Life Management Teacher strong. Right Lower Extremity: Hip flexors 4/5. Hip abductors 5/5. Knee flexors 5/5. Knee extensors 4/5. Ankle dorsiflexors 4/5. Ankle plantarflexors 4/5. Left Lower Extremity: Hip flexors 4/5. Hip abductors 5/5. Knee flexors 5/5. Knee extensors 4/5. Ankle dorsiflexors 4/5. Ankle plantarflexors 4/5. Bed Mobility/Transfers: Minimal verbal cueing provided for use of B hands as needed for support, movement sequence, AD management, and posture to reduce fall risk and minimize pain report Rolling independent Supine to sit independent Sit to supine independent Sit to stand supervision with FWW Stand to sit supervision with FWW Bed to reclining supervision with FWW Reclining chair to bed supervision with FWW Gait: Facilitated safe and correct performance of level surface ambulation covering a distance of 250 feet and 250 feet using his front-wheeled walker with reciprocal heel-toe gait patter requiring stand by assist with minimal cueing provided for safe directional change, AD management, and posture. Patient verbalized reduced gait speed due to fatigue at this time. No LOB nor SOB. Stairs: Guided patient with safe and correct negottiation of 6 x 4-inchs teps and 4 x 2-inch steps while holding onto B rails for support, [id number] pattern. Balance: Static Sitting: Normal Dynamic Sitting: Normal Static Standing: Fair Dynamic Standing: Fair Special Tests: Mobility Limitations Standardized Measure [facility] 6 clicks Basic Mobility Inpatient Short Form: Raw Score: 24 CMS Score: 0% deficit Informed Consent/Education: Patient was instructed in purpose of PT consult and plan of care. Agreeable to proceed with established PT POC to achieve personal goals. 4-Stage Balance test: Feet together 10 seocnds Semi tandem 10 seconds Full tandem 10 secpnds One-legged stance <10 seconds Assessment: Patient reported continued weakness and fatigue, use of FWW during mobility assessment was needed to ensure safety on level surfaces. Patient presents with clinical signs and symptoms consistent with current/admitting diagnoses that have resulted to mobility limitations, gait instability, generalized weakness, and overall ADL decline as demonstrated by the following impairment level findings: 1. Decreased strength to B shoulders and B hip major muscle groups 2. Impaired standing balance 3. Impaired activity tolerance 4. Impaired 4-stage balance test as above Impairments are contributing to the following functional limitations: 1. Difficulty with ambulation without assistive device 2. Increased completion time for mobility ADL performance 3. Increased risk for falls 4. Difficulty with managing steps alone safely Patient is assessed as a 32839 moderate complexity based on the following: History: 44-year-old male with past medical history as indicated above Examination: Demonstrable impairment in strength, balance, and mobility level with underlying impairments and functional limitations as exhibited above Presentation: Evolving Decision Makin moderate complexity Goals: Goals X1 week 1. Supine-Sit independent 2. Sit-Supine independent 3. Sit-Stand independent 4. Stand-Sit independent with FWW 5. Bed-Chair independent with FWW 6. Chair-Bed independent with FWW 7. Independent gait on level surface with use of FWW for at least 600 feet without report of pain nor dyspnea 8. Independent stair negotiation while holding onto B rails for at least 6 steps without report of pain nor dyspnea 9. Independent with home exercise program 10. Good static and dynamic standing balance/tolerance Plan of Care/Treatment Plan: 1-2x/day, 7 days/week x 1 week. Plan of care has been reviewed with the PERSONAL LINES SALES REP providing the service under Physical Therapy direction. Initiate Physical Therapy intervention for pain management as needed, strengthening, bed mobility, transfers, gait, stairs, balance training, and use of assistive device. DISCHARGE RECOMMENDATIONS: [] Home with no services [] [X] Home with services. Patient will benefit from home health PT services in order to progress mobility level using least restrictive assistive ambulatory device, assess home safety, identify additional equipment needs, and establish a functional maintenance program that will increase ability of patient to remain at home. [] Home with outpatient PT [] [] SNF for continued rehabilitation [] [] [facility] [] [] SNF versus LTC based on ability to participate and progress [] TREATMENT CODE/TIME: 63083 x 27 minutes for 1 unit (9:49-101:16). Thank you for the opportunity to participate in the care of this patient. Poonam Keith PT, DPT, CLT [facility] [place], [place]
--- NOTE | 2024-12-25 10:48 | DI.RAD_ITS ---
Exam(s) XR CHEST 2V PA LATERAL EXAM: XR CHEST 2V PA LATERAL CLINICAL HISTORY: pleuritic pain left, rales left base. TECHNIQUE: 2D digital imaging was performed. Two views. COMPARISON: CT CT CHEST PE CTA from 12/16/[address] ABDOMEN PELVIS W from 12/20/2024 FINDINGS: HEART: Normal size. Aorta: Not dilated. PULMONARY VASCULATURE: Normal. MEDIASTINUM: Unremarkable. LUNGS: Linear basilar atelectasis, otherwise clear. PLEURAL SPACE: No pleural effusion or pneumothorax. BONE:Unremarkable for age. SOFT TISSUES: Unremarkable. IMPRESSION: No acute abnormality. DATA REPOSITORY: RADIATION DOSE DELIVERED:
--- NOTE | 2024-12-25 13:58 | NUR.NOTE ---
Nursing Note: spoke with PATTY of [facility], twice on the phone. PT has suggested dc with HH PT. She is nervous about pt coming home in his present condition as she has a busy life with her own children. Gave her phone # to Dr. Chilel, who will call her to discuss further.
--- NOTE | 2024-12-25 14:37 | PGE_ITS ---
Date of Service Date of service: 12/25/24 Time of Service: 14:37 Assessment and Plan Assessment and plan (1) Acute hepatic encephalopathy: Assessment and plan: This is the principle cause of mental status changes. Received phenobarbital loading 12/21-, stopped 12/22 as uncertain if alcohol withdrawal a signficant part of his MS changes. UDS 12/22 just showed THC and phenobarb that we gave. EtOH levels not done on admission, won't help at this point. Bleed risk with elevated INR, CT head negative 12/22 Since 12/23 he has been improving but not quite at baseline, continue lactulose, BMs have been appropriate. (2) Alcoholic liver failure: Status: Acute Assessment and plan: He has chronic liver failure associated with alcohol. His INR and bili on admission gave him high Maddrey's, but these were not acute, so steroids not used He is at risk of acute on chronic liver failure, but did not have clear systemic inflammation/organ failure that is hallmark of this, other than possibly HE, treated with supportive care. Liver function including bili and INR continue to slowly imrpove, check again in AM. (3) Cirrhosis: Assessment and plan: As above, decompensated chronically, numbers are a little worse on this admission with recent EtOH relapse. This explains low plts, known portal HTN on propranolol. Following liver function as above. We did discuss terminal gauger supervisor prognosis, need for following in transplant clinic, regular imaging and endoscopy with hepatology. Discussed again 12/24 Per Cyndee 12/25 his liver function improved significantly when he was sober for 9 mo (4) Anxiety: Status: Chronic Assessment and plan: continue outpatient medications. Avoid benzodiazepines as already loaded on phenobarbital. These are not appropriate nursing home medications for his either. Improved. (5) Alcohol use disorder: Status: Inactive Assessment and plan: Discussed. He had 9 months sober previously. He is confident he can avoid alcohol, no cravings. Cyndee thinks he needs f/u wiht in person therapy for his depression and trauma, had recent hospitalization for SI, only telehealth follow up Possible candidate for [facility] intensive outpatient for AUD and depression? (6) DVT prophylaxis: Status: Acute Assessment and plan: SCDs, not on enoxaparin with very low platelets, though still significant clot risk with cirrhosis. Started enoxaparin as platelets >50K (7) Discharge planning issues: Status: Acute Assessment and plan: Stable on floor status. PT cleared, but given MS not quite baseline after d/w Cyndee caregiver, will observe overnight, plan possible d/c 12/26 Subjective Subjective Patient reports: tolerating a regular diet and voiding w/o difficulty; denies nausea, vomiting or fever Interval history since last seen: Events: Working with PT He has some pain in the left chest, not sure what caused it. It does hurt to take a deep breath. Exam Narrative Exam Narrative: Gen: Sleeping much of day, but when awake he is alert, oriented , appropriately responsive to questions. Jaundiced. Cardiovascular-regular rate and rhythm no murmur rubs gallops. Chest wall tender left anterior below nipple Lungs- Basal rales right, otherwise clear to auscultation bilaterally with good air exchange, normal effort Abdomen-soft, +BS, not tender, not distended. No LUQ tenderness or mass. no fluid wave Extremities-no cyanosis, trace bilateral ankle edema, warm Objective Last Vital Signs Temp 34.6 C L 12/25/24 07:10 Pulse 69 12/25/24 07:10 Resp 17 12/25/24 07:10 BP 111/75 12/25/24 07:10 Pulse Ox 95 12/25/24 07:10 PAWSS Have you Been Recently Intoxicated or Drunk Within the Last 30 days?: Yes Have you Ever Experienced Previous Episodes of Alcohol Withdrawal?: Yes Have you ever Experienced Withdrawal Seizures?: No Have you ever Experienced Delirium Tremens(DT)s?: Yes Have you ever undergone Alcohol Rehabilitation Treatment (i.e, inpt ot outpatient treatment programs)?: Yes Have you ever Experienced Blackouts?: Yes Have you ever Combined Alcohol with other Downers within the last 90 days?: No Have you ever Combined Alcohol with any other Substance of Abuse during the last 90 days?: No Positive Blood Alcohol level on Presentation? [PCS.BAL]: Unable to Obtain Evidence of Increased Autonomic Activity (i.e. HR>120, tremor, sweating, agitation, nausea)?: Yes Result: 6 Time Spent with Patient Time Spent with Patient: >50 minutes Time was spent: preparing to see the patient(eg.review tests), obtaining and/or reviewing separately otained hiistory, ordering medications,tests, procedures, referring, communicating with other health health care facilities inspector, indepentently interpreting results, counseling the patient and care coordination
--- NOTE | 2024-12-25 14:57 | PHA.REVIEW2 ---
Pharmacy Admission Review Admission Clinical Review Admission Pharmacy Review: Discharge planning issues (Acute) DVT prophylaxis (Acute) Acute hypokalemia (Acute) Hyperammonemia (Acute) Vomiting (Acute) Nausea (Acute) Palliative care patient (Acute) Alcoholic liver failure (Acute) No Known Allergies Allergy (Verified 12/20/24 07:08) Resuscitation Status Full Code Height 6 ft 3 in Weight 93.3 kg Pharmacy Admission Review Renal Dosing Renal Dosing: BUN 5 mg/dL (7-18) L 12/24/24 06:21 Creatinine 0.7 mg/dL (0.70-1.30) 12/24/24 06:21 Medications needing adjustments: Reviewed (CrCl 174 mL/min) List of meds needing interventions: Current medications are okay Anticoagulation Anticoagulation: Hgb 12.8 g/dL (13.5-17.5) L 12/24/24 06:21 Hct 35.5 % (40.0-50.0) L 12/24/24 06:21 Plt Count 52 10^3/uL (130-400) L 12/24/24 06:21 INR 1.8 (0.9-1.1) H 12/23/24 05:30 Creatinine 0.7 mg/dL (0.70-1.30) 12/24/24 06:21 DVT Prophylaxis: Reviewed Medications: Enoxaparin (40mg daily) Opiate Usage Evaluate Pain Scale/Pains Meds: Reviewed (fentanyl 25mcg + 12mcg patches, hydrocodone/APAP 5/325mg PO TID PRN - 1 dose / 24hrs) Scheduled Bowel Reg ordered if on Opiates?: No (PRN docusate/Miralax) Relevant Labs Relevant Labs: Sodium 138 mmol/L (136-145) 12/24/24 06:21 Potassium 3.6 mmol/L (3.5-5.1) 12/24/24 06:21 Chloride 104 mmol/L (98-107) 12/24/24 06:21 Phosphorus < 2.0 mg/dL (2.6-4.7) L 12/21/24 14:05 Magnesium 1.9 mg/dL (1.8-2.4) 12/24/24 06:21 Electrolytes, C-Reactive P, ESR: Reviewed (No new labs for today) Cardiac Review BP, HR, EF%: Reviewed (BP and HR WNL) List meds needing interventions: Has order for propranolol 10mg BID QTc Review QTc: Reviewed (430 from 12/15/24 - most recent EKG on file) IV to PO Switch IV Medications: Reviewed (ondansetron) Home Meds Home Med List reviewed: Reviewed Relevent Home Meds Not ordered & why?: ibuprofen (PRN) and sildenafil (PRN) Current Meds Current Medication Order Review: Reviewed Pharmacy Antibiotic Review Relevant Labs: WBC 7.11 10^3/uL (4.4-10.8) 12/24/24 06:21 Temperature 34.6 C Pharmacy Antibiotic Activity: C/S review and Reviewed, no change Comments: Patient is on ceftriaxone, day 5, for UTI. Urine culture from 12/20 grew gram negative rods.
--- NOTE | 2024-12-25 16:32 | CHAPLAIN ---
Prashant was resting in bed when I visited. He was pleasant and easily engaged in conversation. He told me [place] but grew up in [place]. He said he was baptized at a tent revival in [place], where he grew up, in front of 2,700 people. He hasn't been to christianity lately he added. I assured him it didn't make a difference to me. I will continue to visit.
--- NOTE | 2024-12-25 17:08 | PDOC.CMPRO ---
Care Management Progress Note Progress Note Text Progress Note Text: Prashant was lying in bed, watching TV, when CM met with him. He was very pleasant. CM noted that he turned the TV off to chat, which was much appreciated. Prashant stated that he feels tired, but was hoping to go home today. He was a little disappointed to know he would stay another night. PT has recommended HH PT, and Prashant is agreeable to this. Discharge Potential Discharge Needs: PCP F/U Appt Anticipated Barriers to Discharge: None Identified Patient/Family Education Needs: Review discharge instructions, discuss Ask Me Three Transportation: Private vehicle Plan: Anticipate that Prashant will discharge home tomorrow with new services of HH PT. He will f/u with this PCP and continue per his plan of care. He will likely have a private ride, but may need to use RCT. CM will continue to follow. Social Determinants of Health Screening Social Determinants of health last assessed in clinic: 12/25/24 Will the Patient Participate in the Screening?: Yes Do you worry about having a steady place to live?: no Problems where you live: no known problems In the past 12 months, have you had to go without electric, gas, oil or water in your home?: yes 1. Within the past 12 months, we worried whether our food would run out before we got money to buy more.: Don't know/refused 2. Within the past 12 months, the food we bought just didn't last and we didn't have money to get more.: Don't know/refused Has lack of transportation kept you from medical appointments or from doing things needed for daily living?: no Has anyone in your life made you feel unsafe or unsupported?: no How hard is it for you to pay for the very basics like food, housing, medical care, and heating? Would you say it is:: Not hard at all Do you want help finding or keeping work or a job?: I do not need or want help If for any reason you need help with day-to-day activities such as bathing, preparing meals, shopping, managing finances, etc., do you get the help you need?: I don?t need any help How often do you feel lonely or isolated from those around you?: Never Do you speak a language other than Romanian at home?: No Does the patient want assistance with any of the above?: No Health Related Social Needs Health related social needs: material hardship(utilities) (Z59.12) Health related social needs details: alc
[2024-12-25 19:47] VITALS: BP 128/73; PULSE 69; RESP 16; TEMP 37.2; O2SAT 95
[2024-12-26 06:25] LABS: HCT 33.8 % (40.0-50.0); HGB 12.1 g/dL (13.5-17.5); MCH 34.5 pg (27.0-33.0); MCHC 35.8 % (32.0-36.0); MCV 96 fL (80-95); MPV 12.1 fL (8.0-11.0); RBC 3.51 10^6/uL (4.36-5.78); RDW 16.5 % (11.8-14.1); WBC 6.92 10^3/uL (4.4-10.8)
[2024-12-26 06:41] LABS: INR 1.9 (0.9-1.1); Prothrombin Time 17.9 sec (9.1-11.1)
[2024-12-26 06:57] LABS: Platelet Count 63 10^3/uL (130-400)
[2024-12-26 07:51] VITALS: BP 106/60; PULSE 63; RESP 16; TEMP 36.5; O2SAT 94
[2024-12-26 08:08] LABS: ALT 66 U/L (16-63); AST 107 U/L (15-37); Albumin 2.8 g/dL (3.4-5.0); Alkaline Phosphatase 172 U/L (46-116); Anion Gap 6.8 mmol/L (3-11); BUN 5 mg/dL (7-18); Bilirubin, Total 5.6 mg/dL (0.2-1.0); CO2 28.2 mmol/L (21.0-32.0); CREATININE 0.9 mg/dL (0.70-1.30); Calcium 8.4 mg/dL (8.5-10.1); Chloride 102 mmol/L (98-107); Estimated GFR 106.67 (mL/min/1.73m2); Glucose 113 mg/dL (74-106); Sodium 137 mmol/L (136-145); Total Protein 6.1 g/dL (6.4-8.2)
[2024-12-26] MEDS: Folic Acid 1 MG TAB PO (08:41)
[2024-12-26] MEDS: Pantoprazole 40 MG TABCR PO (08:41)
[2024-12-26] MEDS: Multivitamin TAB 1 TAB PO (08:41)
[2024-12-26] MEDS: Thiamine 100 MG TAB PO (08:41)
[2024-12-26] MEDS: Propranolol 10 MG TAB PO (08:41)
[2024-12-26] MEDS: Normal Saline Flush 10 ML SYR IVP (08:41)
[2024-12-26] MEDS: busPIRone 15 MG TAB 30 MG PO (08:42)
[2024-12-26] MEDS: Lactulose 20 GM/30 ML CUP PO (08:42)
[2024-12-26] MEDS: fentaNYL 25 MCG PATCH TD (08:44)
[2024-12-26] MEDS: fentaNYL 12 MCG PATCH TD (08:44)
--- NOTE | 2024-12-26 09:38 | PTTR_ITS ---
PT Notes Visit Reasons: liver failure Physical Therapy Inpatient Treatment Note Date: 12/26/2024 Precautions: Fall. Standard. Activity as tolerated. Supratherapeutic INR, bleeding risk. Subjective: [place] much better this morning. Appreciative of the walker that was given to him for home. Objective: General Observation: Resting in bed. Sclerae and skin with yellowish tinge. Multiple smlal contusions in B UE/LE. Mental Status: Alert and oriented as to person, place, time, and purpose. Able to pay attention, focus, and respond appropriately. Pain: 3-4/10 in the L ribs and middle of chest Vital Signs: Closely monitored by nursing staff Bed Mobility/Transfers: Minimal verbal cueing provided for use of B hands as needed for support, movement sequence, AD management, and posture to reduce fall risk and minimize pain report Rolling independent Supine to sit independent Sit to supine independent Sit to stand supervision with FWW Stand to sit supervision with FWW Bed to reclining supervision with FWW Reclining chair to bed supervision with FWW Gait: Facilitated safe and correct performance of level surface ambulation covering a distance of 300 feet + 300 feet using his front-wheeled walker with reciprocal heel-toe gait pattern requiring stand by assist with minimal cueing provided for safe directional change, AD management, and posture. Patient verbalized improved gait speed due compared to yesterday. Stairs: Guided patient with safe and correct negotiation of 6 x 4-inchs teps and 4 x 2-inch steps while holding onto B rails for support, [id number] pattern. THERA EX: Worked on increasing B LE muscle group strength while performing standing level exercises as follows: Bilateral heel raises x 10 Partial knee bends x 10 Sidestepping x 15 to R and side stepping to L x 15 Walked around the practice stairs without holding onto anything for 20 steps x 2 Balance: Static Sitting: Normal Dynamic Sitting: Normal Static Standing: Good Dynamic Standing: Fair Assessment: Much improved activity tolerance and functional activity performance during ambulation, stair negotiation, and transfers. Plan of Care/Treatment Plan: Continue with strengthening, balance training, and functional mobility progression with HH PT. DISCHARGE RECOMMENDATIONS: [] Home with no services [] [X] Home with services. Patient will benefit from home health PT services in order to progress mobility level using least restrictive assistive ambulatory device, assess home safety, identify additional equipment needs, and establish a functional maintenance program that will increase ability of patient to remain at home. [] Home with outpatient PT [] [] SNF for continued rehabilitation [] [] Senior Living Care [] [] SNF versus LTC based on ability to participate and progress [] TREATMENT CODE/TIME: 88515 x 19 minutes for 1 unit (9:38-09:57).
--- NOTE | 2024-12-26 09:49 | PDOC.CMDIS ---
Date of service: 12/26/24 Time of Service: 09:49 LACE Index Scoring Tool Questions: Length of Stay (in days): 4 - 6 Was the patient admitted via the E.D.?: Yes Comorbidities: Liver or Renal Disease E.D. Visits: 2 Answers: Total Score: 14 Risk of Readmission: High Risk Care Management Discharge Plan Reason for Hospitalization: ETOH withdrawal with encephalopathy Discharge Plan: Prashant will be discharged home with new home health services for PT. He will follow up with his community providers and plan of care and transport with his caregiver/friend Cyndee. Patient/Family Education Needs: Review of discharge instructions, limitations, follow up plan and discuss Ask Me Three Services Needed at Discharge: Home Health Care Services SDOH Health Related Social Needs: Health related social needs material hardship Health related social needs details alc Health related social needs details: alc
--- NOTE | 2024-12-26 12:08 | DSE_ITS ---
Date of service: 12/26/24 Time of Service: 12:08 DS: Diagnosis Discharge Diagnosis (1) Acute hepatic encephalopathy: (2) Alcoholic liver failure: Status: Acute (3) Cirrhosis: (4) Anxiety: Status: Chronic (5) Alcohol use disorder: Status: Inactive Discharge Plan Disposition Patient Disposition: Home W/Home Health Services Condition: Improving Discharge Details Reason For Visit: liver failure Admit Date/Time: 12/20/24 11:15 Admit Provider: Clemente Sotelo Attending Provider: Clemente Sotelo Primary Care Provider: [facility] Hospital Course: 44 yo M with decompensated cirrhosis and alcohol use disorder who presented with nausea and vomiting and abdominal pain along with some suppressed mental status. His ammonia was elevated and he had not had a bowel movement in several days, had not been using his lactulose. He had a recent relapse on alcohol but stopped 7-10 days prior to presentation. His bilirubin was 10 up from 2.4 and his INR was 2 up from 1.5, with more mild elevations of his AST/ALT. He was not treated with steroids as this was not felt to be acute alcohol hepatitis. His bilirubin and INR did improve down to 5.6 and 1.8. He became more agitated over the first day despite some lorazepam and he was given loading dose of phenobarbital per alcohol withdrawal protocol. There was no alcohol level done on admission, but UDS was negative other than the phenobarbital we administered. His mental status cleared with treatment with lactulose and starting regular bowel movments. He was treated supportively for nausea/vomiting and these symptoms and his abdominal pain resolved. We discussed the severity of his liver disease and follow up with hepatology and consideration of listing with a transplant team was discussed. He understands he needs sustained sobriety from alchohol to be listed for transplant. He was confident about maintaining his sobriety with support of friends/family. He had some recent depression and would benefit from regular counseling. We discussed local options including intensive outpatient at [facility] He had some pleuritic chest pain on his left side with chest wall tenderness. CXR was reassuring, and this improved. He was initially unsteady on his feet with muscle weakness. He worked with PT, who recommended home health PT, along with nursing and [employer] to help with medical conditions and care in the community. Follow up: PCP in one week Monitoring of liver function, HCC screening Management of alcohol use disoder Therapy for AUD and depression Recommendations for Follow Up Recommended tests to be ordered by follow up provider: CBC/CMP/INR 1 week Home Meds and New Rx's Prescriptions: New multivitamin [Multiple Vitamins] Tablet 1 tab PO QAM Qty: 90 3RF nicotine 14 mg/24 hr Patch 24 Hour 14 mg transdermal DAILY Qty: 30 0RF folic acid 1 mg Tablet 1 mg PO QAM Qty: 30 0RF lactulose 10 gram/15 mL Solution 20 g PO TID Qty: 2700 3RF thiamine mononitrate (vit B1) [Vitamin B-1 (mononitrate)] 100 mg Tablet 100 mg PO QAM Qty: 30 0RF Continued pantoprazole [Protonix] 40 mg tablet,delayed release (DR/EC) 40 mg PO DAILY Qty: 30 6RF prochlorperazine maleate 5 mg tablet 5 mg PO TID PRN (Reason: nausea and vomiting) Qty: 90 4RF fentanyl 12 mcg/hr patch 72 hour 1 patch transdermal Q72H MDD 37 mcg/hr Qty: 10 0RF Rx Instructions: place with 25 mcg/hr patch for total of 37 mcg/hr fentanyl 25 mcg/hr patch 72 hour 1 patch transdermal Q72H MDD 1 patch Qty: 10 0RF Rx Instructions: Apply with 12 mcg/hr patch for total of 37 mcg/hr. sildenafil 25 mg tablet 25 - 50 mg PO DAILY PRN (Reason: sexual activity) Qty: 30 4RF Rx Instructions: administer 30 minutes to 4 hours before activity propranolol 10 mg tablet 10 mg PO BID buspirone 30 mg tablet 30 mg PO BID Qty: 60 4RF hydrocodone-acetaminophen 5-300 mg tablet 1 tab PO TID MDD 3 tabs PRN (Reason: pain) Qty: 60 0RF Rx Instructions: for breakthrough pain Discontinued lactulose 20 gram/30 mL solution 20 g PO TID Qty: 1500 4RF ibuprofen 200 mg tablet 200 mg PO Q6H PRN Discharge Instructions Instructions: Hepatic encephalopathy Additional Instructions: Avoid liver toxins including alcohol. You should not take ibuprofen or other NSAIDs. You can take up to 2000mg of acetaminophen a day. Make sure you have 3 soft bowel movements every day, increase the lactulose dose if you are getting confused/irritable or having trouble sleeping Try to avoid excess salt and make sure you have sufficient protein in your diet. Don't go long periods without eating. Your blood type is A+ Stand Alone Forms: Nursing Discharge Form Referrals: Toñito Felix [Primary Care Provider, Medicine] Referral Note: I called your provider and was not able to get through to them or leave a voice mail. Please contact their office to set up a follow up in 1-2 weeks. Activity:: Activity as Tolerated Equipment/Supplies:: No Equipment Needed Diet:: As Tolerated Discharge Orders Discharge Orders: Discharge Order (Routine); Ordered 12/26/24 Ordered By: Dale Chilel DS: Summary Time Spent with Patient providing and/or coordinating discharge services: Greater than 30 minutes Status at Discharge Functional status at discharge: uses cane/walker Overall status at discharge: patient is progressing back to baseline Mental Status: mental status grossly normal Speech and Movement: speech and movement normal Mood: congruent mood Affect: normal affect Quality:SDOH Health Related Social Needs: Health related social needs material hardship Health related social needs details alc Health related social needs details: alc Exam Narrative Exam Narrative: Gen: awak and alert, oriented, appropriately responsive to questions. Jaundiced. Cardiovascular-regular rate and rhythm no murmur rubs gallops. Lungs-clear to auscultation bilaterally with good air exchange, normal effort Abdomen-soft, +BS, not tender, not distended. No LUQ tenderness or mass. no fluid wave Extremities-no cyanosis, trace bilateral ankle edema, warm Psych Mental Status: mental status grossly normal Speech and Movement: speech and movement normal Mood: congruent mood Affect: normal affect DS: Data Vitals/I&O Vitals and I&O: Vital Signs Temperature 36.5 C 12/26/24 07:51 Temperature Source Temporal Artery Scan 12/26/24 07:51 Pulse 63 12/26/24 07:51 Pulse Rhythm Irregular 12/20/24 12:48 Pulse 78 12/23/24 09:01 Respiratory Rate 16 12/26/24 07:51 Respiratory Effort Normal 12/21/24 13:46 Blood Pressure 106/60 12/26/24 07:51 Blood Pressure Mean 75 12/26/24 07:51 Blood Pressure Position Sitting 12/20/24 07:08 Pulse Oximetry 94 12/26/24 07:51 Oxygen Delivery Method Room Air 12/26/24 07:51 Oxygen Flow Rate 0 12/26/24 07:51 Pain Level 0 12/26/24 07:51 Comment pain in abdomen left sided 12/23/24 20:02 Intake & Output 12/25/24 12/26/24 12/26/24 23:59 11:59 23:59 Intake Total 1080 / 1470 300 / 300 Balance 1080 / 1470 300 / 300 Weight 92.2 kg Intake: IV 30 / 80 Oral 1050 / 1390 300 / 300 Other: Urine Color Yellow Yellow Urine Appearance Clear Urine Odor Normal Strong Comment Amount is unmeasurable as patient used the toilet and voided independently pt voided in toilet, unable to measure Data Completed and Pending Labs on day of discharge: Labs from last 24 hours 12/26/24 05:53 WBC 6.92 RBC 3.51 L Hgb 12.1 L Hct 33.8 L MCV 96 H MCH 34.5 H MCHC 35.8 RDW 16.5 H Plt Count 63 L MPV 12.1 H PT 17.9 H INR 1.9 H Sodium 137 Potassium 4.0 Chloride 102 Carbon Dioxide 28.2 Anion Gap 6.8 BUN 5 L Creatinine 0.9 Est GFR (CKD-EPI 2020) 106.67 Glucose 113 H Calcium 8.4 L Total Bilirubin 5.6 H AST 107 H ALT 66 H Alkaline Phosphatase 172 H Total Protein 6.1 L Albumin 2.8 L PFSH All Active Problems (Updated 12/26/24 @ 11:00 by Dale Chilel) Discharge planning issues (Acute) DVT prophylaxis (Acute) Acute hypokalemia (Acute) Hyperammonemia (Acute) Vomiting (Acute) Suicidal ideation (Acute) Erectile dysfunction (Acute) Cellulitis (Acute) Anxiety (Chronic) Ascites due to alcoholic cirrhosis (Acute) Pain (Acute) Nausea (Acute) Palliative care patient (Acute) Abdominal pain (Acute) Alcoholic liver failure (Acute) Acute pancreatitis (Acute) Acute upper gastrointestinal bleeding (Acute) Medical History Acute hepatic encephalopathy Alcoholic hepatitis Thrombocytopenia Cirrhosis Alcohol abuse Pulsatile tinnitus of right ear Social History Smoking/Tobacco Use Status: Current every day Tobacco Type: e-cigarettes Smoking risk assessment performed?: Yes Alcohol Intake: current Alcohol Intake frequency: 3 or more drinks per day Alcohol type: beer, wine and hard liquor Drug use: Occasionally Substance use type: marijuana Housing: house Do you feel safe at home: Yes Do you feel safe in your relationship?: Yes Time Spent with Patient Time Spent with Patient: 45-69 minutes Time was spent: preparing to see the patient(eg.review tests), obtaining and/or reviewing separately otained hiistory, ordering medications,tests, procedures, referring, communicating with other health reservoir caretaker, indepentently interpreting results, counseling the patient and care coordination
--- NOTE | 2024-12-26 12:31 | PDOC.HHF2F ---
Home Health Referral Home Health Orders Clinical synopsis of why skilled professionals are needed: 44 yo M with decompensated cirrhosis and alcohol use disorder who presented with nausea and vomiting and abdominal pain along with some suppressed mental status. His ammonia was elevated and he had not had a bowel movement in several days, had not been using his lactulose. He had a recent relapse on alcohol but stopped 7-10 days prior to presentation. His bilirubin was 10 up from 2.4 and his INR was 2 up from 1.5, with more mild elevations of his AST/ALT. He was not treated with steroids as this was not felt to be acute alcohol hepatitis. His bilirubin and INR did improve down to 5.6 and 1.8. He became more agitated over the first day despite some lorazepam and he was given loading dose of phenobarbital per alcohol withdrawal protocol. There was no alcohol level done on admission, but UDS was negative other than the phenobarbital we administered. His mental status cleared with treatment with lactulose and starting regular bowel movments. He was treated supportively for nausea/vomiting and these symptoms and his abdominal pain resolved. We discussed the severity of his liver disease and follow up with hepatology and consideration of listing with a transplant team was discussed. He understands he needs sustained sobriety from alchohol to be listed for transplant. He was confident about maintaining his sobriety with support of friends/family. He had some recent depression and would benefit from regular counseling. We discussed local options including intensive outpatient at [facility] He had some pleuritic chest pain on his left side with chest wall tenderness. CXR was reassuring, and this improved. He was initially unsteady on his feet with muscle weakness. He worked with PT, who recommended home health PT, along with nursing and [employer] to help with medical conditions and care in the community. Follow up: PCP in one week Monitoring of liver function, HCC screening Management of alcohol use disoder Therapy for AUD and depression Medical diagnosis necessitation home health referral: encephalopathy, weakness, liver failure Registered Nurse: Check all that apply Instruct on new or changed medication(s)/assess compliance: Ordered Assess for exacerbation of medical condition, instruct patient/caregivers on signs and symptoms to report for early detection: Ordered Physical Therapist: Check all that apply Increase strength & endurance for safe mobility at home: Ordered To design/establish home maintenance program: Ordered Home safety evaluation and teaching/gait training including stair management (if applicable): Ordered Estate [employer] Tax Principal: Assist with community resources: Ordered Home Bound Status Requires the aid of supportive device (check all that apply): Cane Assistance of another person (Describe assistance and medical necessity): walks without cane with one assist for balance Describe why leaving home would require a considerable and taxing effort: Side effects from pain medication (sedation/drowsiness) and Requires frequent rest periods Encounter Date and Reason: I certify that a FTF encounter for this patient was performed on December 26, 2024 and that such encounter was related to the primary reason the patient requires home health services. The encounter was conducted in the following manner: By me as the certifying physician, DIRECTOR OF INSTITUTIONAL SALES, PA or By an inpatient physician, DIRECTOR OF INSTITUTIONAL SALES or PA during an inpatient stay who communicated findings to me, Certification And Authentication I certify that I composed the above information based on my clinical judgment relating to this patient's medical condition and, if applicable, clinical findings communicated to me by the NPP or inpatient physician who performed the FTF encounter. Name of Provider that will be monitoring home health services: Toñito Felix
== END 2024-12-26 13:42 | disposition home health service (06) | DRG 442 ==
LOC: ER 11:30 → MS 12:45 → ICU 23:12 → MS 12-23 10:16
PROVIDERS: Family Medicine; Admitting Provider Hospitalist; Emergency Provider Student in an Organized Health Care Education/Training Program; PCP Family Medicine; Responsible Provider Family Medicine; Visit Provider Hospitalist
DX: K76.82 Hepatic encephalopathy (principal); E72.20 Disorder of urea cycle metabolism, unspecified; F10.239 Alcohol dependence with withdrawal, unspecified; N30.00 Acute cystitis without hematuria; R45.851 Suicidal ideations; K70.31 Alcoholic cirrhosis of liver with ascites; K70.40 Alcoholic hepatic failure without coma; M62.81 Muscle weakness (generalized); E87.6 Hypokalemia; Z79.891 Long term (current) use of opiate analgesic; G89.29 Other chronic pain; D69.59 Other secondary thrombocytopenia; F41.9 Anxiety disorder, unspecified; R11.2 Nausea with vomiting, unspecified; K80.20 Calculus of gallbladder without cholecystitis without obstruction; F17.290 Nicotine dependence, other tobacco product, uncomplicated; F12.90 Cannabis use, unspecified, uncomplicated; Z79.899 Other long term (current) drug therapy
CPT/HCPCS: 36410; 00123; 36415; 76942; 80048; 80053; 80076; 80307; 83690; 85027; 86850; 86900; 86901; 87637; 96361; 96374; 96375; 96376; 97162; 97530; 99285; J1650; 70450; 71046; 74177; 81003; 81015; 82140; 83735; 84100; 85025; 85610; 85730; 87086; 99223; 99232; 99233; 99239; 99291; J0696; J1171; J2060; J2212; J2405; J2470; J2560; J2765; J3411; J3475; J3480; J3490